=== PATIENT | female | born 1945 | race Caucasian/White ===

== ENCOUNTER → 2018-01-11 07:33 | Outpatient (CLI) | payer MEDICARE, MEDICAID, SELFPAY ==
[2018-01-11 09:11] LABS: Alanine Aminotransferase 47 U/L (12-78); Albumin Level 3.1 gm/dL (3.4-5.0); Alkaline Phosphatase 163 U/L (46-116); Aspartate Amino Transferase 22 U/L (15-37); Bilirubin,Direct 0.1 mg/dL (0.0-0.2); Bilirubin,Total 0.3 mg/dL (0.2-1.0); Chol/HDL Ratio 3.2 (1-3.5); Cholesterol 154 mg/dL (140-200); HDL Cholesterol 48 mg/dL (29-89); LDL Cholesterol 86 mg/dL (0-130); Total Protein,Serum 6.6 gm/dL (6.4-8.2); Triglycerides 101 mg/dL (30-200); VLDL Cholesterol 20 mg/dL (0-40)
== END ==
PROVIDERS: Visit Provider Internal Medicine
DX: E78.5 Hyperlipidemia, unspecified (principal); I10 Essential (primary) hypertension; I25.10 Atherosclerotic heart disease of native coronary artery without angina pectoris; Z72.0 Tobacco use
CPT/HCPCS: 36415; 80061; 80076

== ENCOUNTER → 2018-06-07 08:28 | Outpatient (CLI) | payer MEDICARE, MEDICAID, SELFPAY ==
--- NOTE | 2018-06-07 08:35 | XR_ITS ---
XR chest 2V HISTORY: ITS.REASON: COPD, UNSPECIFIED COPD TYPE ORDERING PHYSICIAN: Manuela Castillo PATIENT AGE: 73 years COMPARISON: PA and lateral chest 09/11/2016 FINDINGS: The cardiomediastinal silhouette and pulmonary vascularity are within normal limits. The lungs are clear without infiltrates, suspicious nodules, or pleural effusions. There is stable small calcified granuloma left posterior gutter No acute bony abnormalities. IMPRESSION: Negative chest, no acute finding
== END ==
PROVIDERS: PCP Nurse Practitioner Family; Visit Provider Nurse Practitioner Family
DX: J44.9 Chronic obstructive pulmonary disease, unspecified (principal)
CPT/HCPCS: 71046

== ENCOUNTER → 2018-06-14 11:18 | Outpatient (CLI) | payer MEDICARE, MEDICAID, SELFPAY | PROVIDERS: PCP Nurse Practitioner Family; Visit Provider Internal Medicine | DX: R00.0 Tachycardia, unspecified (principal) | CPT/HCPCS: 93225; 93226 ==

== ENCOUNTER → 2018-06-20 06:55 | Outpatient (CLI) | payer MEDICARE, MEDICAID, SELFPAY ==
--- NOTE | 2018-06-20 06:57 | CA_ITS ---
PROCEDURE: 2-D M-mode and color Doppler study INDICATIONS FOR THE TEST: Chest pain COPD+ Heart Murmur Tobacco Smoking+ Palpitations+ Fatigue+ Syncope+ Edema+ Hypertension+Diabetes Mellitus Rheumatic Fever SOB+GARLAND+Obesity+Hyperlipidemia Family History HD Additional History CAD, EMPHYSEMA,GERD PATIENT INFORMATION HEIGHT: 65 WEIGHT:190 GENDER: Female B/P:122/68 2-D/M-MODE INTERPRETATION: 2-D MEASUREMENTS OBSERVED VALUES IN CMS Right Ventricular Dimension (RVDd) 2.1 Interventricular Septum (Thickness)(IVsd) 1.9 Left Ventricular Internal Dimensions(LVIDd) 3.8 Left Ventricular Posterior Wall (Thickness)(LVPWd) 1.0 Aortic Root 2.9 Aortic Cusp Separation 1.3 Left Atrial Dimensions (LAD) 3.1 2D 1. Left atrium is qualitatively mildly enlarged, left ventricle is normal size, mild concentric left ventricular hypertrophy, visually estimated ejection fraction of 55-60% with no obvious regional wall motion abnormality. 2. The right atrium is mildly enlarged, right ventricle is normal size and contractility. 3. The aortic valve is minimally thickened and fibrosed 4. The mitral and tricuspid valvular grossly normal. 5. The pulmonic valve is poorly visualized. 6. No significant pericardial effusion noted. DOPPLER INTERROGATION: Doppler interrogation of the aortic, mitral and tricuspid valvular presence of mild mitral and tricuspid regurgitation, calculated right ventricular systolic pressure is 39 mmHg consistent with mild primary hypertension, grade 1 diastolic dysfunction seen with tissue Doppler evidence of raised left atrial pressure. CONCLUSION: 1. Qualitatively mildly enlarged left atrium, normal left ventricular size, mild concentric left ventricular hypertrophy, visually estimated ejection fraction of 55-60% with no obvious regional wall motion abnormality, grade 1 diastolic dysfunction seen with tissue Doppler evidence of raised left atrial pressure. 2. Mild mitral and tricuspid regurgitation, calculated right ventricular systolic pressure is 39 mmHg. 3. No significant pericardial effusion noted.
--- NOTE | 2018-06-20 06:57 | NM_ITS ---
History and Indications: Hypertension,, tobacco use, shortness of breath and palpitations Procedure: Patient received a 0.4 mg of Lexiscan, resting heart rate was 80 beats prominent, resting blood pressure 133/70, with Lexiscan maximum heart rate achieved was 98 bpm, which is less than 85% of the maximum predicted heart rate and a blood pressure 106/57. With Lexiscan patient complained of shortness of breath and chest tightness. Electrocardiogram: Resting electrocardiogram shows sinus rhythm, with Lexiscan there is less than 1.[address] segment depression noted from the baseline EKG. The EKG portion of the Lexiscan Myoview is nondiagnostic. Cardiac stress and resting SPECT images: Cardiac stress and rest SPECT images were obtained using technetium 99 Myoview 31.3 mCi at stress and 10.5 mCi at rest. Gated SPECT further analysis of segmental wall motion and calculation of the ejection fraction also done. Cardiac stress and the suspect images show uniform myocardial activity without any segmental perfusion abnormality, computer derived ejection fraction is over 65% with no obvious regional wall motion abnormality, right ventricle is normal size and contractility. Conclusion: 1. The EKG portion of the Lexiscan Myoview is nondiagnostic. 2. No obvious scintigraphic evidence of reversible ischemia seen, computer derived ejection fraction is over 65% with no obvious regional wall motion abnormality, right ventricle is normal size and contractility 3. Normal Lexiscan Myoview study.
--- NOTE | 2018-06-20 07:14 | HMH.ITSHM ---
RANITIDINE PANTOPRAZOLE NITRO LISINOPRIL HYDROCHLOROTHIAZIDE CARVEDILOL ATORVASTATIN ASA AMLODIPINE ALBUTEROL
== END ==
PROVIDERS: Family Provider Nurse Practitioner Family; PCP Nurse Practitioner Family; Visit Provider Internal Medicine
DX: R06.02 Shortness of breath (principal); R00.0 Tachycardia, unspecified; I25.10 Atherosclerotic heart disease of native coronary artery without angina pectoris; J44.9 Chronic obstructive pulmonary disease, unspecified; F17.200 Nicotine dependence, unspecified, uncomplicated
CPT/HCPCS: 78452; 93017; 93306; A9502; J2785

== ENCOUNTER → 2019-02-15 07:40 | Outpatient (CLI) | payer MEDICARE, MEDICAID, SELFPAY ==
--- NOTE | 2019-02-15 07:54 | US_ITS ---
US abdomen limited HISTORY:Upper Abdominal pain RUQ pain nausea 3 weeks ORDERING PHYSICIAN: Manuela Castillo PATIENT AGE: 73 years Comparison: HIDA scan from 2016 revealed 46% ejection fraction There is also CT abdomen and pelvis from July 2016 Sagittal, transverse and decubitus imaging of the gallbladder was performed. FINDINGS: GALLBLADDER - No stones are evident. There is no gallbladder wall thickening. Common duct is normal in diameter. Liver: Septated cyst area at the posterior right lobe the liver measures up to 3.2 cm maximally x 1.9 cm. This has a benign appearance on today's ultrasound and also note that it appears unchanged since coronal CT image of liver from December 2015. Otherwise. no significant findings at liver. No biliary ductal dilatation Common duct normal diameter measuring 2.5 mm at hilum of liver. Portal vein normal caliber. Pancreas: Unremarkable. No mass no pancreatic ductal dilatation Right kidney: Small cyst at right kidney anterior/ medial aspect measures up to 1.6 cm. Stable since prior 2016 CT. No hydronephrosis. Right kidney normal size 10 cm length.. IMPRESSION: Negative gallbladder ultrasound. No gallstones stones evident. Liver. 3.2 cm septated cyst right lobe liver. Benign cystic appearance with No significant change since July 2016 CT abdomen Pancreas, common duct, unremarkable Stable 1.6 cm cyst anterior aspect right kidney again noted.
== END ==
PROVIDERS: PCP Nurse Practitioner Family; Visit Provider Nurse Practitioner Family
DX: R10.11 Right upper quadrant pain (principal)
CPT/HCPCS: 76705

== ENCOUNTER → 2019-06-12 11:14 | Outpatient (CLI) | payer MEDICARE, MEDICAID, SELFPAY ==
--- NOTE | 2019-06-12 11:19 | XR_ITS ---
XR chest 2V HISTORY: Shortness of breath ITS.REASON: SOB ORDERING PHYSICIAN: Manuela Castillo APRN PATIENT AGE: 74 years COMPARISON: 06/07/2018 FINDINGS: The cardiomediastinal silhouette and pulmonary vascularity are within normal limits. The lungs are clear without infiltrates, suspicious nodules, or pleural effusions. There are minimal fibrotic changes in the right lung base No acute bony abnormalities. IMPRESSION: No change with no acute finding
--- NOTE | 2019-06-12 11:20 | XR_ITS ---
EXAM: XR lumbar spine min 4V HISTORY: ITS.REASON: LUMBAGO WITH BILAT SCIATICA ORDERING PHYSICIAN: Manuela Castillo APRN PATIENT AGE: 74 years COMPARISON: 10/05/2016 FINDINGS: There is normal alignment. Mild degenerative disc disease at L1-L2 L2-L3 and L3-L4. There is mild concavity in the superior endplate of L2 suggesting mild compressive changes. Is not readily. On previous exam of 10/05/2016. There is generalized vascular calcification. IMPRESSION: 1. Minimal concave deformity of the superior endplate of L2 suggesting mild compressive change age indeterminate but not present on 10/05/2016. No retropulsed fragments 2. Mild degenerative changes
== END ==
PROVIDERS: PCP Nurse Practitioner Family; Visit Provider Nurse Practitioner Family
DX: R06.02 Shortness of breath (principal)
CPT/HCPCS: 71046; 72110

== ENCOUNTER → 2019-06-15 14:09 | Outpatient (CLI) | payer MEDICARE, MEDICAID, SELFPAY ==
--- NOTE | 2019-06-15 14:12 | MR_ITS ---
MR lumbar spine wo con, MR 3-d myelogram/MRCP HISTORY: LBP XYRS. Bilateral leg pain. Bilateral feet numbness. ITS.REASON: NON-TRAUMATIC COMPRESSION FX ORDERING PHYSICIAN: Manuela Castillo APRN PATIENT AGE: 74 years Comparison: 06/14/2012 TECHNIQUE: Standard multiplanar multiecho sequences are performed without contrast. 3-D MIP and myelographic images are also rendered and reviewed FINDINGS: Spinal cord ends at the L2 level. There is normal alignment. There is mild lumbar scoliosis convex right. The disc spaces are well-preserved. No significant bulge, herniation, canal stenosis, or significant foraminal or lateral recess narrowing is evident. Spinal cord has an unremarkable appearance. Mild facet hypertrophic changes present at L5-S1. Incidental note made of small right renal cyst. Small lipoma is noted involving the L4 vertebral body IMPRESSION: Minimal lumbar scoliosis convex right otherwise essentially negative MRI of the lumbar spine. Overall no significant change
== END ==
PROVIDERS: PCP Nurse Practitioner Family; Visit Provider Nurse Practitioner Family
DX: M48.56XA Collapsed vertebra, not elsewhere classified, lumbar region, initial encounter for fracture (principal)
CPT/HCPCS: 72148; 76376

== ENCOUNTER → 2019-07-07 08:11 | Outpatient (CLI) | payer MEDICARE, MEDICAID, SELFPAY ==
--- NOTE | 2019-07-07 08:20 | XR_ITS ---
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 There is an approximate 1-2 mm anterior listhesis of C4 on C5 likely secondary to arthritic changes of the apophyseal joints. There is mild disc space narrowing at C5-6 and C6-7 levels. The left neural foramina appear normal. There is mild neural foraminal narrowing on the right side is C5-6 level secondary to spurring of the uncinate joints. There are mild multilevel arthritic changes of the apophyseal joints. The prevertebral soft tissues are normal. There are mild arthritic changes of the atlantoaxial joint but the odontoid is intact. IMPRESSION: Mild to moderate degenerate disc disease C5-6 and C6-7 Dictated by: Dr. Cal Mi MD 07/07/2019 08:47 Signed by: <Electronically signed by Dr. Cal Mi MD in [place]> 07/07/2019 08:47
== END ==
PROVIDERS: PCP Nurse Practitioner Family; Visit Provider Nurse Practitioner Family
DX: M54.2 Cervicalgia (principal)
CPT/HCPCS: 72050

== ENCOUNTER → 2019-07-21 09:58 | Outpatient (CLI) | payer MEDICARE, MEDICAID, SELFPAY ==
--- NOTE | 2019-07-21 10:01 | MR_ITS ---
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 3-D MIP and myelographic images are also rendered and reviewed FINDINGS: There is normal alignment. The cranial cervical junction has an unremarkable appearance. C2-C3: Unremarkable. C3-C4: Unremarkable. C4-C5: Minimal anterolisthesis of C4 of 3 mm. Unchanged. C5-C6: Degenerate disc disease with mild bulging disc with minimal contour deformity of the anterior aspect of the cord not significantly changed. C6-C7: Degenerate disc disease with mild bulging disc slightly more prominent compared to the previous study without impingement. C7-T1: Unremarkable. IMPRESSION: 1. No disc herniation or canal stenosis. 2. C4-C5: Minimal anterolisthesis of C4 of 3 mm. Unchanged. 3. C5-C6: Degenerate disc disease with mild bulging disc with minimal contour deformity of the anterior aspect of the cord not significantly changed. 4. C6-C7: Degenerate disc disease with mild bulging disc slightly more prominent compared to the previous study without impingement. Dictated by: Deniz Goodwin MD 07/23/2019 12:43 Electronically signed by Deniz Goodwin MD in [place] 07/27/2019 13:47
== END ==
PROVIDERS: PCP Nurse Practitioner Family; Visit Provider Nurse Practitioner Family
DX: M50.30 Other cervical disc degeneration, unspecified cervical region (principal)
CPT/HCPCS: 72141; 76376

== ENCOUNTER → 2019-11-06 08:49 | Outpatient (CLI) | payer MEDICARE, SELFPAY ==
[2019-11-06 10:45] LABS: Alanine Aminotransferase 22 U/L (12-78); Alkaline Phosphatase 101 U/L (46-116); Aspartate Amino Transferase 13 U/L (15-37); Bilirubin,Direct 0.1 mg/dL (0.0-0.2); Bilirubin,Indirect 0.2 mg/dL (0.0-0.9); Bilirubin,Total 0.3 mg/dL (0.2-1.0); Chol/HDL Ratio 5.4 (1-3.5); Cholesterol 252 mg/dL (140-200); HDL Cholesterol 47 mg/dL (29-89); LDL Cholesterol 190 mg/dL (0-130); Total Protein,Serum 6.9 gm/dL (6.4-8.2); Triglycerides 77 mg/dL (30-200); VLDL Cholesterol 15 mg/dL (0-40)
== END ==
PROVIDERS: Visit Provider Urology
DX: I11.9 Hypertensive heart disease without heart failure; I25.10 Atherosclerotic heart disease of native coronary artery without angina pectoris; R06.02 Shortness of breath; E78.49 Other hyperlipidemia
CPT/HCPCS: 36415; 80061; 80076

== ENCOUNTER → 2020-01-04 09:35 | Outpatient (CLI) | payer MEDICARE, MEDICAID, SELFPAY ==
--- NOTE | 2020-01-04 09:46 | XR_ITS ---
PROCEDURE: XR SHOULDER RT MIN 2V CLINICAL INDICATION: RT SHOULDER PAIN COMPARISON: No exams were available for comparison FINDINGS: There is no fracture dislocation or other focal bony lesion. Mild acromioclavicular joint arthropathy is noted. IMPRESSION: No acute findings. Dictated by: Fortunato Barragan 01/04/2020 12:05 Electronically signed by Fortunato Barragan in [place] 01/04/2020 12:05
== END ==
PROVIDERS: PCP Nurse Practitioner Family; Visit Provider Nurse Practitioner Family
DX: M25.511 Pain in right shoulder (principal)
CPT/HCPCS: 73030

== ENCOUNTER 2020-02-26 10:40 | Emergency (ER) | payer MEDICARE, MEDICAID, SELFPAY ==
[2020-02-26 10:41] VITALS: BP 133/72; PULSE 74; RESP 17; TEMP 36.9; O2SAT 94; BMI 34.1
--- NOTE | 2020-02-26 10:44 | XR_ITS ---
PROCEDURE: XR CHEST 2V CLINICAL HISTORY: chest pain Midline chest pain COMPARISON: CXR CHEST(2 VIEWS-NOT PORTABLE) from 09/11/[address] [facility] [address] CHEST W/ CONTRAST from 10/05/2016 CXR2V XR chest 2V from 06/07/2018 XR CHEST 2V from 09/12/2019 FINDINGS: The cardiomediastinal silhouette and pulmonary vascularity are within normal limits. There is patchy atelectasis or infiltrate overlying the left heart. The remaining lungs are clear. No acute bony abnormalities. IMPRESSION: Atelectasis infiltrate or fibrosis in the left lower lung zone Dictated by: Deniz Goodwin MD 02/26/2020 11:35 Electronically signed by Deniz Goodwin MD in [place] 02/26/2020 11:35
[2020-02-26 10:57] LABS: Microscopic, Urine URINE MICROSCOPIC (MICROSCOPIC)
[2020-02-26 10:58] LABS: Basophils % 0.4 % (0.1-2.0); Eosinophils # 0.1 K/mm3 (0.0-0.4); Eosinophils % 1.1 % (0.1-12.0); Hematocrit 45.7 % (37.0-47.0); Hemoglobin 15.1 g/dL (12.2-16.2); Lymphocytes # 2.8 K/mm3 (0.7-4.5); Lymphocytes % 32.3 % (10-50); Mean Corpuscular Hemoglobin 29.2 pg (27.0-31.2); Mean Corpuscular Volume 88.5 fl (81-99); Mean Platelet Volume 9.2 fl (7.4-10.4); Monocytes # 0.6 K/mm3 (0.1-1.0); Monocytes % 7.1 % (1.7-9.3); Neutrophils # 5.2 K/mm3 (1.8-7.8); Neutrophils % 59.2 % (37.0-80.0); Platelet Count 194 K/mm3 (142-424); Red Blood Count 5.17 M/mm3 (4.20-5.40); White Blood Count 8.7 K/mm3 (4.8-10.8)
[2020-02-26 11:01] LABS: Appearance,Urine SL CLOUDY (Clear); Bilirubin,Urine Negative (Negative); Blood, Urine Negative (Negative); Color,Urine YELLOW (Yellow); Glucose,Urine (UA) Negative (Negative); Ketones,Urine Negative (Negative); Leukocyte Esterase,Urine Negative (Negative); Nitrate,Urine Negative (Negative); PH,Urine 6.5 (5.0-8.5); Protein,Urine TRACE (Negative); Specific Gravity, Urine 1.025 (1.005-1.030); Urobilinogen,Urine 0.2 EU/dl (0.2)
[2020-02-26 11:03] LABS: Chloride 104 mmol/L (98-107); Potassium 4.4 mmoL/L (3.5-5.1); Sodium 138 mmol/L (136-145)
[2020-02-26 11:06] LABS: Alanine Aminotransferase 18 U/L (12-78); Alkaline Phosphatase 96 U/L (38-126); Anion Gap 9.4 mEq/L (5-15); Aspartate Amino Transferase 26 U/L (14-36); Bilirubin,Indirect 0.2 mg/dL (0.0-0.9); Bilirubin,Total 0.2 mg/dl (0.2-1.3); Bilirubin,Unconjugated 0.3 mg/dL (0.0-1.1); Blood Urea Nitrogen 22 mg/dl (7-17); Calcium 9.2 mg/dl (8.4-10.2); Carbon Dioxide 29 mmol/L (22.0-30.0); Creatinine Clearance Estimated 72 mL/min (50-200); Estimated Glomerular Filt Rate 82 ml/min (>60); GFR (African American) 99 ML/MIN (>60); Glucose 113 mg/dl (74-100); Total Protein,Serum 7.4 g/dl (6.3-8.2)
--- NOTE | 2020-02-26 11:08 | CT_ITS ---
PROCEDURE: CT ANGIO CHEST CLINCIAL INDICATION: chest pain, sharp, radiates to back COMPARISON: [facility] CT CHEST W/ CONTRAST from 10/05/2016 TECHNIQUE: IV Contrast: 70ML OPTIRAY 350 Axial images obtained with sagittal and coronal reformats. All CT scans at the facility use one or more dose reduction, viz: automated exposure control, ma/kV adjustment per patient size (including targeted exams where dose is matched to indication, i.e. head), or iterative reconstruction technique. FINDINGS: HEART AND MEDIASTINAL STRUCTURES: No acute finding. No evidence of aortic aneurysm dissection or pulmonary embolus. LUNGS AND PLEURAL SPACES: There is mild biapical fibrotic change atelectatic or fibrotic changes are present in the right lower lobe and lingula. There is evidence of old granulomatous disease. There are mild centrilobular emphysematous changes BONY STRUCTURES: No acute bony abnormalities apparent. UPPER ABDOMEN: There is a stable hypodensity in the right hepatic lobe at 3 cm consistent with a cyst. ADDITIONAL FINDINGS: No other significant abnormalities. IMPRESSION: No acute finding Centrilobular emphysema with scattered areas of scarring Dictated by: Deniz Goodwin MD 02/26/2020 12:24 Electronically signed by Deniz Goodwin MD in [place] 02/26/2020 12:24
--- NOTE | 2020-02-26 11:09 | HMH.EDGENADL ---
ED Disposition Clinical Impression: Atypical chest pain Chronic obstructive lung disease Qualifiers: COPD type: chronic bronchitis Chronic bronchitis type: unspecified Qualified Code(s): J42 - Unspecified chronic bronchitis Disposition: Home, Self-Care Condition on Discharge: Fair Instructions: DI for Chronic Obstructive Pulmonary Disease, DI for Atypical Chest Pain Additional Instructions: You have been evaluated for chest pain, atypical. Does not appear to be a heart attack or an abnormality of the aorta. It could be due to COPD. Please take medications as prescribed. Follow-up with your primary care doctor in 1 to 2 days. Return to the emergency department if you have new or worsening symptoms, chest pain, shortness of breath, syncope, other concerns Referrals: Provider,Referral, [Referring] - Time of Disposition: 13:56 - Critical Care Critical Care Time: No Attestation: On 02/26/20, the high probability of a clinically significant, sudden or life threatening deterioration of the following system(s) required my full and direct attention, intervention and personal management. The time I documented below is in addition to time spent performing reported procedures but includes the following listed in this critical care notation. Medical Decision Making - Kervin Inquiry Pt receiving controlled substance: No Vital Signs: 02/26/20 10:41 02/26/20 14:00 Temperature 98.5 F 98.5 F Temperature Source Oral Oral Pulse Rate 74 Pulse Rate [Right Radial] 74 Respiratory Rate 17 17 Blood Pressure 133/72 Blood Pressure [Right Arm] 133/72 Blood Pressure Mean [Right Arm] 92 Blood Pressure Source Automatic Cuff Blood Pressure Position Sitting 02 Sat by Pulse Oximetry 94 L Oxygen Delivery Method Room Air Room Air - Lab Data Lab Results 02/26/20 10:44: WBC 8.7, RBC 5.17, Hgb 15.1, Hct 45.7, MCV 88.5, MCH 29.2, MCHC 33.0, RDW 14.0, Plt Count 194, MPV 9.2, Neut % (Auto) 59.2, Lymph % (Auto) 32.3, [place] % (Auto) 7.1, Eos % (Auto) 1.1, Baso % (Auto) 0.4, Neut # (Auto) 5.2, Lymph # (Auto) 2.8, [place] # (Auto) 0.6, Eos # (Auto) 0.1, Baso # (Auto) 0.0 02/26/20 10:44: Sodium 138, Potassium 4.4, Chloride 104, Carbon Dioxide 29, Anion Gap 9.4, BUN 22 H, Creatinine 0.70, Estimated Creat Clear 72, Estimated GFR 82, Est GFR ( Amer) 99, Glucose 113 H, Calcium 9.2, Total Bilirubin 0.2, Direct Bilirubin 0.0, Conjugated Bilirubin 0.0, Indirect Bilirubin 0.2, Unconjugated Bilirubin 0.3, AST 26, ALT 18, Alkaline Phosphatase 96, Troponin I < 0.01, Total Protein 7.4, Albumin 4.0 02/26/20 10:50: Urine Color Yellow, Urine Appearance Sl cloudy, Urine pH 6.5, Ur Specific [place] 1.025, Urine Protein Trace, Urine Glucose (UA) Negative, Urine Ketones Negative, Urine Blood Negative, Urine Nitrate Negative, Urine Bilirubin Negative, Urine Urobilinogen 0.2, Ur Leukocyte Esterase Negative, Urine RBC Occasional, Urine WBC None, Ur Squamous Epith Cells 3-5, Urine Bacteria Trace 02/26/20 13:05: Troponin I < 0.01 Result diagrams: 02/26/20 10:44 02/26/20 10:44 Orders (Tests/Meds): ED MEDICATIONS Discontinued Medications Generic Name Dose Route Start Last Admin Trade Name Ljq PRN Reason Stop Dose Admin Aspirin 324 mg 02/26/20 10:44 02/26/20 10:50 Aspirin 81mg Chewable Tablet PO 02/26/20 10:45 324 mg ONCE ONE Administration Iohexol 70 ml 02/26/20 12:04 02/26/20 12:05 Rad-Omnipaque 350 100ml Bottle IV 02/26/20 12:05 70 ml ONCE ONE Administration Sodium Chloride 50 ml 02/26/20 12:04 02/26/20 12:05 Rad-Ns 50ml Vial IV 02/26/20 12:05 50 ml ONCE ONE Administration Sodium Chloride 10 ml 02/26/20 12:04 02/26/20 12:05 Rad-Saline Flush 10ml Syringe IV 02/26/20 12:05 10 ml ONCE ONE Administration - CT Data CT Scan: Chest Time Received: 12:[address] Reviewed: Yes: I have reviewed the patient's CT results, I have viewed the radiologist's interpretation Findings Narrative: CTA FINDINGS
[2020-02-26 11:23] LABS: Troponin I < 0.01 ng/ml (0.00-0.034)
[2020-02-26 11:52] LABS: Bacteria,Urine Trace /lpf; RBC,Urine Occasional #/hpf (0-3)
--- NOTE | 2020-02-26 13:04 | ECG_ITS ---
APPROVED REPORT Exam: Resting ECG HR:75 bpm ECG Measurements Heart Rate 75 AXES GA 166 P 59 QRSd 68 QRS -3 QT 372 T 18 QTc 415 <Conclusion> Normal sinus rhythm Motion artifact Otherwise a normal ECG Electronically signed by : Serjio Faith, 02/26/2020 16:11:06
--- NOTE | 2020-02-26 13:08 | PC.NURSE ---
second troponin drawn and to lab for resulting.
[2020-02-26 13:38] LABS: Troponin I < 0.01 ng/ml (0.00-0.034)
[2020-02-26 14:00] VITALS: BP 133/72; PULSE 74; RESP 17; TEMP 36.9; O2SAT 94
== END 2020-02-26 14:03 | disposition home or self-care (01) ==
LOC: ER 10:51
PROVIDERS: Emergency Provider Emergency Medicine; PCP Nurse Practitioner Family
DX: J42 Unspecified chronic bronchitis (principal); J44.9 Chronic obstructive pulmonary disease, unspecified; R07.89 Other chest pain; K21.9 Gastro-esophageal reflux disease without esophagitis; E78.5 Hyperlipidemia, unspecified; I10 Essential (primary) hypertension; F17.210 Nicotine dependence, cigarettes, uncomplicated; Z88.8 Allergy status to other drugs, medicaments and biological substances; Z79.899 Other long term (current) drug therapy
CPT/HCPCS: 71046; 71275; 80048; 80076; 81001; 84484; 85025; 93005; 99283; Q9967

== ENCOUNTER → 2020-03-27 06:51 | Outpatient (CLI) | payer MEDICARE, MEDICAID, SELFPAY ==
--- NOTE | 2020-03-27 06:52 | CA_ITS ---
APPROVED REPORT EXAM: Comprehensive 2D, Doppler, and color-flow Echocardiogram Procurement Manager: Tosin Rousseau RVT Ht: 5 ft 5 in Wt: 196lbs BSA: 1.96 BP: 134/80 mmHg Indications: SOA,CP,SMOKER,GARLAND,HLD,HTN,COPD,CAD 2D Dimensions LVOT 1.69 cm (M/F) 1.5-2.5 M-Mode Dimensions RVDd 3.42 cm (0.9-2.6) LVDd 3.89 cm (3.5-5.7) LVDs 2.18 cm (3.5-5.7) IVSd 0.68 cm (0.6-1.1) PWd 0.68 cm (0.6-1.1) EF (Teich) 75.90% FS 44.00% EDV (Teich) 65.50 mL ESV (Teich) 15.80 mL LV Diastology E/A Ratio 0.48 Mitral Valve MV A Velocity 100.00 (40-130 cm/s) Left Ventricle Left atrium is mildly enlarged, left ventricle is normal size, mild concentric left ventricular hypertrophy, visually estimated ejection fraction 50%, there is moderate hypokinesis involving the inferior basal and posterolateral wall. Endocardial surfaces are poorly visualized, Doppler evidence of impaired relaxation seen, there is no tissue Doppler performed. Right Ventricle Right atrium and right ventricle are mildly enlarged with normal contractility. Aortic Valve Aortic valve is thickened and calcified leaflet chordae display good mobility, there is no aortic stenosis or aortic insufficiency. Mitral Valve Mitral valve is leaflets are minimally thickened, there is no mitral stenosis, there is mild mitral regurgitation. Tricuspid Valve Tricuspid valve is grossly normal, there is mild tricuspid regurgitation. Calculated right ventricular systolic pressure is 38 mmHg. Pulmonic Valve Pulmonic valve is poorly visualized. Great Vessels Aortic root is normal size. Pericardium No significant pericardial effusion noted. Conclusion 1. Biatrial enlargement, normal left ventricular size, mild concentric left ventricular hypertrophy, visually estimated ejection fraction 50% with segmental wall motion abnormality described above, grade 1 diastolic dysfunction seen without tissue Doppler evidence of raise left atrial pressure. 2. Mildly enlarged right ventricle with normal contractility. 3. Mild mitral and tricuspid regurgitation, calculated right ventricular systolic pressure is 38 mmHg. 4. No significant pericardial effusion noted. Electronically signed by : Ahmet Leger, 03/28/2020 12:10:36
--- NOTE | 2020-03-27 06:52 | CA_ITS ---
APPROVED REPORT Exam: Pharmacologic Technologist: Susan Lyon Ht: 5 ft 5 in Wt: 196 lbs BSA: 1.96 m2 HR: 71 bpm BP: 145/66 mmHg Indications: Shortness of Air, chest pain 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 Medications: Amlodipine,,,,, Lisinopril,,,,, Levothyroxine,,,,, Pantoprazole,,,,, Carvedilol,,,,, Albuterol,,,,, RoSUVASTATIN,,,,, Budesomide,,,,, Asprin,,,,, Stress Test Details Test: LEXISCAN HR Resting HR: 75 bpm Max Heart Rate (APMHR): 146 bpm Max HR Achieved: 98 bpm Target HR (85% APMHR): 124 bpm % of APMHR: 67 Recovery HR: 83 bpm BP Resting BP: 145.0/66.0 mmHg Max BP: 145.0/66.0 mmHg Recovery BP: 132.0/60.0 mmHg ECG Clinical Exercise duration: 04:00 min Highest Stage Achieved: Stress ECG Conclusion Resting ECG: Sinus rhythm Lexiscan portion completed. Patient complained of shortness of breath during peak infusion. Symptoms: Shortness of breath during peak infusion. Resolved in recovery. No chest pain. Arrhythmias/Ectopy: No ectopy. ST-T Changes: Less than 1.[address] depression. Concluision: Images to follow. Test Summary . . Myoview Injected . . . Stop exercise at 04:00 . . . . . Electronically signed by : Ahmet Leger, 03/28/2020 10:06:56
--- NOTE | 2020-03-27 06:52 | NM_ITS ---
APPROVED REPORT Exam: Nuclear Stress Test Indication: Chest pain, SOB, Palpitations, HTN, High cholesterol, Tobacco use Patient Location: Outpatient Stress Tech: Susan Lyon NM Tech:Chaya Flores, ARRT, RT (R)(N) Ht: 5 ft 5 in Wt: 196 lbs Bra Size: 42C HR: 71 bpm BP: 145/66 mmHg BSA: 1.96 m2 BMI: 32.6 History: Chest pain, SOB, Palpitations, HTN, High cholesterol, Tobacco use Procedure: Patient received a 0.4 mg of intravenous Lexiscan, resting heart rate 1 bpm, resting blood pressure 145/66 mmHg, with Lexiscan maximum heart rate achived was 93 bpm which is Less than 85 % of the maximum predicted heart rate and blood pressure was 132/62 mmHg. With Lexiscan, patient denied any complaint of chest pain. Electrocardiogram Resting electrocardiogram showed sinus rhythm, with Lexiscan there is less than 1.[address] segment depression noted from the baseline EKG. The EKG portion of the Lexiscan is nondiagnostic. Cardiac Stress and Resting SPECT Images: Cardiac Stress and Resting SPECT images were obtained using technetium 99m Myoview 30.9 mCi stress and 10.60 mCi at rest. Gated SPECT with analysis of segmental wall motion and calculation of the ejection fraction also done. Cardiac stress and resting SPECT images show uniform myocardial activity without segmental perfusion abnormality, computer derived ejection fraction is over 65% with no regional wall motion abnormality, right ventricle is normal size and contractility. Conclusion: 1. The EKG portion of the Lexiscan Myoview is nondiagnostic. 2. No scintigraphic evidence of reversible ischemia seen, computer derived ejection fraction is over 65% with no regional wall motion abnormality, right ventricle is normal size and contractility. 3. Normal Lexiscan Myoview study. Electronically signed by : Ahmet Leger, 03/28/2020 10:09:12
--- NOTE | 2020-03-27 08:42 | HMH.ITSHM ---
Current Home Medications as stated by this patient Jessica Payton or underwriting service representative. []ROSUVASTATIN PANTOPRAZOLE NITRO LISINOPRIL LEVOTHYROXINE CARVEDILOL BUDESONIDE ASA AMLODIPINE ALBUTEROL
== END ==
PROVIDERS: PCP Nurse Practitioner Family; Visit Provider Nurse Practitioner Family
DX: F17.200 Nicotine dependence, unspecified, uncomplicated; I11.9 Hypertensive heart disease without heart failure; I20.9 Angina pectoris, unspecified; J42 Unspecified chronic bronchitis; R06.02 Shortness of breath; E78.49 Other hyperlipidemia
CPT/HCPCS: 78452; 93017; 93306; A9502; J2785

== ENCOUNTER → 2020-03-28 07:11 | Outpatient (CLI) | payer MEDICARE, MEDICAID, SELFPAY ==
[2020-03-28 08:04] LABS: Alanine Aminotransferase 18 U/L (12-78); Alkaline Phosphatase 98 U/L (38-126); Aspartate Amino Transferase 21 U/L (14-36); Bilirubin,Indirect 0.3 mg/dL (0.0-0.9); Bilirubin,Total 0.3 mg/dl (0.2-1.3); Bilirubin,Unconjugated 0.4 mg/dL (0.0-1.1); Cholesterol 188 mg/dl (140-200); Triglycerides 93 mg/dl (30-150); VLDL Cholesterol 19 mg/dL (0-40)
[2020-03-28 08:05] LABS: Albumin Level 3.5 g/dl (3.5-5.0); HDL Cholesterol 62 mg/dl (40-60); Total Protein,Serum 6.6 g/dl (6.3-8.2)
[2020-03-28 08:16] LABS: Direct LDL Cholesterol 137.35 mg/dL (100-129)
== END ==
PROVIDERS: Visit Provider Nurse Practitioner Family
DX: E78.49 Other hyperlipidemia; R06.02 Shortness of breath; I11.9 Hypertensive heart disease without heart failure; I20.9 Angina pectoris, unspecified; J42 Unspecified chronic bronchitis; F17.200 Nicotine dependence, unspecified, uncomplicated
CPT/HCPCS: 36415; 80061; 80076

== ENCOUNTER 2020-04-16 08:20 | Day surgery (SDC) | payer MEDICARE, MEDICAID, SELFPAY ==
[2020-04-16] VITALS (12 sets, daily range): BP systolic 91–152; BP diastolic 54–82; PULSE 63–78; RESP 16; TEMP 37.1; O2SAT 92–99; BMI 32.5
--- NOTE | 2020-04-16 09:00 | IR_ITS ---
APPROVED REPORT Patient Location: Outpatient [facility] Polisher: JEANNIE Soriano RT (R) PROCEDURES Left heart catheterization Left ventriculogram Selective coronary angiogram Drug-eluting stent deployment to the proximal and mid dominant right coronary artery INDICATION Abnormal echocardiogram with regional wall motion abnormality, Coronary artery disease, Angina pectoris Informed consent was obtained prior to the procedure. COMPLICATIONS None Estimated Blood Loss: less than 10ml TECHNIQUE One percent lidocaine used to anesthetize the right anterior aspect of the wrist. The right radial artery was accessed via the Seldinger technique. A 6 Zambian sheath was placed in the right radial artery. 2.5 mg of verapamil, 800 mcg of nitroglycerin, 1mg Lidocaine and 5000 U Heparin were given through the arterial sheath. The trap catheter was also used to perform left heart catheterization, left ventriculogram and selective coronary angiogram. At the end of the diagnostic angiogram therapeutic heparin was administered and and I Lou right guide catheter was used to intubate the right coronary artery followed by a BMW wire being used to traverse the stenosis. A 3.5 x 38 mm resolute abimael stent was deployed at 16 chaparro reducing the severe and mild stenosis to 0%. CHRISTI-3 flow was present before and after the procedure. At the end of the procedure the apparatus was removed the sheath was removed good hemostasis was achieved using TR banding patient was transferred to the postop holding in stable condition ANGIOGRAPHIC RESULTS The left main artery Normal The left anterior descending artery Is proximally normal with mid vessel 10 to 20% stenoses The circumflex artery Nondominant yet still large and normal The right coronary artery Is dominant and has a proximal hazy 70% stenosis preceded by concentric 30% stenosis and followed by a mid vessel 40% stenosis. Distally there are 20 and 30% stenoses The [place] ventriculogram reveals Preserved 60% The left ventricular end-diastolic pressure 15 mmHg IMPRESSION Severe single-vessel coronary artery disease Successful stenting of the proximal to mid right coronary severe disease reduced to 0% with one drug-eluting stent Preserved ejection fraction Mildly elevated LVEDP PLAN 1. Dual antiplatelet therapy 2. Cardiac rehabilitation 3. Avoidance of tobacco products 4. LDL less than 55 5. Risk factor modification Electronically signed by : Keith Guillory, 04/16/2020 12:43:38
[2020-04-16 09:11] LABS: Basophils # 0.1 K/mm3 (0-0.2); Basophils % 1.3 % (0.1-2.0); Eosinophils # 0.2 K/mm3 (0.0-0.4); Eosinophils % 2.3 % (0.1-12.0); Hematocrit 43.4 % (37.0-47.0); Hemoglobin 14.5 g/dL (12.2-16.2); Lymphocytes # 2.8 K/mm3 (0.7-4.5); Mean Corpuscular HGB Conc 33.5 g/dL (31.8-35.4); Mean Corpuscular Hemoglobin 30.1 pg (27.0-31.2); Mean Corpuscular Volume 89.9 fl (81-99); Mean Platelet Volume 9.3 fl (7.4-10.4); Monocytes # 0.5 K/mm3 (0.1-1.0); Monocytes % 5.5 % (1.7-9.3); Neutrophils # 5.8 K/mm3 (1.8-7.8); Neutrophils % 60.9 % (37.0-80.0); Platelet Count 193 K/mm3 (142-424); Red Blood Count 4.82 M/mm3 (4.20-5.40); Red Cell Distribution Width 14.6 % (11.5-17.5); White Blood Count 9.5 K/mm3 (4.8-10.8)
[2020-04-16 09:12] LABS: Chloride 105 mmol/L (98-107)
[2020-04-16 09:13] LABS: Sodium 136 mmol/L (136-145)
[2020-04-16 09:16] LABS: Blood Urea Nitrogen 16 mg/dl (7-17); Calcium 8.8 mg/dl (8.4-10.2); Carbon Dioxide 29 mmol/L (22.0-30.0); Creatinine Clearance Estimated 69 mL/min (50-200); Estimated Glomerular Filt Rate 82 ml/min (>60); GFR (African American) 99 ML/MIN (>60); Glucose 98 mg/dl (74-100)
[2020-04-16 13:25] LABS: CATHL Activated Clotting Time > 400 SEC (74-125)
--- NOTE | 2020-04-16 14:26 | HMH.PHACLD ---
Jessica Payton has received discharge medication counseling on the following medications: PATIENT STARTED ON BRILINTA 90 MG BID. PATIENT IS ALREADY TAKING CARVEDILOL 12.5 MG BID, ASPIRIN 81 MG DAILY, LISINOPRIL 20 MG BID, AND ROSUVASTATIN 20 MG DAILY.
== END 2020-04-16 14:58 | disposition home or self-care (01) ==
LOC: CATHLAB 08:21
PROVIDERS: PCP Nurse Practitioner Family; Visit Provider Internal Medicine
DX: E78.2 Mixed hyperlipidemia (principal); I11.9 Hypertensive heart disease without heart failure; R06.02 Shortness of breath; R93.1 Abnormal findings on diagnostic imaging of heart and coronary circulation; Z72.0 Tobacco use; I25.118 Atherosclerotic heart disease of native coronary artery with other forms of angina pectoris; E03.9 Hypothyroidism, unspecified; E78.5 Hyperlipidemia, unspecified; Z88.8 Allergy status to other drugs, medicaments and biological substances; Z79.82 Long term (current) use of aspirin; Z79.51 Long term (current) use of inhaled steroids; Z79.899 Other long term (current) drug therapy; J44.9 Chronic obstructive pulmonary disease, unspecified
CPT/HCPCS: 80048; 85025; 85347; 92928; 93458; 99152; C1725; C1769; C1876; C9600; J1644; Q9967

== ENCOUNTER 2020-05-02 08:55 | Outpatient (RCR) | payer MEDICARE, MEDICAID, SELFPAY | END 2020-06-17 11:08 | disposition home or self-care (01) | LOC: PT 08:55 | PROVIDERS: Visit Provider Internal Medicine | DX: I25.10 Atherosclerotic heart disease of native coronary artery without angina pectoris (principal) | CPT/HCPCS: 93798 ==

== ENCOUNTER → 2020-05-28 07:21 | Outpatient (CLI) | payer MEDICARE, MEDICAID, SELFPAY ==
[2020-05-28 09:03] LABS: Alanine Aminotransferase 16 U/L (12-78); Albumin Level 3.5 g/dl (3.5-5.0); Alkaline Phosphatase 97 U/L (38-126); Aspartate Amino Transferase 20 U/L (14-36); Bilirubin,Direct 0.1 mg/dl (0.0-0.4); Bilirubin,Indirect 0.3 mg/dL (0.0-0.9); Bilirubin,Total 0.4 mg/dl (0.2-1.3); Bilirubin,Unconjugated 0.4 mg/dL (0.0-1.1); Chol/HDL Ratio 2.3 (1-3.5); Cholesterol 129 mg/dl (140-200); HDL Cholesterol 57 mg/dl (40-60); Total Protein,Serum 6.7 g/dl (6.3-8.2); Triglycerides 86 mg/dl (30-150); VLDL Cholesterol 17 mg/dL (0-40)
[2020-05-28 09:15] LABS: Direct LDL Cholesterol 64.73 mg/dL (100-129)
== END ==
PROVIDERS: Visit Provider Nurse Practitioner Family
DX: E78.5 Hyperlipidemia, unspecified (principal)
CPT/HCPCS: 36415; 80061; 80076

== ENCOUNTER → 2020-06-14 14:58 | Outpatient (CLI) | payer MEDICARE, MEDICAID, SELFPAY ==
--- NOTE | 2020-06-14 15:02 | CT_ITS ---
PROCEDURE: CT HEAD/BRAIN WO CON CLINICAL INDICATION: DIZZINESS COMPARISON: No exams were available for comparison TECHNIQUE: Axial images obtained. All CT scans at the facility use one or more dose reduction, viz: automated exposure control, ma/kV adjustment per patient size (including targeted exams where dose is matched to indication, i.e. head), or iterative reconstruction technique. FINDINGS: No midline shift, mass effect, intracranial hemorrhage, hydrocephalus, or extra-axial fluid collection is evident. There are areas of decreased attenuation within the white matter tracts of the supratentorial brain, consistent with mild/moderate microvascular disease changes. Basal cisterns are preserved. The calvarium has an unremarkable appearance. No mastoid effusion. No sinus air-fluid level. IMPRESSION: No acute intracranial abnormality is demonstrated. Dictated by: Bertin Burnett 06/14/2020 15:26 Electronically signed by Bertin Burnett in [facility] 06/14/2020 15:26
== END ==
PROVIDERS: PCP Nurse Practitioner Family; Visit Provider Nurse Practitioner Family
DX: R42 Dizziness and giddiness (principal)
CPT/HCPCS: 70450

== ENCOUNTER → 2020-07-08 13:45 | Outpatient (CLI) | payer MEDICARE, MEDICAID, SELFPAY ==
[2020-07-08 15:27] VITALS: PULSE 71; PULSE 73
== END ==
PROVIDERS: PCP Nurse Practitioner Family; Visit Provider Nurse Practitioner Family
DX: R06.00 Dyspnea, unspecified (principal); I25.10 Atherosclerotic heart disease of native coronary artery without angina pectoris; I11.9 Hypertensive heart disease without heart failure; E78.2 Mixed hyperlipidemia
CPT/HCPCS: 94060; 94640; 94727; 94729

== ENCOUNTER → 2020-11-06 09:50 | Outpatient (CLI) | payer MEDICARE, MEDICAID, SELFPAY | PROVIDERS: PCP Nurse Practitioner Family; Visit Provider Urology | DX: R42 Dizziness and giddiness (principal) | CPT/HCPCS: 93270 ==

== ENCOUNTER → 2020-11-13 09:15 | Outpatient (CLI) | payer MEDICARE, MEDICAID, SELFPAY ==
--- NOTE | 2020-11-13 09:16 | CA_ITS ---
APPROVED REPORT Administrative Assistant Coordinator: ZENOBIA Laterality: Bilateral Indications: dizziness Risk Factors Hypertension: Hyperlipidemia Treated with medical therapy : Smoking Doppler Spectral Velocity Analysis ECA (R) 90.50/15.40 cm/s ECA (L) 113.20/18.90 cm/s dICA (R) 66.60/19.40 cm/s dICA (L) 90.00/27.30 cm/s Mindi (R) 67.30/16.30 cm/s Mindi (L) 85.40/19.10 cm/s pICA (R) 56.50/14.10 cm/s pICA (L) 64.50/16.40 cm/s dCCA (R) 64.90/18.00 cm/s dCCA (L) 66.60/13.90 cm/s pCCA (R) 152.90/18.20 cm/s pCCA (L) 97.50/18.80 cm/s Vert (R) 63.60/17.00 cm/s Vert (L) 36.80/11.10 cm/s ICA/CCA 1.04 ICA/CCA 1.35 Findings Duplex evaluation demonstrates stenosis of the left proximal internal carotid artery <20% with PSV <140 cm/sec, EDV <100 cm/sec, and IC/CC Ratio <4.0. Duplex evaluation demonstrates stenosis of the right proximal internal carotid artery in the range of 20-49%(lower end of scale) with PSV <140 cm/sec, EDV <100 cm/sec, and IC/CC Ratio <4.0. Conclusion Duplex evaluation demonstrates stenosis of the left proximal internal carotid artery <20% with PSV <140 cm/sec, EDV <100 cm/sec, and IC/CC Ratio <4.0. Duplex evaluation demonstrates stenosis of the right proximal internal carotid artery in the range of 20-49%(lower end of scale) with PSV <140 cm/sec, EDV <100 cm/sec, and IC/CC Ratio <4.0. Electronically signed by : Mele Rosenbaum MD 11/14/2020 08:59:53
== END ==
PROVIDERS: PCP Nurse Practitioner Family; Visit Provider Urology
DX: R42 Dizziness and giddiness (principal)
CPT/HCPCS: 93880

== ENCOUNTER → 2020-12-19 15:39 | Outpatient (CLI) | payer MEDICARE, MEDICAID, SELFPAY ==
[2020-12-19 16:12] LABS: Basophils # 0.1 K/mm3 (0-0.2); Basophils % 0.6 % (0.1-2.0); Eosinophils # 0.2 K/mm3 (0.0-0.4); Eosinophils % 2.7 % (0.1-12.0); Hematocrit 43.4 % (37.0-47.0); Hemoglobin 13.9 g/dL (12.2-16.2); Lymphocytes # 3.4 K/mm3 (0.7-4.5); Lymphocytes % 43.7 % (10-50); Mean Corpuscular Volume 90.6 fl (81-99); Mean Platelet Volume 9.2 fl (7.4-10.4); Monocytes # 0.7 K/mm3 (0.1-1.0); Monocytes % 8.8 % (1.7-9.3); Neutrophils # 3.4 K/mm3 (1.8-7.8); Neutrophils % 44.1 % (37.0-80.0); Platelet Count 191 K/mm3 (142-424); Red Blood Count 4.79 M/mm3 (4.20-5.40); White Blood Count 7.7 K/mm3 (4.8-10.8)
[2020-12-19 17:00] LABS: Blood Urea Nitrogen 29 mg/dl (7-17); Chloride 106 mmol/L (98-107); Estimated Glomerular Filt Rate 61 ml/min (>60); GFR (African American) 74 ML/MIN (>60); Glucose 120 mg/dl (74-100); Potassium 4.6 mmoL/L (3.5-5.1)
[2020-12-19 17:09] LABS: Anion Gap 12.6 mEq/L (5-15); Calcium 9.2 mg/dl (8.4-10.2); Carbon Dioxide 26 mmol/L (22.0-30.0); Sodium 140 mmol/L (136-145)
[2020-12-19 17:30] LABS: Coronavirus 19 IgG Antibody Negative (Negative); Coronavirus 19 IgM Antibody Negative (Negative)
== END ==
PROVIDERS: Visit Provider Urology
DX: E78.5 Hyperlipidemia, unspecified (principal); F17.200 Nicotine dependence, unspecified, uncomplicated; I11.9 Hypertensive heart disease without heart failure; I25.10 Atherosclerotic heart disease of native coronary artery without angina pectoris; J44.9 Chronic obstructive pulmonary disease, unspecified; R06.00 Dyspnea, unspecified; R07.89 Other chest pain; R42 Dizziness and giddiness; Z01.812 Encounter for preprocedural laboratory examination; Z20.822 Contact with and (suspected) exposure to COVID-19
CPT/HCPCS: 36415; 80048; 85025; 86328

== ENCOUNTER 2020-12-20 11:41 | Day surgery (SDC) | payer MEDICARE, MEDICAID, SELFPAY ==
[2020-12-20] VITALS (7 sets, daily range): BP systolic 132–147; BP diastolic 66–90; PULSE 75–92; RESP 16–20; TEMP 35.5; O2SAT 92–98; BMI 33.3
--- NOTE | 2020-12-20 | IR_ITS ---
APPROVED REPORT Patient Location: Outpatient Hospital Fellow: JEANNIE Holliday RT (R) PROCEDURES 1. Pocket formation for Permanent Pacemaker Placement. 2. Placement of an atrial sensing and pacing coil into the right atrial appendage. 3. Placement of a ventricular sensing and pacing coil in the right ventricular apex. 4. Permanent Pacemaker Placement. INDICATION Symptomatic Bradycardia Informed consent was obtained prior to the procedure. COMPLICATIONS None Estimated Blood Loss: Less than 10 ML TECHNIQUE 1% Lidocaine with epinephrine used to anesthetized the left anterior aspect of the chest. Scalpel was used to make the initial cutaneous incision while electrocautery was used to dissect down tinto the fascia. The fascia was lifted off the pectoralis muscle and digitally manipulated creating a pocket for the pacemaker. The patient was then placed in Trendelenburg position and the subclavian vein was accessed twice via the Selinger technique, there are two wires in the vein. A 6 Yemeni sheath was placed under fluoroscopic guidance into the subclavian vein over one of the wires while keeping the other wire in place within the subclavian vein. The dilator was removed from the sheath. Using fluoroscopic guidance, the ventricular lead was placed into the right ventricular apex, screwed and secured into place. Electronic interrogation proved acceptable thresholds and voltage within the lead. Using 3-0 silk, the ventricular lead was then secured into place. Lead was secured to the facia using the 3-0 silk. Following this, the sheath was pealed away. An additional 6 Yemeni fresh sheath and dilator was placed over the existing wire. Using fluoroscopic guidance, the atrial lead was the placed into the right atrial appendage and screwed and secured in place. Electrical interrogation demonstrated acceptable thresholds and voltage number. The atrial lead was then secured into place using 3-0 silk. 1 gram of Ancef was used to flush the pocket. Following the pacemaker generator being secured to the fascia and in place, Monocryl was used to close the subcutaneous layers while arnoldo were used to close the cutaneous layer. A pressure dressing was placed and the patient was transferred to the postop holding area in stable condition for postoperative care. INTERROGATION Generator Model number: 360SHOP MRI DR IS-1 L311 Generator Serial number: [id number] Atrial lead model number: Ingevity + IS-1 Bi Positive Fix RA/RV 45 cm 7840 Atrial lead serial number: [id number] P-wave: 4.0 mV Impedence: 616 Ohms Threshold: 0.5V@0.4ms Right Ventricular lead model number: Ingevity + IS-1 Bi Positive Fix RA/RV 52 cm 7841 Right Ventricular lead serial number: [id number] R-wave: 30.0 mV Impedence: 1.0@0.4ms Threshold: 1000 Ohms Pacing Parameters: Mode: DDDR Base/Max Track: 60ppm/130 ppm No diaphragmatic stimulation at 10 volts. IMPRESSION 1. Successful Pocket formation for Permanent Pacemaker Placement. 2. Successful Placement of an atrial sensing and pacing coil into the right atrial appendage. 3. Successful Placement of a ventricular sensing and pacing coil in the right ventricular apex. 4. Successful Permanent Pacemaker Placement. PLAN 1. Post Op Wound Care Electronically signed by : Keith Guillory, 12/20/2020 16:40:14
--- NOTE | 2020-12-20 14:26 | XR_ITS ---
PROCEDURE: XR CHEST PORTABLE CLINICAL HISTORY: Confirm pacemaker/AID placement COMPARISON: CR CXR2V XR chest 2V from 06/07/2018 CR XR CHEST 2V from 09/12/2019 CR XR CHEST 2V from 02/26/[address] ANGIO CHEST from 02/26/2020 FINDINGS: Bipolar pacemaker has been placed by the left subclavian approach. The leads are in good position. There is no evidence of pneumothorax. The lungs are clear without infiltrates, suspicious nodules, or pleural effusions. There old right-sided rib fractures. IMPRESSION: Interval pacemaker placement in good position without evidence of pneumothorax Dictated by: Deniz Goodwin MD 12/20/2020 14:50 Deniz Goodwin MD in [place] 12/20/2020 14:50
--- NOTE | 2020-12-20 15:09 | HMH.ANESCL ---
[facility] Anesthesia Checklist - Patient Identification Patient Identification: Arm Band - Structural Data Admitted From: Home Planned Operative Procedure/s: Dual Chamber Pacemaker Consent for Planned Operative Procedure(s) Verified: Yes Verified Documents: Surgical Consent, History and Physical - NPO Status Verified Time NPO: 00:00 - Additional verifications Anesthesia Reactions: No - Airway Assessment C-Spine Mobility Assessed: Yes (mp2) TMJ Mobility Assessed: Yes Dentition: Edentulous - Neurological Assessment Level of Consciousness: Awake, Alert - Anesthesia Plan Anesthesia Risk discussed: Yes Anesthesia Plan: Verified ASA Class: III Anesthesia Type: MAC [facility] History 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: Reports:: Chronic Obstructive Pulmonary Disease (COPD), Coronary Artery Disease, Gastroesophageal Reflux Disease(GERD), Hyperlipidemia, Hypertension Denies:: Cancer, Diabetes Mellitus Type 1, Diabetes Mellitus Type 2, Internal Pacemaker, MRSA, Seizures *Have you ever received a pneumonia vaccine?: No *Have you received a flu vaccine this season?: No Anesthesia experience/problems:: nac Other Surgeries: Yes: Cardiac Catheterization, Coronary Stent, Tubal Ligation, Other. No: Pacemaker Amputation: No Fractures: No - *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 Smoking Status: Current every day smoker Tobacco Type: cigarettes # Packs/Day (cigarettes): 1 #Yrs smoked (if former smoker): 60 Alcohol Intake: never Alcohol Intake Frequency:: other Substance Use Type: denies use *Occupational Status:: retired Housing: house Household Members: none *Travel in the last 8 weeks: None Family Hx:: Diabetes
== END 2020-12-20 16:46 | disposition home or self-care (01) ==
LOC: CATHLAB 11:43
PROVIDERS: PCP Nurse Practitioner Family; Visit Provider Internal Medicine
DX: I49.5 Sick sinus syndrome (principal); I11.9 Hypertensive heart disease without heart failure; J44.9 Chronic obstructive pulmonary disease, unspecified; I25.10 Atherosclerotic heart disease of native coronary artery without angina pectoris; Z72.0 Tobacco use; Z79.899 Other long term (current) drug therapy; Z79.51 Long term (current) use of inhaled steroids; Z79.82 Long term (current) use of aspirin; Z79.01 Long term (current) use of anticoagulants; Z88.8 Allergy status to other drugs, medicaments and biological substances
CPT/HCPCS: 33208; 71045; C1785; C1898

== ENCOUNTER → 2021-01-06 12:24 | Outpatient (CLI) | payer MEDICARE, MEDICAID, SELFPAY ==
[2021-01-06 13:50] LABS: Chloride 108 mmol/L (98-107); Potassium 4.3 mmoL/L (3.5-5.1); Sodium 142 mmol/L (136-145)
[2021-01-06 13:52] LABS: Amylase 98 U/L (30-110)
[2021-01-06 13:53] LABS: Alanine Aminotransferase 14 U/L (12-78); Albumin Level 4.2 g/dl (3.5-5.0); Albumin/Globulin Ratio 1.2 (1.1-1.8); Alkaline Phosphatase 122 U/L (38-126); Anion Gap 10.3 mEq/L (5-15); Aspartate Amino Transferase 22 U/L (14-36); Bilirubin,Total 0.5 mg/dl (0.2-1.3); Blood Urea Nitrogen 18 mg/dl (7-17); Calcium 9.9 mg/dl (8.4-10.2); Carbon Dioxide 28 mmol/L (22.0-30.0); Estimated Glomerular Filt Rate 82 ml/min (>60); GFR (African American) 99 ML/MIN (>60); Globulin 3.6 g/dL (1.3-3.2); Glucose 101 mg/dl (74-100); Lipase 169 U/L (23-300); Total Protein,Serum 7.8 g/dl (6.3-8.2)
== END ==
PROVIDERS: Visit Provider Nurse Practitioner Family
DX: R10.11 Right upper quadrant pain (principal)
CPT/HCPCS: 36415; 80053; 82150; 83690

== ENCOUNTER 2021-01-06 19:59 | Observation (INO) | payer MEDICARE, MEDICAID, SELFPAY ==
[2021-01-06 20:17] VITALS: BP 132/61; PULSE 89; RESP 20; TEMP 36.7; O2SAT 96; BMI 34.4
--- NOTE | 2021-01-06 20:34 | CT_ITS ---
PROCEDURE: CT ABDOMEN PELVIS W CON CLINICAL INDICATION: Right abd pain Right upper quadrant pain COMPARISON: CT ABDPELW CT ABD PELVIS W/ CONTRAST from 01/07/2016 TECHNIQUE: IV Contrast: 75ML Isovue 370 Oral Contrast None Axial images obtained with sagittal and coronal reformats. All CT scans at the facility use one or more dose reduction, viz: automated exposure control, ma/kV adjustment per patient size (including targeted exams where dose is matched to indication, i.e. head), or iterative reconstruction technique. FINDINGS: LOWER THORAX: There are mild atelectatic changes in the right lower lobe with trace right-sided effusion. Artifact present from pacemaker device. Minimal bronchial filling right lower lobe posterior basilar segment. 4 mm nodules present in the right middle lobe ABDOMEN & PELVIS: There is a 2.9 cm macrolobular cyst within the right hepatic lobe not significantly changed. Additional 4 mm hypodense focus right hepatic lobe posteriorly unchanged. Gallstones are present. The spleen and adrenal glands have an unremarkable appearance. There are small bilateral renal cortical cyst. A nonobstructing 2 mm stone is present in the upper pole of the right kidney. Unremarkable appearing pancreas. Small umbilical hernia containing fat. No evidence of appendicitis. Diverticulosis involves the descending and sigmoid colon. No evidence of diverticulitis. There is mild compression deformity involving the superior endplate of L4 which has developed since 01/07/2016 IMPRESSION: 1. Cholelithiasis. 2. Colonic diverticulosis without evidence of acute diverticulitis. 3. Right basilar atelectasis with trace effusion and minimal bronchial filling right lower lobe. 4. Nonspecific 4 mm nodule right middle lobe. Suggest six-month follow-up Dictated by: Deniz Goodwin MD 01/07/2021 08:44 Deniz Goodwin MD in [place] 01/07/2021 08:44
[2021-01-06 20:55] LABS: Microscopic, Urine URINE MICROSCOPIC (MICROSCOPIC)
[2021-01-06 20:57] LABS: Basophils % 0.4 % (0.1-2.0); Eosinophils # 0.2 K/mm3 (0.0-0.4); Eosinophils % 1.7 % (0.1-12.0); Hematocrit 43.1 % (37.0-47.0); Lymphocytes # 2.6 K/mm3 (0.7-4.5); Mean Corpuscular HGB Conc 32.5 g/dL (31.8-35.4); Mean Corpuscular Hemoglobin 29.1 pg (27.0-31.2); Mean Corpuscular Volume 89.5 fl (81-99); Mean Platelet Volume 8.5 fl (7.4-10.4); Monocytes # 0.6 K/mm3 (0.1-1.0); Monocytes % 6.5 % (1.7-9.3); Neutrophils # 5.6 K/mm3 (1.8-7.8); Neutrophils % 62.5 % (37.0-80.0); Platelet Count 208 K/mm3 (142-424); Red Blood Count 4.82 M/mm3 (4.20-5.40); Red Cell Distribution Width 14.1 % (11.5-17.5); White Blood Count 8.9 K/mm3 (4.8-10.8)
[2021-01-06 21:00] LABS: Chloride 107 mmol/L (98-107); Potassium 3.9 mmoL/L (3.5-5.1); Sodium 141 mmol/L (136-145)
[2021-01-06 21:01] LABS: Appearance,Urine CLEAR (Clear); Bilirubin,Urine Negative (Negative); Blood, Urine Negative (Negative); Color,Urine YELLOW (Yellow); Glucose,Urine (UA) Negative (Negative); Ketones,Urine Negative (Negative); Leukocyte Esterase,Urine Negative (Negative); Nitrate,Urine Negative (Negative); Protein,Urine Negative (Negative); Specific Gravity, Urine 1.015 (1.005-1.030); Urobilinogen,Urine 0.2 EU/dl (0.2)
[2021-01-06 21:02] LABS: Amylase 104 U/L (30-110)
[2021-01-06 21:03] LABS: Alanine Aminotransferase 16 U/L (12-78); Albumin Level 4.2 g/dl (3.5-5.0); Albumin/Globulin Ratio 1.1 (1.1-1.8); Alkaline Phosphatase 112 U/L (38-126); Anion Gap 11.9 mEq/L (5-15); Aspartate Amino Transferase 21 U/L (14-36); Bilirubin,Total 0.4 mg/dl (0.2-1.3); Blood Urea Nitrogen 19 mg/dl (7-17); Calcium 9.6 mg/dl (8.4-10.2); Carbon Dioxide 26 mmol/L (22.0-30.0); Creatinine Clearance Estimated 72 mL/min (50-200); Estimated Glomerular Filt Rate 61 ml/min (>60); GFR (African American) 74 ML/MIN (>60); Globulin 3.9 g/dL (1.3-3.2); Glucose 108 mg/dl (74-100); Lipase 155 U/L (23-300); Total Protein,Serum 8.1 g/dl (6.3-8.2)
[2021-01-06 21:13] LABS: C-Reactive Protein 6.6 mg/L (0-4)
--- NOTE | 2021-01-06 21:14 | HMH.EDNVD ---
ED Disposition Clinical Impression: Cardiac pacemaker in situ, Obesity (BMI 30-39.9) Cholelithiasis Qualifiers: Cholelithiasis location: gallbladder Cholecystitis presence: without cholecystitis Biliary obstruction: without biliary obstruction Qualified Code(s): K80.20 - Calculus of gallbladder without cholecystitis without obstruction Disposition: Admitted as Observation Condition on Discharge: Good Referrals: Manuela Castillo APRN [Primary Care Provider] - - Critical Care Critical Care Time: No Attestation: On 01/06/21, the high probability of a clinically significant, sudden or life threatening deterioration of the following system(s) required my full and direct attention, intervention and personal management. The time I documented below is in addition to time spent performing reported procedures but includes the following listed in this critical care notation. Medical Decision Making - Medical Records Medical records reviewed: Yes: I reviewed the patient's medical records. - Kervin Inquiry Pt receiving controlled substance: No Vital Signs: 01/06/21 20:17 Temperature 98.1 F Temperature Source Oral Pulse Rate [Right] 89 Respiratory Rate 20 Blood Pressure [Right Arm] 132/61 Blood Pressure Mean [Right Arm] 84 Blood Pressure Source [Right Arm] Automatic Cuff Blood Pressure Position [Right Arm] Sitting 02 Sat by Pulse Oximetry 96 Oxygen Delivery Method Room Air - Lab Data Lab results reviewed: Yes: I reviewed the patient's lab results. Lab Results 01/06/21 20:50: Urine Color Yellow, Urine Appearance Clear, Urine pH 6.0, Ur Specific [place] 1.015, Urine Protein Negative, Urine Glucose (UA) Negative, Urine Ketones Negative, Urine Blood Negative, Urine Nitrate Negative, Urine Bilirubin Negative, Urine Urobilinogen 0.2, Ur Leukocyte Esterase Negative, Urine WBC 3-5, Ur Squamous Epith Cells Tntc, Urine Bacteria 1+, Urine Mucus 1+ 01/06/21 20:50: WBC 8.9, RBC 4.82, Hgb 14.0, Hct 43.1, MCV 89.5, MCH 29.1, MCHC 32.5, RDW 14.1, Plt Count 208, MPV 8.5, Neut % (Auto) 62.5, Lymph % (Auto) 29.0, Posey % (Auto) 6.5, Eos % (Auto) 1.7, Baso % (Auto) 0.4, Neut # (Auto) 5.6, Lymph # (Auto) 2.6, Posey # (Auto) 0.6, Eos # (Auto) 0.2, Baso # (Auto) 0.0, ESR 77 H 01/06/21 20:50: Sodium 141, Potassium 3.9, Chloride 107, Carbon Dioxide 26, Anion Gap 11.9, BUN 19 H, Creatinine 0.90 D, Estimated Creat Clear 72, Estimated GFR 61, Est GFR ( Amer) 74 D, Glucose 108 H, Calcium 9.6, Total Bilirubin 0.4, AST 21, ALT 16, Alkaline Phosphatase 112, C-Reactive Protein 6.6 H, Total Protein 8.1, Albumin 4.2, Globulin 3.9 H, Albumin/Globulin Ratio 1.1, Amylase 104, Lipase 155, Procalcitonin 0.047 Result diagrams: 01/06/21 20:50 01/06/21 20:50 Orders (Tests/Meds): ED MEDICATIONS Generic Name Dose Route Start Last Admin Trade Name Freq PRN Reason Stop Dose Admin Sodium Chloride 1,000 mls @ 999 mls/hr 01/06/21 20:45 01/06/21 21:43 Sod Chlor 0.9% 1000ml Bag IV 01/06/21 21:45 999 mls/hr .Q1H1M ISH Administration Discontinued Medications Generic Name Dose Route Start Last Admin Trade Name Freq PRN Reason Stop Dose Admin Iopamidol 75 ml 01/06/21 21:37 01/06/21 21:38 Iopamidol-370 (76%);100ml Bottle IV 01/06/21 21:38 75 ml ONCE ONE Administration Ketorolac Tromethamine 30 mg 01/06/21 20:34 01/06/21 21:43 Ketorolac 30mg/Ml Vial IV 01/06/21 20:35 30 mg ONCE ONE Administration Ondansetron HCl 4 mg 01/06/21 20:34 01/06/21 21:43 Ondansetron 4mg/2ml Vial IV 01/06/21 20:35 4 mg ONCE ONE Administration Sodium Chloride 10 ml 01/06/21 21:37 01/06/21 21:37 Sodium Chloride 0.9% 10ml Syr (Rad Only) IV 01/06/21 21:38 10 ml ONCE ONE Administration ORDERS Category Date Time Status CT abdomen pelvis w con Stat Cat Scan 01/06/21 20:34 Taken Covid-19 Nasal PCR ([facility]) Routine Lab 01/06/21 21:20 Received - CT Data CT Scan: Abdomen, Pelvis Time Received: 22:[address] Reviewed: Yes
[2021-01-06 21:27] LABS: Procalcitonin 0.047 ng/mL (0.0-2.0)
[2021-01-06 21:32] LABS: Bacteria,Urine 1+ /lpf; Mucus,Urine 1+ /lpf; Squamous Epithelial Cell,Urine TNTC #/hpf (0-5)
[2021-01-06 21:37] LABS: Erythrocyte Sedimentation Rate 77 mm/hr (0-30)
--- NOTE | 2021-01-06 21:40 | PC.NURSE ---
Pt returned from CT
[2021-01-07 01:47] VITALS: BP 151/74; PULSE 82; RESP 18; TEMP 36.7; O2SAT 97
[2021-01-07 01:52] VITALS: BP 151/64; PULSE 81; RESP 18; TEMP 36.4; O2SAT 95; BMI 34.7
--- NOTE | 2021-01-07 01:52 | PC.NURSE ---
PT ARRIVED TO FLOOR VIA W/C FROM ED W/STAFF AT 0152
[2021-01-07 04:00] VITALS: BP 131/68; PULSE 77; RESP 16; TEMP 36.4; O2SAT 93
--- NOTE | 2021-01-07 06:52 | HMH.HP ---
*Admission Date: 01/07/21 *Chief complaint: Right upper quadrant abdominal pain *History of present illness: 75-year-old female presented to the ER with a 3-day history of right upper quadrant pain that radiated to the shoulder. Patient had been seen in the office yesterday and there was strong suspicion of gallbladder disease. Work-up was to be arranged as an outpatient. Patient's pain worsened and she presented to the ER. She denies nausea or vomiting. No diarrhea or fevers. Symptoms have been present for 3 days and had worsened on the morning of the after eating an egg for breakfast. Patient's past surgical history includes pacemaker and tubal ligation Past medical history is significant for coronary artery disease requiring stents in the summer 2020 Patient denies chest pain, dyspnea at rest or exertion. [facility] History I have reviewed the patient's past medical history: Yes 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: Reports:: Chronic Obstructive Pulmonary Disease (COPD), Coronary Artery Disease, Gastroesophageal Reflux Disease(GERD), Hyperlipidemia, Hypertension, Internal Pacemaker Denies:: Cancer, Diabetes Mellitus Type 1, Diabetes Mellitus Type 2, MRSA, Seizures *Have you ever received a pneumonia vaccine?: No *Have you received a flu vaccine this season?: No Other 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: Reports: Hypothyroidism Other Surgeries: Yes: Cardiac Catheterization, Coronary Stent, Pacemaker, Tubal Ligation, Other Amputation: No Fractures: No - *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 Smoking Status: Current every day smoker Tobacco Type: cigarettes # Packs/Day (cigarettes): 1 #Yrs smoked (if former smoker): 60 Alcohol Intake: never Alcohol Intake Frequency:: a few times a week Substance Use Type: denies use *Occupational Status:: retired Housing: house Household Members: none *Travel in the last 8 weeks: None Family Hx:: Cancer, Diabetes, Stroke Review of Systems - Constitutional Denies anorexia, Denies body ache(s), Denies chills, Denies lack of energy - ENT Denies abnormal hearing, Denies bleeding gums - *Cardiovascular Denies chest pain, Denies chest pain at rest, Denies chest pain with activity - *Respiratory Denies change in phlegm color, Denies chest congestion, Denies cough - *Gastrointestinal Reports abdominal pain - *Genitourinary Denies difficulty urinating, Denies painful urination - *Musculoskeletal Denies abnormal walking, Denies joint pain, Denies decreased muscle mass - *Neurologic Denies abnormal walking, Denies localized weakness, Denies seizure-like activity - Psychiatric Denies abnormal sleep pattern, Denies lack of enjoyment, Denies change in appetite Meds Home Medications Medication Instructions Recorded Confirmed Type aspirin 81 mg tablet,delayed 81 mg PO QDAY 12/13/17 01/07/21 History release levothyroxine 25 mcg tablet 25 mcg PO DAILY 07/19/19 01/07/21 History nitroglycerin 0.4 mg sublingual 0.4 mg SUBLINGUAL Q5M PRN #25 tab 02/26/20 01/07/21 Rx tablet meclizine 25 mg tablet 25 mg PO TID PRN tab 05/29/20 01/07/21 History albuterol sulfate 90 mcg/actuation 1 inh INHALATION Q4-6H PRN #1 each 12/24/20 01/07/21 Rx breath activated powder inhaler NS Amlodipine Besylate [Amlodipine 10 mg PO QDAY 01/07/21 01/07/21 History 10mg Tab] Clopidogrel Bisulfate [Plavix] 75 mg PO DAILY 01/07/21 01/07/21 History Fluticasone/Umeclidin/Vilanter 1 inh INHALATION DAILY 01/07/21 01/07/21 History [Trelegy Ellipta] Furosemide [Furosemide 40MG tAB*] 40 mg PO DAILY 01/07/21 01/07/21 History Pantoprazole Sodium 20 mg PO QDAY 01/07/21 01/07/21 History Rosuvastatin Calcium 20 mg PO DAILY 01/07/21 01/07/21 History carvediloL [Carvedilol 12.5mg Tab] 12.5 mg PO BID 01/07/21 01/07/21 History lisinopriL [Prinivil 20mg Tablet] 20 mg PO BID 01/07/21 01/07/21 History Allergies Allergy/AdvReac Type Severity Reaction Status Date / Time gabapentin Allergy Unknown WEAKNESS Verified 12/31/20 11:47 ibuprofen Allergy Unknown SHAKEY Verified 12/31/20
[2021-01-07 07:12] LABS: Basophils % 0.3 % (0.1-2.0); Eosinophils # 0.2 K/mm3 (0.0-0.4); Eosinophils % 2.7 % (0.1-12.0); Hemoglobin 12.6 g/dL (12.2-16.2); Lymphocytes # 2.6 K/mm3 (0.7-4.5); Lymphocytes % 37.2 % (10-50); Mean Corpuscular HGB Conc 31.4 g/dL (31.8-35.4); Mean Corpuscular Hemoglobin 28.8 pg (27.0-31.2); Mean Corpuscular Volume 91.5 fl (81-99); Mean Platelet Volume 8.7 fl (7.4-10.4); Monocytes # 0.5 K/mm3 (0.1-1.0); Monocytes % 7.1 % (1.7-9.3); Neutrophils # 3.6 K/mm3 (1.8-7.8); Neutrophils % 52.7 % (37.0-80.0); Platelet Count 193 K/mm3 (142-424); Red Blood Count 4.37 M/mm3 (4.20-5.40); Red Cell Distribution Width 14.2 % (11.5-17.5); White Blood Count 6.9 K/mm3 (4.8-10.8)
[2021-01-07 07:29] LABS: Chloride 110 mmol/L (98-107); Potassium 3.8 mmoL/L (3.5-5.1); Sodium 140 mmol/L (136-145)
[2021-01-07 07:31] LABS: Alanine Aminotransferase 12 U/L (12-78); Aspartate Amino Transferase 21 U/L (14-36); Blood Urea Nitrogen 21 mg/dl (7-17); Creatinine Clearance Estimated 73 mL/min (50-200); Estimated Glomerular Filt Rate 70 ml/min (>60); GFR (African American) 85 ML/MIN (>60)
[2021-01-07 07:32] LABS: Albumin Level 3.4 g/dl (3.5-5.0); Alkaline Phosphatase 95 U/L (38-126); Anion Gap 7.8 mEq/L (5-15); Bilirubin,Total 0.3 mg/dl (0.2-1.3); Calcium 8.9 mg/dl (8.4-10.2); Carbon Dioxide 26 mmol/L (22.0-30.0); Globulin 3.4 g/dL (1.3-3.2); Glucose 95 mg/dl (74-100); Total Protein,Serum 6.8 g/dl (6.3-8.2)
[2021-01-07 08:00] VITALS: BP 137/55; PULSE 85; RESP 18; TEMP 36.4; O2SAT 93; O2SAT 96
--- NOTE | 2021-01-07 08:00 | US_ITS ---
PROCEDURE: US GALLBLADDER CLINICAL INDICATION: abd pain/abn ct COMPARISON: CT CT ABDOMEN PELVIS W CON from 01/06/2021 FINDINGS: Pancreas: Unremarkable/Not well seen Liver: Septated cyst is present in the right hepatic lobe at [address] abnormality.. There is appropriate direction of blood flow within a non dilated portal vein. Right kidney: Right renal cysts are present. No hydronephrosis. Gallbladder: Scattered areas of echogenicity noted within the gallbladder suggesting sludge... No gallbladder wall thickening or pericholecystic fluid. The common bile duct is normal at 4 mm.. No shadowing stones are demonstrated. The most recent CT scan did demonstrate calcific density within the inferior aspect of the gallbladder suspicious for small stones. IMPRESSION: 1. Gallbladder sludge. No shadowing stones are demonstrated however, the CT scan did suggest cholelithiasis. Small nonshadowing stones could be obscured by the sludge. 2. Liver and renal cysts Dictated by: Deniz Goodwin MD 01/07/2021 12:45 Deniz Goodwin MD in [place] 01/07/2021 12:45
--- NOTE | 2021-01-07 09:16 | HMH.CNCARD ---
History of Present Illness Consult date: 01/07/21 Requesting physician: Joe Vyas Consult reason: known to you, pre-op evaluation Chief complaint: abdominal pain History of present illness: This is a 75-year-old white female who was presented to the emergency department with a 3-day history of right upper quadrant pain that radiated to her right shoulder. The patient states that she has been having pain after eating but it kind of persist all day but just gets worse after she eats. The patient was seen by her primary care provider for these complaints and was being worked up as an outpatient for gallbladder disease. Her pain worsened after seeing her primary care provider and she presented to the emergency department. She denies any associated nausea or vomiting. She denies any chest pain or pressure. She states she has some mild shortness of breath with exertion which is chronic for her. She denies any fever, chills, nausea, vomiting, diarrhea, PND or orthopnea. She does complain of some mild edema in her legs at times which is also chronic. She does have a history of coronary artery disease with stenting in April 2020 and she has remained on dual antiplatelet therapy since that time. She states that on the after eating breakfast her abdominal pain got much worse and that is what brought her to the emergency department. She is status post recent permanent pacemaker placement. Her site is healing well and Steri-Strips were removed today. No signs of infection. [facility] History I have reviewed the patient's past medical history: Yes 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: Reports:: Chronic Obstructive Pulmonary Disease (COPD), Coronary Artery Disease, Gastroesophageal Reflux Disease(GERD), Hyperlipidemia, Hypertension, Internal Pacemaker Denies:: Cancer, Diabetes Mellitus Type 1, Diabetes Mellitus Type 2, MRSA, Seizures *Have you ever received a pneumonia vaccine?: No *Have you received a flu vaccine this season?: No Other 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: Reports: Hypothyroidism Other Surgeries: Yes: Cardiac Catheterization, Coronary Stent, Pacemaker, Tubal Ligation, Other Amputation: No Fractures: No - *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 Smoking Status: Current every day smoker Tobacco Type: cigarettes # Packs/Day (cigarettes): 1 #Yrs smoked (if former smoker): 60 Alcohol Intake: never Alcohol Intake Frequency:: a few times a week Substance Use Type: denies use *Occupational Status:: retired Housing: house Household Members: none *Travel in the last 8 weeks: None Family Hx:: Cancer, Diabetes, Stroke Meds Home Medications Medication Instructions Recorded Confirmed Type aspirin 81 mg tablet,delayed 81 mg PO QDAY 12/13/17 01/07/21 History release levothyroxine 25 mcg tablet 25 mcg PO DAILY 07/19/19 01/07/21 History nitroglycerin 0.4 mg sublingual 0.4 mg SUBLINGUAL Q5M PRN #25 tab 02/26/20 01/07/21 Rx tablet meclizine 25 mg tablet 25 mg PO TID PRN tab 05/29/20 01/07/21 History albuterol sulfate 90 mcg/actuation 1 inh INHALATION Q4-6H PRN #1 each 12/24/20 01/07/21 Rx breath activated powder inhaler NS Amlodipine Besylate [Amlodipine 10 mg PO QDAY 01/07/21 01/07/21 History 10mg Tab] Clopidogrel Bisulfate [Plavix] 75 mg PO DAILY 01/07/21 01/07/21 History Fluticasone/Umeclidin/Vilanter 1 inh INHALATION DAILY 01/07/21 01/07/21 History [Trelegy Ellipta] Furosemide [Furosemide 40MG tAB*] 40 mg PO DAILY 01/07/21 01/07/21 History Pantoprazole Sodium 20 mg PO QDAY 01/07/21 01/07/21 History Rosuvastatin Calcium 20 mg PO DAILY 01/07/21 01/07/21 History carvediloL [Carvedilol 12.5mg Tab] 12.5 mg PO BID 01/07/21 01/07/21 History lisinopriL [Prinivil 20mg Tablet] 20 mg PO BID 01/07/21 01/07/21 History Allergies Allergy/AdvReac Type Severity Reaction Status Date / Time gabapentin Allergy Unknown WEAKNESS Verified 12/31/20 11:47 ibuprofen Allergy Unknown SHAKEY Verified 12/31/20 11:47 tiotropium Allergy Unknown WEAKNESS Verified 12/31/20 11:47 Exam Vital signs and Labs
--- NOTE | 2021-01-07 09:25 | HMH.GSCON ---
*Admission Date: 01/07/21 *Reason for consult:: Gallbladder *History of present illness: Patient is a 75-year-old female with history of coronary disease who has had coronary stenting in April 2020 on dual antiplatelet therapy. She is followed by cardiology at this institution. She recently had pacemaker placed. She had developed right-sided abdominal pain with radiation to the right shoulder 3 days ago on 01/04/2021. This seemed to be exacerbated postprandially. She was seen in a primary care provider's office and this was felt to likely be biliary etiology and outpatient work-up was initiated. However her symptoms persisted and progressed and she therefore presented to the emergency department overnight on the evening of 01/06/2021. CT scan revealed findings of gallstones. She is admitted for inpatient management. She has undergone cardiology and surgical consultations. She has an ultrasound ordered. Review of Systems - Review of Systems Review of systems:: pertinent systems reviewed and negative unless documented below - *Neurologic Denies abnormal walking, Denies abnormal hearing, Denies localized weakness, Denies seizure-like activity [facility] History 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: Reports:: Chronic Obstructive Pulmonary Disease (COPD), Coronary Artery Disease, Gastroesophageal Reflux Disease(GERD), Hyperlipidemia, Hypertension, Internal Pacemaker Denies:: Cancer, Diabetes Mellitus Type 1, Diabetes Mellitus Type 2, MRSA, Seizures *Have you ever received a pneumonia vaccine?: No *Have you received a flu vaccine this season?: No Other 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: Reports: Hypothyroidism Other Surgeries: Yes: Cardiac Catheterization, Coronary Stent, Pacemaker, Tubal Ligation, Other Amputation: No Fractures: No - *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 Smoking Status: Current every day smoker Tobacco Type: cigarettes # Packs/Day (cigarettes): 1 #Yrs smoked (if former smoker): 60 Alcohol Intake: never Alcohol Intake Frequency:: a few times a week Substance Use Type: denies use *Occupational Status:: retired Housing: house Household Members: none *Travel in the last 8 weeks: None Family Hx:: Cancer, Diabetes, Stroke Meds Home Medications Medication Instructions Recorded Confirmed Type aspirin 81 mg tablet,delayed 81 mg PO QDAY 12/13/17 01/07/21 History release levothyroxine 25 mcg tablet 25 mcg PO DAILY 07/19/19 01/07/21 History nitroglycerin 0.4 mg sublingual 0.4 mg SUBLINGUAL Q5M PRN #25 tab 02/26/20 01/07/21 Rx tablet meclizine 25 mg tablet 25 mg PO TID PRN tab 05/29/20 01/07/21 History albuterol sulfate 90 mcg/actuation 1 inh INHALATION Q4-6H PRN #1 each 12/24/20 01/07/21 Rx breath activated powder inhaler NS Amlodipine Besylate [Amlodipine 10 mg PO QDAY 01/07/21 01/07/21 History 10mg Tab] Clopidogrel Bisulfate [Plavix] 75 mg PO DAILY 01/07/21 01/07/21 History Fluticasone/Umeclidin/Vilanter 1 inh INHALATION DAILY 01/07/21 01/07/21 History [Trelegy Ellipta] Furosemide [Furosemide 40MG tAB*] 40 mg PO DAILY 01/07/21 01/07/21 History Pantoprazole Sodium 20 mg PO QDAY 01/07/21 01/07/21 History Rosuvastatin Calcium 20 mg PO DAILY 01/07/21 01/07/21 History carvediloL [Carvedilol 12.5mg Tab] 12.5 mg PO BID 01/07/21 01/07/21 History lisinopriL [Prinivil 20mg Tablet] 20 mg PO BID 01/07/21 01/07/21 History Allergies Allergy/AdvReac Type Severity Reaction Status Date / Time gabapentin Allergy Unknown WEAKNESS Verified 12/31/20 11:47 ibuprofen Allergy Unknown SHAKEY Verified 12/31/20 11:47 tiotropium Allergy Unknown WEAKNESS Verified 12/31/20 11:47 Exam Vital signs and Labs for Last 24 Hours: Temp Pulse Resp BP Pulse Ox 97.6 F 85 18 137/55 L 96 01/07/21 08:00 01/07/21 08:00 01/07/21 08:00 01/07/21 08:00 01/07/21 08:00 Laboratory Results - last 24 hr 01/06/21 20:50: Urine Color Yellow, Urine Appearance Clear, Urine pH 6.0, Ur Specific [place] 1.015, Urine Protein Negative, Urine Glucose (UA) Negative, Urine Ketones Negative, Urine Blo
--- NOTE | 2021-01-07 10:14 | P.CONPHA_ITS ---
[facility] Pharm[facility] VTE Monitoring - Patient Demographics Admission date: 01/07/21 Report Date: 01/07/21 Time: 10:14 Allergies/Adverse Reactions: Patient Allergies gabapentin Allergy (Unknown, Verified 12/31/20 11:47) WEAKNESS ibuprofen Allergy (Unknown, Verified 12/31/20 11:47) SHAKEY tiotropium Allergy (Unknown, Verified 12/31/20 11:47) WEAKNESS Height: 1.65 m Weight: 94.517 kg Patient Problems: Current Active Problems Cholelithiasis (Acute) Obesity (BMI 30-39.9) (Acute) Coronary artery disease (Acute) Preop cardiovascular exam (Acute) Cardiac pacemaker in situ (Acute) Tobacco dependence syndrome (Chronic) Hyperlipidemia (Chronic) Hypertensive heart disease (Chronic) Coronary arteriosclerosis (Chronic) - VTE Risk Labs: VTE Related Lab Results Hgb 12.6 g/dL (12.2-16.2) 01/07/21 06:34 Hct 40.0 % (37.0-47.0) 01/07/21 06:34 Plt Count 193 K/mm3 (142-424) 01/07/21 06:34 BUN 21 mg/dl (7-17) H 01/07/21 06:34 Creatinine 0.80 mg/dl (0.52-1.04) 01/07/21 06:34 Estimated Creat Clear 73 mL/min (50-200) 01/07/21 06:34 Was VTE Risk Assessment Performed: Yes VTE Score: 2 VTE Risk Level: Very Low Risk Clinical Trial Participant: No - Prophylaxis VTE Prophylaxis Ordered?: Yes Types of VTE Prophylaxis: TEDS Knee High
--- NOTE | 2021-01-07 10:34 | HMH.PHAINT ---
HOME MEDICATION LIST COMPLETED USING LIST FROM HOME PHARMACY
[2021-01-07 16:00] VITALS: BP 139/77; PULSE 84; RESP 18; TEMP 36.8; O2SAT 99
--- NOTE | 2021-01-07 16:58 | HMH.DCSUM ---
General - General Admission date:: 01/07/21 Discharge date: 01/07/21 HPI HPI: 75-year-old female presented to the ER with a 3-day history of right upper quadrant pain that radiated to the shoulder. Patient had been seen in the office yesterday and there was strong suspicion of gallbladder disease. Work-up was to be arranged as an outpatient. Patient's pain worsened and she presented to the ER. She denies nausea or vomiting. No diarrhea or fevers. Symptoms have been present for 3 days and had worsened on the morning of the after eating an egg for breakfast. Patient's past surgical history includes pacemaker and tubal ligation Past medical history is significant for coronary artery disease requiring stents in the summer 2019 Patient denies chest pain, dyspnea at rest or exertion. Hospital Course Hospital Course: Patient was admitted with right upper quadrant pain due to presumed gallstone seen on CT scan of the abdomen and pelvis. Surgical consult was obtained. Patient underwent gallbladder ultrasound which showed sludge in the gallbladder and perhaps very small gallstones. There was no evidence of cholecystitis. Cardiology was consulted and patient was deemed an appropriate risk to proceed with cholecystectomy. Due to the nature of the patient's right upper quadrant pain (no cholecystitis present) it was believed patient could have procedure performed more safely while off Plavix. This will be arranged as an outpatient. Patient tolerated a diet when this was advanced to low-fat. Patient was discharged home on the evening of the . She will follow-up with Dr. Pelaez on January 10. Patient is been taken off Plavix until after surgery. Objective Vital signs: Temp Pulse Resp BP Pulse Ox 97.6 F 85 18 137/55 L 96 01/07/21 08:00 01/07/21 08:00 01/07/21 08:00 01/07/21 08:00 01/07/21 08:00 Results Labs on day of discharge: Labs from last 24 hours 01/07/21 01/07/21 01/06/21 06:34 06:34 20:50 WBC 6.9 RBC 4.37 Hgb 12.6 Hct 40.0 MCV 91.5 MCH 28.8 MCHC 31.4 L RDW 14.2 Plt Count 193 MPV 8.7 Neut % (Auto) 52.7 Lymph % (Auto) 37.2 [place] % (Auto) 7.1 Eos % (Auto) 2.7 Baso % (Auto) 0.3 Neut # (Auto) 3.6 Lymph # (Auto) 2.6 Kern # (Auto) 0.5 Eos # (Auto) 0.2 Baso # (Auto) 0.0 ESR Sodium 140 141 Potassium 3.8 3.9 Chloride 110 H 107 Carbon Dioxide 26 26 Anion Gap 7.8 11.9 BUN 21 H 19 H Creatinine 0.80 0.90 D Estimated Creat Clear 73 72 Estimated GFR 70 61 Est GFR ( Amer) 85 74 D Glucose 95 108 H Calcium 8.9 9.6 Total Bilirubin 0.3 0.4 AST 21 21 ALT 12 16 Alkaline Phosphatase 95 112 C-Reactive Protein 6.6 H Total Protein 6.8 8.1 Albumin 3.4 L D 4.2 Globulin 3.4 H 3.9 H Albumin/Globulin Ratio 1.0 L 1.1 Amylase 104 Lipase 155 Procalcitonin 0.047 Urine Color Urine Appearance Urine pH Ur Specific [place] Urine Protein Urine Glucose (UA) Urine Ketones Urine Blood Urine Nitrate Urine Bilirubin Urine Urobilinogen Ur Leukocyte Esterase Urine WBC Ur Squamous Epith Cells Urine Bacteria Urine Mucus 01/06/21 01/06/21 20:50 20:50 WBC 8.9 RBC 4.82 Hgb 14.0 Hct 43.1 MCV 89.5 MCH 29.1 MCHC 32.5 RDW 14.1 Plt Count 208 MPV 8.5 Neut % (Auto) 62.5 Lymph % (Auto) 29.0 Kern % (Auto) 6.5 Eos % (Auto) 1.7 Baso % (Auto) 0.4 Neut # (Auto) 5.6 Lymph # (Auto) 2.6 Kern # (Auto) 0.6 Eos # (Auto) 0.2 Baso # (Auto) 0.0 ESR 77 H Sodium Potassium Chloride Carbon Dioxide Anion Gap BUN Creatinine Estimated Creat Clear Estimated GFR Est GFR ( Amer) Glucose Calcium Total Bilirubin AST ALT Alkaline Phosphatase C-Reactive Protein Total Protein Albumin Globulin Albumin/Globulin Rati
== END 2021-01-07 17:51 | disposition home or self-care (01) ==
LOC: ER 22:29 → 2ND 01-07 02:04
PROVIDERS: Admitting Provider Internal Medicine Adolescent Medicine; Emergency Provider Emergency Medicine; PCP Nurse Practitioner Family; Visit Provider Family Medicine
DX: K80.20 Calculus of gallbladder without cholecystitis without obstruction (principal); I25.10 Atherosclerotic heart disease of native coronary artery without angina pectoris; E78.5 Hyperlipidemia, unspecified; J44.9 Chronic obstructive pulmonary disease, unspecified; E03.9 Hypothyroidism, unspecified; Z95.0 Presence of cardiac pacemaker; Z95.5 Presence of coronary angioplasty implant and graft; Z72.0 Tobacco use; Z88.8 Allergy status to other drugs, medicaments and biological substances; Z79.02 Long term (current) use of antithrombotics/antiplatelets; Z79.51 Long term (current) use of inhaled steroids; Z79.899 Other long term (current) drug therapy
CPT/HCPCS: 74177; 76705; 80053; 81001; 82150; 83690; 84145; 85025; 85651; 86140; 96365; 96375; 99284; G0378; J2405; Q9967; U0003

== ENCOUNTER → 2021-01-13 07:10 | Outpatient (CLI) | payer MEDICARE, MEDICAID, SELFPAY ==
[2021-01-13 07:39] LABS: Basophils # 0.1 K/mm3 (0-0.2); Basophils % 0.6 % (0.1-2.0); Eosinophils # 0.2 K/mm3 (0.0-0.4); Eosinophils % 2.6 % (0.1-12.0); Hemoglobin 13.3 g/dL (12.2-16.2); Lymphocytes % 36.9 % (10-50); Mean Corpuscular HGB Conc 31.8 g/dL (31.8-35.4); Mean Corpuscular Hemoglobin 28.7 pg (27.0-31.2); Mean Corpuscular Volume 90.1 fl (81-99); Mean Platelet Volume 9.2 fl (7.4-10.4); Monocytes # 0.6 K/mm3 (0.1-1.0); Monocytes % 7.1 % (1.7-9.3); Neutrophils # 4.2 K/mm3 (1.8-7.8); Neutrophils % 52.7 % (37.0-80.0); Platelet Count 180 K/mm3 (142-424); Red Blood Count 4.66 M/mm3 (4.20-5.40); Red Cell Distribution Width 14.1 % (11.5-17.5)
[2021-01-13 08:23] LABS: Chloride 108 mmol/L (98-107); Potassium 4.4 mmoL/L (3.5-5.1); Sodium 140 mmol/L (136-145)
[2021-01-13 08:26] LABS: Alanine Aminotransferase 15 U/L (12-78); Albumin Level 3.8 g/dl (3.5-5.0); Albumin/Globulin Ratio 1.2 (1.1-1.8); Alkaline Phosphatase 99 U/L (38-126); Anion Gap 9.4 mEq/L (5-15); Aspartate Amino Transferase 24 U/L (14-36); Bilirubin,Total 0.4 mg/dl (0.2-1.3); Blood Urea Nitrogen 15 mg/dl (7-17); Calcium 9.3 mg/dl (8.4-10.2); Carbon Dioxide 27 mmol/L (22.0-30.0); Estimated Glomerular Filt Rate 97 ml/min (>60); GFR (African American) 118 ML/MIN (>60); Globulin 3.2 g/dL (1.3-3.2); Glucose 109 mg/dl (74-100)
[2021-01-13 08:43] LABS: Coronavirus 19 IgG Antibody Negative (Negative); Coronavirus 19 IgM Antibody Negative (Negative)
== END ==
PROVIDERS: Visit Provider Surgery
DX: K80.20 Calculus of gallbladder without cholecystitis without obstruction (principal); Z01.818 Encounter for other preprocedural examination; Z20.822 Contact with and (suspected) exposure to COVID-19
CPT/HCPCS: 36415; 80053; 85025; 86328

== ENCOUNTER 2021-01-14 09:22 | Day surgery (SDC) | payer MEDICARE, MEDICAID, SELFPAY ==
[2021-01-08 13:19] VITALS: BMI 40.4
[2021-01-14] VITALS (16 sets, daily range): BP systolic 101–147; BP diastolic 41–76; PULSE 60–73; RESP 16–18; TEMP 36.3–43; O2SAT 91–97
--- NOTE | 2021-01-14 10:02 | HMH.ANESCL ---
[facility] Anesthesia Checklist - Patient Identification Patient Identification: Arm Band - Structural Data Admitted From: Home Planned Operative Procedure/s: lap major Consent for Planned Operative Procedure(s) Verified: Yes Verified Documents: Surgical Consent, History and Physical - NPO Status Verified Time NPO: 00:00 - Additional verifications Anesthesia Reactions: No Hx Blood Transfusions: No Blood Transfusion Reaction: No - Airway Assessment C-Spine Mobility Assessed: Yes (mp2) TMJ Mobility Assessed: Yes Dentition: Edentulous - Neurological Assessment Level of Consciousness: Awake, Alert - Anesthesia Plan Anesthesia Risk discussed: Yes Anesthesia Plan: Verified ASA Class: III Anesthesia Type: General [facility] History I have reviewed the patient's past medical history: Yes 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: Reports:: Chronic Obstructive Pulmonary Disease (COPD), Coronary Artery Disease, Gastroesophageal Reflux Disease(GERD), Hyperlipidemia, Hypertension, Internal Pacemaker Denies:: Cancer, Diabetes Mellitus Type 1, Diabetes Mellitus Type 2, MRSA, Seizures *Have you ever received a pneumonia vaccine?: No *Have you received a flu vaccine this season?: Yes Other 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: Reports: Hypothyroidism. Denies: Blood Transfusion Reaction Anesthesia experience/problems:: nac Other Surgeries: Yes: Cardiac Catheterization, Colonoscopy, Coronary Stent, Pacemaker, Tubal Ligation, Other Amputation: No Fractures: No - *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 Last grade of school completed: 5th or 6th Smoking Status: Current every day smoker Tobacco Type: cigarettes # Packs/Day (cigarettes): 1 #Yrs smoked (if former smoker): 60 Alcohol Intake: never Alcohol Intake Frequency:: a few times a week Substance Use Type: denies use *Occupational Status:: retired Housing: house Household Members: none *Travel in the last 8 weeks: None Family Hx:: Cancer, Diabetes, Stroke
--- NOTE | 2021-01-14 12:04 | HMH.OPNOTE ---
Date of procedure: 01/14/21 Pre-op Diagnosis:: Symptomatic cholelithiasis Post-op Diagnosis:: Same Procedure performed:: Laparoscopic cholecystectomy Surgeon:: Yann Pelaez MD POWER HOUSE CONTROL ROOM OPERATOR:: Marty Siegel Anesthesia: CONTRERAS Estimated blood loss (mL): 15 Clinical Note:: 75-year-old female presented to the ER on 01/07/21 with a 3-day history of right upper quadrant pain that radiated to the shoulder. Patient had been seen in primary care provider's office and there was strong suspicion of gallbladder disease. Work-up was to be arranged as an outpatient. Symptoms have been present for 3 days and had worsened on the morning of the after eating an egg for breakfast. Patient underwent gallbladder ultrasound which showed sludge in the gallbladder and perhaps very small gallstones. There was no evidence of cholecystitis. Cardiology was consulted and patient was deemed an appropriate risk to proceed with cholecystectomy. Due to the nature of the patient's right upper quadrant pain (no acute cholecystitis present) it was believed patient could have procedure performed more safely while off Plavix to be arranged as an outpatient. Patient tolerated a diet when this was advanced to low-fat. Patient was discharged home on the evening of the . she states that she has continued to have some pain requiring pain medications. Operative findings:: Somewhat thickened gallbladder. Gallbladder sludge with multiple small sand-like stones. Tapering neck of the gallbladder to the cystic duct. Omental adhesions to the gallbladder. Operative note:: Consent was obtained and patient was taken to the operating room. She was given preoperative intravenous antibiotics. In the operating room she was placed in a supine position. General anesthesia was induced via endotracheal tube. Abdomen was prepped and draped in the standard surgical fashion. Due to the fact that she had a large wide midline scar from previous tubal ligation Veress needle was inserted in the left upper quadrant through 1 mm incision. CO2 pneumoperitoneum was achieved to 15 mmHg. 11 mm trocar was inserted inferior to the umbilicus. Intraperitoneal contents were visualized. She was positioned in reverse Trendelenburg left side down. A couple 5 mm trochars were inserted in the right upper abdomen. 10 mm trocar was inserted in the epigastrium. Gallbladder was identified, grasped, retracted anteriorly and superiorly over the dome of the liver. There were omental adhesions to the gallbladder which were taken down using blunt dissection. Visceral peritoneum at the neck of the gallbladder was bluntly incised. Prolonged careful dissection was carried out. She had somewhat of a tapering neck of the gallbladder to a cystic duct. Once the cystic duct was ultimately isolated it was multiply clipped and sharply divided. Please note that there was some unavoidable spillage of bile from a small rent near the neck of the gallbladder which was immediately suctioned free. This was consistent with thick sludge with debris and small sand-like stones. Cystic artery was carefully coagulated with JULIA ultrasonic robotic fernie and divided. Gallbladder was dissected free from the liver in a retrograde fashion using JULIA ultrasonic robotic fernie. Gallbladder was placed within an Endo Catch retrieval device and removed from the peritoneal cavity via the umbilical trocar site. Gallbladder fossa and perihepatic space was then thoroughly irrigated and aspirated until clear. There appeared to be good hemostasis. Trochars were then removed as CO2 pneumoperitoneum was evacuated. Fascia at the umbilicus was closed with a couple of 0 Vicryl sutures. Local anesthetic was infiltrated. Skin incisions were closed with 4-0 Monocryl in a subcuticular fashion. Steri-Strips and dressings were applied. Condition: stable Disposition: PACU Specimens:: Gallbladder Complications:: None immediately apparent
--- NOTE | 2021-01-14 12:11 | P.PN_ITS ---
[facility] Anesthesia Record Part I Intake, IV Amount: 1,000 Estimated blood loss (mL): 10 Urine output (mL): 0 Blood Pressure: 109/53 SaO2: 91 Pulse Rate: 60 Respiratory Rate: 16 Temperature: 98.5 F Patient is:: Drowsy, Stable Stable to PACU at:: 12:05
--- NOTE | 2021-01-14 14:12 | PC.NURSE ---
1215- encouraged cough and deep breathing
--- NOTE | 2021-01-15 07:28 | HMH.ANESII ---
[facility] Anesthesia Record Part II Discharge Time: 13:15 Destination: Surgical Day Care (OP Surgery) PACU nurse assessment reviewed?: Yes Patient Condition:: Good Anesthesia Complications:: None Swallowing reflex intact?: Yes Cyanosis?: No Blood Pressure: 107/52 Pulse Rate: 60 Temperature: 97.8 F Mental Status: Alert & Oriented Pain level:: 5 Nausea and/or vomitting:: None Intake, IV Amount: 0
[2021-01-15 07:29] VITALS: BP 107/52; PULSE 60; TEMP 36.6
== END 2021-01-14 14:17 | disposition home or self-care (01) ==
LOC: OR 09:25
PROVIDERS: PCP Nurse Practitioner Family; Visit Provider Surgery
PROC: 0FT44ZZ Resection of Gallbladder, Percutaneous Endoscopic Approach (ICD-10-PCS; CPT 47562; principal; 2021-01-14 11:00)
DX: J44.9 Chronic obstructive pulmonary disease, unspecified (principal); I25.10 Atherosclerotic heart disease of native coronary artery without angina pectoris; K21.9 Gastro-esophageal reflux disease without esophagitis; E78.5 Hyperlipidemia, unspecified; I10 Essential (primary) hypertension; Z95.0 Presence of cardiac pacemaker; E03.9 Hypothyroidism, unspecified; Z72.0 Tobacco use; Z80.9 Family history of malignant neoplasm, unspecified; Z83.3 Family history of diabetes mellitus; Z82.3 Family history of stroke; Z79.899 Other long term (current) drug therapy
CPT/HCPCS: 47562; 88304; 96374; J0131; J2405; J2710

== ENCOUNTER 2021-01-19 09:55 | Emergency (ER) | payer MEDICARE, MEDICAID, SELFPAY ==
[2021-01-19] VITALS (9 sets, daily range): BP systolic 105–151; BP diastolic 56–88; PULSE 68–88; RESP 17–19; TEMP 36.6–36.7; O2SAT 96–100; BMI 34.4
--- NOTE | 2021-01-19 09:58 | HMH.EDGENADL ---
ED Disposition Clinical Impression: Epigastric pain Disposition: Home, Self-Care Condition on Discharge: Good Additional Instructions: Please call your general surgeon's office tomorrow morning to make an appointment for either tomorrow or Wednesday. Please follow a bland diet until that time. If any recurrent symptoms, please try prescribed pain medicine. Do not operate heavy machinery or drink alcohol while taking prescribed narcotics. If any worsening pain, intractable nausea/vomiting, change in bowel habits, abdominal distention, change in quality/character pain, or other new concerning symptoms prior to following up with general surgery please report back to our emergency department immediately. Referrals: Manuela Castillo APRN [Primary Care Provider] - - Critical Care Critical Care Time: No Attestation: On , the high probability of a clinically significant, sudden or life threatening deterioration of the following system(s) required my full and direct attention, intervention and personal management. The time I documented below is in addition to time spent performing reported procedures but includes the following listed in this critical care notation. Medical Decision Making - Medical Records Medical records reviewed: Yes: I reviewed the patient's medical records. - Kervin Inquiry Pt receiving controlled substance: Yes Kervin was queried for this patient: No Risks and benefits of using a controlled substance: were discussed with pt by me Vital Signs: 01/19/21 09:56 01/19/21 10:26 01/19/21 10:30 Temperature 97.8 F Temperature Source Oral Pulse Rate [Right] 81 71 81 Respiratory Rate 18 18 18 Blood Pressure [Right Arm] 133/71 105/57 L 143/88 H Blood Pressure Mean [Right Arm] 91 73 106 Blood Pressure Source [Right Arm] Blood Pressure Position [Right Arm] 02 Sat by Pulse Oximetry 98 97 99 Oxygen Delivery Method 01/19/21 11:00 01/19/21 11:30 01/19/21 12:00 Temperature Temperature Source Pulse Rate [Right] 83 84 68 Respiratory Rate 18 18 19 Blood Pressure [Right Arm] 142/67 H 130/56 L 147/75 H Blood Pressure Mean [Right Arm] 92 80 99 Blood Pressure Source [Right Arm] Automatic Cuff Blood Pressure Position [Right Arm] Sitting 02 Sat by Pulse Oximetry 97 98 97 Oxygen Delivery Method Room Air Room Air 01/19/21 12:30 Temperature Temperature Source Pulse Rate [Right] 70 Respiratory Rate Blood Pressure [Right Arm] 151/72 H Blood Pressure Mean [Right Arm] 98 Blood Pressure Source [Right Arm] Automatic Cuff Blood Pressure Position [Right Arm] Sitting 02 Sat by Pulse Oximetry 96 Oxygen Delivery Method Room Air - Lab Data Lab Results 01/19/21 10:00: WBC 10.1, RBC 5.04, Hgb 14.4, Hct 45.0, MCV 89.4, MCH 28.6, MCHC 32.0, RDW 14.2, Plt Count 192, MPV 8.9, Neut % (Auto) 67.1, Lymph % (Auto) 23.1, [place] % (Auto) 8.0, Eos % (Auto) 1.3, Baso % (Auto) 0.5, Neut # (Auto) 6.8, Lymph # (Auto) 2.3, [place] # (Auto) 0.8, Eos # (Auto) 0.1, Baso # (Auto) 0.1 01/19/21 10:00: Sodium 140, Potassium 4.3, Chloride 106, Carbon Dioxide 27, Anion Gap 11.3, BUN 14, Creatinine 0.80, Estimated Creat Clear 72, Estimated GFR 70, Est GFR ( Amer) 85, Glucose 125 H, Calcium 9.6, Total Bilirubin 0.5, AST 67 H, ALT 46, Alkaline Phosphatase 139 H, Total Protein 7.8, Albumin 4.2, Globulin 3.6 H, Albumin/Globulin Ratio 1.2, Lipase 166 01/19/21 10:00: Troponin I < 0.01 01/19/21 12:15: Troponin I < 0.01 Result diagrams: 01/19/21 10:00 01/19/21 10:00 Orders (Tests/Meds): ED MEDICATIONS Discontinued Medications Generic Name Dose Route Start Last Admin Trade Name Ljq PRN Reason Stop Dose Admin Lactated Ringer's 500 mls @ 999 mls/hr 01/19/21 10:15 01/19/21 10:15 Lactated Ringer's 1000 Ml Bag IV 01/19/21 10:45 999 mls/hr .Q31M ISH Administration Iopamidol 75 ml 01/19/21 11:21 01/19/21 11:21 Iopamidol-370 (76%);100ml Bottle IV 01/19/21 11:22 75 ml ONCE ONE Administration Morp
--- NOTE | 2021-01-19 10:09 | CT_ITS ---
PROCEDURE: CT ABDOMEN PELVIS W CON CLINICAL INDICATION: epigastric pain s/p lap cholecystectomy 01/14 COMPARISON: CT CT ABDOMEN PELVIS W CON from 01/06/2021 TECHNIQUE: IV Contrast: 75ML Isovue 370 Oral Contrast None Axial images obtained with sagittal and coronal reformats. All CT scans at the facility use one or more dose reduction, viz: automated exposure control, ma/kV adjustment per patient size (including targeted exams where dose is matched to indication, i.e. head), or iterative reconstruction technique. FINDINGS: LOWER THORAX: Minimal atelectatic changes are present in the lung bases. ABDOMEN & PELVIS: 3 cm lobulated lesion of the liver once again noted not significantly changed. Status post cholecystectomy. No evidence abscess or biloma. Minimal prominence of the biliary tree which may be reservoir response to the cholecystectomy. The spleen, adrenal glands, and pancreas have an unremarkable appearance. No renal or ureteral calculi. No hydronephrosis. Small cortical right renal cysts are present. The bowel gas pattern is nonspecific with a few fluid-filled nondistended loops of small bowel in the pelvic region with some scattered air-fluid levels. Postsurgical changes at the umbilical region with stranding of the fat and a small amount of gas in the soft tissues. Unremarkable appendix. There is colonic diverticulosis. No evidence of diverticulitis. No pelvic mass or abnormal fluid collection. Pelvic phleboliths are present No acute bony anomaly. IMPRESSION: Status post cholecystectomy. Postsurgical changes with no abscess or biloma. Nonspecific small bowel gas pattern with fluid-filled nondistended loops in the pelvis with a few air-fluid levels nonspecific but could be seen with enteritis. Colonic diverticulosis. No evidence of diverticulitis Dictated by: Deniz Goodwin MD 01/19/2021 11:40 Deniz Goodwin MD in [place] 01/19/2021 11:40
[2021-01-19 10:16] LABS: Basophils # 0.1 K/mm3 (0-0.2); Basophils % 0.5 % (0.1-2.0); Chloride 106 mmol/L (98-107); Eosinophils # 0.1 K/mm3 (0.0-0.4); Eosinophils % 1.3 % (0.1-12.0); Hemoglobin 14.4 g/dL (12.2-16.2); Lymphocytes # 2.3 K/mm3 (0.7-4.5); Lymphocytes % 23.1 % (10-50); Mean Corpuscular Hemoglobin 28.6 pg (27.0-31.2); Mean Corpuscular Volume 89.4 fl (81-99); Mean Platelet Volume 8.9 fl (7.4-10.4); Monocytes # 0.8 K/mm3 (0.1-1.0); Neutrophils # 6.8 K/mm3 (1.8-7.8); Neutrophils % 67.1 % (37.0-80.0); Platelet Count 192 K/mm3 (142-424); Red Blood Count 5.04 M/mm3 (4.20-5.40); Red Cell Distribution Width 14.2 % (11.5-17.5); Sodium 140 mmol/L (136-145); White Blood Count 10.1 K/mm3 (4.8-10.8)
[2021-01-19 10:17] LABS: Potassium 4.3 mmoL/L (3.5-5.1)
--- NOTE | 2021-01-19 10:17 | ECG_ITS ---
APPROVED REPORT Exam: Resting ECG HR:69 bpm ECG Measurements Heart Rate 69 AXES MI 162 P 52 QRSd 90 QRS -17 QT 412 T 20 QTc 441 Conclusion Normal sinus rhythm Normal ECG Electronically signed by : Joe Fisher, 01/19/2021 17:14:05
[2021-01-19 10:19] LABS: Alanine Aminotransferase 46 U/L (12-78); Albumin Level 4.2 g/dl (3.5-5.0); Albumin/Globulin Ratio 1.2 (1.1-1.8); Alkaline Phosphatase 139 U/L (38-126); Anion Gap 11.3 mEq/L (5-15); Aspartate Amino Transferase 67 U/L (14-36); Bilirubin,Total 0.5 mg/dl (0.2-1.3); Blood Urea Nitrogen 14 mg/dl (7-17); Carbon Dioxide 27 mmol/L (22.0-30.0); Creatinine Clearance Estimated 72 mL/min (50-200); Estimated Glomerular Filt Rate 70 ml/min (>60); GFR (African American) 85 ML/MIN (>60); Globulin 3.6 g/dL (1.3-3.2); Lipase 166 U/L (23-300); Total Protein,Serum 7.8 g/dl (6.3-8.2)
[2021-01-19 10:20] LABS: Calcium 9.6 mg/dl (8.4-10.2); Glucose 125 mg/dl (74-100)
[2021-01-19 10:35] LABS: Troponin I < 0.01 ng/ml (0.00-0.034)
--- NOTE | 2021-01-19 11:10 | PC.NURSE ---
Patient to ct at this time.
--- NOTE | 2021-01-19 11:30 | PC.NURSE ---
Patient back from ct.
--- NOTE | 2021-01-19 11:41 | PC.NURSE ---
Provider at bedside discussing care.
[2021-01-19 12:54] LABS: Troponin I < 0.01 ng/ml (0.00-0.034)
--- NOTE | 2021-01-19 13:19 | PC.NURSE ---
paging dr arce.
== END 2021-01-19 13:30 | disposition home or self-care (01) ==
PROVIDERS: Emergency Provider Emergency Medicine; PCP Nurse Practitioner Family
DX: R10.13 Epigastric pain (principal); I10 Essential (primary) hypertension; I25.10 Atherosclerotic heart disease of native coronary artery without angina pectoris; J44.9 Chronic obstructive pulmonary disease, unspecified; K21.9 Gastro-esophageal reflux disease without esophagitis; Z95.0 Presence of cardiac pacemaker; F17.210 Nicotine dependence, cigarettes, uncomplicated; Z79.899 Other long term (current) drug therapy
CPT/HCPCS: 74177; 80053; 83690; 84484; 85025; 93005; 96365; 96375; 99283; J2405; Q9967

== ENCOUNTER → 2021-03-11 13:17 | Outpatient (CLI) | payer MEDICARE, MEDICAID, SELFPAY ==
--- NOTE | 2021-03-11 13:17 | CT_ITS ---
PROCEDURE: CT LUNG SCREENING CLINICAL INDICATION: LDCT Current smoker 30 pack year smoking history COMPARISON: CT CT ANGIO CHEST from 02/26/2020 TECHNIQUE: The exam was performed on a GE Light Speed [address] scanner using 2.90 mGy CTDI. A low dose helical CT CHEST was performed on a multi-detector scanner. All CT scans at the facility use one or more dose reduction, viz: automated exposure control, ma/kV adjustment per patient size (including targeted exams where dose is matched to indication, i.e. head), or iterative reconstruction technique. The LDCT was performed in a facility that meets the criteria for the screening program. Data regarding this exam was submitted to ACR which is an approved registry. The order for this exam indicates that it came as a result of a lung cancer screening counseling shard decision-making visit that included all the elements required of such a visit including smoking cessation. The radiologist interpreting this exam meets the [facility] criteria for the LDCT lung cancer screening program. The exam is reported using the Lung-RADS classification scale and reported to the ACR registry. NOTE: This study was performed for the specific purposes of lung cancer screening and is not an alternative to diagnostic chest CT. RADIATION DOSE: CTDI vol(CT dose Index-volume) = 2.90mG DLP (Dose Length Product) = 96.38 mGcm FINDINGS: COPD with scattered areas of scarring with evidence of old granulomatous disease. 3 mm fissural nodule in the right minor fissure unchanged. Minimal nodularity in the left upper lobe inferiorly somewhat less apparent. Mild diffuse bronchial thickening. 5 mm noncalcified nodule within the right middle lobe not significantly changed. No suspicious nodules apparent. OTHER FINDINGS: Cardiac pacemaker device present from left subclavian approach. Coronary artery calcifications and/or stents noted. No change in the 2.6 x 2.2 cm hypodense lesion of the right hepatic lobe IMPRESSION: Lung-RADS Category 2 Benign Appearance or Behavior Follow-up: Continue annual screening with LDCT in 12 months Dictated by: Deniz Goodwin MD 03/14/2021 13:01 Deniz Goodwin MD in [place] 03/14/2021 13:01
== END ==
PROVIDERS: PCP Nurse Practitioner Family; Visit Provider Internal Medicine Pulmonary Disease
DX: Z87.891 Personal history of nicotine dependence (principal); Z12.2 Encounter for screening for malignant neoplasm of respiratory organs
CPT/HCPCS: 71271

== ENCOUNTER 2021-03-27 09:50 | Outpatient (RCR) | payer MEDICARE, MEDICAID, SELFPAY | END 2021-05-23 13:08 | disposition home or self-care (01) | LOC: PT 09:50 | PROVIDERS: Visit Provider Internal Medicine Pulmonary Disease | DX: J44.9 Chronic obstructive pulmonary disease, unspecified (principal) | CPT/HCPCS: G0424 ==

== ENCOUNTER → 2021-04-04 13:08 | Outpatient (CLI) | payer MEDICARE, MEDICAID, SELFPAY ==
--- NOTE | 2021-04-04 13:09 | CA_ITS ---
APPROVED REPORT Respite Coordinator: EDMOND Laterality: Bilateral Study Quality: Good Indications: carotid artery stenosis Risk Factors Hypertension: Hyperlipidemia CAD, Smoking Doppler Spectral Velocity Analysis ECA (R) 99.40/10.30 cm/s ECA (L) 89.90/8.30 cm/s dICA (R) 112.20/33.70 cm/s dICA (L) 87.30/24.40 cm/s Mindi (R) 102.50/31.40 cm/s Mindi (L) 93.70/28.90 cm/s pICA (R) 42.20/12.80 cm/s pICA (L) 70.60/20.50 cm/s dCCA (R) 71.60/17.10 cm/s dCCA (L) 55.40/15.00 cm/s pCCA (L) 78.60/15.70 cm/s Vert (R) 62.90/17.20 cm/s ICA/CCA 1.57 Vert (L) 25.70/9.60 cm/s ICA/CCA 1.69 Findings Duplex evaluation demonstrates antegrade flow of the bilateral Vertebral Arteries. Duplex evaluation demonstrates stenosis of the right proximal internal carotid artery <20%. Duplex evaluation demonstrates stenosis of the left proximal internal carotid artery in the range of 20-49%. Conclusion Duplex evaluation demonstrates antegrade flow of the bilateral Vertebral Arteries. Duplex evaluation demonstrates stenosis of the right proximal internal carotid artery <20%. Duplex evaluation demonstrates stenosis of the left proximal internal carotid artery in the range of 20-49%. Electronically signed by : Deniz Goodwin MD 04/04/2021 16:13:07
== END ==
PROVIDERS: PCP Nurse Practitioner Family; Visit Provider Urology
DX: E78.2 Mixed hyperlipidemia (principal); F17.200 Nicotine dependence, unspecified, uncomplicated; I11.9 Hypertensive heart disease without heart failure; I20.8 Other forms of angina pectoris; I65.23 Occlusion and stenosis of bilateral carotid arteries; J42 Unspecified chronic bronchitis; R06.02 Shortness of breath
CPT/HCPCS: 93880

== ENCOUNTER 2021-04-07 17:25 | Emergency (ER) | payer MEDICARE, MEDICAID, SELFPAY ==
[2021-04-07 17:30] VITALS: BP 140/64; PULSE 77; RESP 20; TEMP 36.5; O2SAT 94; BMI 34.7
--- NOTE | 2021-04-07 18:00 | HMH.EDUTC ---
[facility] [place] Disposition Clinical Impression: Urticaria Disposition: Home, Self-Care Condition on Discharge: Good Instructions: Hives, DI for Hives Additional Instructions: Go home change clothes and make sure to look around to see what you maybe having a reaction too Over the counter Benadryl may help with itching Over the counter Claritian may help with reaction Be careful to not re-expose yourself to what ever it is you may be reacting too Follow up with your family Doctor for further evaluation and examination Straight to ER if any life threatening symptoms Over the counter hydrocortisone cream may help with itching and rash Referrals: Manuela Castillo APRN [Primary Care Provider] - As needed Time of Disposition: 18:56 Medical Decision Making - Kervin Inquiry Pt receiving controlled substance: No Kervin was queried for this patient: No Vital Signs: 04/07/21 17:30 04/07/21 18:49 Temperature 97.7 F 97.7 F Temperature Source Oral Pulse Rate 77 Pulse Rate [Left Brachial] 77 Respiratory Rate 20 20 Blood Pressure 140/64 Blood Pressure [Left Arm] 140/64 Blood Pressure Mean [Left Arm] 89 Blood Pressure Source [Left Arm] Automatic Cuff Blood Pressure Position [Left Arm] Sitting 02 Sat by Pulse Oximetry 94 L Oxygen Delivery Method Room Air Orders (Tests/Meds): ED MEDICATIONS Discontinued Medications Generic Name Dose Route Start Last Admin Trade Name Radha PRN Reason Stop Dose Admin Diphenhydramine HCl 25 mg 04/07/21 18:06 04/07/21 18:15 Diphenhydramine 25mg Capsule PO 04/07/21 18:07 25 mg ONCE ONE Administration Famotidine 20 mg 04/07/21 18:06 04/07/21 18:15 Famotidine 20mg Tablet PO 04/07/21 18:07 20 mg ONCE ONE Administration Methylprednisolone Sodium Succinate 125 mg 04/07/21 18:06 04/07/21 18:15 Methylprednisolone Sod Succ 125mg Vial IM 04/07/21 18:07 125 mg ONCE ONE Administration Medical Decision Narrative: Rash much improved after medication Patient educated to go home and continue to take Benadryl over the counter and may use topical hydrocortisone and follow up with PCP tomorrow morning if rash returns or worsens [facility] HPI - General Stated complaint: rash Time Seen by Provider: 04/07/21 18:00 Mode of Arrival: Ambulatory Source of Information: Patient Limitations: No Limitations Description of Symptoms (Recalled from Triage Doc. by RN): PATIENT C/O ITCHY, RAISED, RED RASH TO BILATERAL ARMS AND ABDOMEN SINCE THIS MORNING HEENT Symptoms (Recalled from RN notes): No Resp Symptoms (Recalled from RN notes): No Skin Symptoms (Recalled from RN notes): Yes MS Symptoms (Recalled from RN notes): No Functional Status (Recalled from RN notes): WNL - History of Present Illness Provider Complaint: Patient states that she went out to the garden earlier and when she got back she noticed she was having hives all over her arms, abdomen and buttock area State that she is unsure what she may have got into that she was having a reaction too and after they continued to spread she came in to see if she could get something to help - Related Data Home Medications Medication Instructions Recorded Confirmed aspirin 81 mg tablet,delayed 81 mg PO DAILY 12/13/17 04/07/21 release esomeprazole magnesium 20 mg 20 mg PO DAILY 03/31/21 04/07/21 capsule,delayed release Amlodipine Besylate [Amlodipine 10 mg PO DAILY 04/07/21 04/07/21 10mg Tab] Ciprofloxacin HCl [Cipro 500mg 500 mg PO BID 04/07/21 04/07/21 Tab] Clopidogrel Bisulfate [Plavix] 75 mg PO DAILY 04/07/21 04/07/21 Pantoprazole Sodium 20 mg PO DAILY 04/07/21 04/07/21 lisinopriL [Lisinopril] 20 mg PO BID 04/07/21 04/07/21 Previous Rx's Medication Instructions Recorded carvedilol 12.5 mg tablet 12.5 mg PO BID #180 tab 03/31/21 furosemide 40 mg tablet 40 mg PO DAILY #90 tab 03/31/21 rosuvastatin 20 mg tablet 20 mg PO DAILY #90 tab 03/31/21 Allergies Allergy/AdvReac Type Severity Reactio
[2021-04-07 18:49] VITALS: BP 140/64; PULSE 77; RESP 20; TEMP 36.5; O2SAT 94
== END 2021-04-07 19:02 | disposition home or self-care (01) ==
PROVIDERS: Emergency Provider Nurse Practitioner; PCP Nurse Practitioner Family
DX: L50.9 Urticaria, unspecified (principal); I10 Essential (primary) hypertension; J44.9 Chronic obstructive pulmonary disease, unspecified; K21.9 Gastro-esophageal reflux disease without esophagitis; E78.5 Hyperlipidemia, unspecified; F17.210 Nicotine dependence, cigarettes, uncomplicated; Z79.899 Other long term (current) drug therapy
CPT/HCPCS: 96372; 99202; G0463

== ENCOUNTER → 2021-10-27 09:06 | Outpatient (CLI) | payer MEDICARE, MEDICAID, SELFPAY | PROVIDERS: Visit Provider Surgery | DX: Z01.812 Encounter for preprocedural laboratory examination (principal); Z11.52 Encounter for screening for COVID-19; Z13.810 Encounter for screening for upper gastrointestinal disorder; R10.11 Right upper quadrant pain | CPT/HCPCS: C9803; U0003; U0005 ==

== ENCOUNTER 2021-10-29 10:24 | Day surgery (SDC) | payer MEDICARE, MEDICAID, SELFPAY ==
[2021-10-21 10:17] VITALS: BMI 34.9
--- NOTE | 2021-10-29 10:13 | HMH.ANESCL ---
[facility] Anesthesia Checklist - Patient Identification Patient Identification: Arm Band - Structural Data Admitted From: Home Planned Operative Procedure/s: EGD Consent for Planned Operative Procedure(s) Verified: Yes - NPO Status Verified Time NPO: 00:00 - Additional verifications Anesthesia Reactions: No Hx Blood Transfusions: No Blood Transfusion Reaction: No - Airway Assessment C-Spine Mobility Assessed: Yes TMJ Mobility Assessed: Yes Dentition: Edentulous - Neurological Assessment Level of Consciousness: Awake Hx Seizures: No Numbness or tingling in extremities: No - Anesthesia Plan Anesthesia Risk discussed: Yes Anesthesia Plan: Verified ASA Class: III Anesthesia Type: MAC [facility] History I have reviewed the patient's past medical history: Yes 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: Reports:: Chronic Obstructive Pulmonary Disease (COPD), Coronary Artery Disease, Gastroesophageal Reflux Disease(GERD), Hyperlipidemia, Hypertension, Internal Pacemaker Denies:: Cancer, Diabetes Mellitus Type 1, Diabetes Mellitus Type 2, MRSA, Seizures *Have you ever received a pneumonia vaccine?: No *Have you received a flu vaccine this season?: No Other 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: Reports: Hypothyroidism. Denies: Blood Transfusion Reaction Anesthesia experience/problems:: None Other Surgeries: Yes: Cardiac Catheterization, Cholecystectomy, Colonoscopy, Coronary Stent, Pacemaker, Tubal Ligation, Other Amputation: No Fractures: No - *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 Last grade of school completed: High school graduate Smoking Status: Current every day smoker Tobacco Type: cigarettes # Packs/Day (cigarettes): 1 #Yrs smoked (if former smoker): 60 Alcohol Intake: never Alcohol Intake Frequency:: a few times a week Substance Use Type: denies use *Occupational Status:: retired Housing: house Household Members: none *Travel in the last 8 weeks: None Family Hx:: Cancer, Diabetes, Stroke
[2021-10-29 10:41] VITALS: BP 150/71; PULSE 86; RESP 18; TEMP 36.9; O2SAT 96
[2021-10-29 10:55] VITALS: O2SAT 97
--- NOTE | 2021-10-29 11:03 | P.PCN_ITS ---
- Procedure: Date: 10/29/21 Patient Date of :: 1945 Procedure Performed:: Esophago-gastroduodenoscopy with biopsies Indications:: Patient is a 76-year-old female with history of tobacco dependence, cardiac pacemaker, COPD, coronary artery disease, hyperlipidemia, hypertension referred by Cony Castillo for upper endoscopy. I had performed laparoscopic cholecystectomy on the patient on 01/14/2021 for acute on chronic cholecystitis with cholelithiasis. She describes some epigastric pain. She states that this is intermittent. She states that it alternates between a dull ache and sharp- like pain. She also describes it as similar to a rock in her upper abdomen. She states that she takes [id number] Nexium. Performing Provider:: Yann Pelaez MD Referring Provider:: Cony Castillo Sedation:: MAC sedation Procedure:: Patient was taken to endoscopy procedure room. She was positioned in lateral decubitus position. Adequate intravenous sedation was achieved with anesthesia titration of propofol. Olympus endoscope was inserted via the oropharynx. Esophagus was cannulated. Overall esophagus appeared unremarkable. Gastroeso phageal junction was encountered at approximately 35 cm from the incisors. Stomach was cannulated and insufflated. There was evidence of some bile reflux. Retroflexion revealed a moderate sliding hiatal hernia. There was some diffuse nonerosive gastritis. Gastric antral mucosal biopsy was obtained for CLOtest for H. pylori. Pylorus was traversed. Duodenal bulb and duodenal sweep appeared unremarkable. Endoscope was withdrawn into the stomach. Gastric mucosal biopsy was obtained for histopathologic analysis. Endoscope was withdrawn into the distal esophagus and biopsy was obtained at the gastroesophageal junction. Stomach was desufflated and the endoscope was withdrawn. Findings:: Gastroesophageal junction at 35 cm from the incisors Moderate sliding hiatal hernia Diffuse nonerosive gastritis with some bile reflux Recommendations:: Plan to follow-up on histopathology Complications:: None immediately apparent Estimated blood obtained (mL): 1
[2021-10-29 11:05] VITALS: BP 103/45; PULSE 75; RESP 18; TEMP 36.3; O2SAT 92
[2021-10-29 11:15] VITALS: BP 121/78; PULSE 76; RESP 18; O2SAT 95
[2021-10-29 11:25] VITALS: BP 121/68; PULSE 72; RESP 18; O2SAT 98
[2021-10-29 11:35] VITALS: BP 118/77; PULSE 81; RESP 20; O2SAT 98
== END 2021-10-29 11:40 | disposition home or self-care (01) ==
LOC: OUTP 10:25
PROVIDERS: PCP Nurse Practitioner Family; Visit Provider Surgery
PROC: 0DJ08ZZ Inspection of Upper Intestinal Tract, Via Natural or Artificial Opening Endoscopic (ICD-10-PCS; CPT 43235; principal; 2021-10-29 11:30)
DX: K29.60 Other gastritis without bleeding (principal); K44.9 Diaphragmatic hernia without obstruction or gangrene; K21.9 Gastro-esophageal reflux disease without esophagitis; J44.9 Chronic obstructive pulmonary disease, unspecified; I25.10 Atherosclerotic heart disease of native coronary artery without angina pectoris; I10 Essential (primary) hypertension; E78.5 Hyperlipidemia, unspecified; Z95.0 Presence of cardiac pacemaker; E03.9 Hypothyroidism, unspecified; Z72.0 Tobacco use; Z80.9 Family history of malignant neoplasm, unspecified; Z82.3 Family history of stroke; Z83.3 Family history of diabetes mellitus
CPT/HCPCS: 43239; 87339; 88305

== ENCOUNTER → 2022-03-13 15:08 | Outpatient (CLI) | payer MEDICARE, MEDICAID, SELFPAY ==
--- NOTE | 2022-03-13 15:09 | CT_ITS ---
FINAL REPORT CLINICAL HISTORY: smoker COMPARISON: March 11, 2021 FINDINGS: Low-Dose Chest CT CTDI vol (mGy): 2.90 DLP (mGy-cm): 96.90 Axial images were obtained from the lung apex to the mid abdomen by computed tomography. Low-dose protocol was utilized. FINDINGS: CHEST: There is streak artifact arising from a left anterior chest wall pacemaker. There is no axillary adenopathy. There is no hilar or mediastinal adenopathy. The heart is proper size. There is no pericardial or pleural effusion. Limited images of the upper abdomen are unremarkable. Lung window images demonstrate a stable 5 mm nodule in the right middle lobe which is well seen on image 55 of series 3. There is a tiny nodule along the minor fissure well seen on image 40 series 3. There is a tiny nodule in the right lower lobe also seen on image 40 of series 3. These nodules are also stable from the previous. IMPRESSION: Lung RADS category 2. Recommend 12 month follow-up low-dose chest CT. Reviewed, Interpreted and Dictated by Pancho Braun MD Transcribed by Vivi Morrow Authenticated by Pancho Braun MD on 03/13/2022 03:58:48 PM [facility]
== END ==
PROVIDERS: PCP Internal Medicine; Visit Provider Internal Medicine Pulmonary Disease
DX: F17.210 Nicotine dependence, cigarettes, uncomplicated (principal)
CPT/HCPCS: 71271

== ENCOUNTER → 2022-03-24 09:10 | Outpatient (CLI) | payer MEDICARE, MEDICAID, SELFPAY ==
--- NOTE | 2022-03-24 09:18 | XR_ITS ---
FINAL REPORT CLINICAL HISTORY: SOB COMPARISON: December 20, 2020 FINDINGS: Two views of the chest were obtained. A left subclavian pacemaker is noted. The heart size is normal. The mediastinum is normal. No acute pulmonary abnormality is identified. There is no pneumothorax. The bony thorax is intact. IMPRESSION: No acute cardiopulmonary process. Reviewed, Interpreted and Dictated by Yann Robertson III, MD Transcribed by Pedro Duff Authenticated by Yann Robertson III, MD on 03/24/2022 11:03:25 AM [facility]
[2022-03-24 10:45] LABS: Basophils # 0.1 K/mm3 (0-0.2); Basophils % 1.7 % (0.1-2.0); Eosinophils # 0.1 K/mm3 (0.0-0.4); Hematocrit 44.3 % (37.0-47.0); Hemoglobin 14.6 g/dL (12.2-16.2); Lymphocytes % 42.2 % (10-50); Mean Corpuscular Hemoglobin 29.5 pg (27.0-31.2); Mean Corpuscular Volume 89.7 fl (81-99); Mean Platelet Volume 9.3 fl (7.4-10.4); Monocytes # 0.5 K/mm3 (0.1-1.0); Monocytes % 7.4 % (1.7-9.3); Neutrophils # 3.3 K/mm3 (1.8-7.8); Neutrophils % 46.8 % (37.0-80.0); Platelet Count 203 K/mm3 (142-424); Red Blood Count 4.94 M/mm3 (4.20-5.40); Red Cell Distribution Width 13.9 % (11.5-17.5); White Blood Count 7.1 K/mm3 (4.8-10.8)
[2022-03-24 11:17] LABS: Alanine Aminotransferase 20 U/L (12-78); Albumin Level 3.7 g/dl (3.5-5.0); Albumin/Globulin Ratio 1.3 (1.1-1.8); Alkaline Phosphatase 137 U/L (38-126); Anion Gap 10.8 mEq/L (5-15); Aspartate Amino Transferase 25 U/L (14-36); Bilirubin,Total 0.3 mg/dl (0.2-1.3); Blood Urea Nitrogen 17 mg/dl (7-17); Carbon Dioxide 28 mmol/L (22.0-30.0); Chloride 105 mmol/L (98-107); Estimated Glomerular Filt Rate 97 ml/min (>60); GFR (African American) 118 ML/MIN (>60); Globulin 2.9 g/dL (1.3-3.2); Glucose 110 mg/dl (74-100); Potassium 4.8 mmoL/L (3.5-5.1); Sodium 139 mmol/L (136-145); Total Protein,Serum 6.6 g/dl (6.3-8.2)
[2022-03-24 11:28] LABS: NT Pro Brain Natriuretic Pep. 57.5 pg/mL (0-450)
[2022-03-24 11:50] LABS: Thyroid Stimulating Hormone 1.82 uIU/mL (0.465-4.68)
== END ==
PROVIDERS: PCP Nurse Practitioner Family; Visit Provider Nurse Practitioner Family
DX: R06.02 Shortness of breath (principal); R60.9 Edema, unspecified
CPT/HCPCS: 36415; 71046; 80053; 83880; 84443; 85025

== ENCOUNTER 2022-03-25 08:56 | Emergency (ER) | payer MEDICARE, MEDICAID, SELFPAY ==
--- NOTE | 2022-03-25 08:56 | ECG_ITS ---
APPROVED REPORT Exam: Resting ECG HR:88 bpm ECG Measurements Heart Rate 88 AXES OR 169 P 59 QRSd 90 QRS 19 QT 341 T 49 QTc 387 Conclusion SINUS RHYTHM POSSIBLE RIGHT VENTRICULAR CONDUCTION DELAY [RSR (QR) IN V1/V2] BORDERLINE ECG UNCONFIRMED REPORT Electronically signed by : Joe Fisher MD 03/26/2022 21:11:39
[2022-03-25 08:59] VITALS: BP 172/79; PULSE 91; RESP 20; TEMP 36.8; O2SAT 96; BMI 35.6
[2022-03-25 09:06] VITALS: BMI 35.6
--- NOTE | 2022-03-25 09:07 | XR_ITS ---
FINAL REPORT CLINICAL HISTORY: chest pain, sob COMPARISON: March 24, 2022 FINDINGS: Two views of the chest were obtained. A left subclavian pacemaker is noted. The heart size is within normal limits. There is mild pulmonary vascular congestion. The mediastinum is normal. No acute pulmonary abnormality is identified. There is no pneumothorax. The bony thorax is intact. IMPRESSION: Mild pulmonary vascular congestion. Reviewed, Interpreted and Dictated by Yann Robertson III, MD Transcribed by Cyndi Pham Authenticated by Yann Robertson III, MD on 03/25/2022 11:10:46 AM [facility]
--- NOTE | 2022-03-25 09:14 | HMH.EDCP ---
ED Disposition Clinical Impression: Angina pectoris, Acute on chronic diastolic congestive heart failure, NYHA class 3 Disposition: Home, Self-Care Condition on Discharge: Good Instructions: Heart Failure - Critical Care Critical Care Time: No Attestation: On , the high probability of a clinically significant, sudden or life threatening deterioration of the following system(s) required my full and direct attention, intervention and personal management. The time I documented below is in addition to time spent performing reported procedures but includes the following listed in this critical care notation. Medical Decision Making - Medical Records Medical records reviewed: Yes: I reviewed the patient's medical records. - Kervin Inquiry Pt receiving controlled substance: No Vital Signs: 03/25/22 08:59 03/25/22 10:00 03/25/22 10:31 Temperature 98.3 F Temperature Source Oral Pulse Rate 67 67 Pulse Rate [Left Radial] 91 H Respiratory Rate 20 16 18 Blood Pressure 140/62 131/63 Blood Pressure [Right Arm] 172/79 H Blood Pressure Mean 70 85 Blood Pressure Mean [Right Arm] 110 Blood Pressure Source [Right Arm] Automatic Cuff Blood Pressure Position [Right Arm] Sitting 02 Sat by Pulse Oximetry 96 99 97 Oxygen Delivery Method Room Air 03/25/22 11:00 Temperature Temperature Source Pulse Rate 66 Pulse Rate [Left Radial] Respiratory Rate 18 Blood Pressure 139/65 Blood Pressure [Right Arm] Blood Pressure Mean 75 Blood Pressure Mean [Right Arm] Blood Pressure Source [Right Arm] Blood Pressure Position [Right Arm] 02 Sat by Pulse Oximetry 98 Oxygen Delivery Method - Lab Data Lab Results 03/25/22 09:04: WBC 8.1, RBC 4.69, Hgb 14.0, Hct 42.2, MCV 90.1, MCH 30.0, MCHC 33.3, RDW 14.1, Plt Count 199, MPV 9.3, Neut % (Auto) 59.5, Lymph % (Auto) 31.6, [place] % (Auto) 5.9, Eos % (Auto) 1.6, Baso % (Auto) 1.4, Neut # (Auto) 4.8, Lymph # (Auto) 2.6, [place] # (Auto) 0.5, Eos # (Auto) 0.1, Baso # (Auto) 0.1 03/25/22 09:04: Sodium 138, Potassium 4.1, Chloride 107, Carbon Dioxide 26, Anion Gap 9.1, BUN 17, Creatinine 0.70, Estimated Creat Clear 73, Estimated GFR 81, Est GFR ( Amer) 98, Glucose 141 H D, Calcium 8.6, Troponin I < 0.01, NT-Pro-B Natriuret Pep 65.3 03/25/22 12:23: Troponin I < 0.01 Result diagrams: 03/25/22 09:04 03/25/22 09:04 Orders (Tests/Meds): ED MEDICATIONS Generic Name Dose Route Start Last Admin Trade Name Freq PRN Reason Stop Dose Admin Sodium Chloride 10 ml 03/25/22 09:07 Sodium Chloride 0.9% 10ml Flush Syringe IV 04/24/22 09:06 NEEDED PRN Maintain IV Site Discontinued Medications Generic Name Dose Route Start Last Admin Trade Name Freq PRN Reason Stop Dose Admin Aspirin 243 mg 03/25/22 09:09 03/25/22 09:23 Aspirin 81mg Chewable Tablet PO 03/25/22 09:10 243 mg ONCE ONE Administration Furosemide 40 mg 03/25/22 11:15 03/25/22 11:24 Furosemide 40mg/4ml Vial IV 03/25/22 11:16 40 mg ONCE ONE Administration Nitroglycerin 0.4 mg 03/25/22 09:13 03/25/22 09:23 Nitroglycerin 0.4mg Sl Tablet SL 03/25/22 09:14 0.4 mg ONCE ONE Administration ORDERS Category Date Time Status Troponin I Q3H Lab 03/25/22 15:15 Ordered - Radiology Data #1 Image(s): Chest Image Reviewed: Yes I reviewed the patient's radiology results, Yes I reviewed the patient's radiology image, Yes I have reviewed radiologist's interpretation IMPRESSION: Mild pulmonary vascular congestion. - US Data US Images: Other (echo) ED US Reviewed: Yes: I have reviewed the patient's US results, I have viewed radiologist's interpretation Findings Narrative: Conclusion 1. Mild biatrial enlargement, normal left ventricular size, mild concentric left ventricular hypertrophy, estimated ejection fraction 55% with no regional wall motion abnormality, grade 1 diastolic dysfunction seen without tissue Doppler evidence of raise left atr
[2022-03-25 09:21] LABS: Basophils # 0.1 K/mm3 (0-0.2); Basophils % 1.4 % (0.1-2.0); Eosinophils # 0.1 K/mm3 (0.0-0.4); Eosinophils % 1.6 % (0.1-12.0); Hematocrit 42.2 % (37.0-47.0); Lymphocytes # 2.6 K/mm3 (0.7-4.5); Lymphocytes % 31.6 % (10-50); Mean Corpuscular HGB Conc 33.3 g/dL (31.8-35.4); Mean Corpuscular Volume 90.1 fl (81-99); Mean Platelet Volume 9.3 fl (7.4-10.4); Monocytes # 0.5 K/mm3 (0.1-1.0); Monocytes % 5.9 % (1.7-9.3); Neutrophils # 4.8 K/mm3 (1.8-7.8); Neutrophils % 59.5 % (37.0-80.0); Platelet Count 199 K/mm3 (142-424); Red Blood Count 4.69 M/mm3 (4.20-5.40); Red Cell Distribution Width 14.1 % (11.5-17.5); White Blood Count 8.1 K/mm3 (4.8-10.8)
[2022-03-25 09:22] LABS: Anion Gap 9.1 mEq/L (5-15); Blood Urea Nitrogen 17 mg/dl (7-17); Calcium 8.6 mg/dl (8.4-10.2); Carbon Dioxide 26 mmol/L (22.0-30.0); Chloride 107 mmol/L (98-107); Creatinine Clearance Estimated 73 mL/min (50-200); Estimated Glomerular Filt Rate 81 ml/min (>60); GFR (African American) 98 ML/MIN (>60); Glucose 141 mg/dl (74-100); Potassium 4.1 mmoL/L (3.5-5.1); Sodium 138 mmol/L (136-145)
[2022-03-25 09:35] LABS: NT Pro Brain Natriuretic Pep. 65.3 pg/mL (0-450); Troponin I < 0.01 ng/ml (0.00-0.034)
[2022-03-25 10:00] VITALS: BP 140/62; PULSE 67; RESP 16; O2SAT 99
--- NOTE | 2022-03-25 10:21 | PC.NURSE ---
Dr Odom consulting with [facility]
[2022-03-25 10:31] VITALS: BP 131/63; PULSE 67; RESP 18; O2SAT 97
[2022-03-25 11:00] VITALS: BP 139/65; PULSE 66; RESP 18; O2SAT 98
--- NOTE | 2022-03-25 11:11 | PC.NURSE ---
thierry golden at [facility]
--- NOTE | 2022-03-25 11:15 | CA_ITS ---
APPROVED REPORT EXAM: Comprehensive 2D, Doppler, and color-flow Echocardiogram Sous Chef Kitchen Manager: Lucero Fraser, RCS, RVS Ht: 5 ft 5 in Wt: 214lbs BSA: 2.04 BP: 000/00 mmHg Indications: COPD, CAD, PACER, Smoker 2D Dimensions IVSd 1.02 cm LVEF (Visual) 83.40 % PWd 0.82 cm LA Volume 53.80 mL LVDd 4.94 cm LA Volume Index 26.40 mL/m2 (M/F) 16-34 LVDs 2.35 cm LVOT 1.92 cm (M/F) 1.5-2.5 M-Mode Dimensions RVDd 2.17 cm (0.9-2.6) LA Diam 4.30 cm (1.9-4.0) LVDd 5.18 cm (3.5-5.7) Ao Diam 3.11 cm (2.0-3.7) LVDs 3.53 cm (3.5-5.7) IVSd 0.93 cm (0.6-1.1) PWd 0.89 cm (0.6-1.1) EF (Teich) 59.60% EPSs 0.34 cm FS 31.90% EDV (Teich) 128.40 mL TAPSE 1.41 (<1.7) ESV (Teich) 51.90 mL LV Diastology E Decel Time 237.00 (160-240 msec) E/A Ratio 0.78 MED E' 5.80 (< 7 cm/sec) MED A' 8.70 cm/s E'/MED E' Ratio 13.53 (>14) LAT E' 8.60 (<10 cm/sec) LAT A' 11.00 cm/s E/LAT E' Ratio 9.13 (>14) Aortic Valve LVOT Max 99.00 (70-110 cm/s) LVOT VTI 27.97 cm AoV Peak Chandra. 172.00 (50-130 cm/s) AO Peak GR. 11.90 mmHg AO Mean GR. 5.90 (<5 mmHg) AO VTI 44.74 (18-25 cm) FREDA (VTI) 1.81 (2.5-4.5 cm2) Mitral Valve MV A Velocity 101.00 (40-130 cm/s) E/A Ratio 0.78 MV Decel. Time 237.00 (160-240 ms) MV Mean Gr. 2.50 (<2mmHg) MV PHT 70.00 ms Pulmonary Valve PV Peak Velocity 79.00 (50-150 cm/s) Tricuspid Valve TR P. Velocity 285.00 cm/s RAP Estimate 10.00 mmHg RVSP 42.40 mmHg Left Ventricle Left atrium is mildly enlarged, left leg normal size, mild concentric left ventricular hypertrophy, estimated ejection fraction 55% with no regional wall motion abnormality, grade 1 diastolic dysfunction seen without tissue Doppler evidence of raise left atrial pressure. Right Ventricle Right atrium and right ventricle are mildly enlarged with normal contractility. Aortic Valve Aortic valve is thickened and calcified without aortic stenosis or aortic insufficiency. Mitral Valve Mitral valve leaflets are minimally thickened, there is no mitral stenosis, there is mild mitral regurgitation. Tricuspid Valve Tricuspid grossly normal, there is mild tricuspid regurgitation, calculated right ventricular systolic pressure is 42 mmHg. Pulmonic Valve Pulmonic valve is poorly visualized. Great Vessels Aortic root is normal size. Inferior vena cava normal size with normal inspiratory collapse. Pericardium No significant pericardial effusion noted. Conclusion 1. Mild biatrial enlargement, normal left ventricular size, mild concentric left ventricular hypertrophy, estimated ejection fraction 55% with no regional wall motion abnormality, grade 1 diastolic dysfunction seen without tissue Doppler evidence of raise left atrial pressure. 2. Mild mitral and tricuspid regurgitation, calculated right ventricular systolic pressure is 42 mmHg. 3. No significant pericardial effusion. 4. Inferior vena cava is normal size with normal spectral collapse. Electronically signed by : Ahmet Leger MD 03/25/2022 12:48:40
--- NOTE | 2022-03-25 11:24 | HMH.CNCARD ---
History of Present Illness Consult date: 03/25/22 Consult reason: chest pain Chief complaint: Chest pain Additional 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:: 1. Coronary artery disease A. Cardiac catheterization, ANGIOGRAPHIC RESULTS The left main artery Normal The left anterior descending artery Is proximally normal with mid vessel 10 to 20% stenoses The circumflex artery Nondominant yet still large and normal The right coronary artery Is dominant and has a proximal hazy 70% stenosis preceded by concentric 30% stenosis and followed by a mid vessel 40% stenosis. Distally there are 20 and 30% stenoses The [place] ventriculogram reveals Preserved 60% The left ventricular end-diastolic pressure 15 mmHg IMPRESSION Severe single-vessel coronary artery disease Successful stenting of the proximal to mid right coronary severe disease reduced to 0% with one drug-eluting stent Preserved ejection fraction Mildly elevated LVEDP PLAN 1. Dual antiplatelet therapy 2. Cardiac rehabilitation 3. Avoidance of tobacco products 4. LDL less than 55 5. Risk factor modification Electronically signed by : Keith Guillory, 04/16/2020 12:43:38 2. Continued tobacco use A. COPD with PFTs, 06/2020 showing moderate to severe emphysema 3. Hypertension with hypertensive heart disease/diastolic dysfunction 4. Hyperlipidemia 5. Pacemaker in situ placed 01/04/2021 for sick sinus syndrome with pauses greater than 4 seconds 6. EGD, 10/2021, moderate sliding hiatal hernia noted with diffuse gastritis. 7. Laparoscopic cholecystectomy, 01/2021 8. VINCENT, mild to moderate, 03/2021 History of present illness: 76-year-old white female with known history of coronary artery disease presented to the emergency department due to anterior chest pain that woke her from sleep about 3 AM this morning. Patient did take an aspirin and some old nitroglycerin with no significant relief. Symptoms were similar to her discomfort from 2019 at which time she received a coronary stent to the right coronary artery. Symptoms persisted through the morning and she eventually came to the ER around 9:00 and was given additional aspirin along with sublingual nitroglycerin with resolution of symptoms shortly thereafter. EKG is sinus rhythm with no acute ST segment changes and initial troponin is normal. Patient is currently pain-free. She does continue to smoke. Work-up in the ER includes chest x-ray which shows some mild pulmonary congestion. Patient recently was seen in her family doctor's office and told to increase her Lasix to twice a day which usually takes care of her lower extremity edema. She denies any recent nausea, vomiting, diaphoresis, exertional symptoms, fever or chills. Cardiology consulted for evaluation recommendations. [facility] History 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: Reports:: Chronic Obstructive Pulmonary Disease (COPD), Coronary Artery Disease, Gastroesophageal Reflux Disease(GERD), Hyperlipidemia, Hypertension, Internal Pacemaker Denies:: Cancer, Diabetes Mellitus Type 1, Diabetes Mellitus Type 2, MRSA, Seizures *Have you ever received a pneumonia vaccine?: No *Have you received a flu vaccine this season?: No Other 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: Reports: Hypothyroidism. Denies: Blood Transfusion Reaction Other Surgeries: Yes: Cardiac Catheterization, Cholecystectomy, Colonoscopy, Coronary Stent, EGD, Pacemaker, Tubal Ligation, Other Amputation: No Fractures: No - *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 Smoking Status: Current every day smoker Tobacco Type: cigarettes # Packs/Day (cigarettes): 1 #Yrs smoked (if former smoker): 60 Alcohol Intake: never Alcohol Intake Frequency:: a few times a week Substance Use Type: denies use *Occupational Status:: retired Housing: house Household Members: none *Travel in the last 8 weeks: Inside the [place] Family Hx:: Cancer, Diabetes, Stroke Meds Home Medications Medication Instructions Recorded Confirmed Type aspirin 81 mg tablet,delayed 81 mg PO DAILY 12/13/17 03/17/22
--- NOTE | 2022-03-25 11:45 | PC.NURSE ---
echo at the bedside.
--- NOTE | 2022-03-25 12:00 | PC.NURSE ---
350ml urine output
[2022-03-25 13:18] LABS: Troponin I < 0.01 ng/ml (0.00-0.034)
[2022-03-25 13:39] VITALS: BP 139/65; PULSE 66; RESP 18; TEMP 36.8; O2SAT 98
== END 2022-03-25 13:40 | disposition home or self-care (01) ==
PROVIDERS: Emergency Provider Emergency Medicine; PCP Nurse Practitioner Family
DX: I20.8 Other forms of angina pectoris (principal); I50.23 Acute on chronic systolic (congestive) heart failure; E03.9 Hypothyroidism, unspecified; I10 Essential (primary) hypertension; J44.9 Chronic obstructive pulmonary disease, unspecified; E78.5 Hyperlipidemia, unspecified; K21.9 Gastro-esophageal reflux disease without esophagitis; Z95.0 Presence of cardiac pacemaker; Z79.899 Other long term (current) drug therapy
CPT/HCPCS: 71046; 80048; 83880; 84484; 85025; 93005; 93306; 96374; 99284

== ENCOUNTER → 2022-03-31 06:56 | Outpatient (CLI) | payer MEDICARE, MEDICAID, SELFPAY ==
--- NOTE | 2022-03-31 09:06 | HMH.ITSHM ---
Current Home Medications as stated by this patient Jessica Payton or representative government relations. []SUCRALFATE SPIRONOLACTONE ROSUVASTATIN LISINOPRIL FUROSEMIDE FLUTICASONE ESOMEPRAZOLE DICLOFENAC CLOPIDOGREL CARVEDILOL ASA AMLODIPINE
== END ==
PROVIDERS: PCP Nurse Practitioner Family; Visit Provider Physician Assistant
DX: R06.02 Shortness of breath; R06.00 Dyspnea, unspecified; I25.10 Atherosclerotic heart disease of native coronary artery without angina pectoris; J44.9 Chronic obstructive pulmonary disease, unspecified; Z71.6 Tobacco abuse counseling; Z72.0 Tobacco use
CPT/HCPCS: 78452; 93017; A9502; J0280; J2785

== ENCOUNTER → 2022-04-09 13:24 | Outpatient (CLI) | payer MEDICARE, MEDICAID, SELFPAY ==
--- NOTE | 2022-04-09 13:27 | CA_ITS ---
FINAL REPORT CLINICAL HISTORY: LT LEG PAIN,NKI, PT ON ASA FINDINGS: DUPLEX VENOUS SONOGRAPHY OF THE LEFT LOWER EXTREMITY Multiple transverse and longitudinal scans were performed of the femoropopliteal deep venous system, with augmentation and compression maneuvers. Normal phasic flow was noted in the visualized deep venous system. No intraluminal increased echogenicity is noted to suggest thrombus. There is normal compression and augmentation of the venous structures. No abnormal venous collaterals are seen. IMPRESSION: No evidence of deep venous thrombosis of the left lower extremity. Reviewed, Interpreted and Dictated by Danya Montejo MD Transcribed by Vivi Morrow Authenticated by Danya Montejo MD on 04/09/2022 02:55:00 PM [facility]
== END ==
PROVIDERS: PCP Nurse Practitioner Family; Visit Provider Nurse Practitioner Family
DX: M79.662 Pain in left lower leg (principal); M79.89 Other specified soft tissue disorders
CPT/HCPCS: 93971

== ENCOUNTER 2022-06-02 02:47 | Emergency (ER) | payer MEDICARE, MEDICAID, SELFPAY ==
[2022-06-02 02:46] VITALS: BP 148/66; PULSE 87; RESP 18; TEMP 36.8; O2SAT 96; BMI 34.9
--- NOTE | 2022-06-02 02:59 | XR_ITS ---
PROCEDURE INFORMATION: Exam: XR Left Hip Exam date and time: 06/02/2022 3:03 AM Age: 77 years old Clinical indication: Hip pain; Left hip TECHNIQUE: Imaging protocol: Radiologic exam of the Left hip. Views: 2 or 3 views hip with pelvis when performed. COMPARISON: CT ABDOMEN PELVIS W CON 01/19/2021 11:13 AM FINDINGS: Bones/joints: Unremarkable. No acute fracture. Soft tissues: Unremarkable. IMPRESSION: No acute findings.
--- NOTE | 2022-06-02 03:00 | XR_ITS ---
PROCEDURE INFORMATION: Exam: XR Lumbosacral Spine Exam date and time: 06/02/2022 3:03 AM Age: 77 years old Clinical indication: Low back pain; Additional info: Pain, radiates down left hip TECHNIQUE: Imaging protocol: Radiologic exam of the lumbosacral spine. Views: 2 or 3 views. COMPARISON: FINDINGS: Bones/joints: Hypertrophic changes of the posterior facets are present especially from L4 through S1. The patient is mildly osteopenic. Soft tissues: Unremarkable. IMPRESSION: Mild degenerative changes.
--- NOTE | 2022-06-02 03:07 | XR_ITS ---
PROCEDURE INFORMATION: Exam: XR Chest Exam date and time: 06/02/2022 3:09 AM Age: 77 years old Clinical indication: Sternal or substernal pain; Prior surgery; Surgery date: 6+ months; Surgery type: Pacemaker; Additional info: Chest pain TECHNIQUE: Imaging protocol: Radiologic exam of the chest. Views: 2 views. COMPARISON: CR XR CHEST 2V 03/25/2022 9:07 AM FINDINGS: Lungs: Unremarkable. No consolidation. Pleural spaces: Unremarkable. No pleural effusion. No pneumothorax. Heart/Mediastinum: Unremarkable. No cardiomegaly. Bones/joints: Unremarkable. IMPRESSION: No acute findings.
[2022-06-02 03:16] LABS: Microscopic, Urine URINE MICROSCOPIC (MICROSCOPIC)
[2022-06-02 03:19] LABS: Appearance,Urine CLEAR (Clear); Bilirubin,Urine Negative (Negative); Blood, Urine TRACE-L (Negative); Color,Urine YELLOW (Yellow); Glucose,Urine (UA) Negative (Negative); Ketones,Urine Negative (Negative); Leukocyte Esterase,Urine Negative (Negative); Nitrate,Urine Negative (Negative); Protein,Urine Negative (Negative); Urobilinogen,Urine 0.2 EU/dl (0.2)
[2022-06-02 03:36] VITALS: BP 124/71; PULSE 79; RESP 16; TEMP 36.7; O2SAT 96
[2022-06-02 03:40] LABS: Bacteria,Urine Trace /lpf
--- NOTE | 2022-06-02 03:45 | PC.NURSE ---
MEDICATIONS GIVEN TO PATIENT ORDERED. EXPECTED WAIT TIMES GIVEN TO FAMILY AND PATIENT. NO ACUTE DISTRESS NOTED. WCM.
[2022-06-02 03:46] LABS: Coronavirus 19, PCR Not Detected (NotDetected); Influenza A, PCR Not Detected (NotDetected); Influenza B, PCR Not Detected (NotDetected)
[2022-06-02 03:48] LABS: Basophils # 0.1 K/mm3 (0-0.2); Basophils % 0.6 % (0.1-2.0); Eosinophils # 0.2 K/mm3 (0.0-0.4); Eosinophils % 2.5 % (0.1-12.0); Hemoglobin 14.3 g/dL (12.2-16.2); Lymphocytes # 2.6 K/mm3 (0.7-4.5); Lymphocytes % 33.5 % (10-50); Mean Corpuscular HGB Conc 34.8 g/dL (31.8-35.4); Mean Corpuscular Hemoglobin 29.6 pg (27.0-31.2); Mean Corpuscular Volume 85.1 fl (81-99); Mean Platelet Volume 8.7 fl (7.4-10.4); Monocytes # 0.6 K/mm3 (0.1-1.0); Monocytes % 7.3 % (1.7-9.3); Neutrophils # 4.4 K/mm3 (1.8-7.8); Platelet Count 202 K/mm3 (142-424); Red Blood Count 4.81 M/mm3 (4.20-5.40); Red Cell Distribution Width 13.9 % (11.5-17.5); White Blood Count 7.8 K/mm3 (4.8-10.8)
[2022-06-02 03:57] LABS: Alanine Aminotransferase 18 U/L (12-78); Albumin Level 3.7 g/dl (3.5-5.0); Albumin/Globulin Ratio 1.1 (1.1-1.8); Alkaline Phosphatase 116 U/L (38-126); Anion Gap 9.4 mEq/L (5-15); Aspartate Amino Transferase 24 U/L (14-36); Blood Urea Nitrogen 19 mg/dl (7-17); Carbon Dioxide 24 mmol/L (22.0-30.0); Chloride 108 mmol/L (98-107); Creatinine Clearance Estimated 71 mL/min (50-200); Estimated Glomerular Filt Rate 81 ml/min (>60); GFR (African American) 98 ML/MIN (>60); Globulin 3.3 g/dL (1.3-3.2); Glucose 118 mg/dl (74-100); Potassium 4.4 mmoL/L (3.5-5.1); Sodium 137 mmol/L (136-145)
[2022-06-02 04:02] VITALS: BP 121/63; PULSE 81; O2SAT 97
[2022-06-02 04:02] LABS: C-Reactive Protein 2.7 mg/L (0-4)
[2022-06-02 04:03] LABS: Bilirubin,Total < 0.1 mg/dl (0.2-1.3)
[2022-06-02 04:16] LABS: Procalcitonin 0.057 ng/mL (0.0-2.0)
[2022-06-02 04:30] VITALS: BP 116/63; PULSE 74; O2SAT 96
[2022-06-02 04:43] LABS: Erythrocyte Sedimentation Rate 44 mm/hr (0-30)
[2022-06-02 05:00] VITALS: BP 137/69; PULSE 74; O2SAT 97
--- NOTE | 2022-06-02 05:10 | HMH.EDGENADL ---
ED Disposition Clinical Impression: Lumbar radicular syndrome Disposition: Home, Self-Care Condition on Discharge: Fair Instructions: DI for Lumbar Radiculopathy Additional Instructions: call pcp this am for follow up Prescriptions: predniSONE [Prednisone 20mg Tab] 20 mg PO BID #10 tab Transmission Status: Pending to [id number] Referrals: Provider,Referral, [Primary Care Provider] - - Critical Care Critical Care Time: No Attestation: On 06/02/22, the high probability of a clinically significant, sudden or life threatening deterioration of the following system(s) required my full and direct attention, intervention and personal management. The time I documented below is in addition to time spent performing reported procedures but includes the following listed in this critical care notation. Medical Decision Making - Medical Records Medical records reviewed: Yes: I reviewed the patient's medical records. - Kervin Inquiry Pt receiving controlled substance: No Vital Signs: 06/02/22 02:46 06/02/22 03:36 06/02/22 04:02 Temperature 98.3 F 98.1 F Temperature Source Oral Pulse Rate 79 81 Pulse Rate [Left Radial] 87 Respiratory Rate 18 16 Blood Pressure 124/71 121/63 Blood Pressure [Right Arm] 148/66 H Blood Pressure Mean 88 88 Blood Pressure Mean [Right Arm] 93 Blood Pressure Source [Right Arm] Automatic Cuff Blood Pressure Position [Right Arm] Sitting 02 Sat by Pulse Oximetry 96 96 97 Oxygen Delivery Method Room Air 06/02/22 04:30 06/02/22 05:00 Temperature Temperature Source Pulse Rate 74 74 Pulse Rate [Left Radial] Respiratory Rate Blood Pressure 116/63 137/69 Blood Pressure [Right Arm] Blood Pressure Mean 94 98 Blood Pressure Mean [Right Arm] Blood Pressure Source [Right Arm] Blood Pressure Position [Right Arm] 02 Sat by Pulse Oximetry 96 97 Oxygen Delivery Method - Lab Data Lab results reviewed: Yes: I reviewed the patient's lab results. Lab Results 06/02/22 03:08: Urine Color Yellow, Urine Appearance Clear, Urine pH 6.0, Ur Specific Alliance 1.010, Urine Protein Negative, Urine Glucose (UA) Negative, Urine Ketones Negative, Urine Blood Trace-l, Urine Nitrate Negative, Urine Bilirubin Negative, Urine Urobilinogen 0.2, Ur Leukocyte Esterase Negative, Urine RBC 3-5, Urine Bacteria Trace 06/02/22 03:36: SARS-CoV-2 (PCR) Not detected, Influenza A Untype (PCR) Not detected, Influenza Type B (PCR) Not detected 06/02/22 03:36: WBC 7.8, RBC 4.81, Hgb 14.3, Hct 41.0, MCV 85.1, MCH 29.6, MCHC 34.8, RDW 13.9, Plt Count 202, MPV 8.7, Neut % (Auto) 56.0, Lymph % (Auto) 33.5, Coke % (Auto) 7.3, Eos % (Auto) 2.5, Baso % (Auto) 0.6, Neut # (Auto) 4.4, Lymph # (Auto) 2.6, Coke # (Auto) 0.6, Eos # (Auto) 0.2, Baso # (Auto) 0.1 06/02/22 03:36: Sodium 137, Potassium 4.4, Chloride 108 H, Carbon Dioxide 24, Anion Gap 9.4, BUN 19 H, Creatinine 0.70, Estimated Creat Clear 71, Estimated GFR 81, Est GFR ( Amer) 98, Glucose 118 H, Calcium 9.0, Total Bilirubin < 0.1 L, AST 24, ALT 18, Alkaline Phosphatase 116, C-Reactive Protein 2.7, Total Protein 7.0, Albumin 3.7, Globulin 3.3 H, Albumin/Globulin Ratio 1.1 06/02/22 03:36: ESR 44 H 06/02/22 03:36: Procalcitonin 0.057 Result diagrams: 06/02/22 03:36 06/02/22 03:36 Orders (Tests/Meds): ED MEDICATIONS Discontinued Medications Generic Name Dose Route Start Last Admin Trade Name Ljq PRN Reason Stop Dose Admin Hydrocodone Bitart/Acetaminophen 1 tab 06/02/22 03:21 06/02/22 03:44 Hydrocodone/Apap 5/325 Mg Tablet PO 06/02/22 03:22 1 tab ONCE ONE Administration Cyclobenzaprine HCl 10 mg 06/02/22 03:21 06/02/22 03:43 Cyclobenzaprine 10mg Tablet PO 06/02/22 03:22 10 mg ONCE ONE Administration Methylprednisolone Sodium Succinate 125 mg 06/02/22 03:20 06/02/22 03:43 Methylprednisolone Sod Succ 125mg Vial IM 06/02/22 03:21 125 mg ONCE ONE Administration Medical Decision
--- NOTE | 2022-06-02 05:16 | PC.NURSE ---
PT AND FAMILY UPDATED. PT ASSISTED WITH REPOSITIONING FOR COMFORT. WCM.
--- NOTE | 2022-06-02 05:19 | PC.NURSE ---
PT MADE AWARE OF CONTINUED DISCOMFORT.
[2022-06-02 06:00] VITALS: BP 133/80; PULSE 81; RESP 16; TEMP 36.7; O2SAT 97
== END 2022-06-02 06:11 | disposition home or self-care (01) ==
PROVIDERS: Emergency Provider Emergency Medicine
DX: M54.16 Radiculopathy, lumbar region (principal); Z79.82 Long term (current) use of aspirin; Z79.899 Other long term (current) drug therapy; Z88.6 Allergy status to analgesic agent; J44.9 Chronic obstructive pulmonary disease, unspecified; I25.10 Atherosclerotic heart disease of native coronary artery without angina pectoris; K21.9 Gastro-esophageal reflux disease without esophagitis; E78.5 Hyperlipidemia, unspecified; I10 Essential (primary) hypertension; Z95.0 Presence of cardiac pacemaker; Z72.0 Tobacco use
CPT/HCPCS: 71046; 72100; 73502; 80053; 81001; 84145; 85025; 85651; 86140; 96372; 99284; C9803; U0003; U0005

== ENCOUNTER → 2022-06-23 14:15 | Outpatient (CLI) | payer MEDICARE, MEDICAID, SELFPAY ==
--- NOTE | 2022-06-23 14:19 | CT_ITS ---
FINAL REPORT CLINICAL HISTORY: LUMBAR BACK PAIN,DDD, numbness/tingling down both legs FINDINGS: Axial imaging of the lumbar spine was obtained without contrast. Sagittal and coronal reformatted images were also obtained and reviewed.This study was performed with techniques to keep radiation doses as low as reasonably achievable (ALARA). Individualized dose reduction techniques using automated exposure control or adjustment of mA and/or kV according to the patient's size were employed. There is no fracture. The vertebral alignment is normal. There is mild degenerative change. There is no evidence of significant central canal stenosis. T12-L1: No evidence of significant central canal stenosis or neural foraminal narrowing. L1-2: An annular disc bulge is present. No evidence of significant central canal stenosis or neuroforaminal narrowing. L2-3: An annular disc bulge is present. No evidence of significant central canal stenosis or neuroforaminal narrowing. L3-4: An annular disc bulge is present. There is mild bilateral neural foraminal narrowing. L4-5: An annular disc bulge is present. There is mild bilateral neural foraminal narrowing. L5-S1: There is an annular disc bulge with facet arthropathy. There is mild right neural foraminal narrowing. There is mild degenerative change of the SI joints. IMPRESSION: Multilevel degenerative change without acute bony abnormality. Reviewed, Interpreted and Dictated by Yann Robertson III, MD Transcribed by Vivi Morrow Authenticated and [facility]
== END ==
PROVIDERS: PCP Nurse Practitioner Family; Visit Provider Nurse Practitioner Family
DX: M51.36 Other intervertebral disc degeneration, lumbar region (principal); M54.16 Radiculopathy, lumbar region; M41.26 Other idiopathic scoliosis, lumbar region; Z95.0 Presence of cardiac pacemaker
CPT/HCPCS: 72131

== ENCOUNTER → 2022-06-29 12:48 | Outpatient (POV) | payer MEDICARE, MEDICAID, SELFPAY ==
[2022-06-29 13:25] VITALS: BP 121/63; PULSE 86; RESP 17; TEMP 36.6; O2SAT 95; BMI 34.9
--- NOTE | 2022-06-29 16:09 | HMH.PMCON ---
Assessment and Plan (1) Degenerative disc disease, lumbar Status: Acute Category: Medical Code(s): M51.36 - Other intervertebral disc degeneration, lumbar region (2) Lumbar radiculopathy Status: Acute Category: Medical Code(s): M54.16 - Radiculopathy, lumbar region (3) Restless leg syndrome Status: Acute Category: Medical Code(s): G25.81 - Restless legs syndrome (4) Left leg pain Status: Acute Category: Medical Code(s): M79.605 - Pain in left leg (5) Left hip pain Status: Acute Category: Medical Code(s): M25.552 - Pain in left hip (6) Pain of left calf Status: Acute Category: Medical Code(s): M79.662 - Pain in left lower leg - Assessment and plan all Dx Assessment and Plan for all problems:: Patient has chronic low back pain that radiates down her left lower extremity. Patient states she is having worsening pain in her left calf that keeps her up at night. Patient stated that this is bothering her more than her low back pain at this time. I have discussed with her that her symptoms are consistent with restless leg syndrome. I have counseled her about starting ropinirole 0.25 mg daily. I will give a 2-week prescription on this medication. Patient will follow-up back in office in 2 weeks. Patient will return to clinic in 2 weeks for follow-up and reevaluation of symptoms. Patient has been instructed to contact the clinic with any concerns before the next appointment. Dr. Julio has reviewed this note and agrees with this plan of care. This note was dictated using voice recognition software and make contain errors or omissions. HPI - Data of Consult Patient: new to practice Consult date: 06/29/22 Requesting Physician: Rimma De Leon APRN Primary Care Provider: Manuela Castillo APRN Family Provider: Pallavi [place] - Consult Narrative Reason for consult: Left leg pain, left hip pain, left knee pain, left calf pain, low back pain History of present illness: Ms. Payton is a 77 year old female presents today as a new patient. She is a girl from [place]. Patient rates her pain today a 10 out of 10. She states she has pain on her left low back that radiates down her leg into her left hip and goes to her left ankle. She describes this as a ache, throbbing sensation. She states that she cannot sleep at night due to the pain in her calf. She constantly has to move around and try and get situated. She denies any trauma or injury to the site. Patient states that she has seen a pain doctor in [place] previously. She did do injective therapy and had significant relief and had not needed to go any longer. She has tried [id number] Tylenol with minimal improvement. She states she has also tried Flexeril that does not seem to help. Patient states she does get some relief with ice and seeing a chiropractor. Patient states that she has tried tramadol 50 mg 3 times a day but noticed minimal improvement. She states she was also given [place] [address] Harden and this did seem to help improve her symptoms. Patient states that she has also tried prescription strength topicals with no change in her symptoms. Patient has had an x-ray and CT of her lumbar spine. Patient states she is willing to try anything to get relief from this pain. CC: Rimma De Leon APRN [facility] History I have reviewed the patient's past medical history: Yes 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: Reports:: Atherosclerotic Heart Disease, Chronic Obstructive Pulmonary Disease (COPD), Coronary Artery Disease, Gastroesophageal Reflux Disease(GERD), Hyperlipidemia, Hypertension, Internal Pacemaker, Palpitations Denies:: Cancer, Diabetes Mellitus Type 1, Diabetes Mellitus Type 2, MRSA, Seizures *Have you ever received a pneumonia vaccine?: No *Have you received a flu vaccine this season?: No Other 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: Reports: Arthritis, Hypothyroidism. Denies: Blood Transfusion Reaction Other Surgeries: Yes: Cardiac Catheterization, Cholecystec
== END ==
PROVIDERS: PCP Nurse Practitioner Family; Visit Provider Nurse Practitioner Family
DX: M51.16 Intervertebral disc disorders with radiculopathy, lumbar region (principal); G25.81 Restless legs syndrome; M79.662 Pain in left lower leg; M25.552 Pain in left hip
CPT/HCPCS: 99202; G0463

== ENCOUNTER → 2022-07-01 08:27 | Outpatient (CLI) | payer MEDICARE, MEDICAID, SELFPAY ==
--- NOTE | 2022-07-01 08:36 | ECG_ITS ---
APPROVED REPORT Exam: Resting ECG HR:76 bpm ECG Measurements Heart Rate 76 AXES AR 161 P 49 QRSd 89 QRS 13 QT 365 T 39 QTc 395 Conclusion SINUS RHYTHM POSSIBLE RIGHT VENTRICULAR CONDUCTION DELAY [RSR (QR) IN V1/V2] BORDERLINE ECG UNCONFIRMED REPORT Electronically signed by : Joe Fisher MD 07/14/2022 16:51:14
[2022-07-01 09:43] LABS: Chloride 107 mmol/L (98-107)
[2022-07-01 09:46] LABS: Sodium 139 mmol/L (136-145)
[2022-07-01 09:49] LABS: Blood Urea Nitrogen 13 mg/dl (7-17); Calcium 9.1 mg/dl (8.4-10.2); Carbon Dioxide 28 mmol/L (22.0-30.0); Estimated Glomerular Filt Rate 81 ml/min (>60); GFR (African American) 98 ML/MIN (>60); Glucose 121 mg/dl (74-100)
== END ==
PROVIDERS: PCP Nurse Practitioner Family; Visit Provider Ophthalmology
DX: H02.423 Myogenic ptosis of bilateral eyelids (principal)
CPT/HCPCS: 36415; 80048; 93005

== ENCOUNTER → 2022-07-13 12:46 | Outpatient (POV) | payer MEDICARE, MEDICAID, SELFPAY ==
[2022-07-13 12:57] VITALS: BP 125/63; PULSE 89; RESP 18; TEMP 37.1; O2SAT 94; BMI 18.3
--- NOTE | 2022-07-13 13:09 | EXP.PAIN.SOA ---
[facility] Pain Management SOAP Note Subjective:: Patient is a pleasant 77-year-old female who presents today for follow-up. We are currently treating the patient for degenerative disc disease of lumbar spine with lumbar radiculopathy symptoms, restless leg syndrome, left hip pain. Today the patient rates her pain a 9 out of 10 and states the pain is primarily in her bilateral lower extremities more prominent on the left side. Patient denies any new trauma or injury. She denies any change to the location or type of pain she experiences. Patient states this pain keeps her awake at night and describes it as a aching throbbing sensation. She continues to have to get up and move around in order to get situated and decrease her pain. She had previously seen a pain physician in [place] where she had injective therapy and received significant improvement of her symptoms. Patient has tried [id number] medications, ice and topicals with no to minimal relief of her symptoms. She has been given tramadol in the past by her primary care provider however stated there was no difference noted. She is also had [place] [address] Harden that she states did provide improvement of her symptoms. At our last visit she was prescribed ropinirole 0.25 mg daily however she stated she did not notice any improvement of her symptoms. Patient denied any side effects from this medication her Kervin is [phone]. Its been reviewed and appropriate. Review of Systems: General: No recent weight changes, no fever, no sleep disturbances Respiratory: No cough, no shortness of air, no recurring pulmonary infections Cardiovascular/peripheral vascular: No chest pain, no palpitations, no edema, no shortness of breath Gastrointestinal: No new onset incontinence, normal bowel movements reported Genitourinary: No new onset incontinence Musculoskeletal: Bilateral lower extremity pain, low back pain Psychiatric: [Normal mood/affect] Neurological: [Denies weakness in extremities], [denies balance issues] Objective:: Physical Exam: General: Alert and oriented x3, no acute distress, pleasant and cooperative Lungs: Respirations even and unlabored, symmetrical chest expansion Eyes: PERRL Musculoskeletal: Flexion and extension of lumbar [spine] somewhat guarded secondary to pain, [antalgic gait noted] Neurological: Speech clear, no gross sensory deficit Assessment:: Degenerative disc disease of lumbar spine with lumbar radiculopathy symptoms, restless leg syndrome, left hip pain Plan:: Patient continues to have significant pain along her low back that radiates into her bilateral lower extremities. I have discussed with the patient regarding a lumbar epidural. Risk and benefits were discussed with the patient. She would like to proceed forward with this injection. She is currently on Plavix [address] Guillory. We will contact his office to see if she can stop her medication for 3 days prior to injection. I will also increase her ropinirole dosage to 0.5 mg daily. We will schedule the patient for a lumbar epidural steroid injection at L4-L5 at today's visit. Patient will follow-up following this injection for reevaluation of symptoms. Patient has been instructed to contact the clinic with any concerns before the next appointment. Dr. Julio has reviewed this note and agrees with this plan of care. This note was dictated using voice recognition software and make contain errors or omissions. [facility] 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 (Updated 06/29/22 @ 16:20 by Rimma De Leon APRN) Abnormal echocardiogram Angina pectoris Cardiac pacemaker in situ Chronic obstructive lung disease Dizziness Palpitations SOB (shortness of breath) 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 Smoking Status: Current every day smoker tobacco type: cigarettes packs per day: 1 second hand exposure: Yes alcohol intake: never substance use type: denies use current occupational status: other Travel in the last 8 weeks: None [employer]
== END | disposition home or self-care (01) ==
PROVIDERS: PCP Nurse Practitioner Family; Visit Provider Nurse Practitioner Family
DX: M51.16 Intervertebral disc disorders with radiculopathy, lumbar region (principal); M25.552 Pain in left hip; G25.81 Restless legs syndrome
CPT/HCPCS: 99212; G0463

== ENCOUNTER 2022-08-04 09:54 | Day surgery (SDC) | payer MEDICARE, MEDICAID, SELFPAY ==
[2022-08-04 10:02] VITALS: BP 125/59; PULSE 76; RESP 18; TEMP 36.2; O2SAT 95; BMI 34.9
[2022-08-04 10:16] VITALS: BP 124/63; PULSE 77; RESP 18; O2SAT 97
[2022-08-04 10:17] VITALS: BP 124/63; PULSE 76; RESP 18; O2SAT 96
[2022-08-04 10:30] VITALS: BP 102/57; PULSE 75; RESP 18; O2SAT 96
--- NOTE | 2022-08-04 10:39 | EXP.PAIN.PRO ---
Procedure Date: 08/04/22 Time: 10:40 Anesthesiologist:: Neel Nickerson CRNA Complications:: None Pre-procedure Diagnosis:: Degenerative disc disease lumbar spine multilevels. Lumbar radiculopathy symptoms. Post-procedure Diagnosis:: Same Indications for Procedure:: Patient is a pleasant 77-year-old female that comes our clinic today for lumbar epidural steroid injection. Patient has had this injection in the past with moderate relief. Patient was involved with a pain clinic for 3 years in [place]. Had multiple lumbar injections. Patient reports each injection did help however temporary. Patient describes low back pain as constant, dull, aching. Patient has minimal midline lumbar pain. The majority of her pain is off midline left greater than right. Patient has extreme point tenderness over the bilateral SI joints. Left greater than right. I informed the patient today she will return for follow-up visit within 2 weeks after today's injection. If in fact she has not had significant improvement in her low back as well as bilateral hip and leg radicular symptoms we will consider bilateral SI joint injections. Patient states she is never had SI joint injections Procedure Details:: Procedure: Lumbar epidural steroid injection under fluoroscopy Informed consent was obtained and the risks and benefits of the procedure were explained to the patient. The patient was taken to the procedure room and noninvasive monitors placed, including noninvasive blood pressure cuff and pulse oximeter. The back was viewed using C-arm Fluoroscopy and prepped using Betadine as a cleansing solution and the L4-L5 interspace was palpated. Skin and subcutaneous tissues were anesthetized using lidocaine 1.5% and a 25-gauge needle. After this, an 18-gauge Touhy epidural needle was placed into the L4-L5 interspace and advanced using fluoroscopic guidance and loss of resistance to air until the epidural space was encountered. After confirmation of needle placement in the epidural space, with dye, a solution containing lidocaine 1.5%, 4 mL and Depo-Medrol 80 mg were incrementally injected into the lumbar epidural space. The patient tolerated the procedure well with no complications. The patient was observed in the Pain Clinic and then discharged home neurologically intact. Plan and Disposition:: Patient was discharged from the clinic without incident
== END 2022-08-04 10:30 | disposition home or self-care (01) ==
LOC: SC.PAINP 09:54
PROVIDERS: PCP Nurse Practitioner Family; Visit Provider Nurse Anesthetist, Certified Registered
DX: M51.16 Intervertebral disc disorders with radiculopathy, lumbar region (principal); F17.210 Nicotine dependence, cigarettes, uncomplicated
CPT/HCPCS: 62323; J1040

== ENCOUNTER → 2022-08-27 14:01 | Outpatient (POV) | payer MEDICARE, MEDICAID, SELFPAY ==
[2022-08-27 14:20] VITALS: BP 109/60; PULSE 84; RESP 18; TEMP 36.6; O2SAT 99; BMI 33.6
--- NOTE | 2022-08-27 15:27 | EXP.PAIN.SOA ---
[facility] Pain Management SOAP Note Subjective:: Patient is a pleasant 77-year-old female who presents today for follow-up after a lumbar epidural steroid injection at L4-L5 on 08/04/2022. Patient is currently being treated for degenerative disc disease of lumbar spine with lumbar radiculopathy symptoms. After her lumbar procedure injection, patient had minimal relief of less than 50%. She continues to have low back pain. She is also having significant pain on bilateral lower extremities below her knees. She had a Doppler study done in March that were fairly negative. She is currently being followed by cardiology. She cannot tolerate any prolonged standing and walking. She takes OTC medications for pain. Rates her pain today as 8 out of 10. Review of Systems: General: No recent weight changes, no fever, no sleep disturbances Respiratory: No cough, no shortness of air, no recurring pulmonary infections Cardiovascular/peripheral vascular: No chest pain, no palpitations, no edema, no shortness of breath Gastrointestinal: No new onset incontinence, normal bowel movements reported Genitourinary: No new onset incontinence Musculoskeletal: Low back pain, bilateral leg pain Psychiatric: [Normal mood/affect] Neurological: [Denies weakness in extremities], [denies balance issues] Objective:: Physical Exam: General: Alert and oriented x3, no acute distress, pleasant and cooperative Lungs: Respirations even and unlabored, symmetrical chest expansion Eyes: PERRL Musculoskeletal: Flexion and extension of lumbar [spine] somewhat guarded secondary to pain, [antalgic gait noted]; tender to palpation to bilateral lumbar paraspinous muscles. Patient is also very tender to touch around her anterior bilateral lower extremities just below the knees to the superior aspect of the ankle. Neurological: Speech clear, no gross sensory deficit Assessment:: Myofascial pain, degenerative disc disease of lumbar spine with lumbar radiculopathy symptoms, bilateral lower extremity pain Plan:: Patient had minimal relief after her lumbar epidural steroid injection. CT lumbar did show degenerative disc changes to her lumbar spine but minimal spinal stenosis. Patient is very tender to palpation to bilateral lumbar paraspinous muscles. We will schedule the patient for trigger point injections to the bilateral lumbar paraspinous muscles. Patient is very tender to touch around her anterior bilateral lower extremities just below bilateral knees to the superior aspect of her ankles. She did have a Doppler study done in March 2022 that were fairly negative. I did discuss with the patient that she may need to see her PCP soon for further evaluation. I will start the patient on gabapentin 300 mg 3 times a day to see if this would help with some of peripheral neuropathy. If she does not get any relief from the gabapentin, I do not think her bilateral lower extremity pain is from her back. This might be more vascular in nature. There is also some discoloration on her bilateral lower extremity that is consistent with venous stasis. I initially thought this was cellulitis but this has been going on for two months. She denies any fever. Patient has been instructed to contact the clinic with any concerns before the next appointment. Dr. Julio has reviewed this note and agrees with this plan of care. This note was dictated using voice recognition software and make contain errors or omissions. PFSH PFS 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 Abnormal echocardiogram Angina pectoris Cardiac pacemaker in situ Chronic obstructive lung disease Dizziness Palpitations SOB (shortness of breath) 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 Smoking Status: Current every day smoker tobacco type: cigarettes packs per day: 1 second hand exposure: Yes alcohol intake: never substance use type: denies use current occupational status: re
== END | disposition home or self-care (01) ==
PROVIDERS: Visit Provider Nurse Practitioner Family
DX: M51.16 Intervertebral disc disorders with radiculopathy, lumbar region (principal); M79.18 Myalgia, other site; M79.605 Pain in left leg; M79.604 Pain in right leg; Z72.0 Tobacco use; Z79.899 Other long term (current) drug therapy
CPT/HCPCS: 99212; G0463

== ENCOUNTER → 2022-09-18 09:51 | Outpatient (CLI) | payer MEDICARE, MEDICAID, SELFPAY ==
--- NOTE | 2022-09-18 10:12 | PC.NURSE ---
PRE and POST PFT completed without incident. Albuterol 0.083% given via HHN, per protocol, Pt tolerated tx well.
== END ==
PROVIDERS: PCP Nurse Practitioner Family; Visit Provider Internal Medicine Pulmonary Disease
DX: J44.9 Chronic obstructive pulmonary disease, unspecified (principal)
CPT/HCPCS: 94060

== ENCOUNTER → 2022-12-03 08:43 | Outpatient (CLI) | payer MEDICARE, MEDICAID, SELFPAY ==
--- NOTE | 2022-12-03 08:48 | CA_ITS ---
FINAL REPORT TECHNIQUE: Real-time imaging was performed of the extracranial carotid arteries in transverse and longitudinal planes, with color duplex evaluation of blood flow velocity. Spectral analysis was performed. The cervical vertebral arteries were also examined. CLINICAL HISTORY: VINCENT,SMOKER,CAD,HTN,HLD COMPARISON: none FINDINGS: NASCET technique is utilized for stenosis evaluation. Right carotid system (centimeters/second): CCA: 88 ICA: 90 Vertebral artery: Antegrade ICA/CCA ratio: 1.47 Very mild plaque is identified at the bifurcation. Left carotid system (centimeters/second): CCA: 87 ICA: 75 Vertebral artery: Antegrade ICA/CCA ratio: 1.06 Very mild plaque is identified at the bifurcation. IMPRESSION: <50% right ICA stenosis. <50% left ICA stenosis. Reviewed, Interpreted and Dictated by Danya Montejo MD Transcribed by Verónica Kamara Authenticated and [facility]
== END ==
PROVIDERS: PCP Nurse Practitioner Family; Visit Provider Nurse Practitioner Family
DX: R42 Dizziness and giddiness; I65.23 Occlusion and stenosis of bilateral carotid arteries
CPT/HCPCS: 93880

== ENCOUNTER 2022-12-09 00:04 | Emergency (ER) | payer MEDICARE, MEDICAID, SELFPAY ==
[2022-12-09 00:07] VITALS: BP 140/90; PULSE 88; RESP 20; TEMP 36.6; O2SAT 97; BMI 33.6
[2022-12-09 00:35] VITALS: BP 133/110; PULSE 80; O2SAT 94
[2022-12-09 00:37] VITALS: BMI 33.6
--- NOTE | 2022-12-09 00:44 | CT_ITS ---
PROCEDURE INFORMATION: Exam: CT Abdomen And Pelvis Without Contrast Exam date and time: 12/09/2022 1:03 AM Age: 77 years old Clinical indication: Pain; Other: Low back; Additional info: Low back pain radiating down lle TECHNIQUE: Imaging protocol: Computed tomography of the abdomen and pelvis without contrast. Radiation optimization: All CT scans at this facility use at least one of these dose optimization techniques: automated exposure control; mA and/or kV adjustment per patient size (includes targeted exams where dose is matched to clinical indication); or iterative reconstruction. Other protocol: This patient has received 4 known CTs and 0 known cardiac nuclear medicine studies in the 12 months prior to the current study. COMPARISON: 1. CT ABDOMEN PELVIS W CON 01/19/2021 11:[address] lumbar spine without contrast 12/09/2022 1:05 a.m. FINDINGS: Tubes, catheters and devices: Pacemaker leads incompletely imaged. Lungs: Stable 6 mm calcified granuloma at the left lung base. Coronary arteries: Severe coronary artery calcifications, incompletely imaged. Liver: Stable 2.7 cm right hepatic cyst; no routine follow-up needed. Liver is otherwise unremarkable. Gallbladder and bile ducts: Status post cholecystectomy. No biliary dilatation. Pancreas: Normal. No ductal dilation. Spleen: Normal. No splenomegaly. Adrenal glands: Normal. No mass. Kidneys and ureters: No hydronephrosis or obstructive calculus. A punctate 1 mm nonobstructive right renal calculus. A few subcentimeter renal cysts; no routine follow-up needed. Stomach and bowel: Extensive sigmoid diverticulosis without evidence of diverticulitis. Bowel loops are otherwise unremarkable. Appendix: Normal appendix. Intraperitoneal space: Unremarkable. No free air. No significant fluid collection. Vasculature: Severe atherosclerotic calcifications. No abdominal aortic aneurysm. Lymph nodes: Unremarkable. No enlarged lymph nodes. Urinary bladder: Unremarkable as visualized. Reproductive: Unremarkable as visualized. Bones/joints: No acute osseous abnormality. No large disc herniation or severe spinal stenosis. Soft tissues: Tiny fat containing umbilical hernia. IMPRESSION: 1. No acute abnormality identified. 2. Status post cholecystectomy. No biliary dilatation. 3. A punctate 1 mm nonobstructive right renal calculus. 4. Extensive sigmoid diverticulosis without evidence of diverticulitis. 5. Normal appendix.
--- NOTE | 2022-12-09 00:44 | CT_ITS ---
PROCEDURE INFORMATION: Exam: CT Lumbar Spine Without Contrast Exam date and time: 12/09/2022 1:05 AM Age: 77 years old Clinical indication: Low back pain; Additional info: Low back pain radiating down lle, known arthritis TECHNIQUE: Imaging protocol: Computed tomography of the lumbar spine without contrast. Radiation optimization: All CT scans at this facility use at least one of these dose optimization techniques: automated exposure control; mA and/or kV adjustment per patient size (includes targeted exams where dose is matched to clinical indication); or iterative reconstruction. Other protocol: This patient has received 4 known CTs and 0 known cardiac nuclear medicine studies in the 12 months prior to the current study. COMPARISON: CT LUMBAR SPINE WO CON 06/23/2022 2:19 PM FINDINGS: Bones/joints: No large disc herniation or significant central canal stenosis. Unchanged mild bilateral foraminal stenosis at L3-L4, L4-L5, and L5-S1. Normal alignment. No acute fracture or subluxation. No lytic lesion. Vasculature: Prominent atherosclerotic calcifications in the abdominal aorta. No aneurysm. Soft tissues: Unremarkable. IMPRESSION: 1. No acute abnormality. 2. No large disc herniation or significant central canal stenosis. 3. Unchanged mild bilateral foraminal stenosis at L3-L4, L4-L5, and L5-S1. 4. Consider nonemergent follow-up with MRI to better assess for disc herniations and potential nerve root impingement.
[2022-12-09 00:45] LABS: Microscopic, Urine URINE MICROSCOPIC (MICROSCOPIC)
[2022-12-09 00:47] LABS: Appearance,Urine CLEAR (Clear); Bilirubin,Urine Negative (Negative); Blood, Urine 1+ (Negative); Color,Urine YELLOW (Yellow); Glucose,Urine (UA) Negative (Negative); Ketones,Urine Negative (Negative); Leukocyte Esterase,Urine Negative (Negative); Nitrate,Urine Negative (Negative); Protein,Urine TRACE (Negative); Specific Gravity, Urine 1.025 (1.005-1.030); Urobilinogen,Urine 0.2 EU/dl (0.2)
--- NOTE | 2022-12-09 00:53 | HMH.EDBACK ---
Discharge Plan Disposition Patient Disposition: Home, Self-Care Prescriptions Prescriptions: New prednisone [prednisone] 20 mg tablet 20 mg PO BID Qty: 10 0RF No Action aspirin [Adult Low Dose Aspirin] 81 mg tablet,delayed release (DR/EC) 81 mg PO DAILY furosemide 20 mg tablet 20 mg PO DAILY isosorbide mononitrate 30 mg tablet extended release 24 hr 30 mg PO DAILY Qty: 30 2RF nitrofurantoin monohyd/m-cryst 100 mg capsule 100 mg PO Q12H Label Comments: TAKE 1 CAPSULE BY MOUTH EVERY 12 HOURS FOR 10 DAYS, TAKE WITH FOOD esomeprazole magnesium [Nexium] 20 mg capsule,delayed release(DR/EC) 20 mg PO DAILY Trelegy Ellipta 200-62.5-25 mcg blister with device 1 inh INHALATION DAILY 90 Days Qty: 90 3RF albuterol sulfate 90 mcg/actuation HFA aerosol inhaler 2 inh inhalation QID PRN (Reason: shortness of breath or wheezing) 90 Days Qty: 8.5 2RF carvedilol 12.5 mg tablet 12.5 mg PO BID Qty: 180 3RF Rx Instructions: must administer with a meal/food spironolactone 50 mg tablet 50 mg PO DAILY Qty: 90 3RF clopidogrel 75 mg tablet 75 mg PO DAILY Qty: 90 3RF lisinopril 20 mg tablet 20 mg PO BID Qty: 60 5RF amlodipine 10 mg tablet 10 mg PO DAILY Qty: 30 4RF ropinirole 0.25 MG tablet 0.25 mg PO DAILY Referrals Follow up/Referrals: Manuela Castillo APRN [Primary Care Provider] - See instructions Clinical Impressions Clinical Impression: Lumbar radiculopathy Instructions Patient Instructions: DI for Back Pain With Sciatica Discharge ED Provider: Lester Means Back Pain HPI General Chief Complaint: Back Pain/Injury Stated Complaint: lower back pain radiating down left legl Time Seen by Provider: 12/09/22 00:53 Mode of Arrival: Family Vehicle Source of Information: Patient, Relative and Medical Record Limitations: No Limitations Description of Symptoms (Recalled from ER Triage Doc. by RN): Pt c/o bilat low back pain that radiates down LLE. Denies any parathesia or loss of bladder of bowels. States she has a known back pain issue and follows PCP & Pain Managment for injections. Pt states I was sitting in the hard chair for a while and since then my back has really hurt . Denies any urinary issues. Denies any saddle area numbness. Pt reports the pain increases with movement and laying on back. Denies any recent fall or trauma. History of Present Illness HPI Narrative: hx of l/s pain with rad to lt lower leg - no fever/rash or trauma - has hx of same - no cauda equina sx Complaint: back pain Onset (ago): hour(s) Duration: intermittent Similar Symptoms Previously: Yes Location: lumbar spine Severity: moderate Quality: burning Radiation: left leg Related Data Home Medications Medication Instructions Recorded Confirmed aspirin 81 mg tablet,delayed 81 mg PO DAILY Blood thinner 12/13/17 11/26/22 release (Adult Low Dose Aspirin) esomeprazole magnesium 20 mg 20 mg PO DAILY GERD 03/31/21 11/26/22 capsule,delayed release (Nexium) ropinirole 0.25 mg tablet 0.25 mg PO DAILY . 07/13/22 11/26/22 furosemide 20 mg tablet 20 mg PO DAILY 10/29/22 11/26/22 nitrofurantoin 100 mg PO Q12H 11/26/22 11/26/22 monohydrate/macrocrystals 100 mg capsule Previous Rx's Medication Instructions Recorded carvedilol 12.5 mg tablet 12.5 mg PO BID Heart disease #180 01/27/22 tabs spironolactone 50 mg tablet 50 mg PO DAILY Fluid #90 tabs 06/22/22 clopidogrel 75 mg tablet 75 mg PO DAILY Blood thinner #90 07/07/22 tabs albuterol sulfate 90 mcg/actuation 2 inh inhalation QID PRN shortness 09/29/22 aerosol inhaler of breath or wheezing 90 days #8.5 grams fluticasone fur. 200 mcg-umeclid 1 inh inhalation DAILY 90 days #90 09/29/22 62.5 mcg-vilant 25 mcg ea inhalat.powder (Trelegy Ellipta) lisinopril 20 mg tablet 20 mg PO BID Hypertension #60 tabs 10/06/22 isosorbide mononitrate 30 mg 30 mg PO DAILY #30 tabs 10/29/22 tablet,extended rel
[2022-12-09 00:57] LABS: Basophils # 0.1 K/mm3 (0-0.2); Basophils % 1.1 % (0.1-2.0); Eosinophils # 0.2 K/mm3 (0.0-0.4); Hemoglobin 13.4 g/dL (12.2-16.2); Lymphocytes # 3.4 K/mm3 (0.7-4.5); Lymphocytes % 36.5 % (10-50); Mean Corpuscular HGB Conc 32.7 g/dL (31.8-35.4); Mean Corpuscular Hemoglobin 29.1 pg (27.0-31.2); Mean Corpuscular Volume 89.1 fl (81-99); Mean Platelet Volume 9.6 fl (7.4-10.4); Monocytes # 0.6 K/mm3 (0.1-1.0); Monocytes % 6.9 % (1.7-9.3); Neutrophils % 53.5 % (37.0-80.0); Platelet Count 203 K/mm3 (142-424); Red Blood Count 4.61 M/mm3 (4.20-5.40); Red Cell Distribution Width 13.8 % (11.5-17.5); White Blood Count 9.4 K/mm3 (4.8-10.8)
--- NOTE | 2022-12-09 00:58 | PC.NURSE ---
pt standing up in room, beside bed trying to relieve the pain
--- NOTE | 2022-12-09 01:00 | PC.NURSE ---
pt gone to rad
[2022-12-09 01:12] LABS: Chloride 112 mmol/L (98-107); Potassium 4.4 mmoL/L (3.5-5.1); Sodium 140 mmol/L (136-145)
[2022-12-09 01:14] LABS: Alanine Aminotransferase 19 U/L (12-78); Alkaline Phosphatase 121 U/L (38-126); Aspartate Amino Transferase 23 U/L (14-36); Bilirubin,Total 0.3 mg/dl (0.2-1.3); Blood Urea Nitrogen 25 mg/dl (7-17); Creatinine Clearance Estimated 68 mL/min (50-200); Estimated Glomerular Filt Rate 70 ml/min (>60); GFR (African American) 84 ML/MIN (>60)
[2022-12-09 01:15] LABS: Albumin Level 3.8 g/dl (3.5-5.0); Albumin/Globulin Ratio 1.1 (1.1-1.8); Anion Gap 9.4 mEq/L (5-15); Calcium 8.6 mg/dl (8.4-10.2); Carbon Dioxide 23 mmol/L (22.0-30.0); Globulin 3.5 g/dL (1.3-3.2); Glucose 94 mg/dl (74-100); Total Protein,Serum 7.3 g/dl (6.3-8.2)
[2022-12-09 01:17] LABS: Bacteria,Urine 1+ /lpf; WBC,Urine Occasional #/hpf (0-3)
[2022-12-09 01:22] LABS: Erythrocyte Sedimentation Rate 53 mm/hr (0-30)
[2022-12-09 01:51] VITALS: BP 130/98; PULSE 82; RESP 18; TEMP 36.6; O2SAT 99
[2022-12-09 01:52] LABS: Procalcitonin 0.057 ng/mL (0.0-2.0)
== END 2022-12-09 01:56 | disposition home or self-care (01) ==
PROVIDERS: Emergency Provider Emergency Medicine; PCP Nurse Practitioner Family
DX: M54.16 Radiculopathy, lumbar region (principal); J44.9 Chronic obstructive pulmonary disease, unspecified; Z95.0 Presence of cardiac pacemaker; Z86.79 Personal history of other diseases of the circulatory system; R91.8 Other nonspecific abnormal finding of lung field; F17.210 Nicotine dependence, cigarettes, uncomplicated; Z80.9 Family history of malignant neoplasm, unspecified; Z83.3 Family history of diabetes mellitus; Z82.3 Family history of stroke
CPT/HCPCS: 72131; 74176; 80053; 81001; 84145; 85025; 85651; 86140; 96374; 96375; 99285; J0131

== ENCOUNTER → 2023-01-11 11:07 | Outpatient (POV) | payer MEDICARE, MEDICAID, SELFPAY ==
--- NOTE | 2023-01-11 11:20 | EXP.PAIN.SOA ---
[facility] Pain Management SOAP Note Subjective:: Patient is a pleasant 77-year-old female who presents today for follow-up. We are currently treating the patient for degenerative disc disease of lumbar spine with lumbar radiculopathy symptoms. Today she rates her pain a 6 out of 10. Patient denies any new trauma or injury. Patient denies any change to location or type of pain that she experiences. Patient has had injections in the past however the last couple of injection she did not notice significant relief. Patient does describe her back pain as a throbbing, tooth ache like sensation that is worse with increased activity. Patient states she notices it more predominantly when she is doing activities such as laundry or mopping. Patient states that she was prescribed by her primary care doctor some pain medication that did provide additional relief. At our last visit the patient was experiencing significant numbness and tingling in her lower legs and was prescribed pregabalin. Patient states this has provided significant improvement of her symptoms. Patient was prescribed pregabalin 75 mg twice a day. Patient denies any side effects from this medication. She is requesting a refill at today's visit. Her Kervin is [phone]. Its been reviewed and appropriate. Review of Systems: General: No recent weight changes, no fever, no sleep disturbances Respiratory: No cough, no shortness of air, no recurring pulmonary infections Cardiovascular/peripheral vascular: No chest pain, no palpitations, no edema, no shortness of breath Gastrointestinal: No new onset incontinence, normal bowel movements reported Genitourinary: No new onset incontinence Musculoskeletal: Low back pain Psychiatric: [Normal mood/affect] Neurological: [Denies weakness in extremities], [denies balance issues] Objective:: Physical Exam: General: Alert and oriented x3, no acute distress, pleasant and cooperative Lungs: Respirations even and unlabored, symmetrical chest expansion Eyes: PERRL Musculoskeletal: Flexion and extension of lumbar [spine] somewhat guarded secondary to pain, [antalgic gait noted] Neurological: Speech clear, no gross sensory deficit ORT score updated with low risk Assessment:: Degenerative disc disease of lumbar spine with lumbar radiculopathy symptoms Plan:: Patient is experiencing significant pain in her low back with limited range of motion. I will refill her pregabalin 75 mg twice a day and provide a 1 month supply of this medication. I will also order her methocarbamol 500 mg at bedtime and provide a 1 month supply of this medication. Patient will return to clinic in 1 month for reevaluation of symptoms, medication refill and plan of care. Patient has been instructed to contact the clinic with any concerns before the next appointment. Dr. Julio has reviewed this note and agrees with this plan of care. This note was dictated using voice recognition software and make contain errors or omissions. [facility] Disclaimer: The information contained in this section may have been updated after the patient was seen, as this information can be updated by other users. 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 Abnormal echocardiogram Angina pectoris Cardiac pacemaker in situ Chronic obstructive lung disease COPD (chronic obstructive pulmonary disease) Dizziness Dyspnea on exertion Multiple lung nodules on CT Palpitations Pulmonary emphysema Screening for lung cancer Smoking greater than 30 pack years SOB (shortness of breath) Tobacco abuse counseling Tobacco abuse disorder Surgical History History of permanent cardiac pacemaker placement Family History Other Cancer Diabetes Stroke 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 Smoking Status: Current every day smoker tobacco type: cigarettes packs per day: 1
[2023-01-11 11:22] VITALS: BP 126/63; PULSE 79; RESP 18; O2SAT 98; BMI 34.9
== END | disposition home or self-care (01) ==
PROVIDERS: PCP Nurse Practitioner Family; Visit Provider Nurse Practitioner Family
DX: M51.16 Intervertebral disc disorders with radiculopathy, lumbar region (principal)
CPT/HCPCS: 99212; G0463

== ENCOUNTER 2023-02-16 09:40 | Emergency (ER) | payer MEDICARE, MEDICAID, SELFPAY ==
--- NOTE | 2023-02-16 | ECG_ITS ---
APPROVED REPORT Exam: Resting ECG HR:78 bpm ECG Measurements Heart Rate 78 AXES MO 152 P 50 QRSd 84 QRS -7 QT 368 T 20 QTc 401 Conclusion SINUS RHYTHM NORMAL ECG UNCONFIRMED REPORT Electronically signed by : Joe Fisher MD 02/16/2023 21:16:44
[2023-02-16 09:42] VITALS: BP 120/74; PULSE 74; RESP 21; TEMP 36.6; O2SAT 95; BMI 34.9
[2023-02-16 09:45] VITALS: BMI 34.9
--- NOTE | 2023-02-16 09:46 | XR_ITS ---
FINAL REPORT CLINICAL HISTORY: chest discomfort COMPARISON: 06/02/2022 FINDINGS: TWO-VIEW CHEST The heart size is normal. The mediastinum is normal. The lungs are underinflated. There is scarring at the left base. Left-sided pacer is identified. There is no pneumothorax. IMPRESSION: No acute cardiopulmonary process. Reviewed, Interpreted and Dictated by Pancho Braun MD Transcribed by Cyndi Pham Authenticated and [facility]
--- NOTE | 2023-02-16 10:00 | CT_ITS ---
FINAL REPORT TECHNIQUE: Axial imaging of the head was obtained without contrast. This study was performed with techniques to keep radiation doses as low as reasonably achievable, (ALARA). Individualized dose reduction techniques using automated exposure control or adjustment of mA and/or kV according to the patient''s size were employed. CLINICAL HISTORY: dizziness COMPARISON: May 2020 FINDINGS: There is mild atrophy. The ventricles are normal in size. There is no evidence of hemorrhage. No masses are identified. No extra-axial fluid is seen. The sinuses are normal. There is no acute osseous abnormality. IMPRESSION: No acute intracranial abnormality. Reviewed, Interpreted and Dictated by Pancho Braun MD Transcribed by Pedro Duff Authenticated and [facility]
--- NOTE | 2023-02-16 10:01 | PC.NURSE ---
pt to xray via wheelchair
--- NOTE | 2023-02-16 10:05 | HMH.EDGENADL ---
Discharge Plan Disposition Patient Disposition: Home, Self-Care Condition: Fair Prescriptions Prescriptions: New prednisone 20 mg tablet 60 mg PO DAILY 4 Days Qty: 12 0RF azithromycin 250 mg tablet 250 mg PO DAILY 4 Days Qty: 4 0RF Rx Instructions: start on day 2 of therapy No Action aspirin [Adult Low Dose Aspirin] 81 mg tablet,delayed release (DR/EC) 81 mg PO DAILY furosemide 20 mg tablet 20 mg PO DAILY esomeprazole magnesium [Nexium] 20 mg capsule,delayed release(DR/EC) 20 mg PO DAILY albuterol sulfate 90 mcg/actuation HFA aerosol inhaler 2 inh inhalation QID PRN (Reason: shortness of breath or wheezing) 90 Days Qty: 8.5 2RF clopidogrel 75 mg tablet 75 mg PO DAILY Qty: 90 3RF lisinopril 20 mg tablet 20 mg PO BID Qty: 180 3RF spironolactone 50 mg tablet 50 mg PO DAILY Qty: 90 3RF carvedilol 25 mg tablet 25 mg PO BID Qty: 60 5RF Rx Instructions: must administer with a meal/food ropinirole 0.25 MG tablet 0.25 mg PO DAILY isosorbide mononitrate 30 mg tablet extended release 24 hr 30 mg PO DAILY Trelegy Ellipta 200-62.5-25 mcg blister with device 1 inh INHALATION DAILY methocarbamol 500 mg tablet 500 mg PO HS Qty: 30 0RF pregabalin [Lyrica] 75 mg capsule 75 mg PO BID Qty: 60 0RF Referrals Follow up/Referrals: Provider,Referral, MD [Referring] - See instructions Clinical Impressions Clinical Impression: COPD (chronic obstructive pulmonary disease) with acute bronchitis Instructions Patient Instructions: Chronic Obstructive Pulmonary Disease, DI for Atypical Chest Pain Print Language Print Language: Greenlandic Discharge ED Provider: Tulio Fritz General Adult HPI General Chief complaint: Chest Pain Stated complaint: CP Time Seen by Provider: 02/16/23 12:28 Mode of Arrival: Wheelchair Source of Information: Patient and Relative Limitations: No Limitations Description of Symptoms (Recalled from ER Triage Doc. by RN): Patient arrived to ED by wheelchair. Patient states she started having chest pain that began last night. Patient also states she is SOA. Patient denies radiation of chest pain. Patient appears short of air. Patient states she has a hx of stent placement as well as a pacemaker. History of Present Illness HPI narrative: Patient presents to the emergency department with chest pain, shortness of breath, dizziness. The patient states that she has been sick for the last week. She describes dizziness which started around 2 AM. She does describe chills but denies any fever. She states that she was started on unknown antibiotic by her primary care physician last week which was a 10-day course. She does not believe she was on any steroids. Has a history of COPD. Denies any abdominal pain, nausea or vomiting. Related Data Home Medications Medication Instructions Recorded Confirmed aspirin 81 mg tablet,delayed 81 mg PO DAILY Blood thinner 12/13/17 01/11/23 release (Adult Low Dose Aspirin) esomeprazole magnesium 20 mg 20 mg PO DAILY GERD 03/31/21 01/11/23 capsule,delayed release (Nexium) ropinirole 0.25 mg tablet 0.25 mg PO DAILY . 07/13/22 01/11/23 furosemide 20 mg tablet 20 mg PO DAILY Fluid 10/29/22 01/11/23 fluticasone fur. 200 mcg-umeclid 1 inh inhalation DAILY Breathing 01/11/23 01/11/23 62.5 mcg-vilant 25 mcg problems inhalat.powder (Trelegy Ellipta) isosorbide mononitrate 30 mg 30 mg PO DAILY BLOOD PRESSURE 01/11/23 01/11/23 tablet,extended release 24 hr Previous Rx's Medication Instructions Recorded clopidogrel 75 mg tablet 75 mg PO DAILY Blood thinner #90 07/07/22 tabs albuterol sulfate 90 mcg/actuation 2 inh inhalation QID PRN shortness 09/29/22 aerosol inhaler of breath or wheezing 90 days #8.5 grams methocarbamol 500 mg tablet 500 mg PO HS #30 tabs 01/11/23 pregabalin 75 mg capsule (Lyrica) 75 mg PO BID #60 caps 01/11/23 lisinopril 20 mg tablet 20 mg PO BID H
[2023-02-16 10:06] LABS: Chloride 102 mmol/L (98-107); Sodium 134 mmol/L (136-145)
[2023-02-16 10:07] LABS: Potassium 4.5 mmoL/L (3.5-5.1)
[2023-02-16 10:09] LABS: Blood Urea Nitrogen 15 mg/dl (7-17); Creatinine Clearance Estimated 71 mL/min (50-200); Estimated Glomerular Filt Rate 97 ml/min (>60); GFR (African American) 117 ML/MIN (>60)
[2023-02-16 10:10] LABS: Anion Gap 10.5 mEq/L (5-15); Calcium 8.6 mg/dl (8.4-10.2); Carbon Dioxide 26 mmol/L (22.0-30.0); Glucose 156 mg/dl (74-100)
[2023-02-16 10:14] LABS: Basophils % 0.4 % (0.1-2.0); Eosinophils # 0.1 K/mm3 (0.0-0.4); Hematocrit 40.9 % (37.0-47.0); Hemoglobin 12.7 g/dL (12.2-16.2); Lymphocytes # 2.2 K/mm3 (0.7-4.5); Mean Corpuscular HGB Conc 31.1 g/dL (31.8-35.4); Mean Corpuscular Hemoglobin 27.8 pg (27.0-31.2); Mean Corpuscular Volume 89.4 fl (81-99); Mean Platelet Volume 8.3 fl (7.4-10.4); Monocytes # 0.7 K/mm3 (0.1-1.0); Monocytes % 8.2 % (1.7-9.3); Neutrophils # 5.4 K/mm3 (1.8-7.8); Neutrophils % 64.4 % (37.0-80.0); Platelet Count 288 K/mm3 (142-424); Red Blood Count 4.57 M/mm3 (4.20-5.40); Red Cell Distribution Width 13.7 % (11.5-17.5); White Blood Count 8.3 K/mm3 (4.8-10.8)
--- NOTE | 2023-02-16 10:31 | PC.NURSE ---
Rounded on patient. Informed her that we are currently waiting or her reports from her scans as well as her troponin to come back. Patient does not need anything at this time call light within reach
[2023-02-16 10:49] LABS: Troponin I < 0.01 ng/ml (0.00-0.034)
--- NOTE | 2023-02-16 10:51 | PC.NURSE ---
rounded on pt at this time, visitor at BS. Pt states no needs at this time.
--- NOTE | 2023-02-16 11:07 | PC.NURSE ---
Rounded on patient to re-evaluate patient's pain. Patient stated her chest pain is better after medication. Call light within reach
[2023-02-16 11:28] VITALS: BP 116/63; PULSE 69; RESP 20; O2SAT 94
[2023-02-16 11:48] VITALS: BP 113/60; PULSE 69; RESP 14; O2SAT 93
[2023-02-16 12:13] VITALS: BP 112/62; PULSE 70; RESP 19; O2SAT 94
[2023-02-16 12:46] VITALS: BP 127/83; PULSE 73; RESP 18; TEMP 36.8; O2SAT 94
== END 2023-02-16 12:56 | disposition home or self-care (01) ==
PROVIDERS: Emergency Provider Emergency Medicine; PCP Nurse Practitioner Family
DX: J44.0 Chronic obstructive pulmonary disease with (acute) lower respiratory infection (principal); R07.9 Chest pain, unspecified
CPT/HCPCS: 70450; 71046; 80048; 84484; 85025; 93005; 96374; 99285

== ENCOUNTER → 2023-02-22 09:04 | Outpatient (CLI) | payer MEDICARE, MEDICAID, SELFPAY ==
--- NOTE | 2023-02-22 09:08 | XR_ITS ---
FINAL REPORT TECHNIQUE: Bone densitometry calculations of the lumbar spine and left hip were obtained. CLINICAL HISTORY: post menopausal FINDINGS: Using L1-4, the bone mineral density of the spine is 0.86 g/cm2, corresponding to T-score of -1.7. Using the left hip, the bone mineral density of the femoral neck is 0.69 g/cm2, corresponding to a T-score of -2.0. NOTE: T-score: Standard deviation compared with peak bone mass of young adult mean. *Following the recommendations of the International Society of Bone Densitometry, classification of hip BMD is based on the lower of two T-scores; total hip or femoral neck. IMPRESSION: Osteoporosis: Lowest T-score is at or below -2.5. This patient''s T-score meets the World Health Organization criteria for osteoporosis. Reviewed, Interpreted and Dictated by Yann Robertson III, MD Transcribed by Rena Gómez Authenticated and [facility]
== END ==
PROVIDERS: PCP Nurse Practitioner Family; Visit Provider Nurse Practitioner Family
DX: Z78.0 Asymptomatic menopausal state (principal); Z13.820 Encounter for screening for osteoporosis
CPT/HCPCS: 77080

== ENCOUNTER 2023-02-24 09:56 | Observation (INO) | payer MEDICARE, MEDICAID, SELFPAY ==
[2023-02-24] VITALS (11 sets, daily range): BP systolic 93–149; BP diastolic 55–73; PULSE 60–90; RESP 14–20; TEMP 36.5–36.7; O2SAT 93–97; BMI 34.9; BMI 33.0
--- NOTE | 2023-02-24 10:12 | ECG_ITS ---
APPROVED REPORT Exam: Resting ECG HR:63 bpm ECG Measurements Heart Rate 63 AXES [place] 163 P 53 QRSd 104 QRS -5 QT 390 T 15 QTc 398 Conclusion SINUS RHYTHM POSSIBLE RIGHT VENTRICULAR CONDUCTION DELAY [RSR (QR) IN V1/V2] BORDERLINE ECG UNCONFIRMED REPORT Electronically signed by : Joe Fisher MD 02/26/2023 09:36:02
--- NOTE | 2023-02-24 10:21 | CT_ITS ---
FINAL REPORT CLINICAL HISTORY: left lower abdominal pain COMPARISON: 12/09/2022 FINDINGS: CT OF THE ABDOMEN AND PELVIS WITH CONTRAST Axial CT images of the abdomen and pelvis were obtained after the administration of IV contrast. Coronal reformatted images were also obtained and reviewed.This study was performed with techniques to keep radiation doses as low as reasonably achievable (ALARA). Individualized dose reduction techniques using automated exposure control or adjustment of mA and/or kV according to the patient's size were employed. Abdomen: There is mild emphysema. There is scarring in the lung bases. There is mild bilateral pleural thickening. The heart is normal in size. There is a cyst in the posterior right hepatic lobe. There are postoperative changes from cholecystectomy. The spleen is unremarkable. No adrenal mass is present. The pancreas has an unremarkable appearance. There are several small bilateral renal cysts. There is an 8 mm mass in the lower pole of the left kidney which does not appear to be a simple cyst. This may represent a complex cyst or renal neoplasm. The aorta is normal in caliber. There is no free fluid or adenopathy. There is a small umbilical hernia containing fat. Pelvis: The appendix is normal. There is descending and sigmoid diverticulosis. There are inflammatory changes adjacent to the distal sigmoid colon consistent with acute diverticulitis. There is no evidence of abscess or bowel obstruction. The urinary bladder is unremarkable. There is no evidence of mass or adenopathy. IMPRESSION: Distal descending acute diverticulitis. 8 mm mass in the lower pole of the left kidney does not appear to be a simple cyst and may represent a complex cyst or renal neoplasm. Recommend follow-up CT in 6 months. Reviewed, Interpreted and Dictated by Yann Robertson III, MD Transcribed by Vivi Morrow Authenticated and . [facility]
[2023-02-24 10:32] LABS: Appearance,Urine CLEAR (Clear); Basophils # 0.1 K/mm3 (0-0.2); Basophils % 0.4 % (0.1-2.0); Bilirubin,Urine Negative (Negative); Blood, Urine Negative (Negative); Chloride 101 mmol/L (98-107); Color,Urine YELLOW (Yellow); Eosinophils # 0.2 K/mm3 (0.0-0.4); Eosinophils % 1.2 % (0.1-12.0); Glucose,Urine (UA) Negative (Negative); Hematocrit 39.6 % (37.0-47.0); Hemoglobin 12.5 g/dL (12.2-16.2); Ketones,Urine Negative (Negative); Leukocyte Esterase,Urine TRACE (Negative); Lymphocytes # 2.9 K/mm3 (0.7-4.5); Lymphocytes % 22.1 % (10-50); Mean Corpuscular HGB Conc 31.6 g/dL (31.8-35.4); Mean Corpuscular Volume 88.4 fl (81-99); Mean Platelet Volume 8.9 fl (7.4-10.4); Microscopic, Urine URINE MICROSCOPIC (MICROSCOPIC); Monocytes # 0.9 K/mm3 (0.1-1.0); Neutrophils % 69.4 % (37.0-80.0); Nitrate,Urine Negative (Negative); Platelet Count 268 K/mm3 (142-424); Potassium 4.2 mmoL/L (3.5-5.1); Protein,Urine TRACE (Negative); Red Blood Count 4.47 M/mm3 (4.20-5.40); Red Cell Distribution Width 14.1 % (11.5-17.5); Sodium 138 mmol/L (136-145); Specific Gravity, Urine 1.025 (1.005-1.030)
[2023-02-24 10:35] LABS: Alanine Aminotransferase 26 U/L (12-78); Albumin Level 3.3 g/dl (3.5-5.0); Albumin/Globulin Ratio 0.9 (1.1-1.8); Alkaline Phosphatase 102 U/L (38-126); Anion Gap 9.2 mEq/L (5-15); Aspartate Amino Transferase 27 U/L (14-36); Bilirubin,Total 0.5 mg/dl (0.2-1.3); Blood Urea Nitrogen 19 mg/dl (7-17); Carbon Dioxide 32 mmol/L (22.0-30.0); Creatinine Clearance Estimated 71 mL/min (50-200); Estimated Glomerular Filt Rate 81 ml/min (>60); GFR (African American) 98 ML/MIN (>60); Globulin 3.5 g/dL (1.3-3.2); Total Protein,Serum 6.8 g/dl (6.3-8.2)
[2023-02-24 10:36] LABS: Calcium 8.4 mg/dl (8.4-10.2); Glucose 132 mg/dl (74-100)
--- NOTE | 2023-02-24 10:42 | HMH.EDGENADL ---
Discharge Plan Disposition Patient Disposition: Admitted As Inpatient Condition: Fair Clinical Impressions Clinical Impression: Diverticulitis, Kidney lesion, la posta, left Discharge ED Provider: Khoi Lee General Adult HPI General Chief complaint: Dizziness Stated complaint: Lightheaded, LT abd pain Time Seen by Provider: 02/24/23 10:35 Mode of Arrival: Wheelchair Source of Information: Patient Limitations: No Limitations Description of Symptoms (Recalled from ER Triage Doc. by RN): pt comes to ed for left lower abdominal pain and dizziness that started last night. pt states that she feels dizzy when she is sitting down and walking. no n/v/d assocaited with abdominal pain. History of Present Illness HPI narrative: Patient is a 77-year-old female with past medical history of hypertension, coronary artery disease who presents emergency department for evaluation of left lower quadrant abdominal pain. Onset was acute, yesterday evening occurring at approximately 8 PM. Symptoms are moderate to severe in intensity, localized to the left lower quadrant, no vomiting. No other acute complaints at this time. Patient denies chest pain, shortness of breath, cough, acute rashes or arthralgias, dysuria. Related Data Home Medications Medication Instructions Recorded Confirmed aspirin 81 mg tablet,delayed 81 mg PO DAILY Blood thinner 12/13/17 02/24/23 release (Adult Low Dose Aspirin) esomeprazole magnesium 20 mg 20 mg PO DAILY GERD 03/31/21 02/24/23 capsule,delayed release (Nexium) ropinirole 0.25 mg tablet 0.25 mg PO DAILY . 07/13/22 02/24/23 furosemide 20 mg tablet 20 mg PO DAILY Fluid 10/29/22 02/24/23 fluticasone fur. 200 mcg-umeclid 1 inh inhalation DAILY Breathing 01/11/23 02/24/23 62.5 mcg-vilant 25 mcg problems inhalat.powder (Trelegy Ellipta) isosorbide mononitrate 30 mg 30 mg PO DAILY BLOOD PRESSURE 01/11/23 02/24/23 tablet,extended release 24 hr Previous Rx's Medication Instructions Recorded clopidogrel 75 mg tablet 75 mg PO DAILY Blood thinner #90 07/07/22 tabs albuterol sulfate 90 mcg/actuation 2 inh inhalation QID PRN shortness 09/29/22 aerosol inhaler of breath or wheezing 90 days #8.5 grams lisinopril 20 mg tablet 20 mg PO BID Hypertension #180 tabs 01/15/23 spironolactone 50 mg tablet 50 mg PO DAILY Fluid #90 tabs 01/15/23 carvedilol 25 mg tablet 25 mg PO BID Heart disease #60 tabs 02/15/23 Allergies Allergy/AdvReac Type Severity Reaction Status Date / Time bupropion [From Wellbutrin] Allergy Intermediate Other Verified 11/26/22 13:05 gabapentin Allergy Unknown WEAKNESS Verified 11/26/22 13:05 ibuprofen Allergy Unknown SHAKEY Verified 11/26/22 13:05 tiotropium Allergy Unknown WEAKNESS Verified 11/26/22 13:05 [facility] Disclaimer: The information contained in this section may have been updated after the patient was seen, as this information can be updated by other users. 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 Abnormal echocardiogram Angina pectoris Cardiac pacemaker in situ Chronic obstructive lung disease COPD (chronic obstructive pulmonary disease) Dizziness Dyspnea on exertion Multiple lung nodules on CT Palpitations Pulmonary emphysema Screening for lung cancer Smoking greater than 30 pack years SOB (shortness of breath) Tobacco abuse counseling Tobacco abuse disorder Surgical History History of permanent cardiac pacemaker placement Family History Other Cancer Diabetes Stroke 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 (Updated 02/24/23 @ 16:21 by Nicole Bojorquez RN) Smoking Status: Former smoker pack-years: 60 second hand exposure: Yes alcohol intake: never substance use type: denies use current occupational status: retired Travel in the last 8 weeks: None household members: none housing: house 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
[2023-02-24 10:43] LABS: Bacteria,Urine Trace /lpf; RBC,Urine Occasional #/hpf (0-3); Transitional Epi Cells,Urine OCC #/lpf (0-3)
[2023-02-24 10:56] LABS: Troponin I < 0.01 ng/ml (0.00-0.034)
[2023-02-24 12:42] LABS: Coronavirus 19, PCR Not Detected (NotDetected); Influenza A, PCR Not Detected (NotDetected); Influenza B, PCR Not Detected (NotDetected)
[2023-02-24 13:17] LABS: Lactic Acid 0.8 mmol/L (0.7-2.1)
--- NOTE | 2023-02-24 14:04 | PC.NURSE ---
spoke to care management about bed
--- NOTE | 2023-02-24 14:38 | PC.NURSE ---
called report to izzy on second floor. was told room was finished being mopped and they would come to get the pt.
--- NOTE | 2023-02-24 14:53 | PC.NURSE ---
come to floor by w/c from ED
--- NOTE | 2023-02-24 15:03 | EXP.HP ---
History of Present Illness *Admission Date: 02/24/23 *Reason for visit:: diverticulitis *History of present illness: Patient is a 77-year-old female with past medical history of hypertension, coronary artery disease who presents emergency department for evaluation of left lower quadrant abdominal pain.? Onset was acute, yesterday evening occurring at approximately 8 PM.? Symptoms are moderate to severe in intensity, localized to the left lower quadrant, no vomiting.? No other acute complaints at this time.? Patient denies chest pain, shortness of breath, cough, acute rashes or arthralgias, dysuria. In ED patient was found to have diverticulitis. She was started on Zosyn. Will admit to medicine for further management. [facility] Disclaimer: The information contained in this section may have been updated after the patient was seen, as this information can be updated by other users. 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 Abnormal echocardiogram Angina pectoris Cardiac pacemaker in situ Chronic obstructive lung disease COPD (chronic obstructive pulmonary disease) Dizziness Dyspnea on exertion Multiple lung nodules on CT Palpitations Pulmonary emphysema Screening for lung cancer Smoking greater than 30 pack years SOB (shortness of breath) Tobacco abuse counseling Tobacco abuse disorder Surgical History History of permanent cardiac pacemaker placement Family History Other Cancer Diabetes Stroke 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 Smoking Status: Current every day smoker tobacco type: cigarettes packs per day: 1 second hand exposure: Yes alcohol intake: never substance use type: denies use current occupational status: retired Travel in the last 8 weeks: None household members: none housing: house 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es/hazards: No caffeine: Yes Review of Systems Review of Systems Review of systems:: pertinent systems reviewed and negative unless documented below Meds Home Medications and Allergies Home Medications Medication Instructions Recorded Confirmed Type aspirin 81 mg tablet,delayed 81 mg PO DAILY Blood thinner 12/13/17 01/11/23 History release (Adult Low Dose Aspirin) esomeprazole magnesium 20 mg 20 mg PO DAILY GERD 03/31/21 01/11/23 History capsule,delayed release (Nexium) clopidogrel 75 mg tablet 75 mg PO DAILY Blood thinner #90 07/07/22 01/11/23 Rx tabs ropinirole 0.25 mg tablet 0.25 mg PO DAILY . 07/13/22 01/11/23 History albuterol sulfate 90 mcg/actuation 2 inh inhalation QID PRN shortness 09/29/22 01/11/23 Rx aerosol inhaler of breath or wheezing 90 days #8.5 grams furosemide 20 mg tablet 20 mg PO DAILY Fluid 10/29/22 01/11/23 History fluticasone fur. 200 mcg-umeclid 1 inh inhalation DAILY Breathing 01/11/23 01/11/23 History 62.5 mcg-vilant 25 mcg problems inhalat.powder (Trelegy Ellipta) isosorbide mononitrate 30 mg 30 mg PO DAILY BLOOD PRESSURE 01/11/23 01/11/23 History tablet,extended release 24 hr methocarbamol 500 mg tablet 500 mg PO HS #30 tabs 01/11/23 Rx pregabalin 75 mg capsule (Lyrica) 75 mg PO BID #60 caps 01/11/23 Rx lisinopril 20 mg tablet 20 mg PO BID Hypertension #180 tabs 01/15/23 Rx spironolactone 50 mg tablet 50 mg PO DAILY Fluid #90 tabs 01/15/23 Rx carvedilol 25 mg tablet 25 mg PO BID Heart disease #60 tabs 02/15/23 Rx azithromycin 250 mg tablet 250 mg PO DAILY 4 days #4 tabs 02/16/23 Rx prednisone 20 mg tablet 60 mg PO DAILY 4 days #12 tabs 02/16/23 Rx New Prescriptions to Start Prescriptions: Allergies Allergy/AdvReac Type Severity Reaction Status Date / Time bupropion [From Wellbutrin] Allergy Intermediate Other Verified 11/26/22 13:05 gabapentin Allergy Unknown WEAKNESS Verified 11/26/22 13:05 ibuprofen Allergy Unknown SHAKEY Verified
--- NOTE | 2023-02-24 18:54 | PC.NURSE ---
Faxed order for LR to pharmacy. Removed and began at 100ml/hr. Not yet showing on patient MAR.
[2023-02-25 04:00] VITALS: BP 129/50; PULSE 76; RESP 18; TEMP 37.6; O2SAT 91; BMI 33.8
--- NOTE | 2023-02-25 05:59 | PC.NURSE ---
pt medicated x1 for pain through the nite rated 7/10, iv fluids were discontinued after current bag was infused of LR per telephone order from betty morgan aprn repeated and verified, no new orders received, no other issues or concerns at this time. no changes from previous assessment.
[2023-02-25 06:21] LABS: Basophils % 0.4 % (0.1-2.0); Eosinophils # 0.2 K/mm3 (0.0-0.4); Eosinophils % 1.7 % (0.1-12.0); Hematocrit 37.5 % (37.0-47.0); Hemoglobin 11.8 g/dL (12.2-16.2); Lymphocytes # 2.7 K/mm3 (0.7-4.5); Lymphocytes % 24.1 % (10-50); Mean Corpuscular HGB Conc 31.6 g/dL (31.8-35.4); Mean Corpuscular Hemoglobin 28.3 pg (27.0-31.2); Mean Corpuscular Volume 89.7 fl (81-99); Mean Platelet Volume 8.8 fl (7.4-10.4); Monocytes # 0.8 K/mm3 (0.1-1.0); Neutrophils # 7.6 K/mm3 (1.8-7.8); Neutrophils % 66.9 % (37.0-80.0); Platelet Count 231 K/mm3 (142-424); Red Blood Count 4.18 M/mm3 (4.20-5.40); Red Cell Distribution Width 14.1 % (11.5-17.5); White Blood Count 11.4 K/mm3 (4.8-10.8)
[2023-02-25 06:29] LABS: Chloride 101 mmol/L (98-107); Potassium 4.4 mmoL/L (3.5-5.1); Sodium 136 mmol/L (136-145)
[2023-02-25 06:32] LABS: Alanine Aminotransferase 23 U/L (12-78); Albumin Level 3.1 g/dl (3.5-5.0); Alkaline Phosphatase 89 U/L (38-126); Anion Gap 7.4 mEq/L (5-15); Aspartate Amino Transferase 24 U/L (14-36); Bilirubin,Total 0.5 mg/dl (0.2-1.3); Blood Urea Nitrogen 15 mg/dl (7-17); Carbon Dioxide 32 mmol/L (22.0-30.0); Cholesterol 224 mg/dl (140-200); Creatinine Clearance Estimated 69 mL/min (50-200); Estimated Glomerular Filt Rate 70 ml/min (>60); GFR (African American) 84 ML/MIN (>60); Globulin 3.2 g/dL (1.3-3.2); Total Protein,Serum 6.3 g/dl (6.3-8.2); Triglycerides 102 mg/dl (30-150); VLDL Cholesterol 20 mg/dL (0-40)
[2023-02-25 06:33] LABS: Calcium 8.3 mg/dl (8.4-10.2); Chol/HDL Ratio 6.6 (1-3.5); Glucose 110 mg/dl (74-100); HDL Cholesterol 34 mg/dl (40-60); Magnesium 2.1 mg/dl (1.6-2.3); Phosphorous 3.7 mg/dl (2.5-4.5)
[2023-02-25 06:43] LABS: Direct LDL Cholesterol 154.24 mg/dL (100-129)
[2023-02-25 07:48] VITALS: BP 126/58; PULSE 77; RESP 16; TEMP 37.3; O2SAT 93
--- NOTE | 2023-02-25 08:17 | HMH.PHAINT1 ---
Pharmacy Intervention Comments: Reconciled patient's home medications using pharmacy fill history, provider notes, and patient interview.
--- NOTE | 2023-02-25 12:11 | DIET.NUTRFU ---
possible discharge today, diet was advanced to low fiber, she tolerated clear liquids for breakfast. She reports previous diverticulitis flareups in the past. She is familiar with diet recommendations. Reviewed and provided handout to refresh memory.She denied any wt loss in past and no GI distress
--- NOTE | 2023-02-25 13:08 | PC.NURSE ---
patient is doing well at this time. did eat part of her pork chop on plate, and most of her mashed potatoes. also ate her jello. no complaints at this time.
--- NOTE | 2023-02-25 14:40 | EXP.DC.SUM ---
General Admission date:: 02/24/23 Discharge date: 02/25/23 HPI HPI HPI: Patient is a 77-year-old female with past medical history of hypertension, coronary artery disease who presents emergency department for evaluation of left lower quadrant abdominal pain.? Onset was acute, yesterday evening occurring at approximately 8 PM.? Symptoms are moderate to severe in intensity, localized to the left lower quadrant, no vomiting.? No other acute complaints at this time.? Patient denies chest pain, shortness of breath, cough, acute rashes or arthralgias, dysuria. In ED patient was found to have diverticulitis. She was started on Zosyn. Will admit to medicine for further management. Hospital Course Hospital Course Hospital Course: Patient was admitted for distal descending acute diverticulitis, severe abdominal pain, inability to tolerate p.o. Patient was started on Zosyn in the emergency department. This morning she had significant improvement and was started on a diet as well. Diet was advanced, symptomatic improvement, ambulating and having normal bowel movements. Patient was started on p.o. antibiotics (Augmentin) and discharged from the hospital follow-up with primary care physician. Of note patient was found to have ?8 mm mass in the lower pole of the left kidney does not appear to be a simple cyst and may represent a complex cyst or renal neoplasm. Recommend follow-up CT in 6 months. Follow-up primary care physician Exam Data for Last 24 hours Vital signs and Labs for Last 24 Hours: Temp Pulse Resp BP Pulse Ox 99.2 F 77 16 126/58 L 93 L 02/25/23 07:48 02/25/23 07:48 02/25/23 07:48 02/25/23 07:48 02/25/23 07:48 Laboratory Results - last 24 hr 02/25/23 06:09: WBC 11.4 H, RBC 4.18 L, Hgb 11.8 L, Hct 37.5, MCV 89.7, MCH 28.3, MCHC 31.6 L, RDW 14.1, Plt Count 231, MPV 8.8, Neut % (Auto) 66.9, Lymph % (Auto) 24.1, [place] % (Auto) 7.0, Eos % (Auto) 1.7, Baso % (Auto) 0.4, Neut # (Auto) 7.6, Lymph # (Auto) 2.7, [place] # (Auto) 0.8, Eos # (Auto) 0.2, Baso # (Auto) 0.0 02/25/23 06:09: Sodium 136, Potassium 4.4, Chloride 101, Carbon Dioxide 32 H, Anion Gap 7.4, BUN 15, Creatinine 0.80, Estimated Creat Clear 69, Estimated GFR 70, Est GFR ( Amer) 84, Glucose 110 H, Calcium 8.3 L, Phosphorus 3.7, Magnesium 2.1, Total Bilirubin 0.5, AST 24, ALT 23, Alkaline Phosphatase 89, Total Protein 6.3, Albumin 3.1 L, Globulin 3.2, Albumin/Globulin Ratio 1.0 L, Triglycerides 102, Cholesterol 224 H, LDL Cholesterol Direct 154.24 H, VLDL Cholesterol 20, HDL Cholesterol 34 L, Cholesterol/HDL Ratio 6.6 H I & O for Last 24 hours: Intake & Output 02/22/23 02/23/23 02/24/23 02/25/23 23:59 23:59 23:59 23:59 Intake Total 480 / 1311 1671 / 1671 Output Total 150 / 150 150 / 150 Balance 330 / 1161 1521 / 1521 Weight 89.981 kg 92.164 kg Constitutional Constitutional: no acute distress *Routine HEENT Exam Head: Present normocephalic Eye: Present EOMI and PERRL ENT: Present mucous membranes moist *Routine Neck Exam Neck: Present supple; Absent lymphadenopathy *Routine Respiratory Exam Respiratory: Present CTA bilaterally *Routine Cardiovascular Exam Cardiovascular: Present RRR *Routine Abdominal Exam Abdominal: Present soft and normoactive bowel sounds; Absent tenderness *Routine Extremities Exam Extremities: Absent cyanosis, clubbing or edema *Routine Skin Exam Skin: Present warm; Absent rash *Routine Neurological Exam Neurological: Present alert and oriented X3 Results Data Completed and Pending Labs on day of discharge: Labs from last 24 hours 02/25/23 02/25/23 06:09 06:09 WBC 11.4 H RBC 4.18 L Hgb 11.8 L Hct 37.5 MCV 89.7 MCH 28.3 MCHC 31.6 L RDW 14.1 Plt Count 231 MPV 8.8 Neut % (Auto) 66.9 Lymph % (Auto) 24.1 [place] % (Auto) 7.0 Eos % (Auto) 1.7 Baso % (Auto) 0.4 Neut # (Auto) 7.6 Lymph # (Auto) 2.7 [place] # (Auto) 0.8 Eos # (Auto) 0.2 Baso # (Auto) 0.0 Sodium 1
--- NOTE | 2023-02-26 15:20 | CARE MANAGER ---
Spoke with patient related to hospital discharge. States that she is still having some pain but no vomiting. She picked up antibiotics and denies any questions or concerns. SANJUANA Belcher
== END 2023-02-25 15:24 | disposition home or self-care (01) ==
LOC: ER 12:35 → 2ND 14:19
PROVIDERS: Admitting Provider Student in an Organized Health Care Education/Training Program; Emergency Provider Emergency Medicine; PCP Nurse Practitioner Family; Visit Provider Student in an Organized Health Care Education/Training Program
DX: E78.5 Hyperlipidemia, unspecified (principal); Z79.899 Other long term (current) drug therapy; Z79.01 Long term (current) use of anticoagulants; Z95.0 Presence of cardiac pacemaker; F17.210 Nicotine dependence, cigarettes, uncomplicated; J44.9 Chronic obstructive pulmonary disease, unspecified; K57.30 Diverticulosis of large intestine without perforation or abscess without bleeding; N28.1 Cyst of kidney, acquired; Z20.822 Contact with and (suspected) exposure to COVID-19
CPT/HCPCS: G0378; 36415; 74177; 80053; 80061; 81001; 83605; 83735; 84100; 84484; 85025; 93005; 99285; C9803; J2405; J2543; Q9967; U0003; U0005

== ENCOUNTER → 2023-03-15 11:00 | Outpatient (POV) | payer MEDICARE, MEDICAID, SELFPAY ==
--- NOTE | 2023-03-15 11:46 | EXP.PAIN.SOA ---
[facility] Pain Management SOAP Note Subjective:: Patient is a pleasant 77-year-old female who presents today for medication refill and follow-up. We are currently treating the patient for degenerative disc disease of lumbar spine with lumbar radiculopathy symptoms. Today she rates her pain a 6 out of 10. Patient denies any new trauma or injury. Patient denies any change to the location or type of pain she experiences. Patient does state her pain is still all in her low back and describes it as a throbbing, toothache like sensation. Patient is currently managed with pregabalin 75 mg twice a day. Patient denies any side effects from this medication. Her Kervin is [phone]. Its been reviewed and appropriate. Review of Systems: General: No recent weight changes, no fever, no sleep disturbances Respiratory: No cough, no shortness of air, no recurring pulmonary infections Cardiovascular/peripheral vascular: No chest pain, no palpitations, no edema, no shortness of breath Gastrointestinal: No new onset incontinence, normal bowel movements reported Genitourinary: No new onset incontinence Musculoskeletal: Low back pain Psychiatric: [Normal mood/affect] Neurological: [Denies weakness in extremities], [denies balance issues] Objective:: Physical Exam: General: Alert and oriented x3, no acute distress, pleasant and cooperative Lungs: Respirations even and unlabored, symmetrical chest expansion Eyes: PERRL Musculoskeletal: Flexion and extension of lumbar [spine] somewhat guarded secondary to pain, [antalgic gait noted] Neurological: Speech clear, no gross sensory deficit Assessment:: Degenerative disc disease of lumbar spine with lumbar radiculopathy symptoms Plan:: Patient is doing well with her current medication regimen. I will refill her pregabalin 75 mg twice a day and provide a 3-month supply of this medication. Patient will return to clinic in 3 months for reevaluation of symptoms and plan of care. Patient has been instructed to contact the clinic with any concerns before the next appointment. Dr. Julio has reviewed this note and agrees with this plan of care. This note was dictated using voice recognition software and make contain errors or omissions. [facility] Disclaimer: The information contained in this section may have been updated after the patient was seen, as this information can be updated by other users. 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 Abnormal echocardiogram Angina pectoris Cardiac pacemaker in situ Chronic obstructive lung disease COPD (chronic obstructive pulmonary disease) Dizziness Dyspnea on exertion Multiple lung nodules on CT Palpitations Pulmonary emphysema Screening for lung cancer Smoking greater than 30 pack years SOB (shortness of breath) Tobacco abuse counseling Tobacco abuse disorder Surgical History History of permanent cardiac pacemaker placement Family History Other Cancer Diabetes Stroke 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 Smoking Status: Former smoker pack-years: 60 second hand exposure: Yes alcohol intake: never substance use type: denies use current occupational status: retired Travel in the last 8 weeks: None household members: none housing: house 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es/hazards: No caffeine: Yes
[2023-03-15 12:37] VITALS: BP 119/58; PULSE 71; RESP 18; O2SAT 97; BMI 34.6
== END | disposition home or self-care (01) ==
PROVIDERS: PCP Nurse Practitioner Family; Visit Provider Nurse Practitioner Family
DX: M51.16 Intervertebral disc disorders with radiculopathy, lumbar region (principal)
CPT/HCPCS: 99212; G0463

== ENCOUNTER → 2023-04-13 14:32 | Outpatient (CLI) | payer MEDICARE, MEDICAID, SELFPAY ==
--- NOTE | 2023-04-13 14:32 | CT_ITS ---
FINAL REPORT TECHNIQUE: Axial images were obtained from the lung apex to the mid abdomen by computed tomography. This study was performed with techniques to keep radiation doses as low as reasonably achievable (ALARA). Individualized dose reduction techniques using automated exposure control or adjustment of mA and/or kV according to the patient's size were employed. CLINICAL HISTORY: lung cancer screening FINDINGS: CHEST CT LOW DOSE CTDI vol (mGy): 2.90 DLP (mGy-cm): 100.29 There is no axillary adenopathy. There is no hilar or mediastinal adenopathy. The heart is normal in size. There is no pericardial or pleural effusion. Left upper anterior chest wall pacemaker is identified. There is scarring at the right base. There is a calcified granuloma at the left base. There is a nodule at the left base measuring 7 mm well seen on image 72 of series 4. Limited images of the upper abdomen are unremarkable. IMPRESSION: Left base nodule measures 7 mm. Lung RADS category 3. Recommend 6 month follow-up low-dose chest CT. Reviewed, Interpreted and Dictated by Pancho Braun MD Transcribed by Cyndi Pham Authenticated and [facility]
== END ==
PROVIDERS: PCP Nurse Practitioner Family; Visit Provider Internal Medicine Pulmonary Disease
DX: Z87.891 Personal history of nicotine dependence (principal); Z12.2 Encounter for screening for malignant neoplasm of respiratory organs
CPT/HCPCS: 71271

== ENCOUNTER → 2023-06-15 10:44 | Outpatient (CLI) | payer MEDICARE, MEDICAID, SELFPAY ==
[2023-06-15 11:36] LABS: Basophils # 0.1 K/mm3 (0-0.2); Basophils % 0.6 % (0.1-2.0); Eosinophils # 0.3 K/mm3 (0.0-0.4); Eosinophils % 3.5 % (0.1-12.0); Hematocrit 43.5 % (37.0-47.0); Hemoglobin 13.7 g/dL (12.2-16.2); Lymphocytes # 2.8 K/mm3 (0.7-4.5); Lymphocytes % 32.6 % (10-50); Mean Corpuscular HGB Conc 31.5 g/dL (31.8-35.4); Mean Corpuscular Hemoglobin 27.4 pg (27.0-31.2); Mean Corpuscular Volume 86.9 fl (81-99); Mean Platelet Volume 9.7 fl (7.4-10.4); Monocytes # 0.7 K/mm3 (0.1-1.0); Monocytes % 7.8 % (1.7-9.3); Neutrophils # 4.7 K/mm3 (1.8-7.8); Neutrophils % 55.5 % (37.0-80.0); Platelet Count 165 K/mm3 (142-424); Red Blood Count 5.01 M/mm3 (4.20-5.40); White Blood Count 8.5 K/mm3 (4.8-10.8)
[2023-06-15 11:48] LABS: Alanine Aminotransferase 20 U/L (12-78); Albumin Level 3.8 g/dl (3.5-5.0); Alkaline Phosphatase 136 U/L (38-126); Anion Gap 8.4 mEq/L (5-15); Aspartate Amino Transferase 25 U/L (14-36); Bilirubin,Indirect 0.2 mg/dL (0.0-0.9); Bilirubin,Total 0.2 mg/dl (0.2-1.3); Bilirubin,Unconjugated 0.4 mg/dL (0.0-1.1); Blood Urea Nitrogen 18 mg/dl (7-17); Calcium 8.7 mg/dl (8.4-10.2); Carbon Dioxide 28 mmol/L (22.0-30.0); Chloride 108 mmol/L (98-107); Chol/HDL Ratio 3.5 (1-3.5); Cholesterol 130 mg/dl (140-200); Estimated Glomerular Filt Rate 81 ml/min (>60); GFR (African American) 98 ML/MIN (>60); Glucose 99 mg/dl (74-100); HDL Cholesterol 37 mg/dl (40-60); Potassium 4.4 mmoL/L (3.5-5.1); Sodium 140 mmol/L (136-145); Total Protein,Serum 7.2 g/dl (6.3-8.2); Triglycerides 148 mg/dl (30-150); VLDL Cholesterol 30 mg/dL (0-40)
[2023-06-15 11:59] LABS: Direct LDL Cholesterol 64.25 mg/dL (100-129)
[2023-06-15 12:18] LABS: Thyroid Stimulating Hormone 1.93 uIU/mL (0.465-4.68)
[2023-06-15 12:33] LABS: Free T4 (Free Thyroxine) 1.28 ng/dl (0.78-2.19)
== END ==
PROVIDERS: PCP Nurse Practitioner Family; Visit Provider Nurse Practitioner Family
DX: E78.5 Hyperlipidemia, unspecified (principal); F17.200 Nicotine dependence, unspecified, uncomplicated; I11.9 Hypertensive heart disease without heart failure; I25.10 Atherosclerotic heart disease of native coronary artery without angina pectoris; J44.9 Chronic obstructive pulmonary disease, unspecified; R06.02 Shortness of breath; R60.9 Edema, unspecified; Z95.0 Presence of cardiac pacemaker; E78.2 Mixed hyperlipidemia; E11.9 Type 2 diabetes mellitus without complications; I63.9 Cerebral infarction, unspecified
CPT/HCPCS: 36415; 80048; 80061; 80076; 84439; 84443; 85025

== ENCOUNTER → 2023-06-17 10:37 | Outpatient (POV) | payer MEDICARE, MEDICAID, SELFPAY ==
--- NOTE | 2023-06-17 11:23 | EXP.PAIN.SOA ---
[facility] Pain Management SOAP Note Subjective:: Patient is a pleasant 78-year-old female who presents today for medication refill and follow-up. We are currently treating the patient for degenerative disc disease of the lumbar spine with lumbar radiculopathy symptoms. Today she rates her pain a 6 out of 10. Patient states she has been experiencing more back pain unrelated to any new trauma or injury. She does describes it as an aching sensation that is worse with increased activity. Patient has had injective therapy in the past however it did not provide additional relief. Patient is currently managed with pregabalin 75 mg twice a day. Patient denies any side effects from this medication. Her Kervin is [phone]. Its been reviewed and appropriate. Review of Systems: General: No recent weight changes, no fever, no sleep disturbances Respiratory: No cough, no shortness of air, no recurring pulmonary infections Cardiovascular/peripheral vascular: No chest pain, no palpitations, no edema, no shortness of breath Gastrointestinal: No new onset incontinence, normal bowel movements reported Genitourinary: No new onset incontinence Musculoskeletal: Low back pain Psychiatric: [Normal mood/affect] Neurological: [Denies weakness in extremities], [denies balance issues] Objective:: Physical Exam: General: Alert and oriented x3, no acute distress, pleasant and cooperative Lungs: Respirations even and unlabored, symmetrical chest expansion Eyes: PERRL Musculoskeletal: Flexion and extension of lumbar [spine] somewhat guarded secondary to pain, [antalgic gait noted] Neurological: Speech clear, no gross sensory deficit Assessment:: Degenerative disc disease of lumbar spine with lumbar radiculopathy symptoms Plan:: I will refill the patient's pregabalin 75 mg twice a day and send in a prescription of methocarbamol 500 mg twice daily with a 14-day supply. Patient will return to clinic in 1 month for reevaluation of symptoms, medication refill and follow-up. Patient has been instructed to contact the clinic with any concerns before the next appointment. Dr. Julio has reviewed this note and agrees with this plan of care. This note was dictated using voice recognition software and make contain errors or omissions. [facility] Disclaimer: The information contained in this section may have been updated after the patient was seen, as this information can be updated by other users. 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 Abnormal echocardiogram Angina pectoris Cardiac pacemaker in situ Chronic obstructive lung disease COPD (chronic obstructive pulmonary disease) Dizziness Dyspnea on exertion Multiple lung nodules on CT Palpitations Pulmonary emphysema Screening for lung cancer Smoking greater than 30 pack years SOB (shortness of breath) Tobacco abuse counseling Tobacco abuse disorder Surgical History History of permanent cardiac pacemaker placement Family History Other Cancer Diabetes Stroke 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 Smoking Status: Former smoker pack-years: 60 second hand exposure: Yes alcohol intake: never substance use type: denies use current occupational status: retired Travel in the last 8 weeks: None household members: none housing: house 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es/hazards: No caffeine: Yes
[2023-06-17 13:26] VITALS: BP 126/67; PULSE 75; RESP 20; O2SAT 96; BMI 34.7
== END | disposition home or self-care (01) ==
PROVIDERS: Visit Provider Nurse Practitioner Family
DX: M51.16 Intervertebral disc disorders with radiculopathy, lumbar region (principal)
CPT/HCPCS: 99212; G0463

== ENCOUNTER 2023-08-05 12:44 | Day surgery (SDC) | payer MEDICARE, MEDICAID, SELFPAY ==
[2023-07-08 11:22] VITALS: BMI 34.7
[2023-08-05 13:03] VITALS: BP 133/61; PULSE 85; RESP 18; TEMP 36.3; O2SAT 93
--- NOTE | 2023-08-05 13:55 | EXP.ANES.CKL ---
[facility] Disclaimer: The information contained in this section may have been updated after the patient was seen, as this information can be updated by other users. 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 Abnormal echocardiogram Angina pectoris Cardiac pacemaker in situ Chronic obstructive lung disease COPD (chronic obstructive pulmonary disease) Dizziness Dyspnea on exertion Multiple lung nodules on CT Palpitations Pulmonary emphysema Screening for lung cancer Smoking greater than 30 pack years SOB (shortness of breath) Tobacco abuse counseling Tobacco abuse disorder Surgical History History of bilateral tubal ligation History of cholecystectomy History of permanent cardiac pacemaker placement Family History Mother Colon cancer Brother Lung cancer Other Cancer Diabetes Family history of myocardial infarction Stroke 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 Smoking Status: Former smoker pack-years: 60 second hand exposure: Yes alcohol intake: never substance use type: denies use current occupational status: other Travel in the last 8 weeks: None household members: family housing: house lives independently: No education level: elementary school service: No longterm: No 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es/hazards: No caffeine: Yes [facility] Anesthesia Checklist Patient Identification Patient Identification: Arm Band and Family Structural Data Admitted From: Home Planned Operative Procedure/s: Colonoscopy Consent for Planned Operative Procedure(s) Verified: Yes Verified Documents: Surgical Consent NPO Status Verified Time NPO: 00:00 Additional verifications Patient : No Anesthesia Reactions: No Hx Blood Transfusions: No Blood Transfusion Reaction: No Cephalosporin Allergy: No Previous Colonoscopy: Yes Airway Assessment Mallampati Score:: Class II C-Spine Mobility Assessed: Yes TMJ Mobility Assessed: Yes Dentition: Edentulous Neurological Assessment Level of Consciousness: Awake, Alert, Appropriate and Follows Commands Hx Seizures: No Numbness or tingling in extremities: No Anesthesia Plan Anesthesia Risk discussed: Yes ASA Class: III Anesthesia Type: MAC Preoperative Comments Pre-Operative Comments: edentulous, pacemaker, COPD
[2023-08-05 14:20] VITALS: O2SAT 93
--- NOTE | 2023-08-05 14:35 | HMH.SCOPE ---
Procedure: Date: 08/05/23 Patient Date of :: 1945 Procedure Performed:: Screening colonoscopy Indications:: +Cologuard, history of polyps Performing Provider:: Ortiz Navarro MD Referring Provider:: Manuela Castillo APRN Sedation:: Propofol Procedure:: After placing the patient in the left lateral decubitus position, the colonoscopy was gently inserted into the rectum and under direct visualization advanced to the cecum which was identified by transillumination in the right lower quadrant, identification of the ileocecal valve, appendiceal orifice, and cecal strap. Color, texture, mucosa, and anatomy of the colon were carefully examined with the scope. Findings:: Anal canal: normal Rectum: normal Sigmoid colon: normal without polyps or inflammatory changes, moderate diverticulosis Descending colon: normal without polyps or inflammatory changes Splenic flexure: normal Transverse colon: normal without polyps or inflammatory changes Hepatic flexure: normal Ascending colon: normal without polyps or inflammatory changes Cecum: normal Terminal ileum: not visualized Impression: Sigmoid diverticulosis otherwise normal colonoscopy Recommendations:: Follow up examination in about FIVE years or so, sooner if clinically indicated due to persona history of polyps Complications:: None Estimated blood obtained (mL): 0 Colonoscopy Component Colonoscopy Component Was a colonoscopy performed during today's procedure?: Yes Recommended follow up colonoscopy of at least 10 years?: No If no, follow up colonoscopy recommended in ___ years?: FIVE Reason for not recommending >/= 10 yr follow-up interval?: As noted above
[2023-08-05 14:41] VITALS: BP 101/49; PULSE 77; RESP 18; TEMP 36.1; O2SAT 92
[2023-08-05 14:51] VITALS: BP 115/50; PULSE 67; RESP 18; O2SAT 96
[2023-08-05 15:01] VITALS: BP 139/67; PULSE 75; RESP 18; O2SAT 97
== END 2023-08-05 15:20 | disposition home or self-care (01) ==
PROVIDERS: PCP Nurse Practitioner Family; Visit Provider Internal Medicine Gastroenterology
PROC: 0DJD8ZZ Inspection of Lower Intestinal Tract, Via Natural or Artificial Opening Endoscopic (ICD-10-PCS; CPT 45378; principal; 2023-08-05 14:00)
DX: R19.5 Other fecal abnormalities (principal); Z86.010 Personal history of colon polyps; K57.30 Diverticulosis of large intestine without perforation or abscess without bleeding
CPT/HCPCS: 45378

== ENCOUNTER 2023-09-02 07:38 | Observation (INO) | payer MEDICARE, MEDICAID, SELFPAY ==
[2023-09-02] VITALS (13 sets, daily range): BP systolic 112–167; BP diastolic 53–95; PULSE 84–101; RESP 17–30; TEMP 36.7–36.9; O2SAT 91–97; BMI 35.2; BMI 34.0
--- NOTE | 2023-09-02 07:48 | ECG_ITS ---
APPROVED REPORT Exam: Resting ECG HR:90 bpm ECG Measurements Heart Rate 90 AXES GA 162 P 65 QRSd 101 QRS 49 QT 348 T 54 QTc 396 Conclusion SINUS RHYTHM NORMAL ECG UNCONFIRMED REPORT Electronically signed by : Joe Fisher MD 09/02/2023 10:08:23
--- NOTE | 2023-09-02 07:50 | XR_ITS ---
FINAL REPORT CLINICAL HISTORY: dyspnea COMPARISON: 02/16/2023 FINDINGS: SINGLE-VIEW CHEST The heart size is normal. The mediastinum is normal. Left subclavian pacer is identified. There is improved aeration in the lung bases. There is no pneumothorax. IMPRESSION: Improved aeration in the lung bases. Reviewed, Interpreted and Dictated by Yann Robertson III, MD Transcribed by Cyndi Pham Authenticated and [facility]
--- NOTE | 2023-09-02 07:52 | HMH.EDGENADL ---
Discharge Plan Disposition Patient Disposition: Admitted Clinical Impressions Clinical Impression: COPD exacerbation Discharge ED Provider: Viviane Rosales General Adult HPI General Chief complaint: Shortness of Breath/Dyspnea Stated complaint: soa, no appetite Time Seen by Provider: 09/02/23 07:50 History of Present Illness HPI narrative: Patient is a 78-year-old female with a history of COPD presenting with respiratory distress history is severely limited secondary to patient's difficulty with speaking in full sentences. However family member accompanies her and is able to give some history as well. They state that over the last 48 hours she has had a cough some wheezing and increasing shortness of breath. She is not on any home oxygen and this morning she states her shortness of breath got to the point where with any type of exertional movement she was severely short of breath. She does have a nebulizer machine at home and has been using her breathing treatments and states she has some relief with this. Denies any fevers or chills. Denies any lower extremity swelling which is new denies any history of heart failure denies any chest pain. Related Data Home Medications Medication Instructions Recorded Confirmed aspirin 81 mg tablet,delayed 81 mg PO DAILY Heart Health 12/13/17 09/02/23 release (Adult Low Dose Aspirin) esomeprazole magnesium 20 mg 20 mg PO DAILY Acid reflux 03/31/21 09/02/23 capsule,delayed release (Nexium) isosorbide mononitrate 30 mg 30 mg PO DAILY High Blood Pressure 01/11/23 09/02/23 tablet,extended release 24 hr rosuvastatin 40 mg tablet 40 mg PO DAILY Cholesterol 06/15/23 09/02/23 fluticasone fur. 200 mcg-umeclid 1 inh inhalation DAILY Copd 08/05/23 09/02/23 62.5 mcg-vilant 25 mcg inhalat.powder (Trelegy Ellipta) pregabalin 75 mg capsule (Lyrica) 75 mg PO BID NEUROPATHY 08/05/23 09/02/23 albuterol sulfate 90 mcg/actuation 2 inh inhalation QIDP PRN 09/02/23 09/02/23 aerosol inhaler SHORTNESS OF AIR carvedilol 25 mg tablet 25 mg PO BIDWMEAL Blood 09/02/23 09/02/23 pressure/heart rate Previous Rx's Medication Instructions Recorded furosemide 40 mg tablet (Lasix) 40 mg PO DAILY Fluid #90 tabs 05/01/23 lisinopril 20 mg tablet 20 mg PO DAILY High blood pressure 07/16/23 90 days #90 tabs clopidogrel 75 mg tablet 75 mg PO DAILY Blood thinner #90 07/30/23 tabs Allergies Allergy/AdvReac Type Severity Reaction Status Date / Time bupropion [From Wellbutrin] Allergy Intermediate Other Verified 09/02/23 10:37 gabapentin Allergy Unknown WEAKNESS Verified 09/02/23 10:37 ibuprofen Allergy Unknown SHAKEY Verified 09/02/23 10:37 tiotropium Allergy Unknown WEAKNESS Verified 09/02/23 10:37 [facility] Disclaimer: The information contained in this section may have been updated after the patient was seen, as this information can be updated by other users. 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 Abnormal echocardiogram Angina pectoris Cardiac pacemaker in situ Chronic obstructive lung disease COPD (chronic obstructive pulmonary disease) Dizziness Dyspnea on exertion Multiple lung nodules on CT Palpitations Pulmonary emphysema Screening for lung cancer Smoking greater than 30 pack years SOB (shortness of breath) Tobacco abuse counseling Tobacco abuse disorder Surgical History History of bilateral tubal ligation History of cholecystectomy History of permanent cardiac pacemaker placement Family History Mother Colon cancer Brother Lung cancer Other Cancer Diabetes Family history of myocardial infarction Stroke 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 (Updated 09/02/23 @ 11:07 by Tereza Oro RN) Smoking Status: Current every day smoker tobacco type: cigarettes packs per day: 1 second hand exposure: Yes alcohol intake: never substance use type:
[2023-09-02 07:59] LABS: VBG Base Excess -3.1 mmol/L (-2.4-2.3); VBG HCO3 22.3 mmol/L (23-30); VBG Oxygen Saturation 88.7 % (50-70); VBG PH 7.36 mmol/L (7.31-7.41); VBG PO2 54.6 mmol/L (28-40); VBG Total CO2 23.5 mmol/L (23-27)
[2023-09-02 07:59] LABS: Basophils % 0.2 % (0.1-2.0); Eosinophils # 0.1 K/mm3 (0.0-0.4); Eosinophils % 0.5 % (0.1-12.0); Hematocrit 42.5 % (37.0-47.0); Hemoglobin 14.1 g/dL (12.2-16.2); Lymphocytes # 2.1 K/mm3 (0.7-4.5); Lymphocytes % 13.1 % (10-50); Mean Corpuscular HGB Conc 33.1 g/dL (31.8-35.4); Mean Corpuscular Hemoglobin 28.9 pg (27.0-31.2); Mean Corpuscular Volume 87.3 fl (81-99); Mean Platelet Volume 10.1 fl (7.4-10.4); Neutrophils # 13.1 K/mm3 (1.8-7.8); Neutrophils % 80.2 % (37.0-80.0); Platelet Count 126 K/mm3 (142-424); Red Blood Count 4.87 M/mm3 (4.20-5.40); Red Cell Distribution Width 14.7 % (11.5-17.5); White Blood Count 16.3 K/mm3 (4.8-10.8)
--- NOTE | 2023-09-02 08:00 | PC.NURSE ---
notified RT of vbg order
[2023-09-02 08:01] LABS: MANUAL DIFFERENTIAL MANUAL DIFFERENTIAL (MANUAL DIFF)
[2023-09-02 08:02] LABS: Chloride 106 mmol/L (98-107)
[2023-09-02 08:03] LABS: Potassium 4.1 mmoL/L (3.5-5.1); Sodium 136 mmol/L (136-145)
[2023-09-02 08:05] LABS: Blood Urea Nitrogen 17 mg/dl (7-17); Creatinine Clearance Estimated 70 mL/min (50-200); Estimated Glomerular Filt Rate 81 ml/min (>60); GFR (African American) 98 ML/MIN (>60)
[2023-09-02 08:06] LABS: Alanine Aminotransferase 25 U/L (12-78); Albumin Level 3.9 g/dl (3.5-5.0); Albumin/Globulin Ratio 1.1 (1.1-1.8); Alkaline Phosphatase 123 U/L (38-126); Anion Gap 9.1 mEq/L (5-15); Aspartate Amino Transferase 33 U/L (14-36); Bilirubin,Total 0.7 mg/dl (0.2-1.3); Calcium 8.3 mg/dl (8.4-10.2); Carbon Dioxide 25 mmol/L (22.0-30.0); Globulin 3.7 g/dL (1.3-3.2); Glucose 133 mg/dl (74-100); Total Protein,Serum 7.6 g/dl (6.3-8.2)
[2023-09-02 08:07] LABS: Lactic Acid 1.1 mmol/L (0.7-2.1)
[2023-09-02 08:13] LABS: Coronavirus 19, PCR Not Detected (NotDetected); Influenza A, PCR Not Detected (NotDetected); Influenza B, PCR Not Detected (NotDetected)
[2023-09-02 08:16] LABS: NT Pro Brain Natriuretic Pep. 481 pg/mL (0-450)
[2023-09-02 08:20] LABS: Troponin I < 0.01 ng/ml (0.00-0.034)
[2023-09-02 08:33] LABS: Lymphocytes % 10 % (10-50); Monocytes % 5 % (2-9); Neutrophils % 82 % (42-76); Total Cells Counted 100
[2023-09-02 08:35] LABS: Platelet Estimate Slight Decrease; RBC Morphology Normal
--- NOTE | 2023-09-02 08:50 | CT_ITS ---
FINAL REPORT TECHNIQUE: Postcontrast axial images of the chest were performed in a CTA protocol. This study was performed with techniques to keep radiation doses as low as reasonably achievable, (ALARA). Individualized dose reduction technique using automated exposure control or adjustment of mA and/or kV according to the patient's size were employed. CLINICAL HISTORY: dyspnea, elevated dimer COMPARISON: 04/13/2023, 02/26/2020 FINDINGS: There is a heterogeneous nodule in the posterior right thyroid lobe measuring 9 mm, unchanged from prior exam. Recommend follow-up ultrasound in 6 months. A left subclavian pacemaker is in place. The heart is normal in size. No adenopathy is identified. No pleural or pericardial effusion is identified. The thoracic aorta is normal in caliber with no focal aneurysm or dissection identified. Motion artifact obscures the lower lobe branches. There is no filling defect to suggest pulmonary embolism. There is mild emphysema. Diffuse bronchial wall thickening is seen consistent with bronchitis. A calcified granuloma is noted in the left lower lobe. The images of the upper abdomen demonstrate a stable mass in the posterior right hepatic lobe measuring 30 mm which is nonspecific. There are bilateral renal cysts. IMPRESSION: Limited exam with motion artifact obscuring the lower lobe branches. However, no PE seen. Diffuse bronchial wall thickening consistent with bronchitis. Stable right hepatic lobe mass. 9 mm right thyroid lobe nodule. Recommend 6-month follow-up ultrasound. Reviewed, Interpreted and Dictated by Yann Robertson III, MD Transcribed by Rena Gómez Authenticated and [facility]
--- NOTE | 2023-09-02 09:27 | PC.NURSE ---
pt return from CT
--- NOTE | 2023-09-02 10:22 | PC.NURSE ---
CARE MANAGEMENT NOTIFIED OF ADMISSION
--- NOTE | 2023-09-02 10:22 | PC.NURSE ---
pt given ice chips
--- NOTE | 2023-09-02 10:50 | PC.NURSE ---
report called to dillon on second floor
[2023-09-02 11:18] LABS: Troponin I < 0.01 ng/ml (0.00-0.034)
--- NOTE | 2023-09-02 11:18 | EXP.PULM.CON ---
History of Present Illness History of present illness: Ms. Payton is a 78-year-old female history of COPD CAD status post stenting, following in pulmonary clinic for exertional dyspnea COPD pulmonary nodules presented complaining worsening respiratory's for the last 2 weeks progressively getting worse associated worsening cough and productive phlegm. Denies any known sick contacts [facility] Disclaimer: The information contained in this section may have been updated after the patient was seen, as this information can be updated by other users. 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 Abnormal echocardiogram Angina pectoris Cardiac pacemaker in situ Chronic obstructive lung disease COPD (chronic obstructive pulmonary disease) Dizziness Dyspnea on exertion Multiple lung nodules on CT Palpitations Pulmonary emphysema Screening for lung cancer Smoking greater than 30 pack years SOB (shortness of breath) Tobacco abuse counseling Tobacco abuse disorder Surgical History History of bilateral tubal ligation History of cholecystectomy History of permanent cardiac pacemaker placement Family History Mother Colon cancer Brother Lung cancer Other Cancer Diabetes Family history of myocardial infarction Stroke 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 (Updated 09/02/23 @ 11:07 by Tereza Oro RN) Smoking Status: Current every day smoker tobacco type: cigarettes packs per day: 1 second hand exposure: Yes alcohol intake: never substance use type: denies use current occupational status: other Travel in the last 8 weeks: None household members: family housing: house lives independently: No education level: elementary school service: No jail: No 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es/hazards: No caffeine: Yes Review of Systems Constitutional Constitutional: Reports anorexia, Reports body ache(s) and Reports fatigue Eyes Eyes: Denies eye discharge, Denies dry eyes, Denies irritation and Denies itchy eyes ENT Ears, Nose, Mouth, and Throat: Denies epistaxis, Denies facial pain, Denies lip swelling and Denies throat swelling *Cardiovascular Cardiovascular: Reports dyspnea and Reports dyspnea on exertion *Respiratory Respiratory: Reports chest congestion, Reports cough, Reports dyspnea, Reports dyspnea on exertion, Reports excessive phlegm production, Denies hemoptysis, Denies pain on inspiration, Denies pain with cough and Reports wheezing *Gastrointestinal Gastrointestinal: Denies abdominal pain, Denies belching and Denies cramping *Musculoskeletal Musculoskeletal: Reports back pain, Reports myalgias and Reports other (No small joint swelling or Pain) Psychiatric Psychiatric: Denies homicidal ideation and Denies suicidal ideation Endocrine Endocrine: Reports fatigue and Denies heat intolerance Hematologic/Lymphatic Hematologic/Lymphatic: Denies easy bleeding and Denies lymphadenopathy Allergic/Immunologic Allergic/Immunologic: Denies itchy eyes, Denies lip swelling, Denies throat swelling and Reports wheezing Pulmonology Exam Inpatient Vital signs and Labs for Last 24 Hours: Temp Pulse Resp BP Pulse Ox O2 Del Method 98.0 F 92 H 17 167/95 H 95 Room Air 09/02/23 10:48 09/02/23 10:48 09/02/23 10:48 09/02/23 10:48 09/02/23 10:31 09/02/23 10:31 Laboratory Results - last 24 hr 09/02/23 07:46: WBC 16.3 H, RBC 4.87, Hgb 14.1, Hct 42.5, MCV 87.3, MCH 28.9, MCHC 33.1, RDW 14.7, Plt Count 126 L, MPV 10.1, Neut % (Auto) 80.2 H, Lymph % (Auto) 13.1, [place] % (Auto) 6.0, Eos % (Auto) 0.5, Baso % (Auto) 0.2, Neut # (Auto) 13.1 H, Lymph # (Auto) 2.1, [place] # (Auto) 1.0, Eos # (Auto) 0.1, Baso # (Auto) 0.0, Total Counted 100, Neutrophils % (Manual) 82 H, Band Neutrophils % 3.0, Lymphocytes % (Manual) 10, Monocytes % (Manual) 5, Platelet Estimate Slight decrease, RBC Morphology Normal,
--- NOTE | 2023-09-02 14:54 | HMH.PHAINT1 ---
Pharmacy Intervention Comments: MEDICATION RECONCILIATION COMPLETED ON PATIENT USING EXTERNAL FILL HISTORY FROM PHARMACY AND LIST FROM CARDIOLOGY OFFICE. -SHALONDA MOLINA, SHEKHARD
[2023-09-02 15:45] LABS: Troponin I < 0.01 ng/ml (0.00-0.034)
--- NOTE | 2023-09-02 15:48 | CA_ITS ---
FINAL REPORT CLINICAL HISTORY: SWELLING BLE'S,HYPOXIA,LEG PAIN COMPARISON: None FINDINGS: Color Doppler, duplex Doppler and compression sonography of the bilateral lower extremities was performed. The exam is slightly limited secondary to patient extreme tenderness and swelling in the legs. There is no evidence of deep venous thrombosis from the level of the groin to the calf. The deep veins are patent and compressible. IMPRESSION: No evidence of deep venous thrombosis bilateral lower extremities. Reviewed, Interpreted and Dictated by Yann Robertson III, MD Transcribed by Rosanna Douglas Authenticated and [facility]
[2023-09-02 16:22] LABS: Procalcitonin 0.077 ng/mL (0.0-2.0)
--- NOTE | 2023-09-02 17:12 | EXP.HP ---
History of Present Illness *Admission Date: 09/02/23 *Reason for visit:: SOB [facility] Disclaimer: The information contained in this section may have been updated after the patient was seen, as this information can be updated by other users. 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 Abnormal echocardiogram Angina pectoris Cardiac pacemaker in situ Chronic obstructive lung disease COPD (chronic obstructive pulmonary disease) Dizziness Dyspnea on exertion Multiple lung nodules on CT Palpitations Pulmonary emphysema Screening for lung cancer Smoking greater than 30 pack years SOB (shortness of breath) Tobacco abuse counseling Tobacco abuse disorder Surgical History History of bilateral tubal ligation History of cholecystectomy History of permanent cardiac pacemaker placement Family History Mother Colon cancer Brother Lung cancer Other Cancer Diabetes Family history of myocardial infarction Stroke 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 (Updated 09/02/23 @ 11:07 by Tereza Oro RN) Smoking Status: Current every day smoker tobacco type: cigarettes packs per day: 1 second hand exposure: Yes alcohol intake: never substance use type: denies use current occupational status: other Travel in the last 8 weeks: None household members: family housing: house lives independently: No education level: elementary school service: No residential: No 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es/hazards: No caffeine: Yes Review of Systems Review of Systems Review of systems (narrative): as per [facility] Meds Home Medications and Allergies Home Medications Medication Instructions Recorded Confirmed Type aspirin 81 mg tablet,delayed 81 mg PO DAILY Heart Health 12/13/17 09/02/23 History release (Adult Low Dose Aspirin) esomeprazole magnesium 20 mg 20 mg PO DAILY Acid reflux 03/31/21 09/02/23 History capsule,delayed release (Nexium) isosorbide mononitrate 30 mg 30 mg PO DAILY High Blood Pressure 01/11/23 09/02/23 History tablet,extended release 24 hr furosemide 40 mg tablet (Lasix) 40 mg PO DAILY Fluid #90 tabs 03/15/23 09/02/23 Rx rosuvastatin 40 mg tablet 40 mg PO DAILY Cholesterol 06/15/23 09/02/23 History lisinopril 20 mg tablet 20 mg PO DAILY High blood pressure 09/01/23 10/19/23 Rx 90 days #90 tabs clopidogrel 75 mg tablet 75 mg PO DAILY Blood thinner #90 07/30/23 09/02/23 Rx tabs fluticasone fur. 200 mcg-umeclid 1 inh inhalation DAILY Copd 08/05/23 09/02/23 History 62.5 mcg-vilant 25 mcg inhalat.powder (Trelegy Ellipta) pregabalin 75 mg capsule (Lyrica) 75 mg PO BID NEUROPATHY 08/05/23 09/02/23 History albuterol sulfate 90 mcg/actuation 2 inh inhalation QIDP PRN 09/02/23 09/02/23 History aerosol inhaler SHORTNESS OF AIR carvedilol 25 mg tablet 25 mg PO BIDWMEAL Blood 09/02/23 09/02/23 History pressure/heart rate New Prescriptions to Start Prescriptions: Allergies Allergy/AdvReac Type Severity Reaction Status Date / Time bupropion [From Wellbutrin] Allergy Intermediate Other Verified 09/02/23 10:37 gabapentin Allergy Unknown WEAKNESS Verified 09/02/23 10:37 ibuprofen Allergy Unknown SHAKEY Verified 09/02/23 10:37 tiotropium Allergy Unknown WEAKNESS Verified 09/02/23 10:37 Exam Data for Last 24 hours Vital signs and Labs for Last 24 Hours: Temp Pulse Resp BP Pulse Ox O2 Del Method 98.0 F 91 H 18 151/65 H 91 L Room Air 09/02/23 15:28 09/02/23 15:28 09/02/23 15:28 09/02/23 15:28 09/02/23 15:28 09/02/23 15:28 Laboratory Results - last 24 hr 09/02/23 07:46: WBC 16.3 H, RBC 4.87, Hgb 14.1, Hct 42.5, MCV 87.3, MCH 28.9, MCHC 33.1, RDW 14.7, Plt Count 126 L, MPV 10.1, Neut % (Auto) 80.2 H, Lymph % (Auto) 13.1, [place] % (Auto) 6.0, Eos % (Auto) 0.5, Baso % (Auto) 0.2, Neut # (Auto) 13.1 H, Lymph # (Auto) 2.1, [place] # (Auto) 1
[2023-09-02 18:40] LABS: Adenovirus,PCR Not Detected (NotDetected); Coronavirus 19, PCR Not Detected (NotDetected); Coronavirus 229E Not Detected (NotDetected); Coronavirus NL63 Not Detected (NotDetected); Coronavirus OC43 Not Detected (NotDetected); Coronovirus HKU1,PCR Not Detected (NotDetected); Human Metapneumovirus Not Detected (NotDetected); Influenza A, PCR Not Detected (NotDetected); Influenza AH1, 2009 Not Detected (NotDetected); Influenza AH1, PCR Not Detected (NotDetected); Influenza AH3,PCR Not Detected (NotDetected); Influenza B, PCR Not Detected (NotDetected); Parainfluenza 1, PCR Not Detected (NotDetected); Parainfluenza 2, PCR Not Detected (NotDetected); Parainfluenza 3, PCR Not Detected (NotDetected); Parainfluenza 4, PCR Not Detected (NotDetected); Respiratory Syncytial Virus Not Detected (NotDetected); Rhinovirus/Enterovirus Not Detected (NotDetected)
[2023-09-03] VITALS: BP 112/50; PULSE 86; RESP 17; TEMP 36.9; O2SAT 94
[2023-09-03 00:22] VITALS: PULSE 89
--- NOTE | 2023-09-03 03:46 | PC.NURSE ---
PATIENT RESTING IN BED. WHEEZES COARSE BILAT. SPUTUM SPECIMEN COLLECTED AND SENT TO LAB EARLIER IN THE SHIFT. RECEIVES SCHEDULED NEBS. NO C/O SOA, PAIN OR DISCOMFORT.
[2023-09-03 04:00] VITALS: BP 120/52; PULSE 78; RESP 17; TEMP 36.8; O2SAT 92; BMI 34.7
[2023-09-03 05:20] VITALS: PULSE 72; PULSE 75
[2023-09-03 06:28] LABS: Basophils % 0.1 % (0.1-2.0); Hematocrit 38.2 % (37.0-47.0); Hemoglobin 12.8 g/dL (12.2-16.2); Lymphocytes # 1.3 K/mm3 (0.7-4.5); Lymphocytes % 10.8 % (10-50); Mean Corpuscular HGB Conc 33.6 g/dL (31.8-35.4); Mean Corpuscular Hemoglobin 29.1 pg (27.0-31.2); Mean Corpuscular Volume 86.7 fl (81-99); Mean Platelet Volume 10.1 fl (7.4-10.4); Monocytes # 0.6 K/mm3 (0.1-1.0); Monocytes % 4.6 % (1.7-9.3); Neutrophils # 10.3 K/mm3 (1.8-7.8); Neutrophils % 84.5 % (37.0-80.0); Platelet Count 133 K/mm3 (142-424); Red Blood Count 4.41 M/mm3 (4.20-5.40); Red Cell Distribution Width 14.9 % (11.5-17.5); White Blood Count 12.2 K/mm3 (4.8-10.8)
[2023-09-03 06:34] LABS: Chloride 107 mmol/L (98-107); Potassium 3.8 mmoL/L (3.5-5.1); Sodium 137 mmol/L (136-145)
[2023-09-03 06:37] LABS: Anion Gap 10.8 mEq/L (5-15); Blood Urea Nitrogen 28 mg/dl (7-17); Calcium 8.3 mg/dl (8.4-10.2); Carbon Dioxide 23 mmol/L (22.0-30.0); Creatinine Clearance Estimated 69 mL/min (50-200); Estimated Glomerular Filt Rate 61 ml/min (>60); GFR (African American) 73 ML/MIN (>60); Glucose 157 mg/dl (74-100)
[2023-09-03 08:00] VITALS: BP 109/63; PULSE 84; RESP 20; TEMP 36.6; O2SAT 93
--- NOTE | 2023-09-03 09:36 | EXP.PULM.PN ---
Subjective *Date: 09/03/23 *Time: 10:32 Interval history: No acute respiratory vents overnight. Patient admits continued improvement in her respiratory symptoms. Pulmonology Exam Inpatient Vital signs and Labs for Last 24 Hours: Temp Pulse Resp BP Pulse Ox O2 Del Method 97.8 F 84 20 109/63 L 93 L Room Air 09/03/23 08:00 09/03/23 08:00 09/03/23 08:00 09/03/23 08:00 09/03/23 08:00 09/03/23 08:00 Laboratory Results - last 24 hr 09/02/23 08:00: Chlamy pneumoniae PCR TNP, Adenovirus (PCR) Not detected, B. pertussis DNA (PCR) TNP, Coronavirus OC43 (PCR) Not detected, Coronavirus HKU1 (PCR) Not detected, Coronavirus 229E (PCR) Not detected, SARS-CoV-2 (PCR) Not detected, Coronavirus NL63 (PCR) Not detected, Human Metapneumovir PCR Not detected, Influenza A (H1) PCR Not detected, Influ A (H1N1/09) PCR Not detected, Influenza A (H3) PCR Not detected, Influenza Type A (PCR) Not detected, Influenza Type B (PCR) Not detected, M. pneumoniae (PCR) TNP, Parainfluenza 1 (PCR) Not detected, Parainfluenza 2 (PCR) Not detected, Parainfluenza 3 (PCR) Not detected, Parainfluenza 4 (PCR) Not detected, RSV (PCR) Not detected, Entero/Rhino (PCR) Not detected 09/02/23 10:42: Troponin I < 0.01 09/02/23 14:45: Troponin I < 0.01 09/02/23 15:45: Procalcitonin 0.077 09/03/23 05:48: WBC 12.2 H D, RBC 4.41, Hgb 12.8, Hct 38.2, MCV 86.7, MCH 29.1, MCHC 33.6, RDW 14.9, Plt Count 133 L, MPV 10.1, Neut % (Auto) 84.5 H, Lymph % (Auto) 10.8, [place] % (Auto) 4.6, Eos % (Auto) 0.0 L, Baso % (Auto) 0.1, Neut # (Auto) 10.3 H, Lymph # (Auto) 1.3, [place] # (Auto) 0.6, Eos # (Auto) 0.0, Baso # (Auto) 0.0, Sodium 137, Potassium 3.8, Chloride 107, Carbon Dioxide 23, Anion Gap 10.8, BUN 28 H D, Creatinine 0.90 D, Estimated Creat Clear 69, Estimated GFR 61, Est GFR ( Amer) 73 D, Glucose 157 H, Calcium 8.3 L I & O for Labs for Last 24 Hours: Intake & Output 08/31/23 09/01/23 09/02/23 09/03/23 23:59 23:59 23:59 23:59 Intake Total 270 / 510 570 / 570 Output Total 200 / 200 0 / 0 Balance 70 / 310 570 / 570 Weight 204 lb 3 oz 208 lb 6.4 oz Constitutional: Present moderate distress Head: Present normocephalic and atraumatic ENT: Present normal exam, normal oropharynx and mucous membranes moist Neck: Present normal inspection and full ROM Respiratory: Present able to speak in complete sentences; Absent respiratory distress, wheezes, crackles or diminished air movement Cardiac: Present S1/S2, Tachycardia and radial pulses present GI: Present soft and distention; Absent tenderness or guarding Rectal (female): Present deferred (female): Present deferred Skin: Present intact; Absent cyanosis or jaundice Neuro: Present alert, awake and oriented x 3 Extremities: Present normal inspection; Absent clubbing or cyanosis Psychiatric: Present normal affect and cooperative Assessment and Plan *Assessment and plan (1) COPD exacerbation: Status: Acute Category: Medical Code(s): J44.1 - Chronic obstructive pulmonary disease with (acute) exacerbation (2) Dyspnea on exertion: Status: Chronic Category: Medical Code(s): R06.09 - Other forms of dyspnea Plan Ms. Payton is a 78-year-old female history of COPD CAD status post stenting, following in pulmonary clinic for exertional dyspnea COPD pulmonary nodules presented complaining worsening respiratory's for the last 2 weeks progressively getting worse associated worsening cough and productive phlegm. Denies any known sick contacts CTA upon admission no evidence of pulmonary embolism. No dense consolidation with respiratory symptoms with predominant lower lobe bronchial thickening noted. Neutrophilic leukocytosis upon admission. COVID-19 and flu PCR negative. On examination patient appeared to be in severe respiratory distress. Auscultation bilateral clear breath sounds with no significant wheezing. Bilateral 2+ lower extremity swelling noted. Interval update: Bilateral lower extremity
[2023-09-03 09:41] VITALS: BMI 34.7
--- NOTE | 2023-09-06 11:39 | CARE MANAGER ---
Contacted patient related to hospital discharge. Patient states she did not have a good night due to coughing. Other than that she is fine and is aware of follow up appointment. I contacted Manuela Castillo APRN to see if patient could have some cough medication. She states she will call it into [facility] pharmacy. SANJUANA Belcher
--- NOTE | 2023-09-06 15:42 | EXP.DC.SUM ---
General Admission date:: 09/02/23 Hospital Course Hospital Course Hospital Course: Patient was seen and evaluated at the bedside on the day of discharge. Patient is stable for discharge. Patient wishes to be discharged. All patient questions were answered and patient was given time to ask questions. Patient was discharged in stable condition. Patient is a 78-year-old female with past medical history of COPD, tobacco use who presented for shortness of breath. According to the patient's family at the bedside patient has been feeling sick for past 4 to 5 days, patient also has very low appetite. Patient denied chest pain nausea vomiting diarrhea constipation dysuria. According to the family they felt patient warm but denies any fever, patient reports chills denies sick contacts around her. Shortness of breath due to COPD exacerbation - improved acute bronchitis Active tobacco use CAD History of hypertension GERD Hyperlipidemia patient was seen and evaluated by treasury assistant, patient is stable for discharge, patient sent with new scripts and follow up appointment information, patient agrees with DC plan, patient discharged in stable condition Exam Data for Last 24 hours Vital signs and Labs for Last 24 Hours: Temp Pulse Resp BP Pulse Ox O2 Del Method 97.8 F 84 20 109/63 L 93 L Room Air 09/03/23 08:00 09/03/23 08:00 09/03/23 08:00 09/03/23 08:00 09/03/23 08:00 09/03/23 11:00 I & O for Last 24 hours: Intake & Output 09/03/23 09/04/23 09/05/23 09/06/23 23:59 23:59 23:59 23:59 Intake Total 570 / 570 Output Total 0 / 0 Balance 570 / 570 Weight 94.56 kg Microbiology Reports for the Last 24 Hours: Microbiology 09/02/23 20:29 Sputum - Expectorated Sputum Gram Stain - Final 09/02/23 20:29 Sputum - Expectorated Sputum Sputum Culture - Final Constitutional Constitutional: no acute distress *Routine HEENT Exam Head: Present normocephalic Eye: Present EOMI and PERRL ENT: Present mucous membranes moist *Routine Neck Exam Neck: Present supple; Absent lymphadenopathy *Routine Respiratory Exam Respiratory: Present CTA bilaterally *Routine Cardiovascular Exam Cardiovascular: Present RRR *Routine Abdominal Exam Abdominal: Present soft and normoactive bowel sounds; Absent tenderness *Routine Extremities Exam Extremities: Absent cyanosis, clubbing or edema *Routine Skin Exam Skin: Present warm; Absent rash *Routine Neurological Exam Neurological: Present alert and oriented X3 DS: Diagnosis Discharge Diagnosis (1) COPD exacerbation: Status: Acute Code(s): J44.1 - Chronic obstructive pulmonary disease with (acute) exacerbation (2) Dyspnea on exertion: Status: Chronic Code(s): R06.09 - Other forms of dyspnea Meds Home Medications and Allergies Home Medications Medication Instructions Recorded Confirmed Type aspirin 81 mg tablet,delayed 81 mg PO DAILY Heart Health 12/13/17 09/02/23 History release (Adult Low Dose Aspirin) esomeprazole magnesium 20 mg 20 mg PO DAILY Acid reflux 03/31/21 09/02/23 History capsule,delayed release (Nexium) isosorbide mononitrate 30 mg 30 mg PO DAILY High Blood Pressure 01/11/23 09/02/23 History tablet,extended release 24 hr furosemide 40 mg tablet (Lasix) 40 mg PO DAILY Fluid #90 tabs 03/15/23 09/02/23 Rx rosuvastatin 40 mg tablet 40 mg PO DAILY Cholesterol 06/15/23 09/02/23 History lisinopril 20 mg tablet 20 mg PO DAILY High blood pressure 07/16/23 09/02/23 Rx 90 days #90 tabs clopidogrel 75 mg tablet 75 mg PO DAILY Blood thinner #90 07/30/23 09/02/23 Rx tabs fluticasone fur. 200 mcg-umeclid 1 inh inhalation DAILY Copd 08/05/23 09/02/23 History 62.5 mcg-vilant 25 mcg inhalat.powder (Trelegy Ellipta) pregabalin 75 mg capsule (Lyrica) 75 mg PO BID NEUROPATHY 08/05/23 09/02/23 History albuterol sulfate 90 mcg/actuation 2 inh inhalation QIDP PRN 09/02/23 09/02/23 History aerosol inhaler SHOR
== END 2023-09-03 11:33 | disposition home or self-care (01) ==
LOC: ER 07:45 → 2ND 10:41
PROVIDERS: Internal Medicine Pulmonary Disease; Admitting Provider Internal Medicine; Emergency Provider Student in an Organized Health Care Education/Training Program; PCP Nurse Practitioner Family; Visit Provider Internal Medicine
DX: J44.1 Chronic obstructive pulmonary disease with (acute) exacerbation (principal); R06.09 Other forms of dyspnea; J20.9 Acute bronchitis, unspecified; I11.9 Hypertensive heart disease without heart failure; I25.10 Atherosclerotic heart disease of native coronary artery without angina pectoris; F17.210 Nicotine dependence, cigarettes, uncomplicated; E78.2 Mixed hyperlipidemia; Z79.899 Other long term (current) drug therapy; Z79.01 Long term (current) use of anticoagulants; R06.02 Shortness of breath; R05.9 Cough, unspecified; R06.2 Wheezing; Z95.0 Presence of cardiac pacemaker
CPT/HCPCS: 36415; 71045; 71275; 80048; 80053; 82803; 83605; 83880; 84145; 84484; 85007; 85025; 85378; 87040; 87070; 87205; 87632; 87635; 87636; 93005; 93970; 94640; 99291; G0378; J3475; Q9967

== ENCOUNTER 2023-09-14 17:12 | Emergency (ER) | payer MEDICARE, MEDICAID, SELFPAY ==
[2023-09-14 17:13] VITALS: BP 121/56; PULSE 76; RESP 18; TEMP 36.7; O2SAT 93; BMI 35.2
[2023-09-14 17:30] VITALS: BP 108/76; PULSE 72; O2SAT 94
[2023-09-14 17:45] VITALS: BP 100/52; PULSE 70; O2SAT 94
--- NOTE | 2023-09-14 17:51 | PC.NURSE ---
DR HOLLY AT BEDSIDE
--- NOTE | 2023-09-14 17:56 | XR_ITS ---
PROCEDURE INFORMATION: Exam: XR Chest Exam date and time: 09/14/2023 6:45 PM Age: 78 years old Clinical indication: Dyspnea TECHNIQUE: Imaging protocol: Radiologic exam of the chest. Views: 1 view. COMPARISON: CR XR CHEST PORTABLE 09/02/2023 8:13 AM FINDINGS: Tubes, catheters and devices: Pacemaker device Lungs: Unremarkable. No consolidation. Pleural spaces: Unremarkable. No pleural effusion. No pneumothorax. Heart/Mediastinum: Unremarkable. No cardiomegaly. Bones/joints: Unremarkable. IMPRESSION: No evidence of acute cardiopulmonary disease.
--- NOTE | 2023-09-14 17:58 | HMH.EDGENADL ---
Discharge Plan Disposition Patient Disposition: Home, Self-Care Prescriptions Prescriptions: New benzonatate 100 mg capsule 100 mg PO TID PRN (Reason: cough) 5 Days Qty: 20 0RF albuterol sulfate 90 mcg/actuation HFA aerosol inhaler 4 inh inhalation Q4H PRN (Reason: shortness of breath or wheezing) Qty: 8.5 0RF Rx Instructions: 4 puffs every 4 hours for 48 hours then as needed for shortness of breath or wheezing following amoxicillin-pot clavulanate 875-125 mg tablet 1 tab PO BID 10 Days Qty: 20 0RF No Action aspirin [Adult Low Dose Aspirin] 81 mg tablet,delayed release (DR/EC) 81 mg PO DAILY rosuvastatin 40 mg tablet 40 mg PO DAILY Patient Comments: TAKE 1 TABLET BY MOUTH ONCE DAILY FOR CHOLESTEROL permethrin 5 % cream topical amlodipine 5 mg tablet 5 mg PO DAILY Patient Comments: TAKE 1 TABLET BY MOUTH ONCE DAILY FOR BLOOD PRESSURE Lice Killing 0.33-4 % shampoo topical Patient Comments: USE 60ML TOPICALLY ONCE FOR 1 DAY, MAY REPEAT IN 7 DAYS esomeprazole magnesium [Nexium] 20 mg capsule,delayed release(DR/EC) 20 mg PO DAILY lisinopril 20 mg tablet 20 mg PO DAILY 90 Days Qty: 90 3RF furosemide [Lasix] 40 mg tablet 40 mg PO DAILY Qty: 90 3RF clopidogrel 75 mg tablet 75 mg PO DAILY Qty: 90 3RF promethazine-DM 6.25-15 mg/5 mL syrup 5 ml PO Q4-6H PRN (Reason: cough) Qty: 118 0RF isosorbide mononitrate 30 mg tablet extended release 24 hr 30 mg PO DAILY pregabalin [Lyrica] 75 mg capsule 75 mg PO BID Trelegy Ellipta 200-62.5-25 mcg blister with device 1 inh inhalation DAILY carvedilol 25 mg tablet 25 mg PO BIDWMEAL Patient Comments: TAKE 1 TABLET BY MOUTH TWICE DAILY WITH MEAL/FOOD FOR HEART DISEASE albuterol sulfate 90 mcg/actuation HFA aerosol inhaler 2 inh INHALATION QIDP PRN (Reason: SHORTNESS OF AIR) Patient Comments: INHALE 2 PUFFS BY MOUTH 4 TIMES DAILY NEEDED FOR SHORTNESS OF BREATH OR WHEEZING doxycycline hyclate 100 mg Tablet 100 mg PO BID Qty: 10 0RF ipratropium-albuterol 0.5 mg-3 mg(2.5 mg base)/3 mL Solution For Nebulization 3 ml INHALATION Q6H PRN (Reason: Shortness Of Breath Or Wheezing) Qty: 120 2RF Referrals Follow up/Referrals: Manuela Castillo APRN [Primary Care Provider] - See instructions Clinical Impressions Clinical Impression: Acute exacerbation of chronic obstructive pulmonary disease Discharge ED Provider: Viviane Rosales General Adult HPI General Chief complaint: Shortness of Breath/Dyspnea Stated complaint: SOA, weak Time Seen by Provider: 09/14/23 17:50 Mode of Arrival: Wheelchair Source of Information: Patient Limitations: No Limitations Description of Symptoms (Recalled from ER Triage Doc. by RN): PT C/O ONGOING COUGH, SHORTNESS OF BREATH AND WEAKNESS. PT WITH RECENT ADMISSION FOR SIMILAR SYMPTOMS. STATES I FEEL A LITTLE BETTER, THEN I GET WORSE History of Present Illness HPI narrative: Patient is a 78-year-old female with a history of COPD admitted 2 weeks ago where she presented with severe respiratory distress for similar symptoms. She was in the hospital for 3 days and states she had significant improvement in her symptoms but they are recurring. The symptoms that she describes as getting worse are a cough and wheezing and weakness. She states he has had some coughing episodes where she is got lightheaded and felt like she was in a pass out. She currently does not feel that way. At the moment at rest she actually states she feels pretty good. Symptoms are worse with exertion. Denies any fevers or chills. Related Data Home Medications Medication Instructions Recorded Confirmed aspirin 81 mg tablet,delayed 81 mg PO DAILY Heart Health 12/13/17 09/10/23 release (Adult Low Dose Aspirin) esomeprazole magnesium 20 mg 20 mg PO DAILY Acid reflux 03/31/21 09/10/23 capsule,delayed release (Nexium) isosorbide mon
[2023-09-14 18:00] VITALS: BP 101/59; PULSE 76; O2SAT 94
[2023-09-14 18:14] LABS: Chloride 101 mmol/L (98-107); Potassium 4.9 mmoL/L (3.5-5.1); Sodium 136 mmol/L (136-145)
[2023-09-14 18:15] VITALS: BP 105/59; PULSE 78; O2SAT 94
[2023-09-14 18:15] LABS: Basophils % 0.3 % (0.1-2.0); Eosinophils # 0.5 K/mm3 (0.0-0.4); Eosinophils % 3.1 % (0.1-12.0); Hematocrit 41.2 % (37.0-47.0); Hemoglobin 13.8 g/dL (12.2-16.2); Lymphocytes # 3.4 K/mm3 (0.7-4.5); Lymphocytes % 22.3 % (10-50); Mean Corpuscular HGB Conc 33.6 g/dL (31.8-35.4); Mean Corpuscular Hemoglobin 29.4 pg (27.0-31.2); Mean Corpuscular Volume 87.5 fl (81-99); Mean Platelet Volume 10.1 fl (7.4-10.4); Monocytes # 0.9 K/mm3 (0.1-1.0); Neutrophils # 10.5 K/mm3 (1.8-7.8); Neutrophils % 68.3 % (37.0-80.0); Platelet Count 158 K/mm3 (142-424); Red Blood Count 4.71 M/mm3 (4.20-5.40); White Blood Count 15.4 K/mm3 (4.8-10.8)
[2023-09-14 18:17] LABS: Alanine Aminotransferase 33 U/L (12-78); Albumin Level 3.6 g/dl (3.5-5.0); Albumin/Globulin Ratio 1.1 (1.1-1.8); Alkaline Phosphatase 122 U/L (38-126); Anion Gap 8.9 mEq/L (5-15); Aspartate Amino Transferase 28 U/L (14-36); Bilirubin,Total 0.2 mg/dl (0.2-1.3); Blood Urea Nitrogen 32 mg/dl (7-17); Calcium 8.2 mg/dl (8.4-10.2); Carbon Dioxide 31 mmol/L (22.0-30.0); Creatinine Clearance Estimated 54 mL/min (50-200); Estimated Glomerular Filt Rate 40 ml/min (>60); GFR (African American) 48 ML/MIN (>60); Globulin 3.3 g/dL (1.3-3.2); Glucose 132 mg/dl (74-100); MANUAL DIFFERENTIAL MANUAL DIFFERENTIAL (MANUAL DIFF); Total Protein,Serum 6.9 g/dl (6.3-8.2)
[2023-09-14 18:18] LABS: Lactic Acid 0.9 mmol/L (0.7-2.1)
[2023-09-14 18:19] LABS: Coronavirus 19, PCR Not Detected (NotDetected); Influenza A, PCR Not Detected (NotDetected); Influenza B, PCR Not Detected (NotDetected)
--- NOTE | 2023-09-14 18:20 | ECG_ITS ---
APPROVED REPORT Exam: Resting ECG HR:71 bpm ECG Measurements Heart Rate 71 AXES MO 164 P 119 QRSd 94 QRS 23 QT 375 T 45 QTc 398 Conclusion SINUS RHYTHM RIGHT ATRIAL ENLARGEMENT [0.3mV P-WAVE] ABNORMAL ECG UNCONFIRMED REPORT Electronically signed by : Joe Fisher MD 09/16/2023 21:41:31
[2023-09-14 18:21] LABS: VBG Base Excess 2.3 mmol/L (-2.4-2.3); VBG HCO3 28.1 mmol/L (23-30); VBG PH 7.34 mmol/L (7.31-7.41); VBG PO2 44.8 mmol/L (28-40); VBG Total CO2 29.7 mmol/L (23-27)
--- NOTE | 2023-09-14 18:29 | PC.NURSE ---
XR AT BEDSIDE
[2023-09-14 18:30] LABS: Eosinophils % 1 % (0-3); Lymphocytes % 26 % (10-50); Monocytes % 4 % (2-9); Neutrophils % 69 % (42-76); Total Cells Counted 100
[2023-09-14 18:31] LABS: Platelet Estimate Normal; RBC Morphology Normal
[2023-09-14 18:32] LABS: Troponin I < 0.01 ng/ml (0.00-0.034)
--- NOTE | 2023-09-14 19:26 | PC.NURSE ---
patient given warm blanket
[2023-09-14 19:50] VITALS: BP 128/90; PULSE 78; RESP 16; TEMP 36.7; O2SAT 99
== END 2023-09-14 20:17 | disposition home or self-care (01) ==
PROVIDERS: Emergency Provider Student in an Organized Health Care Education/Training Program; PCP Nurse Practitioner Family
DX: J44.1 Chronic obstructive pulmonary disease with (acute) exacerbation (principal); F17.210 Nicotine dependence, cigarettes, uncomplicated; I11.0 Hypertensive heart disease with heart failure; I50.33 Acute on chronic diastolic (congestive) heart failure; I25.10 Atherosclerotic heart disease of native coronary artery without angina pectoris; Z95.0 Presence of cardiac pacemaker
CPT/HCPCS: 71045; 80053; 82803; 83605; 84484; 85007; 85025; 87040; 87636; 93005; 96365; 96375; 99284; J3475

== ENCOUNTER → 2023-10-01 13:17 | Outpatient (CLI) | payer MEDICARE, MEDICAID, SELFPAY ==
[2023-10-01 13:56] LABS: Basophils % 0.4 % (0.1-2.0); Eosinophils # 0.2 K/mm3 (0.0-0.4); Eosinophils % 3.1 % (0.1-12.0); Hematocrit 42.1 % (37.0-47.0); Hemoglobin 14.1 g/dL (12.2-16.2); Lymphocytes # 2.5 K/mm3 (0.7-4.5); Lymphocytes % 34.1 % (10-50); Mean Corpuscular HGB Conc 33.5 g/dL (31.8-35.4); Mean Corpuscular Volume 86.8 fl (81-99); Mean Platelet Volume 9.8 fl (7.4-10.4); Monocytes # 0.5 K/mm3 (0.1-1.0); Monocytes % 6.8 % (1.7-9.3); Neutrophils % 55.7 % (37.0-80.0); Platelet Count 180 K/mm3 (142-424); Red Blood Count 4.85 M/mm3 (4.20-5.40); Red Cell Distribution Width 15.9 % (11.5-17.5); White Blood Count 7.2 K/mm3 (4.8-10.8)
[2023-10-01 16:08] LABS: Alanine Aminotransferase 23 U/L (12-78); Albumin Level 3.7 g/dl (3.5-5.0); Albumin/Globulin Ratio 1.3 (1.1-1.8); Alkaline Phosphatase 122 U/L (38-126); Aspartate Amino Transferase 26 U/L (14-36); Bilirubin,Total 0.2 mg/dl (0.2-1.3); Blood Urea Nitrogen 23 mg/dl (7-17); Carbon Dioxide 26 mmol/L (22.0-30.0); Chloride 102 mmol/L (98-107); Estimated Glomerular Filt Rate 54 ml/min (>60); GFR (African American) 65 ML/MIN (>60); Globulin 2.9 g/dL (1.3-3.2); Glucose 128 mg/dl (74-100); Magnesium 1.8 mg/dl (1.6-2.3); Sodium 140 mmol/L (136-145); Total Protein,Serum 6.6 g/dl (6.3-8.2)
== END ==
PROVIDERS: PCP Nurse Practitioner Family; Visit Provider Nurse Practitioner Family
DX: R42 Dizziness and giddiness (principal)
CPT/HCPCS: 80053; 83735; 85025

== ENCOUNTER → 2023-10-19 07:41 | Outpatient (CLI) | payer MEDICARE, MEDICAID, SELFPAY ==
--- NOTE | 2023-10-19 07:45 | CT_ITS ---
FINAL REPORT TECHNIQUE: Axial CT images of the abdomen and pelvis were obtained before and after the administration of IV contrast. Oral contrast was administered.This study was performed with techniques to keep radiation doses as low as reasonably achievable (ALARA). Individualized dose reduction techniques using automated exposure control or adjustment of mA and/or kV according to the patient''s size were employed. CLINICAL HISTORY: left kidney 8 mm mass COMPARISON: 02/24/2023 FINDINGS: Abdomen: There is a 10 mm nodule in the left lung base which is either new or was obscured by atelectasis previously. There is emphysema in the lung bases. There is a 29 mm mass in the posterior right hepatic lobe which is stable consistent with a cyst. Patient is status post cholecystectomy. The spleen is unremarkable. No adrenal masses present. The pancreas has an unremarkable appearance. There are small bilateral renal cysts. There is an 8 mm mass in the lower pole of the left kidney which is stable in size and appearance. This is difficult to accurately characterize secondary to small size but favor a mildly complicated cyst. Moderate vascular calcification is identified. The aorta is normal in caliber. There is no free fluid or adenopathy. Precontrast images demonstrate no evidence of nephrolithiasis. Pelvis: The appendix is normal. There is descending and sigmoid diverticulosis. The urinary bladder is unremarkable. No inflammatory process is seen. There is no evidence of mass or adenopathy. There is no evidence of bowel obstruction. IMPRESSION: Left lung base nodule as above. Recommend PET-CT follow-up. Mass in the lower pole of the left kidney, favor mildly complicated cyst. Reviewed, Interpreted and Dictated by Yann Robertson III, MD Transcribed by Cyndi Pham Authenticated and [facility]
== END ==
PROVIDERS: PCP Nurse Practitioner Family; Visit Provider Nurse Practitioner Family
DX: N28.89 Other specified disorders of kidney and ureter (principal)
CPT/HCPCS: 74178; Q9967

== ENCOUNTER → 2023-10-20 10:30 | Outpatient (CLI) | payer MEDICARE, MEDICAID, SELFPAY ==
--- NOTE | 2023-10-20 10:34 | XR_ITS ---
FINAL REPORT CLINICAL HISTORY: dyspnea COMPARISON: 09/14/2023 FINDINGS: TWO-VIEW CHEST The heart size is normal. The mediastinum is normal. Left subclavian pacer is identified. The lungs are clear. There is no pneumothorax. IMPRESSION: No acute cardiopulmonary process. Reviewed, Interpreted and Dictated by Yann Robertson III, MD Transcribed by Cyndi Pham Authenticated and [facility]
== END ==
LOC: RAD 10:31
PROVIDERS: PCP Nurse Practitioner Family; Visit Provider Physician Assistant
DX: E78.5 Hyperlipidemia, unspecified (principal); F17.200 Nicotine dependence, unspecified, uncomplicated; I11.9 Hypertensive heart disease without heart failure; I25.10 Atherosclerotic heart disease of native coronary artery without angina pectoris; R06.09 Other forms of dyspnea
CPT/HCPCS: 71046

== ENCOUNTER 2023-11-12 08:15 | Day surgery (SDC) | payer MEDICARE, MEDICAID, SELFPAY ==
[2023-11-12] VITALS (11 sets, daily range): BP systolic 114–160; BP diastolic 49–81; PULSE 64–85; RESP 16–20; TEMP 36.1–37; O2SAT 91–98; BMI 31.9
--- NOTE | 2023-11-12 07:14 | IR_ITS ---
APPROVED REPORT Patient Location: Outpatient [facility] Operator: JEANNIE Lombardi RT (R) PROCEDURES Left heart catheterization Left ventriculogram Selective coronary angiogram INDICATION Abnormal Myoview, Preoperative evaluation, Angina pectoris Informed consent was obtained prior to the procedure. COMPLICATIONS NONE Estimated Blood Loss: LESS THAN 10 ML TECHNIQUE One percent lidocaine used to anesthetize the right anterior aspect of the wrist. The right radial artery was accessed via the Seldinger technique. A 6 Lao sheath was placed in the right radial artery. 2.5 mg of Verapamil, 800 mcg of nitroglycerin, 1mg Lidocaine and 5000 U Heparin were given through the arterial sheath. The papa catheter was also used to perform left heart catheterization, left ventriculogram and selective coronary angiogram. At the end of the procedure the sheath was removed good hemostasis was achieved using Traclet band, patient was transferred to the postop holding area in stable condition. ANGIOGRAPHIC RESULTS The left main artery Normal The left anterior descending artery Is proximally normal and has mid vessel 10 to 20% stenoses. A large first diagonal artery has an ostial 70 to 80% stenosis accompanied by CHRISTI-3 flow. The circumflex artery Is nondominant and normal The right coronary artery Is dominant and has a stent in the proximal segment which is widely patent. Distal to the stent is a 20% transitional stenosis. There is an additional 20% stenosis distally The [place] ventriculogram reveals Normal 65% The left ventricular end-diastolic pressure 10 to 15 mmHg IMPRESSION Coronary disease as described above most notably with the severe stenosis in the ostial segment of a first diagonal artery Normal ejection fraction Normal left ventricular end-diastolic pressure PLAN 1. Patient is alone acceptable risk to proceed with elective surgery 2. The first diagonal artery stenosis is unlikely to be producing symptoms. I would not recommend revascularizing this vessel unless recalcitrant angina pectoris is present. Stenting the first diagonal artery with require a bifurcating stent in an otherwise done diseased proximal LAD. This is not advised unless symptoms are recalcitrant 3. Aggressive risk factor modification with maximization of antianginal medications Electronically signed by : Keith Guillory MD 11/12/2023 09:57:39
[2023-11-12 08:42] LABS: Basophils # 0.1 K/mm3 (0-0.2); Basophils % 0.8 % (0.1-2.0); Eosinophils # 0.3 K/mm3 (0.0-0.4); Hematocrit 44.3 % (37.0-47.0); Hemoglobin 14.9 g/dL (12.2-16.2); Lymphocytes # 3.4 K/mm3 (0.7-4.5); Lymphocytes % 34.1 % (10-50); Mean Corpuscular HGB Conc 33.5 g/dL (31.8-35.4); Mean Corpuscular Volume 86.5 fl (81-99); Monocytes # 0.7 K/mm3 (0.1-1.0); Monocytes % 7.4 % (1.7-9.3); Neutrophils # 5.5 K/mm3 (1.8-7.8); Neutrophils % 54.7 % (37.0-80.0); Platelet Count 166 K/mm3 (142-424); Red Blood Count 5.13 M/mm3 (4.20-5.40); Red Cell Distribution Width 15.9 % (11.5-17.5); White Blood Count 10.1 K/mm3 (4.8-10.8)
[2023-11-12 08:50] LABS: Chloride 109 mmol/L (98-107); Potassium 4.6 mmoL/L (3.5-5.1); Sodium 140 mmol/L (136-145)
[2023-11-12 08:53] LABS: Anion Gap 12.6 mEq/L (5-15); Blood Urea Nitrogen 15 mg/dl (7-17); Calcium 8.7 mg/dl (8.4-10.2); Carbon Dioxide 23 mmol/L (22.0-30.0); Creatinine Clearance Estimated 70 mL/min (50-200); Estimated Glomerular Filt Rate 81 ml/min (>60); GFR (African American) 98 ML/MIN (>60); Glucose 113 mg/dl (74-100)
[2023-11-12] MEDS: LIDOCAINE 1% 10ML MDV 20 ML IJ (09:20)
[2023-11-12] MEDS: HEPARIN 1,000 UNITS/500ML NS (CATH LAB) 3000 UNIT IV (09:20)
[2023-11-12] MEDS: NITROGLYCERIN 800MCG/8ML SYR (CATH LAB) 800 MCG IA (09:20)
[2023-11-12] MEDS: 0.9 % SODIUM CHLORIDE 500 ML 25 ML IV (09:20)
[2023-11-12] MEDS: HEPARIN 1,000 UNITS/ML 10ML VIAL (CATH LAB) 10000 UNIT IV (09:20)
[2023-11-12] MEDS: diphenhydrAMINE 50MG/ML VIAL 50 MG IV (09:20)
[2023-11-12] MEDS: VERAPAMIL 2.5MG/ML 2ML VIAL 2.5 MG IV (09:21)
[2023-11-12] MEDS: MIDAZOLAM HCL 1MG/1ML 5ML VIAL 1 MG IV (09:51)
[2023-11-12] MEDS: FENTANYL 100MCG/2ML VIAL 50 MCG IV (09:52)
[2023-11-12] MEDS: IOPAMIDOL-370 (76%);100ML BOTTLE 90 ML IV (10:04)
--- NOTE | 2023-11-12 10:55 | SUR.PHASEII ---
PATIENT TAKEN TO POST OP FOR RECOVERY, BEDSIDE REPORT TO ROMELIA WEI
--- NOTE | 2023-11-12 12:42 | SUR.PHASEII ---
2ml of air taken out of radial band starting at 1045 every 15 minutes without issue. radial band removed at 1220 and bandage applied.
== END 2023-11-12 12:55 | disposition home or self-care (01) ==
PROVIDERS: PCP Nurse Practitioner Family; Visit Provider Internal Medicine
DX: E78.5 Hyperlipidemia, unspecified (principal); I11.0 Hypertensive heart disease with heart failure; I25.118 Atherosclerotic heart disease of native coronary artery with other forms of angina pectoris; R06.09 Other forms of dyspnea; F17.210 Nicotine dependence, cigarettes, uncomplicated; Z79.899 Other long term (current) drug therapy; Z95.0 Presence of cardiac pacemaker; I50.33 Acute on chronic diastolic (congestive) heart failure; J44.9 Chronic obstructive pulmonary disease, unspecified
CPT/HCPCS: 80048; 85025; 93458; 99152; C1725; C1769; J1644; Q9967

== ENCOUNTER 2023-11-30 08:37 | Emergency (ER) | payer MEDICARE, MEDICAID, SELFPAY ==
[2023-11-30 08:39] VITALS: BP 140/74; PULSE 90; RESP 19; TEMP 36.8; O2SAT 96; BMI 25.0
[2023-11-30 08:44] VITALS: BP 140/74; PULSE 60; O2SAT 99
--- NOTE | 2023-11-30 08:49 | XR_ITS ---
FINAL REPORT CLINICAL HISTORY: dyspnea cough x 3 days smoker x 60 yrs copd COMPARISON: 10/20/2023 FINDINGS: A single portable view of the chest was obtained. A left subclavian pacemaker is present. The heart size and pulmonary vascularity are within normal limits. The mediastinum is within normal limits. There is bronchial wall thickening consistent with bronchitis. The bony thorax is intact. IMPRESSION: Bronchial wall thickening consistent with bronchitis. Reviewed, Interpreted and Dictated by Yann Robertson III, MD Transcribed by Rosanna Douglas Authenticated and [facility]
--- NOTE | 2023-11-30 08:51 | ED_ITS ---
Discharge Plan Disposition Patient Disposition: Home, Self-Care Prescriptions Prescriptions: New benzonatate 100 mg capsule 100 mg PO TID PRN (Reason: cough) 5 Days Qty: 20 0RF albuterol sulfate 90 mcg/actuation HFA aerosol inhaler 4 inh inhalation Q4H PRN (Reason: shortness of breath or wheezing) Qty: 8.5 0RF Rx Instructions: 4 puffs every 4 hours for 48 hours then as needed for shortness of breath or wheezing following amoxicillin-pot clavulanate 875-125 mg tablet 1 tab PO BID 5 Days Qty: 10 0RF Xofluza 40 mg tablet 40 mg PO ONCE Qty: 1 0RF No Action aspirin [Adult Low Dose Aspirin] 81 mg tablet,delayed release (DR/EC) 81 mg PO DAILY rosuvastatin 40 mg tablet 40 mg PO DAILY Patient Comments: TAKE 1 TABLET BY MOUTH ONCE DAILY FOR CHOLESTEROL amlodipine 5 mg tablet 5 mg PO DAILY Patient Comments: TAKE 1 TABLET BY MOUTH ONCE DAILY FOR BLOOD PRESSURE malathion [Ovide] 0.5 % lotion 1 applic topical WEEKLY Qty: 59 1RF esomeprazole magnesium [Nexium] 20 mg capsule,delayed release(DR/EC) 20 mg PO DAILY furosemide [Lasix] 40 mg tablet 40 mg PO DAILY Qty: 90 3RF clopidogrel 75 mg tablet 75 mg PO DAILY Qty: 90 3RF pregabalin [Lyrica] 75 mg capsule 75 mg PO BID 30 Days Qty: 60 2RF isosorbide mononitrate 30 mg tablet extended release 24 hr 30 mg PO DAILY Qty: 90 3RF carvedilol 12.5 mg tablet 12.5 mg PO BIDWMEAL 90 Days Qty: 180 1RF Trelegy Ellipta 200-62.5-25 mcg blister with device 1 inh inhalation DAILY albuterol sulfate 90 mcg/actuation HFA aerosol inhaler 2 inh INHALATION QIDP PRN (Reason: SHORTNESS OF AIR) Patient Comments: INHALE 2 PUFFS BY MOUTH 4 TIMES DAILY NEEDED FOR SHORTNESS OF BREATH OR WHEEZING ipratropium-albuterol 0.5 mg-3 mg(2.5 mg base)/3 mL Solution For Nebulization 3 ml INHALATION Q6H PRN (Reason: Shortness Of Breath Or Wheezing) Qty: 120 2RF Referrals Follow up/Referrals: Manuela Castillo APRN [Primary Care Provider] - See instructions Activity Restrictions/Add. Instructions Additional Instructions/Restrictions: Your symptoms today are consistent with some mild dehydration and COPD exacerbation as well as influenza A. The medication Xofluza has been prescribed for the treatment of influenza which I feel is superior to Tamiflu. If you are unable to get this filled in the setting of pharmacy not having this or your insurance not covering this please call back and I will call in Tamiflu. Please return with any worsening symptoms and otherwise keep yourself hydrated and follow-up with your primary care doctor as needed. Clinical Impressions Clinical Impression: Acute exacerbation of chronic obstructive pulmonary disease, Diarrhea, Generalized weakness, Influenza A Discharge ED Provider: Viviane Rosales General Adult HPI General Chief complaint: Weakness Stated complaint: dizzy, chills, fever Time Seen by Provider: 11/30/23 08:42 History of Present Illness HPI narrative: Is a 78-year-old female with a history of COPD presenting today with multiple complaints. First complaint is that she has had 2 days of cough increased wheezing and sputum production and shortness of breath and some chills. Denies any objective fevers. Also complains of 1 day of diarrhea and generalized weakness. No focal weakness. No significant chest pain associated with this. She has a history of severe COPD exacerbations requiring admission and the gentleman who is with her decided to bring her early in the course of her illness out of abundance of caution. Denies any pain anywhere else or any other symptoms. Related Data Home Medications Medication Instructions Recorded Confirmed aspirin 81 mg tablet,delayed 81 mg PO DAILY Heart Health 12/13/17 11/22/23 release (Adult Low Dose Aspirin) esomeprazole magnesium 20 mg 20 mg PO DAILY Acid reflux 03/31/21 11/22/23 capsule,delayed release (Nexium) rosuvastatin 40 mg tablet 40 mg PO DAILY Cholesterol 06/15/23 11/22/23 fluticasone fur. 200 mcg-umeclid 1 inh inhalation DAILY Copd 08/05/23 11/22/23 62.5 mcg-vilant 25 mcg inhalat.powder (Trelegy Ellipta) albuterol sulfate 90 mcg/actuation 2 inh inhalation QIDP PRN 09/02/23 11/22/23 aerosol inhaler SHORTNESS OF AIR amlodipine 5 mg tablet 5 mg PO DAILY 09/10/23 11/22/23 Previous Rx's Medication Instructions Recorded furosemide 40 mg tablet (Lasix) 40 mg PO DAILY Fluid #90 tabs 03/15/23 clopidogrel 75 mg tablet 75 mg PO DAILY Blood thinner #90 07/30/23 tabs ipratropium 0.5 mg-albuterol 3 mg 3 ml inhalation Q6H PRN Shortness 09/03/23 (2.5 mg base)/3 mL nebulization Of Breath Or Wheezing #120 ea soln pregabalin 75 mg capsule (Lyrica) 75 mg PO BID NEUROPATHY 30 days 10/20/23 #60 caps isosorbide mononitrate 30 mg 30 mg PO DAILY High Blood Pressure 10/26/23 tablet,extended release 24 hr #90 tabs malathion 0.5 % lotion (Ovide) 1 applic topical WEEKLY 2 doses 10/26/23 #59 mL carvedilol 12.5 mg tablet 12.5 mg PO BIDWMEAL Blood 11/01/23 pressure/heart rate 90 days #180 tabs albuterol sulfate 90 mcg/actuation 4 inh inhalation Q4H PRN shortness 11/30/23 aerosol inhaler of breath or wheezing #8.5 grams amoxicillin 875 mg-potassium 1 tab PO BID 5 days #10 tabs 11/30/23 clavulanate 125 mg tablet baloxavir marboxil 40 mg tablet 40 mg PO ONCE #1 tab 11/30/23 (Xofluza) benzonatate 100 mg capsule 100 mg PO TID PRN cough 5 days #20 11/30/23 caps Allergies Allergy/AdvReac Type Severity Reaction Status Date / Time bupropion [From Wellbutrin] Allergy Intermediate Other Verified 11/22/23 10:03 gabapentin Allergy Unknown WEAKNESS Verified 11/22/23 10:03 ibuprofen Allergy Unknown SHAKEY Verified 11/22/23 10:03 tiotropium Allergy Unknown WEAKNESS Verified 11/22/23 10:03 [facility] Disclaimer: The information contained in this section may have been updated after the patient was seen, as this information can be updated by other users. 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 (Updated 11/30/23 @ 09:59 by Aurelio Sousa RN) Abnormal echocardiogram Acute on chronic diastolic congestive heart failure, NYHA class 3 Angina pectoris Cardiac pacemaker in situ Chronic obstructive lung disease COPD (chronic obstructive pulmonary disease) COPD (chronic obstructive pulmonary disease) with acute bronchitis Coronary artery disease Cough Degenerative disc disease, lumbar Diverticulitis Dizziness Dyspnea Dyspnea on exertion Edema Epigastric pain Kidney lesion, [place], left Left hip pain Left leg pain Lumbar radicular syndrome Lumbar radiculopathy Multiple lung nodules on CT Pain of left calf Palpitations Preop cardiovascular exam Pulmonary emphysema Restless leg syndrome Screening for lung cancer Smoking greater than 30 pack years SOB (shortness of breath) Stenosis of carotid artery Tobacco abuse counseling Tobacco abuse disorder Urticaria Surgical History History of bilateral tubal ligation History of cholecystectomy History of permanent cardiac pacemaker placement Family History Mother Colon cancer Brother Lung cancer Other Cancer Diabetes Family history of myocardial infarction Stroke 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 Smoking Status: Current every day smoker tobacco type: cigarettes packs per day: 1 second hand exposure: Yes alcohol intake: never substance use type: denies use current occupational status: other Travel in the last 8 weeks: None household members: family housing: house lives independently: No education level: elementary school service: No longterm: No 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es/hazards: No caffeine: Yes ROS Obtained: Yes All systems reviewed & no additional complaints except as documented Physical Exam General General appearance: alert and in no apparent distress Respiratory Respiratory exam: Present other (Oxygen saturations normal on room air there is diffuse expiratory wheezing and prolonged expiratory phase no focal lung sounds) Cardiovascular Cardiovascular exam: Present regular rate and normal rhythm Neurological Exam Neurological exam: Present alert and oriented X3 (Nonfocal) Medical Decision Making Kervin Inquiry Pt receiving controlled substance: No Vital Signs: 11/30/23 08:39 11/30/23 08:44 11/30/23 09:00 Temperature 98.3 F Temperature Source Oral Pulse Rate 60 60 Pulse Rate [Left Radial] 90 Respiratory Rate 19 Blood Pressure 140/74 127/73 Blood Pressure [Right Arm] 140/74 Blood Pressure Mean Blood Pressure Mean [Right Arm] 96 02 Sat by Pulse Oximetry 96 99 98 Oxygen Delivery Method Room Air Room Air Room Air 11/30/23 09:30 Temperature Temperature Source Pulse Rate 86 Pulse Rate [Left Radial] Respiratory Rate Blood Pressure 144/72 H Blood Pressure [Right Arm] Blood Pressure Mean 95 Blood Pressure Mean [Right Arm] 02 Sat by Pulse Oximetry 93 L Oxygen Delivery Method Room Air Lab Data Lab results reviewed: Yes I reviewed the patient's lab results. Lab Results 11/30/23 08:53: SARS-CoV-2 (PCR) Not detected, Influenza A Untype (PCR) Detected A, Influenza Type B (PCR) Not detected 11/30/23 08:58: WBC 6.3, RBC 5.37, Hgb 14.4, Hct 46.1, MCV 85.9, MCH 26.7 L, MCHC 31.1 L, RDW 15.1, Plt Count 141 L, MPV 8.7, Neut % (Auto) 55.7, Lymph % (Auto) 30.4, [place] % (Auto) 13.0 H, Eos % (Auto) 0.2, Baso % (Auto) 0.6, Neut # (Auto) 3.5, Lymph # (Auto) 1.9, [place] # (Auto) 0.8, Eos # (Auto) 0.0, Baso # (Auto) 0.0, Sodium 133 L, Potassium 4.0, Chloride 100, Carbon Dioxide 24, Anion Gap 13.0, BUN 21 H, Creatinine 1.00, Estimated Creat Clear 50, Estimated GFR 54 L, Est GFR ( Amer) 65, Glucose 117 H, Calcium 8.2 L, Phosphorus 5.1 H, Magnesium 2.0, Total Bilirubin 0.4, AST 34, ALT 23, Alkaline Phosphatase 102, Total Protein 7.3, Albumin 3.9, Globulin 3.4 H, Albumin/Globulin Ratio 1.1 11/30/23 08:58 11/30/23 08:58 Orders (Tests/Meds): ED MEDICATIONS Generic Name Dose Route Start Last Admin Trade Name Freq PRN Reason Stop Dose Admin Sodium Chloride 10 ml 11/30/23 08:59 Sodium Chloride 0.9% 10ml Flush Syringe IV 12/30/23 08:58 NEEDED PRN Maintain IV Site Discontinued Medications Generic Name Dose Route Start Last Admin Trade Name Freq PRN Reason Stop Dose Admin Albuterol/Ipratropium 3 ml 11/30/23 08:49 11/30/23 09:04 Ipratropium/Albuterol 3 Ml Neb IH 11/30/23 08:50 3 ml ONCE ONE Administration Amoxicillin/Clavulanate Potassium 1 each 11/30/23 08:49 11/30/23 09:38 Amoxicillin/Clavulanate Potassium 875/125mg Tablet PO 11/30/23 08:50 1 each ONCE ONE Administration Dexamethasone Sodium Phosphate 10 mg 11/30/23 08:49 11/30/23 09:04 Dexamethasone 4mg/Ml 1ml Vial IV 11/30/23 08:50 10 mg ONCE ONE Administration Magnesium Sulfate 2 gm in 50 mls @ 50 mls/hr 11/30/23 08:49 11/30/23 09:04 Magnesium Sulfate 2gm/50ml Premix IV 11/30/23 09:48 50 mls/hr ONCE ONE Administration Lactated Ringer's 500 mls @ 999 mls/hr 11/30/23 09:00 11/30/23 09:12 Lactated Ringer's 1000 Ml Bag IV 11/30/23 09:30 Not Given .Q31M ISH Lactated Ringer's 500 mls @ 999 mls/hr 11/30/23 09:12 11/30/23 09:37 Lactated Ringer's 500ml IV 11/30/23 09:42 999 mls/hr .Q31M ONE Administration ORDERS Category Date Time Status CXR --portable [XR chest portable] Stat Exams 11/30/23 08:49 Taken BNP [Brain Natriuretic Peptide] Stat Lab 11/30/23 08:58 Results CBC w/Auto Diff [Complete Blood Count Auto Diff] Stat Lab 11/30/23 08:58 Completed CMP [Comprehensive Metabolic Panel] Stat Lab 11/30/23 08:58 Results Magnesium Stat Lab 11/30/23 08:58 Results Phosphorous Stat Lab 11/30/23 08:58 Results Rapid PCR Covid and Flu A/B Stat Lab 11/30/23 08:53 Completed Trop I [Troponin I] Stat Lab 11/30/23 08:58 Results Troponin I Q3H Lab 11/30/23 12:00 Ordered Troponin I Q3H Lab 11/30/23 15:00 Ordered Medical Decision Narrative: Patient is a 78-year-old female with a history of COPD presenting today with 2 days of symptoms consistent with a COPD exacerbation including increased shortness of breath wheezing and sputum production. She has prolonged expiratory phase and diffuse expiratory wheezing will initiate nebs steroids antibiotics magnesium and also with her generalized weakness most likely secondary to diarrhea and dehydration will give 500 cc of normal saline will reassess. Chest x-ray performed which I personally interpreted which shows no acute cardiopulmonary emergency. Influenza A is positive. Given patient's underlying comorbidities I do believe that she needs to have antiviral treatment in my opinion Xofluza as a superior medication to Tamiflu in this particular setting and has been prescribed. Will continue to treat with Augmentin for a COPD exacerbation. Serial respiratory evaluations are improved she stable for discharge. She has been advised to maintain hydration return with any worsening symptoms. Critical Care Critical Care Time Critical Care Time: No
[2023-11-30 09:00] VITALS: BP 127/73; PULSE 60; O2SAT 98
[2023-11-30 09:01] LABS: Coronavirus 19, PCR Not Detected (NotDetected); Influenza B, PCR Not Detected (NotDetected)
[2023-11-30] MEDS: DEXAMETHASONE 4MG/ML 1ML VIAL 10 MG IV (09:04)
[2023-11-30] MEDS: MAGNESIUM SULFATE IN WATER 2 GM/50 ML PIGGYBACK IV (09:04)
[2023-11-30] MEDS: IPRATROPIUM/ALBUTEROL 3 ML NEB IH (09:04)
[2023-11-30 09:11] LABS: Basophils % 0.6 % (0.1-2.0); Eosinophils % 0.2 % (0.1-12.0); Hematocrit 46.1 % (37.0-47.0); Hemoglobin 14.4 g/dL (12.2-16.2); Lymphocytes # 1.9 K/mm3 (0.7-4.5); Lymphocytes % 30.4 % (10-50); Mean Corpuscular HGB Conc 31.1 g/dL (31.8-35.4); Mean Corpuscular Hemoglobin 26.7 pg (27.0-31.2); Mean Corpuscular Volume 85.9 fl (81-99); Mean Platelet Volume 8.7 fl (7.4-10.4); Monocytes # 0.8 K/mm3 (0.1-1.0); Neutrophils # 3.5 K/mm3 (1.8-7.8); Neutrophils % 55.7 % (37.0-80.0); Platelet Count 141 K/mm3 (142-424); Red Blood Count 5.37 M/mm3 (4.20-5.40); Red Cell Distribution Width 15.1 % (11.5-17.5); White Blood Count 6.3 K/mm3 (4.8-10.8)
[2023-11-30 09:26] LABS: Alanine Aminotransferase 23 U/L (12-78); Albumin Level 3.9 g/dl (3.5-5.0); Albumin/Globulin Ratio 1.1 (1.1-1.8); Alkaline Phosphatase 102 U/L (38-126); Aspartate Amino Transferase 34 U/L (14-36); Bilirubin,Total 0.4 mg/dl (0.2-1.3); Blood Urea Nitrogen 21 mg/dl (7-17); Calcium 8.2 mg/dl (8.4-10.2); Carbon Dioxide 24 mmol/L (22.0-30.0); Chloride 100 mmol/L (98-107); Creatinine Clearance Estimated 50 mL/min (50-200); Estimated Glomerular Filt Rate 54 ml/min (>60); GFR (African American) 65 ML/MIN (>60); Globulin 3.4 g/dL (1.3-3.2); Glucose 117 mg/dl (74-100); Phosphorous 5.1 mg/dl (2.5-4.5); Sodium 133 mmol/L (136-145); Total Protein,Serum 7.3 g/dl (6.3-8.2)
[2023-11-30 09:30] VITALS: BP 144/72; PULSE 86; O2SAT 93
[2023-11-30 09:31] LABS: Influenza A, PCR Detected (NotDetected)
[2023-11-30] MEDS: RINGERS SOLUTION,LACTATED 500 ML 999 ML IV (09:37)
[2023-11-30] MEDS: AMOXICILLIN/CLAVULANATE POTASSIUM 875/125MG TABLET 1 EACH PO (09:38)
[2023-11-30 10:03] VITALS: BP 150/66; PULSE 84; RESP 19; TEMP 36.7; O2SAT 94
[2023-11-30 10:18] LABS: Troponin I < 0.01 ng/ml (0.00-0.034)
[2023-11-30 10:38] LABS: NT Pro Brain Natriuretic Pep. 281 pg/mL (0-450)
== END 2023-11-30 10:07 | disposition home or self-care (01) ==
PROVIDERS: Emergency Provider Student in an Organized Health Care Education/Training Program; PCP Nurse Practitioner Family
DX: J44.1 Chronic obstructive pulmonary disease with (acute) exacerbation (principal); J10.1 Influenza due to other identified influenza virus with other respiratory manifestations; F17.210 Nicotine dependence, cigarettes, uncomplicated; E87.1 Hypo-osmolality and hyponatremia; R19.7 Diarrhea, unspecified; R05.9 Cough, unspecified; R06.02 Shortness of breath; R53.1 Weakness; I65.29 Occlusion and stenosis of unspecified carotid artery; I25.119 Atherosclerotic heart disease of native coronary artery with unspecified angina pectoris; I11.9 Hypertensive heart disease without heart failure; Z95.0 Presence of cardiac pacemaker
CPT/HCPCS: 71045; 80053; 83735; 83880; 84100; 84484; 85025; 87636; 96365; 96375; 99284; J3475

== ENCOUNTER 2023-12-06 14:42 | Outpatient (CLI) | payer MEDICARE, MEDICAID, SELFPAY ==
--- NOTE | 2023-12-06 14:43 | CA_ITS ---
APPROVED REPORT EXAM: Comprehensive 2D, Doppler, and color-flow Echocardiogram Tile Grader: Anahi Linn RT(R) Ht: 5 ft 5 in Wt: 215lbs BSA: 2.04 BP: 130/70 mmHg Indications: SOB, COPD, smoker, edema, CAD, pacemaker 2D Dimensions LVEF (Stinson's) 60.00 % F: 54 - 74 LV Volume 69.20 mL F: 46 - 106 LV Volume Index 33.9 mL/m2 F: 29 - 61 LA Volume 37.70 mL LA Volume Index 18.48 mL/m2 (M/F) 16-34 EF AP4 55.30 % EF AP2 65.5 % EF BP 60.0 % GL Strain -18.1 % M-Mode Dimensions RVDd 2.88 cm (0.9-2.6) LA Diam 4.26 cm (1.9-4.0) LVDd 4.24 cm (3.5-5.7) LVDs 3.26 cm (3.5-5.7) IVSd 0.93 cm (0.6-1.1) PWd 0.80 cm (0.6-1.1) EF (Teich) 46.80% FS 23.10% EDV (Teich) 80.40 mL ESV (Teich) 42.80 mL LV Diastology E Decel Time 240 (160-240 msec) E/A Ratio 0.6 Mitral Valve MV E Max Chandra. 60.0 (40-130 cm/s) MV A Velocity 95.0 (40-130 cm/s) E/A Ratio 0.63 MV PHT 70.0 ms Left Ventricle The left ventricle is normal size. The left ventricular systolic function is normal. The left ventricular ejection fraction is within the normal range. There is increased LV wall thickness. There is normal LV segmental wall motion. Transmitral Doppler flow pattern suggests impaired LV relaxation. LVEF is 60%. Right Ventricle The right ventricle is normal size. The right ventricular systolic function is normal. Atria The left atrium size is normal. The right atrium size is normal. There is no Doppler evidence of interatrial shunt. Aortic Valve The aortic valve is mildly thickened. There is no aortic valvular stenosis. No aortic regurgitation is present. Mitral Valve Mild mitral annular calcification. The mitral valve leaflets are mildly thickened. No evidence of mitral valve stenosis. Trace mitral regurgitation. Tricuspid Valve The tricuspid valve leaflets are thin and pliable. Trace tricuspid regurgitation. There is insufficient TR jet to estimate RVSP. Pulmonic Valve Pulmonic valve is not well-visualized. Great Vessels The ascending aorta is not well-visualized. The IVC is not well-visualized. Pericardium There is no pericardial effusion. Other Information Study Quality: Technically Difficult Conclusion Technically difficult study due to poor acoustic windows. Normal biventricular systolic function. No significant valvular stenosis or regurgitation in the visualized valves. Electronically signed by : Kusum Collins MD 12/08/2023 11:23:12
== END 2023-12-06 23:59 ==
PROVIDERS: PCP Nurse Practitioner Family; Visit Provider Internal Medicine
DX: R06.00 Dyspnea, unspecified (principal)
CPT/HCPCS: 93306

== ENCOUNTER 2023-12-14 14:45 | Outpatient (CLI) | payer MEDICARE, SELFPAY ==
[2023-12-14 14:57] LABS: ABG Base Excess -2.5 mmol/L (-2.4-2.3); ABG HCO3 22.2 mmhg (22.0-26.0); ABG Oxygen Saturation 95 % (90-100); ABG PCO2 35.8 mmhg (35.0-45.0); ABG PH 7.41 mmol/L (7.35-7.45); ABG PO2 71.2 mmhg (80-100); ABG TCO2 23.3 mmhg (23-27); Allen's Test ACCEPTABLE; Oxygen ROOM AIR %; Source R RADIAL
== END 2023-12-14 23:59 ==
LOC: LAB 14:46 → RT 14:48
PROVIDERS: PCP Nurse Practitioner Family; Visit Provider Internal Medicine Pulmonary Disease
DX: J44.9 Chronic obstructive pulmonary disease, unspecified (principal)
CPT/HCPCS: 82803

== ENCOUNTER → 2023-12-23 09:35 | Outpatient (CLI) | payer MEDICARE, MEDICAID, SELFPAY | PROVIDERS: PCP Nurse Practitioner Family; Visit Provider Internal Medicine Pulmonary Disease | DX: J44.9 Chronic obstructive pulmonary disease, unspecified (principal); F17.210 Nicotine dependence, cigarettes, uncomplicated | CPT/HCPCS: 94762 ==

== ENCOUNTER 2024-01-24 09:30 | Outpatient (CLI) | payer MEDICARE, MEDICAID, SELFPAY ==
[2024-01-24 10:10] LABS: Basophils # 0.1 K/mm3 (0-0.2); Basophils % 0.6 % (0.1-2.0); Eosinophils # 0.2 K/mm3 (0.0-0.4); Eosinophils % 1.9 % (0.1-12.0); Hematocrit 42.1 % (37.0-47.0); Hemoglobin 13.8 g/dL (12.2-16.2); Lymphocytes # 3.3 K/mm3 (0.7-4.5); Lymphocytes % 28.6 % (10-50); Mean Corpuscular HGB Conc 32.8 g/dL (31.8-35.4); Mean Corpuscular Hemoglobin 29.2 pg (27.0-31.2); Mean Corpuscular Volume 89.1 fl (81-99); Mean Platelet Volume 9.4 fl (7.4-10.4); Monocytes # 0.7 K/mm3 (0.1-1.0); Monocytes % 6.1 % (1.7-9.3); Neutrophils # 7.1 K/mm3 (1.8-7.8); Neutrophils % 62.7 % (37.0-80.0); Platelet Count 146 K/mm3 (142-424); Red Blood Count 4.72 M/mm3 (4.20-5.40); Red Cell Distribution Width 15.2 % (11.5-17.5); White Blood Count 11.4 K/mm3 (4.8-10.8)
[2024-01-24 10:44] LABS: Alanine Aminotransferase 17 U/L (12-78); Albumin Level 3.8 g/dl (3.5-5.0); Alkaline Phosphatase 121 U/L (38-126); Anion Gap 7.5 mEq/L (5-15); Aspartate Amino Transferase 25 U/L (14-36); Bilirubin,Direct 0.3 mg/dl (0.0-0.4); Bilirubin,Total 0.3 mg/dl (0.2-1.3); Bilirubin,Unconjugated 0.1 mg/dL (0.0-1.1); Blood Urea Nitrogen 22 mg/dl (7-17); Calcium 8.9 mg/dl (8.4-10.2); Carbon Dioxide 27 mmol/L (22.0-30.0); Chloride 108 mmol/L (98-107); Chol/HDL Ratio 3.7 (1-3.5); Cholesterol 138 mg/dl (140-200); Estimated Glomerular Filt Rate 69 ml/min (>60); GFR (African American) 84 ML/MIN (>60); Glucose 105 mg/dl (74-100); HDL Cholesterol 37 mg/dl (40-60); Potassium 4.5 mmoL/L (3.5-5.1); Sodium 138 mmol/L (136-145); Total Protein,Serum 6.8 g/dl (6.3-8.2); Triglycerides 142 mg/dl (30-150); VLDL Cholesterol 28 mg/dL (0-40)
[2024-01-24 10:55] LABS: Direct LDL Cholesterol 70.61 mg/dL (100-129)
[2024-01-24 11:00] LABS: Free T4 (Free Thyroxine) 1.18 ng/dl (0.78-2.19)
[2024-01-24 11:14] LABS: Thyroid Stimulating Hormone 2.99 uIU/mL (0.465-4.68)
== END 2024-01-24 23:59 ==
PROVIDERS: PCP Nurse Practitioner Family; Visit Provider Physician Assistant
DX: R06.09 Other forms of dyspnea (principal); E78.2 Mixed hyperlipidemia; I11.9 Hypertensive heart disease without heart failure; I25.10 Atherosclerotic heart disease of native coronary artery without angina pectoris; K21.9 Gastro-esophageal reflux disease without esophagitis; F17.210 Nicotine dependence, cigarettes, uncomplicated
CPT/HCPCS: 36415; 80048; 80061; 80076; 84439; 84443; 85025

== ENCOUNTER 2024-04-11 14:38 | Outpatient (CLI) | payer MEDICARE, MEDICAID, SELFPAY | END 2024-04-11 23:59 | disposition home or self-care (01) | LOC: LAB.DROPOF 14:38 | PROVIDERS: PCP Nurse Practitioner Family; Visit Provider Nurse Practitioner Family | DX: N39.0 Urinary tract infection, site not specified (principal); B96.29 Other Escherichia coli [E. coli] as the cause of diseases classified elsewhere | CPT/HCPCS: 87086; 87088; 87186 ==

== ENCOUNTER 2024-04-12 10:00 | Outpatient (RCR) | payer MEDICARE, MEDICAID, SELFPAY ==
--- NOTE | 2024-02-04 14:24 | HMH.PTOPWND ---
Rehab Outpt Wound Evaluation Rehab OP Wound Evaluation Start: 02/04/24 13:54 Freq: Status: Active Protocol: Document 02/04/24 14:13 SJ (Rec: 02/04/24 14:24 PHORALECIA [id number]) E-signed By Sergio Mills, PT Subjective/History History History This is the initial PT eval for Jessica Payton, 78 yowf who presents with c/o B LE edema for ~ 1 yr. She reports, My legs aren't that swollen today, but soemtimes they stay swollen for 2 or 3 days at a time. She reports increased pain with increased edema. She also has intermittent numbnes sin B feet. She has PMH of CCY, CHF, CAD, Pacemaker, DDD, and COPD. Subjective Subjective Currently 0/10 pain, at worst 7/10 pain. 2+ pitting edema to B lower legs from mid-calf distally. 2/4 TTP to B LE in the gaiter area. Mild blanchable erythema to B lower legs also. New diagnosis of cancer in past 12 No months? Lymphedema Eval Classification of Lymphedema Secondary Lymphedema Yes Stemmer's sign Stemmer's Sign no Stage of Lymphedema Lymphedema stages Stage I (Pitting edema, reduces w/ elevation, no fibrosis) Skin Changes Dry Skin Yes Redness Yes Discoloration of Skin Yes Other Changes Yes Pain Scale Pain Scale (0-10) 7 Affected Extremities Areas Affected by Lymphedema/Edema Right Lower Extremity,Left Lower Extremity Lower Extremity Measurements Right MTP Measurement (cm) 21.4 Heel Measurement (cm) 30.7 10 cm Proximal to Lateral Malleoli 29.5 Measurement (cm) 20 cm Proximal to Lateral Malleoli 37.1 Measurement (cm) 30 cm Proximal to Lateral Malleoli 41.6 Measurement (cm) 40 cm Proximal to Lateral Malleoli 0 Measurement (cm) 50 cm Proximal to Lateral [place]alleoli 0 Measurement (cm) 60 cm Proximal to Lateral [place]alleoli 0 Measurement (cm) Lower Extremity Measurement Total (cm) 160.3 Left MTP Measurement (cm) 21.3 Heel Measurement (cm) 31.0 10 cm Proximal to Lateral [place]alleoli 30.8 Measurement (cm) 20 cm Proximal to Lateral [place]alle[place] 38.1 Measurement (cm) 30 cm Proximal to Lateral [place]alleoli 42.7 Measurement (cm) 40 cm Proximal to Lateral [place]alle[place] 0 Measurement (cm) 50 cm Proximal to Lateral [place] 0 Measurement (cm) 60 cm Proximal to Lateral [place] 0 Measurement (cm) Lower Extremity Measurement Total (cm) 163.9 Manual Lymphatic Drainage Treatment Area MLD Treatment Area Right Lower Extremity,Left Lower Extremity Wound Problems/Impairments Impairments Problems/Impairmments Palpation Tenderness,Impaired Endurance,Impaired Walking, Impaired Standing,Impaired Household Care,Increased Edema ,Lymphedema Present,Subjective C/O Pain,Impaired Self Care/ Self Management Prognosis Rehab Potential Good Clinical Impression Consistent with Diagnosis Yes Short Term Goals Number of Weeks 2 Decreased Palpation Tenderness Yes: 1/4 B lower leg Decrease Edema Yes: 1+ pitting edema B LE Decrease Subjective C/O Pain Yes: 03/24 B LE Patient to Understand Lymphedema Yes Treatment and Exercises Decrease Girth Measurments by (cm) Yes: B LE total by 5 cm ea [employer] Mdm Developer Goals Number of Weeks 4 Decreased Palpation Tenderness Yes: 0/4 B lower legs Decrease Edema Yes: no pitting edema B LE Decrease Subjective C/O Pain Yes: 01/22 B LE Patient to be Ind w/ HEP Yes Patient to be Ind w/ [place] Yes Compression Garments Patient to Adhere Lymphedema Precautions Yes Decrease Girth Measurments by (cm) Yes: B LE total by 15 cm ea Outpatient Therapy Plan of Care Treatment Plan May Include Therapeutic Exercise Including Home Yes Exercise Program Manual Therapy Techniques Yes Neuromuscular Re-education Yes Therapeutic Activities to Return to Yes Previous Functional/Work Level ADL/Self Care Education Yes Orthotics/Bracing/Splinting Yes Vasopneumatic Compression Pump Yes Manual Lymphatic Drainage Yes Eval/Re-Eval Yes Frequency Times per week 2 Duration Number of Weeks 4 Addendums This patient is a candidate for social No or vocational rehab? Patient/Guardian verbally acknowledges Yes understanding of treatment program and consents to further treatment? Patient/Guardian verbally acknowledges Yes understanding of diagnosis, prognosis and goals for treatment? Eval Complexity PT Charges 02546 - High Complexity PHYSICIAN CERTIFICATION: I certify the specified therapy services for Jessica Payton are required, authorized, and reviewed every 30 days.
--- NOTE | 2024-03-07 15:01 | HMH.RHREAS ---
Rehab Reassessment Rehab OP Re-assessment Start: 02/04/24 13:54 Freq: Status: Active Protocol: Document 03/07/24 14:56 SJ (Rec: 03/07/24 15:00 PHORITA [id number]) E-signed By Sergio Mills, PT Rehab Re-assessment Subjective Subjective Pt reports her legs don't feel as heavy overall now. She has less tenderness and feels the treatment is helping. Objective Objective Notes Circumferential Measurements: R LE total is 152.1 cm which is -8.2 cm since IE. L LE total is 157.2 cm which is -6.7 cm since IE. Pain: 5/10 at worst in B LE this date. Edema: 1+ pitting edema noted to B lower legs. Mild blanchable erythema remains in B lower legs. Assessment Progress Assessment Progressing as Expected Assessment Notes Pt has shown decreased overall edea and improved functional mobility as a result. She continues to have mild pitting edema and continued need for skilled intervention to return to prior level of function. Patient goals met ST,2,3,4,5,6 Goals Not Met LT,2,3,4,5,6,7 Plan Plan Continue per initial POC. Pt need further reduction in B LE edema and pain to return to PLOF. Frequency of Therapy 2 x/wk Duration of therapy 4 wks Time and Billing Re-Eval Time 10 Re-Eval Billing Units 0 PHYSICIAN CERTIFICATION: I certify the specified therapy services for Jessica Paytno are required, authorized, and reviewed every 30 days.
--- NOTE | 2024-04-04 10:27 | HMH.RHREAS ---
Rehab Reassessment Rehab OP Re-assessment Start: 02/04/24 13:54 Freq: Status: Active Protocol: Document 04/04/24 10:24 PHORITA (Rec: 04/04/24 10:27 PHORALECIA Laptop) E-signed By Sergio Mills, PT Rehab Re-assessment Subjective Subjective Pt reports, Any time I have to sit with my legs down for a long time, they swell up still. They don't hurt as bad right now, though. She reports tolerating a once per week schedule without problems . Objective Objective Notes B lower legs present with 1+ pitting edema this date. TTP: 1/ B lower legs. Erythema: Mild/Moderate erythema to B lower legs in the gaiter area. Assessment Progress Assessment Progressing as Expected Assessment Notes Pt has shown continued steady reduction in B LE edema. She continues to need skilled intervention to return to prior level of function. Patient goals met ST,2,3,4,5,6 Goals Not Met LT,2,3,4,5,6,7 Plan Plan Continue per initial POC. Pt need further reduction in B LE edema and pain to return to PLOF. Frequency of Therapy 1 x/wk Duration of therapy 4 wks Time and Billing Re-Eval Time 11 Re-Eval Billing Units 0 PHYSICIAN CERTIFICATION: I certify the specified therapy services for Jessica Payton are required, authorized, and reviewed every 30 days.
== END 2024-04-12 10:05 | disposition home or self-care (01) ==
LOC: PT 10:00
PROVIDERS: Visit Provider Nurse Practitioner
DX: I89.0 Lymphedema, not elsewhere classified (principal); M79.89 Other specified soft tissue disorders
CPT/HCPCS: 97140; 97163; 97164

== ENCOUNTER 2024-04-13 09:39 | Outpatient (CLI) | payer MEDICARE, MEDICAID, SELFPAY ==
[2024-04-13 10:25] VITALS: PULSE 78; PULSE 81
[2024-04-13] MEDS: ALBUTEROL 0.083% 2.5 MG/3 ML NEB IH (10:25)
== END 2024-04-13 23:59 | disposition home or self-care (01) ==
LOC: RT 09:40
PROVIDERS: PCP Nurse Practitioner Family; Visit Provider Internal Medicine Pulmonary Disease
DX: R06.09 Other forms of dyspnea (principal)
CPT/HCPCS: 94060; 94618; 94640

== ENCOUNTER 2024-04-25 17:04 | Outpatient (CLI) | payer MEDICARE, MEDICAID, SELFPAY ==
[2024-04-25 17:30] LABS: Basophils # 0.1 K/mm3 (0-0.2); Basophils % 0.8 % (0.1-2.0); Eosinophils # 0.3 K/mm3 (0.0-0.4); Eosinophils % 3.3 % (0.1-12.0); Hematocrit 41.1 % (37.0-47.0); Hemoglobin 13.2 g/dL (12.2-16.2); Lymphocytes # 3.3 K/mm3 (0.7-4.5); Lymphocytes % 41.4 % (10-50); Mean Corpuscular HGB Conc 32.2 g/dL (31.8-35.4); Mean Corpuscular Hemoglobin 28.6 pg (27.0-31.2); Mean Corpuscular Volume 88.8 fl (81-99); Mean Platelet Volume 10.6 fl (7.4-10.4); Monocytes # 0.5 K/mm3 (0.1-1.0); Monocytes % 6.2 % (1.7-9.3); Neutrophils # 3.8 K/mm3 (1.8-7.8); Neutrophils % 48.3 % (37.0-80.0); Platelet Count 148 K/mm3 (142-424); Red Blood Count 4.63 M/mm3 (4.20-5.40); Red Cell Distribution Width 15.6 % (11.5-17.5); White Blood Count 7.9 K/mm3 (4.8-10.8)
[2024-04-25 17:54] LABS: Alanine Aminotransferase 19 U/L (12-78); Albumin Level 3.6 g/dl (3.5-5.0); Albumin/Globulin Ratio 1.3 (1.1-1.8); Alkaline Phosphatase 122 U/L (38-126); Anion Gap 11.4 mEq/L (5-15); Aspartate Amino Transferase 23 U/L (14-36); Bilirubin,Total 0.3 mg/dl (0.2-1.3); Blood Urea Nitrogen 20 mg/dl (7-17); Calcium 8.8 mg/dl (8.4-10.2); Carbon Dioxide 28 mmol/L (22.0-30.0); Chloride 102 mmol/L (98-107); Chol/HDL Ratio 3.3 (1-3.5); Cholesterol 139 mg/dl (140-200); Estimated Glomerular Filt Rate 69 ml/min (>60); GFR (African American) 84 ML/MIN (>60); Globulin 2.8 g/dL (1.3-3.2); Glucose 118 mg/dl (74-100); HDL Cholesterol 42 mg/dl (40-60); Potassium 4.4 mmoL/L (3.5-5.1); Sodium 137 mmol/L (136-145); Total Protein,Serum 6.4 g/dl (6.3-8.2); Triglycerides 200 mg/dl (30-150); VLDL Cholesterol 40 mg/dL (0-40)
[2024-04-25 18:25] LABS: Thyroid Stimulating Hormone 3.23 uIU/mL (0.465-4.68)
== END 2024-04-25 23:59 | disposition home or self-care (01) ==
LOC: LAB.DROPOF 17:04
PROVIDERS: PCP Nurse Practitioner Family; Visit Provider Nurse Practitioner Family
DX: I11.9 Hypertensive heart disease without heart failure (principal); E78.2 Mixed hyperlipidemia; F17.210 Nicotine dependence, cigarettes, uncomplicated
CPT/HCPCS: 80050; 80053; 80061; 84443; 85025

== ENCOUNTER 2024-05-27 11:59 | Emergency (ER) | payer MEDICARE, MEDICAID, SELFPAY ==
[2024-05-27] VITALS (7 sets, daily range): BP systolic 112–154; BP diastolic 59–75; PULSE 79–87; RESP 18–26; TEMP 36.7–37.1; O2SAT 88–97; BMI 35.2; BMI 37.4
--- NOTE | 2024-05-27 12:29 | XR_ITS ---
PROCEDURE INFORMATION: Exam: XR Chest Exam date and time: 05/27/2024 12:24 PM Age: 78 years old Clinical indication: Shortness of breath; Patient HX: Pacemaker 3 yrs ago; Additional info: SOA TECHNIQUE: Imaging protocol: Radiologic exam of the chest. Views: 2 views. Total images: 2 COMPARISON: CR XR CHEST PORTABLE 11/30/2023 9:19 AM FINDINGS: Tubes, catheters and devices: A pacemaker device is present, its leads in appropriate position. Lungs: Bilateral hyperinflation is present. Atelectatic changes noted within both lung bases. Pleural spaces: Unremarkable. No pleural effusion. No pneumothorax. Heart/Mediastinum: The heart is not enlarged. Vasculature: Mild atherosclerotic disease. Bones/joints: The thoracic spine demonstrates mild degenerative changes at multiple levels. IMPRESSION: 1. Bilateral hyperinflation is present. 2. Atelectatic changes noted within both lung bases.
--- NOTE | 2024-05-27 12:56 | EXP.UTC ---
Discharge Plan Disposition Patient Disposition: Still a Patient Condition: Good Prescriptions Prescriptions: No Action carvedilol 12.5 mg tablet 12.5 mg PO DAILY Patient Comments: TAKE 1 TABLET BY MOUTH TWICE DAILY WITH MEALS FOR BLOOD PRESSURE/HEART RATE isosorbide mononitrate 30 mg tablet extended release 24 hr 30 mg PO DAILY Patient Comments: TAKE 1 TABLET BY MOUTH ONCE DAILY FOR HIGH BLOOD PRESSURE amlodipine 5 mg tablet 5 mg PO DAILY Patient Comments: TAKE 1 TABLET BY MOUTH ONCE DAILY albuterol sulfate 90 mcg/actuation HFA aerosol inhaler 1 puff INHALATION Q6HP PRN (Reason: SOA) loratadine 10 mg tablet 10 mg PO DAILY Patient Comments: TAKE 1 TABLET BY MOUTH ONCE DAILY NEEDED FOR ALLERGIC SYMPTOMS rosuvastatin 20 mg tablet 20 mg PO DAILY Patient Comments: TAKE 1 TABLET BY MOUTH ONCE DAILY FOR CHOLESTEROL pregabalin 75 mg capsule 75 mg PO BID Patient Comments: TAKE 1 CAPSULE BY MOUTH TWICE DAILY FOR NEUROPATHY varenicline 1 mg tablet 1 mg PO DAILY Eliquis 5 mg tablet 5 mg PO BID Patient Comments: TAKE 1 TABLET BY MOUTH TWICE DAILY Trelegy Ellipta 100-62.5-25 mcg blister with device 1 ea INHALATION DAILY Patient Comments: INHALE 1 PUFF BY MOUTH ONCE DAILY FOR 90 DAYS Referrals Follow up/Referrals: Manuela Castillo APRN [Primary Care Provider] - See instructions Discharge ED Provider: Annita ([facility])Suhail [facility] General Stated complaint: chills soa congestion cough Mode of Arrival: Ambulatory Source of Information: Patient and Relative Limitations: No Limitations Time Seen by Provider: 05/27/24 12:56 Description of Symptoms (Recalled from Triage Doc. by RN): PATIENT C/O CHILLS, LEG PAIN, DIZZINESS, AND SOA THAT STARTED THIS MORNING HEENT Symptoms (Recalled from RN notes): No Resp Symptoms (Recalled from RN notes): Yes Skin Symptoms (Recalled from RN notes): No MS Symptoms (Recalled from RN notes): No Functional Status (Recalled from RN notes): WNL History of Present Illness Provider Complaint: 78 yr old female presents for c/o chills, soa, congestion, chest pain last pm, cough, and rt leg pain Related Data Home Medications Medication Instructions Recorded Confirmed albuterol sulfate 90 mcg/actuation 1 puff inhalation Q6HP PRN SOA 05/27/24 05/27/24 aerosol inhaler amlodipine 5 mg tablet 5 mg PO DAILY 05/27/24 05/27/24 apixaban 5 mg tablet (Eliquis) 5 mg PO BID 05/27/24 05/27/24 carvedilol 12.5 mg tablet 12.5 mg PO DAILY 05/27/24 05/27/24 fluticasone fur. 100 mcg-umeclid 1 ea inhalation DAILY 05/27/24 05/27/24 62.5 mcg-vilant 25 mcg inhalat.powder (Trelegy Ellipta) isosorbide mononitrate 30 mg 30 mg PO DAILY 05/27/24 05/27/24 tablet,extended release 24 hr loratadine 10 mg tablet 10 mg PO DAILY 05/27/24 05/27/24 pregabalin 75 mg capsule 75 mg PO BID 05/27/24 05/27/24 rosuvastatin 20 mg tablet 20 mg PO DAILY 05/27/24 05/27/24 varenicline 1 mg tablet 1 mg PO DAILY 05/27/24 05/27/24 Allergies Allergy/AdvReac Type Severity Reaction Status Date / Time bupropion [From Wellbutrin] Allergy Intermediate Other Verified 05/12/24 10:27 ciprofloxacin Allergy Intermediate Hives Verified 05/12/24 10:27 gabapentin Allergy Unknown WEAKNESS Verified 05/12/24 10:27 ibuprofen Allergy Unknown SHAKEY Verified 05/12/24 10:27 tiotropium Allergy Unknown WEAKNESS Verified 05/12/24 10:27 Worker's Comp Is this a Worker's Comp case?: No [facility] Disclaimer: The information contained in this section may have been updated after the patient was seen, as this information can be updated by other users. 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 (Reviewed 05/27/24 @ 13:00 by Suhail Ariza ([facility]), COMMUNITY RELATIONS ASSISTANT) Edema Kidney lesion, [place], left Diverticulitis COPD (chronic obstructive pulmonary disease) with acute bronchitis Stenosis of carotid artery Multiple lung nodules on CT Screening for lung cancer COPD (chronic obstructive pulmonary disease) Pulmonary emphysema Smoking greater than 30 pack years Dyspnea on exertion Tobacco abuse disorder Tobacco abuse counseling Pain of left calf Left hip pain Left leg pain Restless leg syndrome Lumbar radiculopathy Degenerative disc disease, lumbar Lumbar radicular syndrome Acute on chronic diastolic congestive heart failure, NYHA class 3 Dizziness Urticaria Epigastric pain Preop cardiovascular exam Coronary artery disease Cardiac pacemaker in situ Dyspnea Abnormal echocardiogram Cough SOB (shortness of breath) Angina pectoris Palpitations Chronic obstructive lung disease Surgical History (Reviewed 05/27/24 @ 13:00 by Suhail Ariza ([facility]), COMMUNITY RELATIONS ASSISTANT) History of bilateral tubal ligation History of cholecystectomy History of permanent cardiac pacemaker placement Family History (Reviewed 05/27/24 @ 13:00 by Suhail Ariza ([facility]), COMMUNITY RELATIONS ASSISTANT) Colon cancer Mother Diabetes Family history of myocardial infarction Lung cancer Brother Cancer Stroke 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 (Reviewed 05/27/24 @ 13:00 by Suhail Ariza ([facility]), COMMUNITY RELATIONS ASSISTANT) Smoking Status: Current every day smoker tobacco type: cigarettes packs per day: 1 second hand exposure: Yes alcohol intake: never substance use type: denies use current occupational status: other Travel in the last 8 weeks: None household members: family housing: house lives independently: No education level: elementary school service: No jail: No 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es/hazards: No caffeine: Yes ROS Obtained: Yes All systems reviewed & no additional complaints except as documented Constitutional Constitutional: Reports system reviewed and no additional complaints, except as documented Eyes Eyes: Reports system reviewed and no additional complaints, except as documented ENT Ears, Nose, Mouth, and Throat: Reports system reviewed and no additional complaints, except as documented Cardiovascular Cardiovascular: Reports system reviewed and no additional complaints, except as documented, Reports dyspnea and Reports dyspnea on exertion Respiratory Respiratory: Reports system reviewed and no additional complaints, except as documented, Reports as per HPI, Reports shortness of breath, Reports chest congestion, Reports cough, Reports dyspnea, Reports dyspnea on exertion and Reports pain on inspiration Gastrointestinal Gastrointestingal: Reports system reviewed and no additional complaints, except as documented Musculoskeletal Musculoskeletal: Reports system reviewed and no additional complaints, except as documented Integumentary/Breasts Skin/Breast: Reports system reviewed and no additional complaints, except as documented Neurologic Neurologic: Reports system reviewed and no additional complaints, except as documented Endocrine Endocrine: Reports system reviewed and no additional complaints, except as documented Hematologic/Lymphatic Henatologic/Lymphatic: Reports system reviewed and no additional complaints, except as documented Allergic/Immunologic Allergic/Immunologic: Reports system reviewed and no additional complaints, except as documented Physical Exam General General appearance: alert and in no apparent distress Head Head exam: atraumatic Eye Eye exam: Present normal appearance and PERRL ENT ENT exam: Present normal exam Respiratory Respiratory exam: Present wheezes Cardiovascular Cardiovascular exam: Present regular rate and Pacemaker/defibrillator Neurological Exam Neurological exam: Present alert and oriented X3 Skin Skin exam: Present warm and intact Medical Decision Making Medical Records Medical records reviewed: Yes I reviewed the patient's medical records. Kervin Inquiry Pt receiving controlled substance: No Kervin was queried for this patient: No Vital Signs: 05/27/24 12:15 Temperature 98.4 F Temperature Source Oral Pulse Rate [Left Brachial] 81 Respiratory Rate 24 Blood Pressure [Left Arm] 134/59 L Blood Pressure Mean [Left Arm] 84 Blood Pressure Source [Left Arm] Automatic Cuff Blood Pressure Position [Left Arm] Sitting 02 Sat by Pulse Oximetry 90 L Oxygen Delivery Method Room Air Orders (Tests/Meds): ORDERS Category Date Time Status Chest XR 2 view (NOT portable) [XR chest 2V] Stat Exams 05/27/24 12:29 Taken Physician Consults Physician Consulted: dr bender Time: 13:02 Reason -: Pt condition Comment/Response: pt soa,leg pain, chest pain last night, increase work of breathing, low o2 stat
--- NOTE | 2024-05-27 13:35 | ECG_ITS ---
APPROVED REPORT Exam: Resting ECG HR:84 bpm ECG Measurements Heart Rate 84 AXES NM 168 P 67 QRSd 89 QRS 52 QT 345 T 69 QTc 386 Conclusion SINUS RHYTHM NORMAL ECG UNCONFIRMED REPORT Electronically signed by : Austin Rosales, 05/27/2024 15:36:28
[2024-05-27 14:10] LABS: Chloride 107 mmol/L (98-107)
[2024-05-27 14:11] LABS: VBG Base Excess -4.6 mmol/L (-2.4-2.3); VBG HCO3 21.8 mmol/L (23-30); VBG Oxygen Saturation 65.4 % (50-70); VBG PCO2 45.1 mmol/L (35-51); VBG PO2 33.8 mmol/L (28-40); VBG Total CO2 23.2 mmol/L (23-27)
[2024-05-27 14:11] LABS: Basophils % 0.3 % (0.1-2.0); Eosinophils # 0.1 K/mm3 (0.0-0.4); Eosinophils % 0.7 % (0.1-12.0); Hematocrit 40.7 % (37.0-47.0); Hemoglobin 13.4 g/dL (12.2-16.2); Lymphocytes # 2.6 K/mm3 (0.7-4.5); Lymphocytes % 17.7 % (10-50); Mean Corpuscular Hemoglobin 29.3 pg (27.0-31.2); Mean Corpuscular Volume 88.9 fl (81-99); Monocytes # 0.9 K/mm3 (0.1-1.0); Monocytes % 6.1 % (1.7-9.3); Neutrophils # 10.9 K/mm3 (1.8-7.8); Neutrophils % 75.2 % (37.0-80.0); Platelet Count 140 K/mm3 (142-424); Potassium 4.2 mmoL/L (3.5-5.1); Red Blood Count 4.58 M/mm3 (4.20-5.40); Red Cell Distribution Width 15.4 % (11.5-17.5); Sodium 137 mmol/L (136-145); White Blood Count 14.5 K/mm3 (4.8-10.8)
[2024-05-27 14:13] LABS: Alanine Aminotransferase 20 U/L (12-78); Albumin Level 3.8 g/dl (3.5-5.0); Alkaline Phosphatase 130 U/L (38-126); Aspartate Amino Transferase 24 U/L (14-36); Bilirubin,Total 0.4 mg/dl (0.2-1.3); Blood Urea Nitrogen 22 mg/dl (7-17); Creatinine Clearance Estimated 68 mL/min (50-200); Estimated Glomerular Filt Rate 48 ml/min (>60); GFR (African American) 58 ML/MIN (>60)
[2024-05-27 14:14] LABS: Anion Gap 7.2 mEq/L (5-15); Calcium 8.9 mg/dl (8.4-10.2); Carbon Dioxide 27 mmol/L (22.0-30.0); Globulin 3.7 g/dL (1.3-3.2); Glucose 128 mg/dl (74-100); Total Protein,Serum 7.5 g/dl (6.3-8.2)
[2024-05-27 14:31] LABS: Troponin I < 0.01 ng/ml (0.00-0.034)
--- NOTE | 2024-05-27 14:41 | HMH.EDGENADL ---
Discharge Plan Disposition Patient Disposition: Still a Patient Condition: Good Prescriptions Prescriptions: New benzonatate 100 mg capsule 100 mg PO TID PRN (Reason: cough) 5 Days Qty: 20 0RF albuterol sulfate 90 mcg/actuation HFA aerosol inhaler 4 inh inhalation Q4H PRN (Reason: shortness of breath or wheezing) Qty: 8.5 0RF Rx Instructions: 4 puffs every 4 hours for 48 hours then as needed for shortness of breath or wheezing following amoxicillin-pot clavulanate 875-125 mg tablet 1 tab PO BID 10 Days Qty: 20 0RF prednisone 50 mg tablet 50 mg PO DAILY 5 Days Qty: 5 0RF Rx Instructions: Please begin 1 day after ED visit No Action carvedilol 12.5 mg tablet 12.5 mg PO DAILY Patient Comments: TAKE 1 TABLET BY MOUTH TWICE DAILY WITH MEALS FOR BLOOD PRESSURE/HEART RATE isosorbide mononitrate 30 mg tablet extended release 24 hr 30 mg PO DAILY Patient Comments: TAKE 1 TABLET BY MOUTH ONCE DAILY FOR HIGH BLOOD PRESSURE amlodipine 5 mg tablet 5 mg PO DAILY Patient Comments: TAKE 1 TABLET BY MOUTH ONCE DAILY albuterol sulfate 90 mcg/actuation HFA aerosol inhaler 1 puff INHALATION Q6HP PRN (Reason: SOA) loratadine 10 mg tablet 10 mg PO DAILY Patient Comments: TAKE 1 TABLET BY MOUTH ONCE DAILY NEEDED FOR ALLERGIC SYMPTOMS rosuvastatin 20 mg tablet 20 mg PO DAILY Patient Comments: TAKE 1 TABLET BY MOUTH ONCE DAILY FOR CHOLESTEROL pregabalin 75 mg capsule 75 mg PO BID Patient Comments: TAKE 1 CAPSULE BY MOUTH TWICE DAILY FOR NEUROPATHY varenicline 1 mg tablet 1 mg PO DAILY Eliquis 5 mg tablet 5 mg PO BID Patient Comments: TAKE 1 TABLET BY MOUTH TWICE DAILY Trelegy Ellipta 100-62.5-25 mcg blister with device 1 ea INHALATION DAILY Patient Comments: INHALE 1 PUFF BY MOUTH ONCE DAILY FOR 90 DAYS Referrals Follow up/Referrals: Manuela Castillo APRN [Primary Care Provider] - See instructions Activity Restrictions/Add. Instructions Additional Instructions/Restrictions: Return with any significant worsening shortness of breath. Clinical Impressions Clinical Impression: Acute exacerbation of chronic obstructive pulmonary disease Discharge ED Provider: Viviane Rosales General Adult [facility] General Chief complaint: Shortness of Breath/Dyspnea Stated complaint: chills soa congestion cough Time Seen by Provider: 05/27/24 12:56 Mode of Arrival: Ambulatory Source of Information: Patient and Relative Limitations: No Limitations Description of Symptoms (Recalled from ER Triage Doc. by RN): pt checked into [facility]c however required oxygen which is above level of care so patient was brought over to ER to be assessed for cough chest pain and soa. pt was 88% upon triage on room air after getting into bed from wheelchair and rn palced pt on 2l. pt states she began coughing yesterday but no fever and it hurts when she coughs no colored mucous and patient does smoke History of Present Illness HPI narrative: Patient is a 78-year-old female with a history of COPD on home oxygen presented today with 2 days of worsening cough wheezing sputum production chills shortness of breath. She was seen at the urgent treatment clinic and sent to the emergency department further evaluation and management. Related Data Home Medications Medication Instructions Recorded Confirmed albuterol sulfate 90 mcg/actuation 1 puff inhalation Q6HP PRN SOA 05/27/24 05/27/24 aerosol inhaler amlodipine 5 mg tablet 5 mg PO DAILY 05/27/24 05/27/24 apixaban 5 mg tablet (Eliquis) 5 mg PO BID 05/27/24 05/27/24 carvedilol 12.5 mg tablet 12.5 mg PO DAILY 05/27/24 05/27/24 fluticasone fur. 100 mcg-umeclid 1 ea inhalation DAILY 05/27/24 05/27/24 62.5 mcg-vilant 25 mcg inhalat.powder (Trelegy Ellipta) isosorbide mononitrate 30 mg 30 mg PO DAILY 05/27/24 05/27/24 tablet,extended release 24 hr loratadine 10 mg tablet 10 mg PO DAILY 05/27/24 05/27/24 pregabalin 75 mg capsule 75 mg PO BID 05/27/24 05/27/24 rosuvastatin 20 mg tablet 20 mg PO DAILY 05/27/24 05/27/24 varenicline 1 mg tablet 1 mg PO DAILY 05/27/24 05/27/24 Previous Rx's Medication Instructions Recorded albuterol sulfate 90 mcg/actuation 4 inh inhalation Q4H PRN shortness 05/27/24 aerosol inhaler of breath or wheezing #8.5 grams amoxicillin 875 mg-potassium 1 tab PO BID 10 days #20 tabs 05/27/24 clavulanate 125 mg tablet benzonatate 100 mg capsule 100 mg PO TID PRN cough 5 days #20 05/27/24 caps prednisone 50 mg tablet 50 mg PO DAILY 5 days #5 tabs 05/27/24 Allergies Allergy/AdvReac Type Severity Reaction Status Date / Time bupropion [From Wellbutrin] Allergy Intermediate Other Verified 05/12/24 10:27 ciprofloxacin Allergy Intermediate Hives Verified 05/12/24 10:27 gabapentin Allergy Unknown WEAKNESS Verified 05/12/24 10:27 ibuprofen Allergy Unknown SHAKEY Verified 05/12/24 10:27 tiotropium Allergy Unknown WEAKNESS Verified 05/12/24 10:27 [facility] Disclaimer: The information contained in this section may have been updated after the patient was seen, as this information can be updated by other users. 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) Edema Kidney lesion, [place], left Diverticulitis COPD (chronic obstructive pulmonary disease) with acute bronchitis Stenosis of carotid artery Multiple lung nodules on CT Screening for lung cancer COPD (chronic obstructive pulmonary disease) Pulmonary emphysema Smoking greater than 30 pack years Dyspnea on exertion Tobacco abuse disorder Tobacco abuse counseling Pain of left calf Left hip pain Left leg pain Restless leg syndrome Lumbar radiculopathy Degenerative disc disease, lumbar Lumbar radicular syndrome Acute on chronic diastolic congestive heart failure, NYHA class 3 Dizziness Urticaria Epigastric pain Preop cardiovascular exam Coronary artery disease Cardiac pacemaker in situ Dyspnea Abnormal echocardiogram Cough SOB (shortness of breath) Angina pectoris Palpitations Chronic obstructive lung disease Surgical History , 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) History of bilateral tubal ligation History of cholecystectomy History of permanent cardiac pacemaker placement Family History , 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) Colon cancer Mother Diabetes Family history of myocardial infarction Lung cancer Brother Cancer Stroke 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 , 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) Smoking Status: Current every day smoker tobacco type: cigarettes packs per day: 1 second hand exposure: Yes alcohol intake: never substance use type: denies use current occupational status: other Travel in the last 8 weeks: None household members: family housing: house lives independently: No education level: elementary school service: No longterm: No 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es/hazards: No caffeine: Yes ROS Obtained: Yes All systems reviewed & no additional complaints except as documented Physical Exam General General appearance: alert and in no apparent distress Respiratory Respiratory exam: Present other (Diffuse expiratory wheezing no focal adventitious lung sounds oxygen saturations in the mid 90s on 2 L no respiratory distress accessory muscle use and patient is able to speak in full sentences) Cardiovascular Cardiovascular exam: Present regular rate Neurological Exam Neurological exam: Present alert and oriented X3 Medical Decision Making Kervin Inquiry Pt receiving controlled substance: No Vital Signs: 05/27/24 12:15 05/27/24 13:48 05/27/24 14:01 Temperature 98.4 F 98.8 F Temperature Source Oral Oral Pulse Rate 79 Pulse Rate [Left Brachial] 81 87 Respiratory Rate 24 26 H 18 Blood Pressure 135/65 Blood Pressure [Left Arm] 134/59 L 154/75 H Blood Pressure Mean 101 Blood Pressure Mean [Left Arm] 84 101 Blood Pressure Source [Left Arm] Automatic Cuff Blood Pressure Position [Left Arm] Sitting 02 Sat by Pulse Oximetry 90 L 88 L 97 Oxygen Delivery Method Room Air Room Air Oxygen Flow Rate (LPM) 2 05/27/24 14:34 05/27/24 14:54 05/27/24 14:54 Temperature Temperature Source Pulse Rate 84 83 Pulse Rate [Left Brachial] Respiratory Rate Blood Pressure Blood Pressure [Left Arm] Blood Pressure Mean Blood Pressure Mean [Left Arm] Blood Pressure Source [Left Arm] Blood Pressure Position [Left Arm] 02 Sat by Pulse Oximetry 96 96 Oxygen Delivery Method Nasal Cannula Oxygen Flow Rate (LPM) 2 05/27/24 14:54 05/27/24 15:02 Temperature Temperature Source Pulse Rate 86 84 Pulse Rate [Left Brachial] Respiratory Rate 20 Blood Pressure 120/70 Blood Pressure [Left Arm] Blood Pressure Mean 86 Blood Pressure Mean [Left Arm] Blood Pressure Source [Left Arm] Blood Pressure Position [Left Arm] 02 Sat by Pulse Oximetry 97 Oxygen Delivery Method Oxygen Flow Rate (LPM) Lab Data Lab results reviewed: Yes I reviewed the patient's lab results. Lab Results 05/27/24 13:45: WBC 14.5 H, RBC 4.58, Hgb 13.4, Hct 40.7, MCV 88.9, MCH 29.3, MCHC 33.0, RDW 15.4, Plt Count 140 L, MPV 10.0, Neut % (Auto) 75.2, Lymph % (Auto) 17.7, [place] % (Auto) 6.1, Eos % (Auto) 0.7, Baso % (Auto) 0.3, Neut # (Auto) 10.9 H, Lymph # (Auto) 2.6, [place] # (Auto) 0.9, Eos # (Auto) 0.1, Baso # (Auto) 0.0, Sodium 137, Potassium 4.2, Chloride 107, Carbon Dioxide 27, Anion Gap 7.2, BUN 22 H, Creatinine 1.10 H, Estimated Creat Clear 68, Estimated GFR 48 L, Est GFR ( Amer) 58 L, Glucose 128 H, Calcium 8.9, Total Bilirubin 0.4, AST 24, ALT 20, Alkaline Phosphatase 130 H, Troponin I < 0.01, Total Protein 7.5, Albumin 3.8, Globulin 3.7 H, Albumin/Globulin Ratio 1.0 L, SARS-CoV-2 (PCR) Not detected, Influenza A Untype (PCR) Not detected, Influenza Type B (PCR) Not detected 05/27/24 14:04: VBG pH 7.30 L, VBG pCO2 45.1, VBG pO2 33.8, VBG HCO3 21.8 L, VBG Total CO2 23.2, VBG O2 Saturation 65.4, VBG Base Excess -4.6 L, VBG Lactic Acid 1.0 05/27/24 13:45 05/27/24 13:45 Orders (Tests/Meds): ED MEDICATIONS Discontinued Medications Generic Name Dose Route Start Last Admin Trade Name Freq PRN Reason Stop Dose Admin Albuterol/Ipratropium 3 ml 05/27/24 14:39 05/27/24 14:53 Ipratropium/Albuterol 3 Ml Neb IH 05/27/24 14:40 3 ml ONCE ONE Administration Amoxicillin/Clavulanate Potassium 1 each 05/27/24 14:39 05/27/24 14:51 Amoxicillin/Clavulanate Potassium 875/125mg Tablet PO 05/27/24 14:40 1 each ONCE ONE Administration Dexamethasone Sodium Phosphate 10 mg 05/27/24 14:39 05/27/24 14:51 Dexamethasone 4mg/Ml 1ml Vial IV 05/27/24 14:40 10 mg ONCE ONE Administration ORDERS Category Date Time Status Chest XR 2 view (NOT portable) [XR chest 2V] Stat Exams 05/27/24 12:29 Completed Complete Blood Count Auto Diff Stat Lab 05/27/24 13:45 Completed Comprehensive Metabolic Panel Stat Lab 05/27/24 13:45 Completed Rapid PCR Covid and Flu A/B Stat Lab 05/27/24 13:45 Completed Troponin I Q3H Lab 05/27/24 13:45 Completed Troponin I Q3H Lab 05/27/24 17:00 Ordered Troponin I Q3H Lab 05/27/24 20:00 Ordered VBG [Venous Blood Gas] Stat RT 05/27/24 14:04 Completed Medical Decision Narrative: 78-year-old female with above history physical consistent with COPD exacerbation. EKG performed which I first interpreted shows a ventricular rate of 84 no acute ischemic changes noted normal axis no conduction abnormalities unremarkable for an emergency standpoint. Chest x-ray performed to person interpreted shows no acute cardiopulmonary emergency will give her nebs steroids antibiotics and anticipate her discharge home. Will reassess after this workup is complete. Additionally she will be swabbed for COVID and flu. Reassessment 3:29 PM patient feeling much better symptomatically serial respiratory exams are improved. No respiratory distress no indication for admission at this point. COVID and flu are negative will not administer antiviral therapy. She has been prescribed antibiotics and symptomatic therapy as well as additional steroids. Return precautions emphasized she was discharged in improved and stable condition. Critical Care Critical Care Time Critical Care Time: Yes Attestation: On 05/27/24, the high probability of a clinically significant, sudden or life threatening deterioration of the following system(s) required my full and direct attention, intervention and personal management. The time I documented below is in addition to time spent performing reported procedures but includes the following listed in this critical care notation. Total Time Total Critical Care Time: 35
[2024-05-27 14:48] LABS: Coronavirus 19, PCR Not Detected (NotDetected); Influenza A, PCR Not Detected (NotDetected); Influenza B, PCR Not Detected (NotDetected)
[2024-05-27] MEDS: AMOXICILLIN/CLAVULANATE POTASSIUM 875/125MG TABLET 1 EACH PO (14:51)
[2024-05-27] MEDS: DEXAMETHASONE 4MG/ML 1ML VIAL 10 MG IV (14:51)
[2024-05-27] MEDS: IPRATROPIUM/ALBUTEROL 3 ML NEB IH (14:53)
== END 2024-05-27 15:39 | disposition home or self-care (01) ==
LOC: UTC 13:03 → ER 13:26
PROVIDERS: Emergency Provider Student in an Organized Health Care Education/Training Program; PCP Nurse Practitioner Family
DX: J44.1 Chronic obstructive pulmonary disease with (acute) exacerbation (principal); R09.02 Hypoxemia; R05.8 Other specified cough; R06.2 Wheezing; F17.210 Nicotine dependence, cigarettes, uncomplicated; I65.29 Occlusion and stenosis of unspecified carotid artery; I11.0 Hypertensive heart disease with heart failure; I25.119 Atherosclerotic heart disease of native coronary artery with unspecified angina pectoris; I50.32 Chronic diastolic (congestive) heart failure; Z95.0 Presence of cardiac pacemaker
CPT/HCPCS: 71046; 80053; 82803; 84484; 85025; 87636; 93005; 96374; 99285; J1100; J7620

== ENCOUNTER 2024-06-19 17:19 | Outpatient (CLI) | payer MEDICARE, MEDICAID, SELFPAY ==
[2024-06-19 17:34] LABS: Basophils # 0.1 K/mm3 (0-0.2); Basophils % 0.7 % (0.1-2.0); Eosinophils # 0.2 K/mm3 (0.0-0.4); Eosinophils % 2.6 % (0.1-12.0); Hematocrit 41.7 % (37.0-47.0); Hemoglobin 13.3 g/dL (12.2-16.2); Lymphocytes % 42.2 % (10-50); Mean Corpuscular HGB Conc 31.9 g/dL (31.8-35.4); Mean Corpuscular Hemoglobin 28.8 pg (27.0-31.2); Mean Corpuscular Volume 90.2 fl (81-99); Mean Platelet Volume 11.6 fl (7.4-10.4); Monocytes # 0.6 K/mm3 (0.1-1.0); Monocytes % 8.7 % (1.7-9.3); Neutrophils # 3.3 K/mm3 (1.8-7.8); Neutrophils % 45.8 % (37.0-80.0); Platelet Count 152 K/mm3 (142-424); Red Blood Count 4.62 M/mm3 (4.20-5.40); Red Cell Distribution Width 15.5 % (11.5-17.5); White Blood Count 7.2 K/mm3 (4.8-10.8)
== END 2024-06-19 23:59 | disposition home or self-care (01) ==
LOC: LAB.DROPOF 17:19
PROVIDERS: PCP Nurse Practitioner Family; Visit Provider Nurse Practitioner Family
DX: D69.6 Thrombocytopenia, unspecified (principal)
CPT/HCPCS: 85025

== ENCOUNTER 2024-09-13 14:39 | Outpatient (CLI) | payer MEDICARE, MEDICAID, SELFPAY ==
--- NOTE | 2024-09-13 14:39 | CT_ITS ---
PROCEDURE INFORMATION: Exam: CT Chest Without Contrast; Diagnostic Exam date and time: 09/13/2024 2:43 PM Age: 79 years old Clinical indication: Abnormal findings; Lung mass or nodule; Not specified; Additional info: Nodule follow-up TECHNIQUE: Imaging protocol: Diagnostic computed tomography of the chest without contrast. Radiation optimization: All CT scans at this facility use at least one of these dose optimization techniques: automated exposure control; mA and/or kV adjustment per patient size (includes targeted exams where dose is matched to clinical indication); or iterative reconstruction. COMPARISON: 1. CT CHEST WO CON 09/13/2024 2:[address] ANGIO CHEST PE PROTOCOL 09/02/2023 9:[address] LUNG SCREENING 04/13/2023 2:40 PM FINDINGS: Tubes, catheters and devices: There is a left chest implanted cardiac device. Lungs: There are scattered areas of emphysema throughout the lungs. Old chest stable left lower lobe calcified granuloma. There is some areas of airways impaction in the left upper lobe. Pleural spaces: Pleural surfaces are smooth, and there are no pleural effusions, pneumothoraces, or pleural plaques noted. Heart: The heart size is within normal limits, and the pericardium appears clear with no signs of pericardial effusion or thickening. Coronary arteries: The coronary arteries are not well-visualized in this non-gated study, but nosignificant calcification is seen. Mediastinal space: The mediastinum appears unremarkable with no evidence of masses, lymphadenopathy, or mediastinal widening. Hilar structures including the major bronchi and vessels appear intact. Lymph nodes: Unremarkable. No enlarged lymph nodes. Vasculature: The aorta and major blood vessels are of normal caliber. Liver: Simple appearing right hepatic lobe cyst. Gallbladder and biliary ducts: The patient is status post cholecystectomy. Kidneys: Nonobstructing right-sided intrarenal calculus. Bilateral renal cysts, some of which are too small to characterize. Bones/joints: Osseous structures within the field of view, including the ribs and the visualized portions of the thoracic spine, are normal in appearance. There is no evidence of acute fractures, lytic lesions, or sclerotic foci. The osseous structures appear age-appropriate, with no abnormal curvature or deformity. Soft tissues: Unremarkable. IMPRESSION: Stable left basilar calcified granuloma, no concerning nodules are identified. COMMENTS: Consistent with the [place] [employer]'s Incidental Findings Committee white paper (J Am Arianna Radiol 2018): Any incidental renal lesion less than 1 cm or classified as too small to characterize, or any incidental cystic renal lesion characterized as simple-appearing, is likely benign. No follow-up imaging is recommended for these lesions per consensus recommendations based on imaging criteria.
[2024-09-13 15:19] LABS: Alanine Aminotransferase 19 U/L (12-78); Albumin Level 3.4 g/dl (3.5-5.0); Albumin/Globulin Ratio 1.2 (1.1-1.8); Alkaline Phosphatase 103 U/L (38-126); Anion Gap 11.6 mEq/L (5-15); Aspartate Amino Transferase 23 U/L (14-36); Bilirubin,Total 0.4 mg/dl (0.2-1.3); Blood Urea Nitrogen 19 mg/dl (7-17); Calcium 8.7 mg/dl (8.4-10.2); Carbon Dioxide 26 mmol/L (22.0-30.0); Chloride 107 mmol/L (98-107); Estimated Glomerular Filt Rate 60 ml/min (>60); GFR (African American) 73 ML/MIN (>60); Globulin 2.8 g/dL (1.3-3.2); Glucose 131 mg/dl (74-100); Potassium 4.6 mmoL/L (3.5-5.1); Sodium 140 mmol/L (136-145); Total Protein,Serum 6.2 g/dl (6.3-8.2)
[2024-09-13 15:30] LABS: NT Pro Brain Natriuretic Pep. 208 pg/mL (0-450)
== END 2024-09-13 23:59 | disposition home or self-care (01) ==
LOC: RAD 14:39
PROVIDERS: PCP Nurse Practitioner Family; Visit Provider Internal Medicine Pulmonary Disease
DX: R91.8 Other nonspecific abnormal finding of lung field (principal); R06.02 Shortness of breath; R60.9 Edema, unspecified
CPT/HCPCS: 36415; 71250; 80053; 83880; 84443

== ENCOUNTER 2024-09-19 11:11 | Outpatient (CLI) | payer MEDICARE, MEDICAID, SELFPAY | END 2024-09-19 23:59 | disposition home or self-care (01) | LOC: LAB 11:11 | PROVIDERS: PCP Nurse Practitioner Family; Visit Provider Nurse Practitioner Family | DX: J44.0 Chronic obstructive pulmonary disease with (acute) lower respiratory infection (principal); J20.9 Acute bronchitis, unspecified | CPT/HCPCS: 87070; 87205 ==

== ENCOUNTER 2024-10-10 12:42 | Outpatient (CLI) | payer MEDICARE, MEDICAID, SELFPAY ==
--- NOTE | 2024-10-10 12:55 | CA_ITS ---
APPROVED REPORT EXAM: Comprehensive 2D, Doppler, and color-flow Echocardiogram Scanning Coordinator: Tosin Rousseau RVT Ht: 5 ft 5 in Wt: 225lbs BSA: 2.08 BP: 122/68 mmHg Indications: SOA,EDEMA,CAD,PACER,COPD,SMOKER 2D Dimensions IVSd 0.97 cm F: 0.6-1.0 LVEF (Visual) 63.60 % PWd 1.04 cm F: 0.6 - 1.0 LA Volume 34.20 mL LVDd 4.10 cm F: 3.9 - 5.3 LA Volume Index 16.44 mL/m2 (M/F) 16-34 LVDs 2.70 cm F: 2.2 - 3.5 M-Mode Dimensions LA Diam 4.24 cm (1.9-4.0) TAPSE 2.11 (<1.7) LV Diastology E Decel Time 220 (160-240 msec) E/A Ratio 0.7 Aortic Valve FREDA Index 0.92 cm2/m2 AoV Peak Chandra. 175.0 (50-130 cm/s) AO Peak GR. 12.30 mmHg AO Mean GR. 5.80 (<5 mmHg) AO VTI 36.7 (18-25 cm) FREDA (VTI) 1.97 (2.5-4.5 cm2) Mitral Valve MV E Max Chandra. 74.0 (40-130 cm/s) MV A Velocity 113.0 (40-130 cm/s) E/A Ratio 0.66 MV PHT 64.0 ms Pulmonary Valve PV Peak Velocity 88.0 (50-150 cm/s) Tricuspid Valve TR P. Velocity 289.00 cm/s RAP Estimate 10.00 mmHg RVSP 43.50 mmHg Left Ventricle The left ventricle is normal size. The left ventricular systolic function is normal. The left ventricular ejection fraction is within the normal range. There is increased LV wall thickness. There is normal LV segmental wall motion. Transmitral Doppler flow pattern suggests impaired LV relaxation. LVEF is 60%. Right Ventricle The right ventricle is mildly dilated. The right ventricular systolic function is normal. Atria The left atrium size is normal. The right atrium size is normal. There is no Doppler evidence of interatrial shunt. Aortic Valve The aortic valve is mildly thickened. There is no aortic valvular stenosis. Trace aortic regurgitation. Trace mitral regurgitation. Mitral Valve The mitral valve is normal in structure. No evidence of mitral valve stenosis. Tricuspid Valve Tricuspid valve is grossly normal in structure and function. Trace tricuspid regurgitation. There is insufficient TR jet to estimate RVSP. Pulmonic Valve The pulmonary valve is normal in structure. Trace pulmonic regurgitation. Great Vessels The aortic root is normal in size. The ascending aorta is not well-visualized. IVC is normal in size and collapses >50% with inspiration. Pericardium There is no pericardial effusion. Other Information Study Quality: Fair Conclusion Normal biventricular systolic function. Mild RV dilation. No significant valvular stenosis or regurgitation. Electronically signed by : Kusum Collins MD 10/22/2024 23:07:48
--- NOTE | 2024-10-10 13:27 | CT_ITS ---
FINAL REPORT TECHNIQUE: Pre-and postcontrast axial imaging of the abdomen and pelvis was obtained. Coronal and sagittal reconstructions were obtained and reviewed. This study was performed with techniques to keep radiation doses as low as reasonably achievable, (ALARA). Individualized dose reduction technique using automated exposure control or adjustment of mA and/or kV according to the patient's size were employed. CLINICAL HISTORY: Left kidney mass COMPARISON: 10/19/2023 FINDINGS: There is a 5 mm right middle lobe pulmonary nodule which is unchanged from the prior study. A granuloma is seen in the left lower lobe. The previously seen left lower lobe noncalcified nodule is no longer present. The hypodense lesion in the right lobe of the liver is stable and likely a cyst. No other liver lesions are identified. The gallbladder is absent. The spleen, adrenal glands, and pancreas are without acute abnormality. On precontrast imaging, no renal stones are identified. There are stable bilateral small hypodense renal lesions. Many measure less than 1 cm in size which makes evaluation difficult due to volume averaging. Lesion in the inferior pole of the left kidney appears stable. There are no convincing solid lesions. No hydronephrosis. The appendix is normal. There is no evidence of small-bowel obstruction. Diverticulosis is present without evidence of diverticulosis. The endometrium is thickened for a postmenopausal patient. The ovaries are unremarkable. There is no abdominal or pelvic lymphadenopathy. No free fluid. No acute osseous abnormalities identified. IMPRESSION: Stable small bilateral hypodense renal lesions, some are difficult to characterize due to small size but all are stable. Possible endometrial thickening in a postmenopausal patient. If patient has bleeding, recommend ultrasound. Other additional chronic findings as above. Reviewed, Interpreted and Dictated by Danya Montejo MD Transcribed by Verónica Kamara Authenticated and [facility]
[2024-10-10] MEDS: IOPAMIDOL-370 (76%);100ML BOTTLE 75 ML IV (14:05)
[2024-10-10] MEDS: SODIUM CHLORIDE 0.9% 10ML SYR (RAD ONLY) 10 ML IV (14:05)
== END 2024-10-10 23:59 | disposition home or self-care (01) ==
LOC: RT 12:42
PROVIDERS: PCP Nurse Practitioner Family; Visit Provider Nurse Practitioner Family
DX: I51.7 Cardiomegaly (principal); R06.02 Shortness of breath; R60.9 Edema, unspecified; N28.89 Other specified disorders of kidney and ureter
CPT/HCPCS: 74178; 93306; Q9967

== ENCOUNTER 2024-12-28 15:25 | Emergency (ER) | payer MEDICARE, MEDICAID, SELFPAY ==
--- NOTE | 2024-12-28 15:12 | PC.NURSE ---
Dr. Kaba at bedside
--- NOTE | 2024-12-28 15:13 | ECG_ITS ---
APPROVED REPORT Exam: Resting ECG HR:81 bpm ECG Measurements Heart Rate 81 AXES MT 176 P 67 QRSd 93 QRS 28 QT 364 T 50 QTc 402 Conclusion SINUS RHYTHM NORMAL ECG No STEMI Electronically signed by : JOEL KIRBY, 12/29/2024 06:02:03
--- NOTE | 2024-12-28 15:21 | XR_ITS ---
FINAL REPORT CLINICAL HISTORY: cp, shortness of breath COMPARISON: 11/30/2023 FINDINGS: No acute pulmonary opacity is present. There is no evidence of effusion or pneumothorax. Mediastinum is unremarkable. Heart size is normal. There is a 2-lead left subclavian pacer device present. IMPRESSION: No acute abnormality. Reviewed, Interpreted and Dictated by Jaylin Flor MD Transcribed by Annie Martínez Authenticated and [facility]
[2024-12-28 15:25] VITALS: BP 136/71; PULSE 85; RESP 22; TEMP 36.8; O2SAT 96; BMI 36.6
--- NOTE | 2024-12-28 15:28 | PC.NURSE ---
XR AT BEDSIDE
[2024-12-28 15:29] LABS: Basophils % 0.2 % (0.1-2.0); Eosinophils # 0.2 K/mm3 (0.0-0.4); Eosinophils % 1.9 % (0.1-12.0); Hematocrit 39.2 % (37.0-47.0); Hemoglobin 12.7 g/dL (12.2-16.2); Lymphocytes % 36.6 % (10-50); Mean Corpuscular HGB Conc 32.4 g/dL (31.8-35.4); Mean Corpuscular Hemoglobin 27.1 pg (27.0-31.2); Mean Corpuscular Volume 83.8 fl (81-99); Mean Platelet Volume 12.5 fl (7.4-10.4); Monocytes # 0.8 K/mm3 (0.1-1.0); Monocytes % 9.7 % (1.7-9.3); Neutrophils # 4.2 K/mm3 (1.8-7.8); Neutrophils % 51.5 % (37.0-80.0); Platelet Count 145 K/mm3 (142-424); Red Blood Count 4.68 M/mm3 (4.20-5.40); Red Cell Distribution Width 15.2 % (11.5-17.5); White Blood Count 8.1 K/mm3 (4.8-10.8)
[2024-12-28 15:32] LABS: Lactate Venous 1.1 mmol/L (0.4-2.0); VBG Base Excess -1.5 mmol/L (-2.4-2.3); VBG HCO3 23.4 mmol/L (23-30); VBG Oxygen Saturation 89.9 % (50-70); VBG PCO2 39.1 mmol/L (35-51); VBG PH 7.39 mmol/L (7.31-7.41); VBG PO2 54.6 mmol/L (28-40); VBG Total CO2 24.6 mmol/L (23-27)
[2024-12-28] MEDS: ASPIRIN 81MG CHEWABLE TABLET 324 MG PO (15:35)
[2024-12-28] MEDS: METHYLPREDNISOLONE SOD SUCC 125MG VIAL 125 MG IV (15:36)
[2024-12-28] MEDS: MAGNESIUM SULFATE IN WATER 2 GM/50 ML PIGGYBACK IV (15:36)
--- NOTE | 2024-12-28 15:42 | ED_ITS ---
Discharge Plan Disposition Patient Disposition: Home, Self-Care Prescriptions Prescriptions: New prednisone 20 mg tablet 40 mg PO DAILY 5 Days Qty: 10 0RF No Action Eliquis 5 mg tablet 5 mg PO BID Qty: 180 3RF amlodipine 5 mg tablet 5 mg PO DAILY Qty: 90 3RF rosuvastatin 20 mg tablet 20 mg PO DAILY Qty: 90 3RF Trelegy Ellipta 100-62.5-25 mcg blister with device 1 inh inhalation DAILY 90 Days Qty: 90 2RF ammonium lactate 12 % cream 1 applic topical BID Qty: 385 1RF potassium chloride 10 mEq capsule, extended release See Rx Instructions .ROUTE .COMPLEX Qty: 60 0RF Dose Instruction: TAKE 1 CAPSULE BY MOUTH TWICE DAILY NEEDED WITH FUROSEMIDE Rx Instructions: TAKE 1 CAPSULE BY MOUTH TWICE DAILY NEEDED WITH FUROSEMIDE albuterol sulfate 90 mcg/actuation HFA aerosol inhaler 2 inh inhalation QID PRN (Reason: shortness of breath or wheezing) 90 Days Qty: 8.5 2RF carvedilol 12.5 mg tablet 12.5 mg PO BID Qty: 180 3RF isosorbide mononitrate 30 mg tablet extended release 24 hr 30 mg PO DAILY Qty: 90 3RF pregabalin 75 mg capsule 75 mg PO BID Qty: 60 2RF ipratropium-albuterol 0.5 mg-3 mg(2.5 mg base)/3 mL solution for nebulization 3 ml inhalation QID PRN (Reason: shortness of breath or wheezing) 90 Days Qty: 270 3RF bumetanide 2 mg tablet See Rx Instructions .ROUTE .COMPLEX Qty: 60 0RF Dose Instruction: Take 1 tablet by mouth twice daily Rx Instructions: Take 1 tablet by mouth twice daily loratadine 10 mg tablet 10 mg PO DAILY Patient Comments: TAKE 1 TABLET BY MOUTH ONCE DAILY NEEDED FOR ALLERGIC SYMPTOMS Activity Restrictions/Add. Instructions Additional Instructions/Restrictions: Call your family doctor to establish care for this visit to the emergency department and schedule follow-up within 48 hours to ensure improvement. If you have any worsening of your condition or any other concerning signs or symptoms, return to the emergency department or your primary care doctor for further evaluation. Clinical Impressions Clinical Impression: Acute exacerbation of chronic obstructive pulmonary disease Print Language Print Language: Yoruba Discharge ED Provider: Edward Kaba General Chief Complaint: Chest Pain Stated Complaint: cp Time Seen by Provider: 12/28/24 15:28 History of Present Illness HPI narrative: Please note that above description of symptoms, in this electronic medical record under categorization of recalled from ER triage doctor by RN are reflective of an initial nursing assessment, however, is not reflective of my full history and physical exam that was personally taken and clarified. Consequentially, this preceding description of symptoms, which may include the patient's categorized chief complaint in the EMR, do not reflect my personal clinical impression, and the ultimate description of history of present illness and patient stated complaints should be deferred to this section of the note. Unless stated otherwise or congruent with this section of the note, additional signs, symptoms, or incongruence should be interpreted as inaccurate with my clinical impression. Related Data Home Medications ?Medication ?Instructions ?Recorded ?Confirmed loratadine 10 mg tablet 10 mg PO DAILY 05/27/24 12/20/24 Previous Rx's ?Medication ?Instructions ?Recorded amlodipine 5 mg tablet 5 mg PO DAILY #90 tabs 07/26/24 apixaban 5 mg tablet (Eliquis) 5 mg PO BID #180 tabs 07/26/24 rosuvastatin 20 mg tablet 20 mg PO DAILY #90 tabs 07/26/24 ammonium lactate 12 % topical cream 1 applic topical BID dry skin, 08/04/24 callus care #385 grams fluticasone fur. 100 mcg-umeclid 1 inh inhalation DAILY 90 days #90 09/19/24 62.5 mcg-vilant 25 mcg ea inhalat.powder (Trelegy Ellipta) potassium chloride 10 mEq See Rx Instructions .Route 10/06/24 capsule,extended release .COMPLEX #60 caps albuterol sulfate 90 mcg/actuation 2 inh inhalation QID PRN shortness 10/30/24 aerosol inhaler of breath or wheezing 90 days #8.5 grams carvedilol 12.5 mg tablet 12.5 mg PO BID #180 tabs 11/09/24 isosorbide mononitrate 30 mg 30 mg PO DAILY #90 tabs 11/10/24 tablet,extended release 24 hr pregabalin 75 mg capsule 75 mg PO BID #60 caps 11/17/24 ipratropium 0.5 mg-albuterol 3 mg 3 ml inhalation QID PRN shortness 12/11/24 (2.5 mg base)/3 mL nebulization of breath or wheezing 90 days #270 soln mL bumetanide 2 mg tablet See Rx Instructions .Route 12/18/24 .COMPLEX #60 tabs prednisone 20 mg tablet 40 mg (2 x 20 mg) PO DAILY 5 days 12/28/24 #10 tabs Allergies Allergy/AdvReac Type Severity Reaction Status Date / Time bupropion (From Wellbutrin) Allergy Intermediate Other Verified 12/20/24 10:32 ciprofloxacin Allergy Intermediate Hives Verified 12/20/24 10:32 gabapentin Allergy Unknown WEAKNESS Verified 12/20/24 10:32 ibuprofen Allergy Unknown SHAKEY Verified 12/20/24 10:32 tiotropium Allergy Unknown WEAKNESS Verified 12/20/24 10:32 [facility] Disclaimer: The information contained in this section may have been updated after the patient was seen, as this information can be updated by other users. 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 Endometrial thickening on ultrasound COPD (chronic obstructive pulmonary disease) with acute bronchitis Edema SOB (shortness of breath) Kidney lesion, [place], left Diverticulitis Stenosis of carotid artery Multiple lung nodules on CT Screening for lung cancer COPD (chronic obstructive pulmonary disease) Pulmonary emphysema Smoking greater than 30 pack years Dyspnea on exertion Tobacco abuse disorder Tobacco abuse counseling Pain of left calf Left hip pain Left leg pain Restless leg syndrome Lumbar radiculopathy Degenerative disc disease, lumbar Lumbar radicular syndrome Acute on chronic diastolic congestive heart failure, NYHA class 3 Dizziness Urticaria Epigastric pain Preop cardiovascular exam Coronary artery disease Cardiac pacemaker in situ Dyspnea Abnormal echocardiogram Cough Angina pectoris Palpitations Chronic obstructive lung disease Surgical History History of bilateral tubal ligation History of cholecystectomy History of permanent cardiac pacemaker placement Family History Mother Colon cancer Brother Lung cancer Other Cancer Diabetes Family history of myocardial infarction Stroke 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 Smoking Status: Current every day smoker tobacco type: cigarettes packs per day: 1 second hand exposure: Yes alcohol intake: never substance use type: denies use current occupational status: other Travel in the last 8 weeks: None household members: family housing: house lives independently: No education level: elementary school service: No care home: No 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es/hazards: No caffeine: Yes Have you lived/traveled outside [place] in past 30 days?: No Contact w/someone who lives/traveled outside [place] past 30 days?: No Exposure to someone with infectious disease in past 14 days?: No Do you have a fever (greater than 100.4 F or 38 C)?: No Have you tested positive for COVID-19: No Exposed to someone with COVID-19 in past 14 days?: No Do you have a sore throat?: No Do you have a cough?: No Do you have any weakness?: No Do you have any diarrhea?: No Are you experiencing any unusual bleeding?: No Do you have any muscle aches/pain?: No Do you have any abdominal pain?: No Are you experiencing loss of taste or smell?: No Other 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 Have you received the Flu Vaccine for this season: No Have you received the Pneumonia Vaccine: No ROS Obtained: Yes All systems reviewed & no additional complaints except as documented Physical Exam General General appearance: alert Neck Neck exam: Present trachea midline Chest Chest inspection: Present normal inspection and symmetric chest wall rise Respiratory Respiratory exam: Present normal lung sounds bilaterally; Absent respiratory distress, wheezes, stridor, accessory muscle use or prolonged expiratory phase Cardiovascular Cardiovascular exam: Present regular rate, normal rhythm and other (Pulses equal and symmetric in upper and lower extremities) Extremities Exam Extremities exam: Absent edema Neurological Exam Neurological exam: Present alert, oriented X3 and CN II-XII intact Skin Skin exam: Present warm and dry; Absent cyanosis, diaphoresis or pallor HEART Score HEART Score HEART Score assessment performed?: Yes History (anamnesis): Slightly suspicious ECG: Normal Age: >65 years Risk factors: 3 or more risk factors Troponin: </= normal limit HEART Score: 4 Critical Care Critical Care Time Critical Care Time: Yes (respiraotry) Attestation: On 12/28/24, the high probability of a clinically significant, sudden or life threatening deterioration of the following system(s) required my full and direct attention, intervention and personal management. The time I documented below is in addition to time spent performing reported procedures but includes the following listed in this critical care notation. Total Time Total Critical Care Time: 35 Medical Decision Making Medical Records Medical records reviewed: Yes I reviewed the patient's medical records. Kervin Inquiry Pt receiving controlled substance: No Kervin was queried for this patient: No Vital Signs Vital Signs: 12/28/24 15:25 12/28/24 16:00 12/28/24 16:31 Temperature 98.2 F Temperature Source Oral Pulse Rate 75 73 Pulse Rate [Right] 85 Respiratory Rate 22 14 16 Blood Pressure 113/67 124/70 Blood Pressure [Right Arm] 136/71 Blood Pressure Mean [Right Arm] 92 Blood Pressure Source [Right Arm] Automatic Cuff 02 Sat by Pulse Oximetry 96 99 92 L Oxygen Delivery Method Room Air Room Air Room Air 12/28/24 16:53 Temperature Temperature Source Pulse Rate 78 Pulse Rate [Right] Respiratory Rate Blood Pressure Blood Pressure [Right Arm] Blood Pressure Mean [Right Arm] Blood Pressure Source [Right Arm] 02 Sat by Pulse Oximetry Oxygen Delivery Method Lab Data Labs: Lab Results 12/28/24 15:10: WBC 8.1, RBC 4.68, Hgb 12.7, Hct 39.2, MCV 83.8, MCH 27.1, MCHC 32.4, RDW 15.2, Plt Count 145, MPV 12.5 H, Neut % (Auto) 51.5, Lymph % (Auto) 36.6, [place] % (Auto) 9.7 H, Eos % (Auto) 1.9, Baso % (Auto) 0.2, Neut # (Auto) 4.2, Lymph # (Auto) 3.0, [place] # (Auto) 0.8, Eos # (Auto) 0.2, Baso # (Auto) 0.0, PT 10.4, INR 0.94, APTT 30.6 H, Sodium 137, Potassium 4.3, Chloride 100, Carbon Dioxide 26, Anion Gap 15.3 H, BUN 20 H, Creatinine 0.60, Estimated GFR 96, Est GFR ( Amer) 117, Glucose 156 H, Hemoglobin A1c 6.4 H, Calcium 8.7, Total Bilirubin 0.6, AST 30, ALT 22, Alkaline Phosphatase 108, Troponin I < 0.01, NT-Pro-B Natriuret Pep 141, Total Protein 6.9, Albumin 3.7, Globulin 3.2, Albumin/Globulin Ratio 1.2, Triglycerides 96, Cholesterol 128 L, LDL Cholesterol Direct 58.04 L, VLDL Cholesterol 19, HDL Cholesterol 36 L, Cholesterol/HDL Ratio 3.6 H, Lipase 82 12/28/24 15:22: VBG pH 7.39, VBG pCO2 39.1, VBG pO2 54.6 H, VBG HCO3 23.4, VBG Total CO2 24.6, VBG O2 Saturation 89.9 H, VBG Base Excess -1.5, VBG Lactic Acid 1.1 12/28/24 15:10 12/28/24 15:10 Response Orders (Tests/Meds): ED MEDICATIONS Discontinued Medications Generic Name Dose Route Start Last Admin Trade Name Radha PRN Reason Stop Dose Admin Albuterol/Ipratropium 9 ml 12/28/24 15:21 12/28/24 15:51 Ipratropium/Albuterol 3 Ml Neb IH 12/28/24 15:22 9 ml ONCE ONE Administration Aspirin 324 mg 12/28/24 15:21 12/28/24 15:35 Aspirin 81mg Chewable Tablet PO 12/28/24 15:22 324 mg ONCE ONE Administration Magnesium Sulfate 2 gm in 50 mls @ 50 mls/hr 12/28/24 15:21 12/28/24 15:36 Magnesium Sulfate 2gm/50ml Premix IV 12/28/24 16:20 50 mls/hr ONCE ONE Administration Methylprednisolone Sodium Succinate 125 mg 12/28/24 15:21 12/28/24 15:36 Methylprednisolone Sod Succ 125mg Vial IV 12/28/24 15:22 125 mg ONCE ONE Administration ORDERS Category Date Time Status XR chest portable Stat Exams 12/28/24 15:21 Completed Complete Blood Count Auto Diff Stat Lab 12/28/24 15:10 Completed Comprehensive Metabolic Panel Stat Lab 12/28/24 15:10 Completed HIV Combo Stat Lab 12/28/24 16:07 Ordered Hemoglobin A1C Stat Lab 12/28/24 15:10 Completed Hepatitis C Ab Qual. W/ RFX Stat Lab 12/28/24 16:07 Ordered Lipase Stat Lab 12/28/24 15:10 Completed Lipid Panel Stat Lab 12/28/24 15:10 Completed NT Pro Brain Natriuretic Pep. Stat Lab 12/28/24 15:10 Completed PT INR [Prothrombin Time INR] Stat Lab 12/28/24 15:10 Completed PTT [Activated Partial Thrombo Time] Stat Lab 12/28/24 15:10 Completed Troponin I Q3H Lab 12/28/24 18:30 Ordered Troponin I Q3H Lab 12/28/24 21:30 Ordered Troponin I Stat Lab 12/28/24 15:10 Completed Venous Blood Gas Stat RT 12/28/24 15:22 Completed MDM Narrative Medical Decision Narrative: This is a 79-year-old female history of hypertension, hyperlipidemia, COPD still smoking, ischemic cardiomyopathy currently pacemaker defibrillator in place, CAD status post stenting presenting with shortness of breath and chest pressure. States that chest pressure has been going on since 9 AM today. 9 out of 10, does not radiate associate with shortness of breath. States that it has been getting worse in the setting of shortness of breath getting worse over the past few days. She has a nonproductive cough. No fevers or chills. States that her lower extremity swelling is about the same and denies PND orthopnea. No neurologic deficits. History was obtained via conversation with patient and EMS. On arrival, patient hemodynamically stable, alert, oriented x4, appropriate, GCS 15, moving all extremities spontaneously, pupils equal and reactive to light. Full physical exam performed and significant for chronically ill-appearing female no acute distress. Speaking in partial sentences. Lungs with diffuse bilateral expiratory wheezing. No focal breath sounds. Cardiac exam without murmurs gallops or rubs. She does have chronic lower extremity 1+ pitting edema. Differential includes pain differential. Patient was given DuoNebs, Solu-Medrol, IV magnesium and aspirin for symptomatic management and correction of underlying abnormalities. Patient placed on continuous cardiac monitoring and continuous pulse ox with initial blood pressure 136/71, heart rate 85, saturation 96% on room air. Independent interpretation of EKG shows sinus rhythm [address] or T wave changes concerning for acute ischemia. MN 176, QRS 93, QTc 402. Workup independently interpreted and significant for nonactionable CBC or chemistry. VBG with normal pH, no acute actionable findings. Patient's electrolytes normal, kidney function normal, troponin and BNP negative. Lipase negative. On independent interpretation of imaging, no acute cardiopulmonary airspace disease. See radiology read for full review of final results. Heart score 4. Delta troponin was considered, but not deemed necessary. Patient feeling completely relieved on reevaluation after medications for COPD treatment. Given patient presentation, workup, history, this most likely represents COPD exacerbation. Because patient at baseline without signs or symptoms of clinical decompensation, deemed appropriate for discharge. Results were relayed to patient who voiced understanding and were agreeable to outpatient management and follow up. I discussed my clinical impression with patient and answered all questions. At this time, the evidence for any other entities in the differential is insufficient to warrant any further testing or ED observation. This was explained as well. Advisory was given that persistent or worsening symptoms require further evaluation. I confirmed the understanding of this discussion. [employer] disclaimer Much of this encounter note is an electronic financial compliance examiner spoken language to printed text. Electronic financial compliance examiner of the spoken language may permit errors. Although I have reviewed the note, some errors may still exist.
[2024-12-28 15:48] LABS: Alanine Aminotransferase 22 U/L (12-78); Albumin Level 3.7 g/dl (3.5-5.0); Albumin/Globulin Ratio 1.2 (1.1-1.8); Alkaline Phosphatase 108 U/L (38-126); Anion Gap 15.3 mEq/L (5-15); Aspartate Amino Transferase 30 U/L (14-36); Bilirubin,Total 0.6 mg/dl (0.2-1.3); Blood Urea Nitrogen 20 mg/dl (7-17); Calcium 8.7 mg/dl (8.4-10.2); Carbon Dioxide 26 mmol/L (22.0-30.0); Chloride 100 mmol/L (98-107); Chol/HDL Ratio 3.6 (1-3.5); Cholesterol 128 mg/dl (140-200); Estimated Glomerular Filt Rate 96 ml/min (>60); GFR (African American) 117 ML/MIN (>60); Globulin 3.2 g/dL (1.3-3.2); Glucose 156 mg/dl (74-100); HDL Cholesterol 36 mg/dl (40-60); Lipase 82 U/L (23-300); Potassium 4.3 mmoL/L (3.5-5.1); Sodium 137 mmol/L (136-145); Total Protein,Serum 6.9 g/dl (6.3-8.2); Triglycerides 96 mg/dl (30-150); VLDL Cholesterol 19 mg/dL (0-40)
[2024-12-28] MEDS: IPRATROPIUM/ALBUTEROL 3 ML NEB 9 ML IH (15:51)
[2024-12-28 15:59] LABS: Direct LDL Cholesterol 58.04 mg/dL (100-129); NT Pro Brain Natriuretic Pep. 141 pg/mL (0-450)
[2024-12-28 16:00] VITALS: BP 113/67; PULSE 75; RESP 14; O2SAT 99
[2024-12-28 16:00] LABS: Troponin I < 0.01 ng/ml (0.00-0.034)
[2024-12-28 16:03] LABS: Activated Partial Thrombo Time 30.6 seconds (22.5-28.5)
[2024-12-28 16:31] VITALS: BP 124/70; PULSE 73; RESP 16; O2SAT 92
[2024-12-28 16:33] LABS: INR 0.94 (0.9-1.1); Prothrombin Time 10.4 seconds (9.2-12.1)
--- NOTE | 2024-12-28 16:36 | PC.NURSE ---
ROUNDED ON THE PT. THE PT VOICES THAT SHE DOES NOT NEED ANYTHING AT THIS TIME. CALL LIGHT IS WITHIN REACH OF THE PT.
[2024-12-28 16:53] VITALS: PULSE 78
[2024-12-28 16:57] LABS: Hemoglobin A1C 6.4 % (4.0-6.0)
[2024-12-28 17:21] VITALS: BP 134/72; PULSE 75; RESP 18; TEMP 36.8; O2SAT 95
== END 2024-12-28 17:22 | disposition home or self-care (01) ==
PROVIDERS: Emergency Provider Emergency Medicine; PCP Nurse Practitioner Family
DX: J44.1 Chronic obstructive pulmonary disease with (acute) exacerbation (principal); R07.9 Chest pain, unspecified; F17.210 Nicotine dependence, cigarettes, uncomplicated
CPT/HCPCS: 71045; 80053; 80061; 82803; 83036; 83690; 83880; 84484; 85025; 85610; 85730; 93005; 96365; 96374; 99291; J2919; J3475; J7620

== ENCOUNTER 2025-01-10 11:34 | Outpatient (CLI) | payer MEDICARE, MEDICAID, SELFPAY ==
--- NOTE | 2025-01-10 11:37 | XR_ITS ---
FINAL REPORT CLINICAL HISTORY: sob COMPARISON: 12/28/2024 FINDINGS: CHEST 2 VIEWS: Minimal scarring is present in the right upper lobe. No acute pulmonary density is otherwise evident. There is no evidence of effusion or other pleural disease. The mediastinum has a normal appearance. The cardiac silhouette is unremarkable. A left pacer is present. IMPRESSION: No acute process. Reviewed, Interpreted and Dictated by Jaylin Flor MD Transcribed by Rosanna Douglas Authenticated and [facility]
[2025-01-10 13:17] LABS: Chloride 104 mmol/L (98-107); Potassium 4.6 mmoL/L (3.5-5.1); Sodium 138 mmol/L (136-145)
[2025-01-10 13:20] LABS: Anion Gap 9.6 mEq/L (5-15); Blood Urea Nitrogen 14 mg/dl (7-17); Calcium 8.6 mg/dl (8.4-10.2); Carbon Dioxide 29 mmol/L (22.0-30.0); Estimated Glomerular Filt Rate 81 ml/min (>60); GFR (African American) 98 ML/MIN (>60); Glucose 111 mg/dl (74-100)
[2025-01-10 13:30] LABS: NT Pro Brain Natriuretic Pep. 1050 pg/mL (0-450)
== END 2025-01-10 23:59 | disposition home or self-care (01) ==
LOC: RAD 11:34
PROVIDERS: PCP Nurse Practitioner Family; Visit Provider Physician Assistant
DX: R07.89 Other chest pain (principal); R06.02 Shortness of breath; R42 Dizziness and giddiness; E78.2 Mixed hyperlipidemia; R06.09 Other forms of dyspnea
CPT/HCPCS: 36415; 71046; 80048; 83880

== ENCOUNTER 2025-01-11 13:15 | Observation (INO) | payer MEDICARE, MEDICAID, SELFPAY ==
[2025-01-11] VITALS (14 sets, daily range): BP systolic 104–149; BP diastolic 56–117; PULSE 54–120; RESP 18–33; TEMP 36.6–37.1; O2SAT 90–100; BMI 25.4
--- NOTE | 2025-01-11 13:31 | XR_ITS ---
FINAL REPORT CLINICAL HISTORY: shortness of breath, chest discomfort COMPARISON: 01/10/2025 FINDINGS: No acute pulmonary opacity is present. There is no evidence of effusion or pneumothorax. Mediastinum is unremarkable. Heart size is normal. A left-sided pacemaker is present. IMPRESSION: No acute abnormality. Reviewed, Interpreted and Dictated by Jaylin Flor MD Transcribed by Annie Martínez Authenticated and [facility]
--- NOTE | 2025-01-11 13:31 | ECG_ITS ---
APPROVED REPORT Exam: Resting ECG HR:93 bpm ECG Measurements Heart Rate 93 AXES ID 145 P 76 QRSd 90 QRS 45 QT 347 T 63 QTc 398 Conclusion SINUS RHYTHM WITH FREQUENT VENTRICULAR PREMATURE COMPLEXES POSSIBLE RIGHT ATRIAL ENLARGEMENT [0.25mV P-WAVE] No STEMI Electronically signed by : KACI ALAMO, 01/12/2025 07:09:24
[2025-01-11 13:49] LABS: Basophils # 0.1 K/mm3 (0-0.2); Basophils % 0.4 % (0.1-2.0); Eosinophils # 0.1 K/mm3 (0.0-0.4); Hematocrit 40.6 % (37.0-47.0); Hemoglobin 13.3 g/dL (12.2-16.2); Lymphocytes % 17.1 % (10-50); Mean Corpuscular HGB Conc 32.8 g/dL (31.8-35.4); Mean Corpuscular Hemoglobin 27.2 pg (27.0-31.2); Mean Platelet Volume 12.9 fl (7.4-10.4); Monocytes # 1.2 K/mm3 (0.1-1.0); Monocytes % 9.9 % (1.7-9.3); Neutrophils # 8.4 K/mm3 (1.8-7.8); Neutrophils % 71.3 % (37.0-80.0); Platelet Count 165 K/mm3 (142-424); Red Blood Count 4.89 M/mm3 (4.20-5.40); Red Cell Distribution Width 15.7 % (11.5-17.5); White Blood Count 11.7 K/mm3 (4.8-10.8)
--- NOTE | 2025-01-11 13:51 | ED_ITS ---
<Statement entered by Rimma Hooper DO - 01/11/25 16:51> I was consulted by the JOAQUIN, and we discussed the complexity of the problems being addressed. I approved the treatment and management plan for this patient's care in the emergency department, thus performing a substantive portion of the medical decision making. Rimma Hooper DO Discharge Plan Disposition Chief Complaint: Abdominal Pain Discharge ED Provider: Rimma Hooper General Adult HPI <Chata Nayak APRN - Last Filed: 01/11/25 16:48> General Chief complaint: Abdominal Pain Stated complaint: SOA, Pain, Time Seen by Provider: 01/11/25 13:51 Mode of Arrival: Wheelchair Source of Information: Patient Limitations: No Limitations Description of Symptoms (Recalled from ER Triage Doc. by RN): Pt presents for evaluation of abdominal swelling and bilater lower extremity swelling that she has had for a couple weeks. History of Present Illness HPI narrative: patient is a 79-year-old female PMHx CHF, COPD, lymphedema, hypertension, CAD, tobacco dependence who presents to the ED for shortness of breath, dyspnea upon exertion, increased O2 requirement. Patient wears 2L NC at baseline however has increased to 3 or 4. Patient unable to take more than 3 steps without becoming increasingly short of breath. Related Data Home Medications ?Medication ?Instructions ?Recorded ?Confirmed bumetanide 2 mg tablet 2 mg PO BID 01/11/25 01/11/25 Previous Rx's ?Medication ?Instructions ?Recorded amlodipine 5 mg tablet 5 mg PO DAILY #90 tabs 07/26/24 apixaban 5 mg tablet (Eliquis) 5 mg PO BID #180 tabs 07/26/24 rosuvastatin 20 mg tablet 20 mg PO DAILY #90 tabs 07/26/24 ammonium lactate 12 % topical cream 1 applic topical BID dry skin, 08/04/24 callus care #385 grams fluticasone fur. 100 mcg-umeclid 1 inh inhalation DAILY 90 days #90 09/19/24 62.5 mcg-vilant 25 mcg ea inhalat.powder (Trelegy Ellipta) potassium chloride 10 mEq See Rx Instructions .Route 10/06/24 capsule,extended release .COMPLEX #60 caps albuterol sulfate 90 mcg/actuation 2 inh inhalation QID PRN shortness 10/30/24 aerosol inhaler of breath or wheezing 90 days #8.5 grams carvedilol 12.5 mg tablet 12.5 mg PO BID #180 tabs 11/09/24 isosorbide mononitrate 30 mg 30 mg PO DAILY #90 tabs 11/10/24 tablet,extended release 24 hr pregabalin 75 mg capsule 75 mg PO BID #60 caps 11/17/24 ipratropium 0.5 mg-albuterol 3 mg 3 ml inhalation QID PRN shortness 12/11/24 (2.5 mg base)/3 mL nebulization of breath or wheezing 90 days #270 soln mL empagliflozin 10 mg tablet 10 mg PO DAILY #90 tabs 01/10/25 (Jardiance) Allergies Allergy/AdvReac Type Severity Reaction Status Date / Time bupropion (From Wellbutrin) Allergy Intermediate Other Verified 01/11/25 13:58 ciprofloxacin Allergy Intermediate Hives Verified 01/11/25 13:58 gabapentin Allergy Unknown WEAKNESS Verified 01/11/25 13:58 ibuprofen Allergy Unknown SHAKEY Verified 01/11/25 13:58 tiotropium Allergy Unknown WEAKNESS Verified 01/11/25 13:58 [facility] <Chata Nayak, FILLER ROOM ATTENDANT - Last Filed: 01/11/25 16:48> [facility] Disclaimer: The information contained in this section may have been updated after the patient was seen, as this information can be updated by other users. 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 Endometrial thickening on ultrasound COPD (chronic obstructive pulmonary disease) with acute bronchitis Edema SOB (shortness of breath) Kidney lesion, [place], left Diverticulitis Stenosis of carotid artery Multiple lung nodules on CT Screening for lung cancer COPD (chronic obstructive pulmonary disease) Pulmonary emphysema Smoking greater than 30 pack years Dyspnea on exertion Tobacco abuse disorder Tobacco abuse counseling Pain of left calf Left hip pain Left leg pain Restless leg syndrome Lumbar radiculopathy Degenerative disc disease, lumbar Lumbar radicular syndrome Acute on chronic diastolic congestive heart failure, NYHA class 3 Dizziness Urticaria Epigastric pain Preop cardiovascular exam Coronary artery disease Cardiac pacemaker in situ Dyspnea Abnormal echocardiogram Cough Angina pectoris Palpitations Chronic obstructive lung disease Surgical History History of bilateral tubal ligation History of cholecystectomy History of permanent cardiac pacemaker placement Family History Mother Colon cancer Brother Lung cancer Other Cancer Diabetes Family history of myocardial infarction Stroke 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 Smoking Status: Current every day smoker tobacco type: cigarettes packs per day: 1 second hand exposure: Yes alcohol intake: never substance use type: denies use current occupational status: retired Travel in the last 8 weeks: None household members: family housing: house lives independently: No education level: elementary school service: No care home: No 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es/hazards: No caffeine: Yes Have you lived/traveled outside [place] in past 30 days?: No Contact w/someone who lives/traveled outside [place] past 30 days?: No Exposure to someone with infectious disease in past 14 days?: No Do you have a fever (greater than 100.4 F or 38 C)?: No Have you tested positive for COVID-19: No Exposed to someone with COVID-19 in past 14 days?: No Do you have a sore throat?: No Do you have a cough?: No Do you have any weakness?: No Do you have any diarrhea?: No Are you experiencing any unusual bleeding?: No Do you have any muscle aches/pain?: No Do you have any abdominal pain?: No Are you experiencing loss of taste or smell?: No Other 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 Have you received the Flu Vaccine for this season: No Have you received the Pneumonia Vaccine: No <Chata Nayak APRN - Last Filed: 01/11/25 16:48> ROS Obtained: Yes Systems reviewed as appropriate & no additional complaints except as documented Physical Exam <Chata Nayak APRN - Last Filed: 01/11/25 16:48> General General appearance: alert and in no apparent distress Head Head exam: atraumatic and normocephalic Eye Eye exam: Present normal appearance and PERRL; Absent nystagmus ENT ENT exam: Present normal exam Neck Neck exam: Present normal inspection Chest Chest inspection: Present normal inspection and symmetric chest wall rise; Absent tenderness Respiratory Respiratory exam: Present respiratory distress and other (Right sided abnormal, tachypnea ) Cardiovascular Cardiovascular exam: Present regular rate Abdominal Exam Abdominal exam: Present soft and normal bowel sounds; Absent tenderness Extremities Exam Extremities exam: Present normal inspection and full ROM Back Exam Back exam: Present normal inspection and full ROM; Absent tenderness Neurological Exam Neurological exam: Present alert and oriented X3 Psychiatric Psychiatric exam: Present normal affect and normal mood Skin Skin exam: Present warm and dry Medical Decision Making <Chata Nayak APRN - Last Filed: 01/11/25 16:48> Medical Records Screening: Per USPSTF and CDC recommendations, given the prevalence of disease in our region, it is our hospital?s policy to screen for HIV and viral Hepatitis for all patients aged 18 and over and those with ongoing risk factors. Kervin Inquiry Pt receiving controlled substance: No Kervin was queried for this patient: No Vital Signs: 01/11/25 13:21 01/11/25 13:46 01/11/25 14:02 Temperature 98.6 F Temperature Source Oral Pulse Rate 75 61 Pulse Rate [Right] 54 L Respiratory Rate 18 33 H Blood Pressure 149/117 H 142/72 H Blood Pressure [Right Arm] 106/56 L Blood Pressure Mean [Right Arm] 72 Blood Pressure Source [Right Arm] Automatic Cuff Blood Pressure Position [Right Arm] Sitting 02 Sat by Pulse Oximetry 98 90 L 97 Oxygen Delivery Method Room Air Fraction of Inspired Oxygen 01/11/25 15:01 01/11/25 15:30 01/11/25 16:01 Temperature Temperature Source Pulse Rate 74 71 Pulse Rate [Right] Respiratory Rate 25 H 25 H Blood Pressure 120/73 133/68 Blood Pressure [Right Arm] Blood Pressure Mean [Right Arm] Blood Pressure Source [Right Arm] Blood Pressure Position [Right Arm] 02 Sat by Pulse Oximetry 99 96 Oxygen Delivery Method Room Air Fraction of Inspired Oxygen 40 01/11/25 16:01 Temperature Temperature Source Pulse Rate 73 Pulse Rate [Right] Respiratory Rate 21 Blood Pressure 104/69 L Blood Pressure [Right Arm] Blood Pressure Mean [Right Arm] Blood Pressure Source [Right Arm] Blood Pressure Position [Right Arm] 02 Sat by Pulse Oximetry 100 Oxygen Delivery Method Fraction of Inspired Oxygen Lab Data Lab Results 01/11/25 13:40: WBC 11.7 H, RBC 4.89, Hgb 13.3, Hct 40.6, MCV 83.0, MCH 27.2, MCHC 32.8, RDW 15.7, Plt Count 165, MPV 12.9 H, Neut % (Auto) 71.3, Lymph % (Auto) 17.1, Coffee % (Auto) 9.9 H, Eos % (Auto) 1.0, Baso % (Auto) 0.4, Neut # (Auto) 8.4 H, Lymph # (Auto) 2.0, Coffee # (Auto) 1.2 H, Eos # (Auto) 0.1, Baso # (Auto) 0.1, Sodium 137, Potassium 3.9, Chloride 102, Carbon Dioxide 25, Anion Gap 13.9, BUN 20 H D, Creatinine 0.90 D, Estimated Creat Clear 50, Estimated GFR 60, Est GFR ( Amer) 73 D, Glucose 123 H, Calcium 8.8, Total Bilirubin 0.4, AST 28, ALT 23, Alkaline Phosphatase 105, Troponin I < 0.01, N T-Pro-B Natriuret Pep 1040 H, Total Protein 7.0, Albumin 3.8, Globulin 3.2, Albumin/Globulin Ratio 1.2, Procalcitonin 0.068 01/11/25 14:03: VBG pH 7.49 H, VBG pCO2 33.0 L, VBG pO2 86.0 H, VBG HCO3 24.8, VBG Total CO2 25.8, VBG O2 Saturation 97.2 H, VBG Base Excess 1.5, VBG Lactic Acid 1.6 01/11/25 15:10: SARS-CoV-2 (PCR) Not detected, Influenza A Untype (PCR) Not detected, Influenza Type B (PCR) Not detected 01/11/25 13:40 01/11/25 13:40 Orders (Tests/Meds): ED MEDICATIONS Generic Name Dose Route Start Last Admin Trade Name Freq PRN Reason Stop Dose Admin Acetaminophen 650 mg 01/11/25 15:36 Acetaminophen 325mg Tab PO 02/10/25 15:35 Q6HP PRN Fever or Mild Pain (1-3) Albuterol/Ipratropium 3 ml 01/11/25 18:00 Ipratropium/Albuterol 3 Ml Neb IH 02/10/25 17:59 Q6RT ISH Nitroglycerin 0.4 mg 01/11/25 13:31 Nitroglycerin 0.4mg Sl Tablet SL 01/12/25 13:31 Q5MINP PRN Chest Pain Discontinued Medications Generic Name Dose Route Start Last Admin Trade Name Freq PRN Reason Stop Dose Admin Albuterol Sulfate 2.5 mg 01/11/25 14:49 01/11/25 15:06 Albuterol 0.083% 2.5 Mg/3 Ml Neb IH 01/11/25 14:50 2.5 mg ONCE ONE Administration Furosemide 80 mg 01/11/25 15:28 01/11/25 15:33 Furosemide 40mg/4ml Vial IV 01/11/25 15:29 80 mg ONCE ONE Administration Methylprednisolone Sodium Succinate 125 mg 01/11/25 14:48 01/11/25 15:07 Methylprednisolone Sod Succ 125mg Vial IV 01/11/25 14:49 125 mg ONCE ONE Administration ORDERS Category Date Time Status XR chest portable Stat Exams 01/11/25 13:31 Completed Complete Blood Count Auto Diff AMLAB Lab 01/12/25 06:00 Ordered Complete Blood Count Auto Diff Stat Lab 01/11/25 13:40 Completed Comprehensive Metabolic Panel AMLAB Lab 01/12/25 06:00 Ordered Comprehensive Metabolic Panel Stat Lab 01/11/25 13:40 Completed Lipid Panel AMLAB Lab 01/12/25 06:00 Ordered Magnesium AMLAB Lab 01/12/25 06:00 Ordered NT Pro Brain Natriuretic Pep. Stat Lab 01/11/25 13:40 Completed Procalcitonin Stat Lab 01/11/25 13:40 Completed Rapid PCR Covid and Flu A/B Stat Lab 01/11/25 15:10 Completed Troponin I Q3H Lab 01/11/25 16:45 Ordered Troponin I Q3H Lab 01/11/25 19:45 Ordered Troponin I Stat Lab 01/11/25 13:40 Completed VBG [Venous Blood Gas] Stat RT 01/11/25 14:03 Completed Medical Decision Narrative: In summary, patient is a 79-year-old female PMHx CHF, COPD, lymphedema, hypertension, CAD, tobacco dependence who presents to the ED for shortness of breath, dyspnea upon exertion, increased O2 requirement. Patient wears 2L NC at baseline however has increased to 3 or 4. Patient unable to take more than 3 steps without becoming increasingly short of breath. Patient was evaluated here yesterday at her PCP office who advised her to increase her diuretic and started Jardiance. Patient woke up this morning increasingly short of breath, unable to lie flat. Upon initial exam, patient is alert, oriented and cooperative. Patient is tachypneic, visibly short of breath. Physical exam remarkable for mild respiratory distress. Bilateral lung sounds decreased, rhonchi on the right. Differential diagnosis includes ACS, dissection, pneumonia, pneumothorax, CHF exacerbation, COPD exacerbation, infectious process, among others Initial workup will be conducted with hematologic labs, imaging. Initial inventions include Eddie Forde. Initial workup reviewed by me. CBC remarkable for mild leukocytosis, WBC 11.7, stable H&H. VBG pH 7.49, CO2 33, CMP overall unremarkable for any actual abnormalities, first troponin < 0.01. BNP 1,040. I informally interpreted the imaging as fluid overload. Upon repeat evaluation, patient condition has not really improved. Lasix 80 mg IV administered. I had an interactive discussion with the patient and family, we will place patient on BiPAP and admit to medicine for CHF exacerbation and COPD exacerbation. Patient is agreeable to this plan at this time. Medicine accepts pt for admit. <Rimma Hooper, DO - Last Filed: 01/11/25 16:51> Vital Signs: 01/11/25 13:21 01/11/25 13:46 01/11/25 14:02 Temperature 98.6 F Temperature Source Oral Pulse Rate 75 61 Pulse Rate [Right] 54 L Respiratory Rate 18 33 H Blood Pressure 149/117 H 142/72 H Blood Pressure [Right Arm] 106/56 L Blood Pressure Mean [Right Arm] 72 Blood Pressure Source [Right Arm] Automatic Cuff Blood Pressure Position [Right Arm] Sitting 02 Sat by Pulse Oximetry 98 90 L 97 Oxygen Delivery Method Room Air Fraction of Inspired Oxygen 01/11/25 15:01 01/11/25 15:30 01/11/25 16:01 Temperature Temperature Source Pulse Rate 74 71 Pulse Rate [Right] Respiratory Rate 25 H 25 H Blood Pressure 120/73 133/68 Blood Pressure [Right Arm] Blood Pressure Mean [Right Arm] Blood Pressure Source [Right Arm] Blood Pressure Position [Right Arm] 02 Sat by Pulse Oximetry 99 96 Oxygen Delivery Method Room Air Fraction of Inspired Oxygen 40 01/11/25 16:01 Temperature Temperature Source Pulse Rate 73 Pulse Rate [Right] Respiratory Rate 21 Blood Pressure 104/69 L Blood Pressure [Right Arm] Blood Pressure Mean [Right Arm] Blood Pressure Source [Right Arm] Blood Pressure Position [Right Arm] 02 Sat by Pulse Oximetry 100 Oxygen Delivery Method Fraction of Inspired Oxygen Lab Data Lab Results 01/11/25 13:40: WBC 11.7 H, RBC 4.89, Hgb 13.3, Hct 40.6, MCV 83.0, MCH 27.2, MCHC 32.8, RDW 15.7, Plt Count 165, MPV 12.9 H, Neut % (Auto) 71.3, Lymph % (Auto) 17.1, Coffee % (Auto) 9.9 H, Eos % (Auto) 1.0, Baso % (Auto) 0.4, Neut # (Auto) 8.4 H, Lymph # (Auto) 2.0, Coffee # (Auto) 1.2 H, Eos # (Auto) 0.1, Baso # (Auto) 0.1, Sodium 137, Potassium 3.9, Chloride 102, Carbon Dioxide 25, Anion Gap 13.9, BUN 20 H D, Creatinine 0.90 D, Estimated Creat Clear 50, Estimated GFR 60, Est GFR ( Amer) 73 D, Glucose 123 H, Calcium 8.8, Total Bilirubin 0.4, AST 28, ALT 23, Alkaline Phosphatase 105, Troponin I < 0.01, N T-Pro-B Natriuret Pep 1040 H, Total Protein 7.0, Albumin 3.8, Globulin 3.2, Albumin/Globulin Ratio 1.2, Procalcitonin 0.068 01/11/25 14:03: VBG pH 7.49 H, VBG pCO2 33.0 L, VBG pO2 86.0 H, VBG HCO3 24.8, VBG Total CO2 25.8, VBG O2 Saturation 97.2 H, VBG Base Excess 1.5, VBG Lactic Acid 1.6 01/11/25 15:10: SARS-CoV-2 (PCR) Not detected, Influenza A Untype (PCR) Not detected, Influenza Type B (PCR) Not detected Orders (Tests/Meds): ED MEDICATIONS Generic Name Dose Route Start Last Admin Trade Name Freq PRN Reason Stop Dose Admin Acetaminophen 650 mg 01/11/25 15:36 Acetaminophen 325mg Tab PO 02/10/25 15:35 Q6HP PRN Fever or Mild Pain (1-3) Albuterol/Ipratropium 3 ml 01/11/25 18:00 Ipratropium/Albuterol 3 Ml [facility] 02/10/25 17:59 Q6RT ISH Nitroglycerin 0.4 mg 01/11/25 13:31 Nitroglycerin 0.4mg Sl Tablet SL 01/12/25 13:31 Q5MINP PRN Chest Pain Discontinued Medications Generic Name Dose Route Start Last Admin Trade Name Freq PRN Reason Stop Dose Admin Albuterol Sulfate 2.5 mg 01/11/25 14:49 01/11/25 15:06 Albuterol 0.083% 2.5 Mg/3 Ml Neb IH 01/11/25 14:50 2.5 mg ONCE ONE Administration Furosemide 80 mg 01/11/25 15:28 01/11/25 15:33 Furosemide 40mg/4ml Vial IV 01/11/25 15:29 80 mg ONCE ONE Administration Methylprednisolone Sodium Succinate 125 mg 01/11/25 14:48 01/11/25 15:07 Methylprednisolone Sod Succ 125mg Vial IV 01/11/25 14:49 125 mg ONCE ONE Administration ORDERS Category Date Time Status XR chest portable Stat Exams 01/11/25 13:31 Completed Complete Blood Count Auto Diff AMLAB Lab 01/12/25 06:00 Ordered Complete Blood Count Auto Diff Stat Lab 01/11/25 13:40 Completed Comprehensive Metabolic Panel AMLAB Lab 01/12/25 06:00 Ordered Comprehensive Metabolic Panel Stat Lab 01/11/25 13:40 Completed Lipid Panel AMLAB Lab 01/12/25 06:00 Ordered Magnesium AMLAB Lab 01/12/25 06:00 Ordered NT Pro Brain Natriuretic Pep. Stat Lab 01/11/25 13:40 Completed Procalcitonin Stat Lab 01/11/25 13:40 Completed Rapid PCR Covid and Flu A/B Stat Lab 01/11/25 15:10 Completed Troponin I Q3H Lab 01/11/25 16:45 Ordered Troponin I Q3H Lab 01/11/25 19:45 Ordered Troponin I Stat Lab 01/11/25 13:40 Completed VBG [Venous Blood Gas] Stat RT 01/11/25 14:03 Completed ECG Data Tracing #1: I reviewed this ECG and interpreted as documented below: Normal sinus rhythm with a ventricular rate of 93 bpm. Frequent PVCs. No acute STEMI. ECG initial impression date: 01/11/25 ECG initial impression time: 13:33 Critical Care <Chata Nayak APRN - Last Filed: 01/11/25 16:48> Critical Care Time Critical Care Time: Yes Attestation: On 01/11/25, the high probability of a clinically significant, sudden or life threatening deterioration of the following system(s) required my full and direct attention, intervention and personal management. The time I documented below is in addition to time spent performing reported procedures but includes the following listed in this critical care notation. Total Time Total Critical Care Time: 30
--- NOTE | 2025-01-11 14:00 | PC.NURSE ---
xr at bedside
--- NOTE | 2025-01-11 14:05 | PC.NURSE ---
respiratory notified of vbg
--- NOTE | 2025-01-11 14:09 | PC.NURSE ---
rounded on the pt. the pt voices that she does not need anything at this time. call light is within reach of the pt. son is present at the bedside.
[2025-01-11 14:14] LABS: Lactate Venous 1.6 mmol/L (0.4-2.0); VBG Base Excess 1.5 mmol/L (-2.4-2.3); VBG HCO3 24.8 mmol/L (23-30); VBG Oxygen Saturation 97.2 % (50-70); VBG PH 7.49 mmol/L (7.31-7.41); VBG Total CO2 25.8 mmol/L (23-27)
[2025-01-11 14:28] LABS: Alanine Aminotransferase 23 U/L (12-78); Albumin Level 3.8 g/dl (3.5-5.0); Albumin/Globulin Ratio 1.2 (1.1-1.8); Alkaline Phosphatase 105 U/L (38-126); Anion Gap 13.9 mEq/L (5-15); Aspartate Amino Transferase 28 U/L (14-36); Bilirubin,Total 0.4 mg/dl (0.2-1.3); Blood Urea Nitrogen 20 mg/dl (7-17); Calcium 8.8 mg/dl (8.4-10.2); Carbon Dioxide 25 mmol/L (22.0-30.0); Chloride 102 mmol/L (98-107); Creatinine Clearance Estimated 50 mL/min (50-200); Estimated Glomerular Filt Rate 60 ml/min (>60); GFR (African American) 73 ML/MIN (>60); Globulin 3.2 g/dL (1.3-3.2); Glucose 123 mg/dl (74-100); Potassium 3.9 mmoL/L (3.5-5.1); Sodium 137 mmol/L (136-145)
[2025-01-11 14:40] LABS: NT Pro Brain Natriuretic Pep. 1040 pg/mL (0-450)
[2025-01-11 14:44] LABS: Procalcitonin 0.068 ng/mL (0.0-2.0)
[2025-01-11 14:47] LABS: Troponin I < 0.01 ng/ml (0.00-0.034)
[2025-01-11] MEDS: ALBUTEROL 0.083% 2.5 MG/3 ML NEB IH (15:06)
[2025-01-11] MEDS: METHYLPREDNISOLONE SOD SUCC 125MG VIAL 125 MG IV (15:07)
[2025-01-11 15:19] LABS: Coronavirus 19, PCR Not Detected (NotDetected); Influenza A, PCR Not Detected (NotDetected); Influenza B, PCR Not Detected (NotDetected)
[2025-01-11] MEDS: FUROSEMIDE 40MG/4ML VIAL 80 MG IV (15:33)
--- NOTE | 2025-01-11 15:39 | P.HP_ITS ---
History of Present Illness *Admission Date: 01/11/25 *Reason for visit:: Shortness of breath, dyspnea with exertion *History of present illness: Ms. Payton is a 79-year-old female with history of COPD, CHF, lymphedema and hypertension. Continues to smoke a pack a day. On 2 L oxygen at baseline. She presented to the ER for evaluation of some abdominal distention and lower extremity swelling that has been worsening over the past 2 to 3 weeks. Patient states she is dyspneic with exertion. Unable to walk more than a few steps without having to stop due to shortness of breath. Has had to increase her oxygen to 3 L at home. Has significant orthopnea over the past month and is un able to lay flat to sleep. Sitting propped up on evaluation today. Workup in the ER concerning for elevated BNP over thousand, chest x-ray with bilateral lower lobe edema. White count marginally elevated 11.7. Kidney function normal with normal electrolytes. Due to respiratory distress, medicine was consulted for admission and further management of CHF exacerbation. At time of evaluation, patient has been placed on CPAP for respiratory comfort. She had received a dose of IV diuretics. Satting appropriately on noninvasive positive pressure ventilation. Able to complete sentence during session has been at night helps history. No nausea or vomiting. Complains of some tightness with breathing. Alert and oriented x 3 PFSH [facility] Disclaimer: The information contained in this section may have been updated after the patient was seen, as this information can be updated by other users. 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 Endometrial thickening on ultrasound COPD (chronic obstructive pulmonary disease) with acute bronchitis Edema SOB (shortness of breath) Kidney lesion, soboba, left Diverticulitis Stenosis of carotid artery Multiple lung nodules on CT Screening for lung cancer COPD (chronic obstructive pulmonary disease) Pulmonary emphysema Smoking greater than 30 pack years Dyspnea on exertion Tobacco abuse disorder Tobacco abuse counseling Pain of left calf Left hip pain Left leg pain Restless leg syndrome Lumbar radiculopathy Degenerative disc disease, lumbar Lumbar radicular syndrome Acute on chronic diastolic congestive heart failure, NYHA class 3 Dizziness Urticaria Epigastric pain Preop cardiovascular exam Coronary artery disease Cardiac pacemaker in situ Dyspnea Abnormal echocardiogram Cough Angina pectoris Palpitations Chronic obstructive lung disease Surgical History History of bilateral tubal ligation History of cholecystectomy History of permanent cardiac pacemaker placement Family History Mother Colon cancer Brother Lung cancer Other Cancer Diabetes Family history of myocardial infarction Stroke 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 Smoking Status: Current every day smoker tobacco type: cigarettes packs per day: 1 second hand exposure: Yes alcohol intake: never substance use type: denies use current occupational status: retired Travel in the last 8 weeks: None household members: family housing: house lives independently: No education level: elementary school service: No care home: No 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es/hazards: No caffeine: Yes Have you lived/traveled outside [place] in past 30 days?: No Contact w/someone who lives/traveled outside US past 30 days?: No Exposure to someone with infectious disease in past 14 days?: No Do you have a fever (greater than 100.4 F or 38 C)?: No Have you tested positive for COVID-19: No Exposed to someone with COVID-19 in past 14 days?: No Do you have a sore throat?: No Do you have a cough?: No Do you have any weakness?: No Are you experiencing any nausea/vomitting?: No Do you have any diarrhea?: No Are you experiencing any unusual bleeding?: No Do you have any muscle aches/pain?: No Do you have any abdominal pain?: No Are you experiencing loss of taste or smell?: No Other 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 Have you received the Flu Vaccine for this season: No Have you received the Pneumonia Vaccine: No Review of Systems Review of Systems Review of systems (narrative): 14 point review of systems performed, pertinent positives and negatives as per HPI Meds Home Medications and Allergies Home Medications ?Medication ?Instructions ?Recorded ?Confirmed ?Type amlodipine 5 mg tablet 5 mg PO DAILY #90 tabs 07/26/24 01/11/25 Rx apixaban 5 mg tablet (Eliquis) 5 mg PO BID #180 tabs 07/26/24 01/11/25 Rx rosuvastatin 20 mg tablet 20 mg PO DAILY #90 tabs 07/26/24 01/11/25 Rx ammonium lactate 12 % topical cream 1 applic topical BID dry skin, 08/04/24 01/11/25 Rx callus care #385 grams fluticasone fur. 100 mcg-umeclid 1 inh inhalation DAILY 90 days #90 09/19/24 01/11/25 Rx 62.5 mcg-vilant 25 mcg ea inhalat.powder (Trelegy Ellipta) potassium chloride 10 mEq See Rx Instructions .Route 10/06/24 01/11/25 Rx capsule,extended release .COMPLEX #60 caps albuterol sulfate 90 mcg/actuation 2 inh inhalation QID PRN shortness 10/30/24 01/11/25 Rx aerosol inhaler of breath or wheezing 90 days #8.5 grams carvedilol 12.5 mg tablet 12.5 mg PO BID #180 tabs 11/09/24 01/11/25 Rx isosorbide mononitrate 30 mg 30 mg PO DAILY #90 tabs 11/10/24 01/11/25 Rx tablet,extended release 24 hr pregabalin 75 mg capsule 75 mg PO BID #60 caps 11/17/24 01/11/25 Rx ipratropium 0.5 mg-albuterol 3 mg 3 ml inhalation QID PRN shortness 12/11/24 01/11/25 Rx (2.5 mg base)/3 mL nebulization of breath or wheezing 90 days #270 soln mL empagliflozin 10 mg tablet 10 mg PO DAILY #90 tabs 01/10/25 01/11/25 Rx (Jardiance) bumetanide 2 mg tablet 2 mg PO BID 01/11/25 01/11/25 History New Prescriptions to Start Prescriptions: Allergies Allergy/AdvReac Type Severity Reaction Status Date / Time bupropion (From Wellbutrin) Allergy Intermediate Other Verified 01/11/25 17:53 ciprofloxacin Allergy Intermediate Hives Verified 01/11/25 17:53 gabapentin Allergy Unknown WEAKNESS Verified 01/11/25 17:53 ibuprofen Allergy Unknown SHAKEY Verified 01/11/25 17:53 tiotropium Allergy Unknown WEAKNESS Verified 01/11/25 17:53 Exam Data for Last 24 hours Vital signs and Labs for Last 24 Hours: Temp Pulse Resp BP Pulse Ox O2 Del Method 98.6 F 71 25 H 133/68 96 Room Air 01/11/25 13:21 01/11/25 15:30 01/11/25 15:30 01/11/25 15:30 01/11/25 15:30 01/11/25 15:30 Laboratory Results - last 24 hr 01/11/25 13:40: WBC 11.7 H, RBC 4.89, Hgb 13.3, Hct 40.6, MCV 83.0, MCH 27.2, MCHC 32.8, RDW 15.7, Plt Count 165, MPV 12.9 H, Neut % (Auto) 71.3, Lymph % (Auto) 17.1, [place] % (Auto) 9.9 H, Eos % (Auto) 1.0, Baso % (Auto) 0.4, Neut # (Auto) 8.4 H, Lymph # (Auto) 2.0, [place] # (Auto) 1.2 H, Eos # (Auto) 0.1, Baso # (Auto) 0.1, Sodium 137, Potassium 3.9, Chloride 102, Carbon Dioxide 25, Anion Gap 13.9, BUN 20 H D, Creatinine 0.90 D, Estimated Creat Clear 50, Estimated GFR 60, Est GFR ( Amer) 73 D, Glucose 123 H, Calcium 8.8, Total Bili roberts 0.4, AST 28, ALT 23, Alkaline Phosphatase 105, Troponin I < 0.01, NT-Pro-B Natriuret Pep 1040 H, Total Protein 7.0, Albumin 3.8, Globulin 3.2, Albumin/Globulin Ratio 1.2, Procalcitonin 0.068 01/11/25 14:03: VBG pH 7.49 H, VBG pCO2 33.0 L, VBG pO2 86.0 H, VBG HCO3 24.8, VBG Total CO2 25.8, VBG O2 Saturation 97.2 H, VBG Base Excess 1.5, VBG Lactic Acid 1.6 I & O for Last 24 hours: Intake & Output 01/08/25 01/09/25 01/10/25 01/11/25 23:59 23:59 23:59 23:59 Weight 69.4 kg Constitutional Constitutional: moderate distress, average body habitus, chronically ill appearing and cooperative *Routine HEENT Exam Head: Present normocephalic Eye: Present EOMI and PERRL ENT: Present mucous membranes moist *Routine Neck Exam Neck: Present supple; Absent lymphadenopathy *Routine Respiratory Exam Respiratory: Present prolonged expiratory phase, wheezes and crackles; Absent accessory muscle use or rhonchi *Routine Cardiovascular Exam Cardiovascular: Present RRR *Routine Abdominal Exam Abdominal: Present soft, normoactive bowel sounds and distended; Absent tenderness *Routine Rectal Exam Rectal:: deferred *Routine Genitalia Exam Genitalia:: deferred *Routine Extremities Exam Extremities: Present edema (2+ to thighs ); Absent cyanosis or clubbing *Routine Skin Exam Skin: Present intact, erythema (Lower extremities consistent with edema and stasis) and warm; Absent rash *Routine Neurological Exam Neurological: Present alert, oriented X3 and moving all extremities; Absent altered mental status Detailed Respiratory Exam bilateral: Comments: decreased breathing sounds b/l, wheezing noted Assessment and Plan *Assessment and plan (1) CHF (congestive heart failure): Status: Acute Qualifiers: Heart failure chronicity: acute on chronic Heart failure type: diastolic Qualified Code(s): I50.33 - Acute on chronic diastolic (congestive) heart failure Category: Medical Code(s): I50.9 - Heart failure, unspecified (2) Acute exacerbation of chronic obstructive pulmonary disease: Status: Acute Category: Medical Code(s): J44.1 - Chronic obstructive pulmonary disease with (acute) exacerbation (3) COPD (chronic obstructive pulmonary disease) with acute bronchitis: Status: Acute Category: Medical Code(s): J44.0 - Chronic obstructive pulmonary disease with (acute) lower respiratory infection; J20.9 - Acute bronchitis, unspecified (4) Edema: Status: Acute Qualifiers: Edema type: unspecified Qualified Code(s): R60.9 - Edema, unspecified Category: Medical Code(s): R60.9 - Edema, unspecified (5) SOB (shortness of breath): Status: Acute Category: Medical Code(s): R06.02 - Shortness of breath (6) Hyperlipidemia: Status: Chronic Qualifiers: Hyperlipidemia type: mixed hyperlipidemia Qualified Code(s): E78.2 - Mixed hyperlipidemia Category: Medical Code(s): E78.5 - Hyperlipidemia, unspecified (7) Tobacco dependence syndrome: Status: Chronic Category: Medical Code(s): F17.200 - Nicotine dependence, unspecified, uncomplicated (8) Acute on chronic hypoxic respiratory failure: Status: Acute Category: Medical Code(s): J96.21 - Acute and chronic respiratory failure with hypoxia Plan 79-year-old female who presents with worsening shortness of breath. Concern for CHF exacerbation given elevated BNP, chest imaging, orthopnea. Discussed case with ER physician, request admission for further management. I agreed to admit for diuresis and further monitoring. Patient's blood pressure stable. Patient does smoke a pack a day still. Received a dose of methylprednisolone in the ER. No antibiotics administered at this time. Cough nonproductive of thick sputum. Presentation most consistent with CHF versus COPD exacerbation. Problems addressed as follows: CHF exacerbation, presumed diastolic - Echo obtained in September showing normal BiV function. Mild RV dilation. No significant valvular stenosis. EF 60%. Unable to estimate RVSP. -BNP elevated at 1040. Troponin -0.01. Pro-Sami 0.068. Respiratory swab still pending. Chest imaging per my review showing bilateral lower lobe edema and cephalization of pulmonary vasculature. Presentation most consistent with CHF exacerbation. COPD exacerbation component also concerning. -Increased oxygen requirement from baseline necessitating 3 L for appropriate saturations. Normally wears 2 L. Dyspnea with exertion and orthopnea present on exam -White count 11.7. Repeat CBC, CMP, magnesium ordered for the morning -Aggressive diuresis, 80 mg Lasix once in the ER. Monitor for negative fluid status and improvement in breathing - electrolytes normal with potassium 3.9, kidney function normal with BUN 20, creatinine 0.9. Sodium 137. - Patient on Bumex 2 mg twice daily p.o. at home. Increased today. Will transition to milligrams Bumex IV twice daily starting in the morning - Continue carvedilol 12.5 mg twice daily. Empagliflozin 10 mg daily, iso sorbide mononitrate 30 mg daily -Holding amlodipine in the setting of edema and normotensive state -Eliquis 5 mg twice daily COPD: Continue Trelegy 100 inhaler and DuoNebs every 6 hours scheduled. Deep steroids in the ER. Hold on further steroids or antibiotics. Monitor for response to diuresis Neuropathy: Continue Lyrica 75 mg twice daily Hyperlipidemia: Continue Crestor 20 mg daily Full code Cardiac diet Eliquis 5 mg twice daily
--- NOTE | 2025-01-11 15:58 | PC.NURSE ---
placed purwick on patient
--- NOTE | 2025-01-11 16:39 | PC.NURSE ---
called for bed assignment by distribution warehouse manager
[2025-01-11 17:19] LABS: Troponin I < 0.01 ng/ml (0.00-0.034)
--- NOTE | 2025-01-11 18:15 | PC.NURSE ---
Patient states she took her AM meds prior to arrival. MD aware of patients elevated HR and BP. No new orders at this time.
[2025-01-11] MEDS: IPRATROPIUM/ALBUTEROL 3 ML NEB IH (18:31)
[2025-01-11 20:49] LABS: Troponin I < 0.01 ng/ml (0.00-0.034)
[2025-01-11] MEDS: PATIENT'S OWN HOME MEDICATION (Pregabalin 75 mg capsule) 75 EACH PO (21:16)
[2025-01-11] MEDS: ATORVASTATIN 40MG TABLET 40 MG PO (21:16)
[2025-01-11] MEDS: APIXABAN 5MG TABLET 5 MG PO (21:16)
[2025-01-11] MEDS: CARVEDILOL 12.5MG TABLET 12.5 MG PO (21:16)
--- NOTE | 2025-01-11 22:17 | PC.NURSE ---
Pt has had no recorded output thus far since admission to ER @ approx 1400, despite diuretic. Bladder scanned per MD. Results of 282 ml. MD aware.
[2025-01-12] VITALS (13 sets, daily range): BP systolic 120–152; BP diastolic 65–83; PULSE 54–99; RESP 16–20; TEMP 36.4–36.7; O2SAT 90–99; BMI 25.2
[2025-01-12] MEDS: IPRATROPIUM/ALBUTEROL 3 ML NEB IH ×4 (00:04→18:35)
--- NOTE | 2025-01-12 04:05 | PC.NURSE ---
Pt is currently tolerating 2LNC well at this time. Pt has wore her CPAP for most of the shift. Pt is NPO and has been since 0000 due to US in am. Pt has had 300ml out so far this shift. Pt denies pain and needs at this time. Pt has had no other acute changes to note this shift. Call light is within reach.
--- NOTE | 2025-01-12 06:00 | US_ITS ---
FINAL REPORT CLINICAL HISTORY: Evaluate liver and abdomen distension COMPARISON: None FINDINGS: Sonographic images of the right upper quadrant were obtained. The pancreas is partially obscured. The liver has an unremarkable appearance. Patient is status post cholecystectomy. There is no evidence of biliary ductal dilatation or biliary obstruction. The common duct measures 7 mm. Mild renal atrophy is noted. There is a right renal cyst. IMPRESSION: Unremarkable appearance of the liver without evidence of biliary obstruction. No significant ascites. Reviewed, Interpreted and Dictated by Jaylin Flor MD Transcribed by Annie Martínez Authenticated and [facility]
[2025-01-12 07:02] LABS: Hematocrit 39.5 % (37.0-47.0); Lymphocytes % 11.8 % (10-50); Mean Corpuscular HGB Conc 32.9 g/dL (31.8-35.4); Mean Corpuscular Hemoglobin 27.1 pg (27.0-31.2); Mean Corpuscular Volume 82.5 fl (81-99); Mean Platelet Volume 12.8 fl (7.4-10.4); Monocytes # 0.1 K/mm3 (0.1-1.0); Monocytes % 0.8 % (1.7-9.3); Neutrophils # 7.6 K/mm3 (1.8-7.8); Neutrophils % 86.8 % (37.0-80.0); Platelet Count 174 K/mm3 (142-424); Red Blood Count 4.79 M/mm3 (4.20-5.40); Red Cell Distribution Width 15.1 % (11.5-17.5); White Blood Count 8.8 K/mm3 (4.8-10.8)
[2025-01-12 07:10] LABS: Alanine Aminotransferase 22 U/L (12-78); Albumin Level 3.6 g/dl (3.5-5.0); Albumin/Globulin Ratio 1.2 (1.1-1.8); Alkaline Phosphatase 106 U/L (38-126); Anion Gap 11.7 mEq/L (5-15); Aspartate Amino Transferase 23 U/L (14-36); Bilirubin,Total 0.2 mg/dl (0.2-1.3); Blood Urea Nitrogen 30 mg/dl (7-17); Calcium 9.1 mg/dl (8.4-10.2); Carbon Dioxide 28 mmol/L (22.0-30.0); Chloride 101 mmol/L (98-107); Chol/HDL Ratio 5.1 (1-3.5); Cholesterol 137 mg/dl (140-200); Creatinine Clearance Estimated 41 mL/min (50-200); Estimated Glomerular Filt Rate 43 ml/min (>60); GFR (African American) 52 ML/MIN (>60); Globulin 3.1 g/dL (1.3-3.2); Glucose 211 mg/dl (74-100); HDL Cholesterol 27 mg/dl (40-60); Potassium 3.7 mmoL/L (3.5-5.1); Sodium 137 mmol/L (136-145); Total Protein,Serum 6.7 g/dl (6.3-8.2); Triglycerides 81 mg/dl (30-150); VLDL Cholesterol 16 mg/dL (0-40)
[2025-01-12 08:16] LABS: Direct LDL Cholesterol 74.07 mg/dL (100-129)
--- NOTE | 2025-01-12 08:51 | P.CONPHA_ITS ---
Pharmacy Intervention Comments: MEDICATION RECONCILIATION COMPLETED ON PATIENT USING EXTERNAL FILL HISTORY FROM PHARMACY AND [facility] CARDIOLOGY OFFICE. -SHALONDA MOLINA, SHEKHARD
--- NOTE | 2025-01-12 08:51 | HMH.PHAINT1 ---
Pharmacy Intervention Comments: MEDICATION RECONCILIATION COMPLETED ON PATIENT USING EXTERNAL FILL HISTORY FROM PHARMACY AND [facility] CARDIOLOGY OFFICE. -SHALONDA MOLINA, SHEKHARD
[2025-01-12] MEDS: FLUTICASONE/UMECLIDIN/VILANTER 100/62.5/25MCG INHALER 1 PUFF IH (09:08)
[2025-01-12] MEDS: APIXABAN 5MG TABLET 5 MG PO ×2 (09:50→21:00)
[2025-01-12] MEDS: EMPAGLIFLOZIN 10MG TABLET 10 MG PO (09:50)
[2025-01-12] MEDS: ISOSORBIDE MONO 30MG TAB.ER.24H 30 MG PO (09:50)
[2025-01-12] MEDS: DOXYCYCLINE HYCL 100 MG TABLET PO ×2 (09:50→21:00)
[2025-01-12] MEDS: BUMETANIDE 1MG/4ML VIAL 2 MG IV ×2 (09:50→17:47)
[2025-01-12] MEDS: CARVEDILOL 12.5MG TABLET 12.5 MG PO ×2 (09:50→21:00)
[2025-01-12] MEDS: PREGABALIN 25MG CAPSULE 75 MG PO ×2 (09:53→21:00)
--- NOTE | 2025-01-12 09:54 | P.PN_ITS ---
Subjective *Date: 01/12/25 *Time: 10:20 Interval history: Patient states she is feeling little bit better but still not well today. Afebrile. On 2 L oxygen. Significant wheeze on exam. Wore CPAP through most of the night. Denies chest pain, nausea, vomiting. Has had good urine output that it appears was not all documented. Some improvement in edema in the legs. Awaiting ultrasound of abdomen. Medical Exam Vital signs and Labs for Last 24 Hours: Vital Signs Temp Pulse Pulse Resp BP BP Pulse Ox 01/12/25 09:12 93 L 01/12/25 08:00 97.6 F 99 H 20 120/77 93 L 01/12/25 06:59 01/12/25 06:07 87 01/12/25 06:07 88 01/12/25 06:07 95 01/12/25 05:00 01/12/25 04:00 97.6 F 87 16 125/83 96 01/12/25 04:00 80 01/12/25 03:00 01/12/25 02:05 01/12/25 00:53 01/12/25 00:04 92 H 01/12/25 00:04 95 H 01/12/25 00:00 99 01/12/25 00:00 85 01/12/25 00:00 98.1 F 54 L 18 133/65 99 01/11/25 23:00 01/11/25 21:41 01/11/25 21:00 01/11/25 20:00 01/11/25 20:00 95 H 01/11/25 20:00 98.8 F 97 H 18 126/59 L 99 01/11/25 19:16 01/11/25 18:43 01/11/25 18:31 92 H 01/11/25 18:31 91 H 01/11/25 18:31 96 01/11/25 18:00 98 F 120 H 19 135/114 H 96 01/11/25 17:05 98.2 F 96 H 19 116/67 01/11/25 17:00 95 H 22 116/67 99 01/11/25 16:30 96 H 22 116/61 100 01/11/25 16:01 73 21 104/69 L 100 01/11/25 16:01 01/11/25 15:30 71 25 H 133/68 96 01/11/25 15:01 74 25 H 120/73 99 01/11/25 14:02 61 33 H 142/72 H 97 01/11/25 13:46 75 149/117 H 90 L 01/11/25 13:21 98.6 F 54 L 18 106/56 L 98 O2 Del Method O2 Flow Rate FiO2 01/12/25 09:12 Nasal Cannula 2 01/12/25 08:00 Nasal Cannula 2 01/12/25 06:59 Nasal Cannula 2 01/12/25 06:07 01/12/25 06:07 01/12/25 06:07 Nasal Cannula 2 01/12/25 05:00 Nasal Cannula 2 01/12/25 04:00 Nasal Cannula 2 01/12/25 04:00 01/12/25 03:00 Nasal Cannula 2 01/12/25 02:05 40 01/12/25 00:53 CPAP 01/12/25 00:04 01/12/25 00:04 01/12/25 00:00 CPAP 01/12/25 00:00 01/12/25 00:00 CPAP 01/11/25 23:00 Nasal Cannula 2 01/11/25 21:41 40 01/11/25 21:00 CPAP 01/11/25 20:00 CPAP 01/11/25 20:00 01/11/25 20:00 CPAP 01/11/25 19:16 40 01/11/25 18:43 Nasal Cannula 2 01/11/25 18:31 01/11/25 18:31 01/11/25 18:31 Nasal Cannula 2 01/11/25 18:00 CPAP 01/11/25 17:05 CPAP 01/11/25 17:00 01/11/25 16:30 01/11/25 16:01 01/11/25 16:01 40 01/11/25 15:30 Room Air 01/11/25 15:01 01/11/25 14:02 01/11/25 13:46 01/11/25 13:21 Room Air Intake and Output 01/11/25 01/12/25 01/12/25 23:59 07:59 15:59 Intake Total 360 / 600 240 / 240 Output Total 400 / 400 Balance 360 / 300 -160 / -160 Intake: Intake, Oral Amount 360 / 600 240 / 240 Output: Output, Urine Amount 400 / 400 Other: Number of Unmeasured Voids 0 Weight 69.4 kg 68.6 kg Patient Weight 01/12/25 23:59 Weight 68.6 kg Laboratory Results - last 24 hr 01/11/25 13:40: WBC 11.7 H, RBC 4.89, Hgb 13.3, Hct 40.6, MCV 83.0, MCH 27.2, MCHC 32.8, RDW 15.7, Plt Count 165, MPV 12.9 H, Neut % (Auto) 71.3, Lymph % (Auto) 17.1, [place] % (Auto) 9.9 H, Eos % (Auto) 1.0, Baso % (Auto) 0.4, Neut # (Auto) 8.4 H, Lymph # (Auto) 2.0, [place] # (Auto) 1.2 H, Eos # (Auto) 0.1, Baso # (Auto) 0.1, Sodium 137, Potassium 3.9, Chloride 102, Carbon Dioxide 25, Anion Gap 13.9, BUN 20 H D, Creatinine 0.90 D, Estimated Creat Clear 50, Estimated GFR 60, Est GFR ( Amer) 73 D, Glucose 123 H, Calcium 8.8, Total B ilirubin 0.4, AST 28, ALT 23, Alkaline Phosphatase 105, Troponin I < 0.01, NT-Pro-B Natriuret Pep 1040 H, Total Protein 7.0, Albumin 3.8, Globulin 3.2, Albumin/Globulin Ratio 1.2, Procalcitonin 0.068 01/11/25 14:03: VBG pH 7.49 H, VBG pCO2 33.0 L, VBG pO2 86.0 H, VBG HCO3 24.8, VBG Total CO2 25.8, VBG O2 Saturation 97.2 H, VBG Base Excess 1.5, VBG Lactic Acid 1.6 01/11/25 15:10: SARS-CoV-2 (PCR) Not detected, Influenza A Untype (PCR) Not detected, Influenza Type B (PCR) Not detected 01/11/25 16:50: Troponin I < 0.01 01/11/25 19:44: Troponin I < 0.01 01/12/25 06:11: WBC 8.8, RBC 4.79, Hgb 13.0, Hct 39.5, MCV 82.5, MCH 27.1, MCHC 32.9, RDW 15.1, Plt Count 174, MPV 12.8 H, Neut % (Auto) 86.8 H, Lymph % (Auto) 11.8, [place] % (Auto) 0.8 L, Eos % (Auto) 0.0 L, Baso % (Auto) 0.0 L, Neut # (Auto) 7.6, Lymph # (Auto) 1.0, [place] # (Auto) 0.1, Eos # (Auto) 0.0, Baso # (Auto) 0.0, Sodium 137, Potassium 3.7, Chloride 101, Carbon Dioxide 28, Anion Gap 11.7, BUN 30 H D, Creatinine 1.20 H D, Estimated Creat Clear 41, Estimated GFR 43 L, Est GFR ( Amer) 52 L D, Glucose 211 H D, Calcium 9.1, Magnesium 2.0, Total Bilirubin 0.2, AST 23, ALT 22, Alkaline Phosphatase 106, Total Protein 6.7, Albumin 3.6, Globulin 3.1, Albumin/Globulin Ratio 1.2, Triglycerides 81, Cholesterol 137 L, LDL Cholesterol Direct 74.07 L, VLDL Cholesterol 16, HDL Cholesterol 27 L, Cholesterol/HDL Ratio 5.1 H I & O for Labs for Last 24 Hours: Intake & Output 01/09/25 01/10/25 01/11/25 01/12/25 23:59 23:59 23:59 23:59 Intake Total 360 / 600 240 / 240 Output Total 400 / 400 Balance 360 / 300 -160 / -160 Weight 69.4 kg 68.6 kg Constitutional: Present no acute distress, obese, chronically ill appearing and cooperative Head: Present atraumatic and normocephalic ENT: Present normal exam Respiratory: Present prolonged expiratory phase, wheezes and normal respiratory effort; Absent rhonchi or crackles Cardiac: Present Reg Rate and Rhythm GI: Present soft, distention and normal bowel sounds; Absent tenderness, guardin g or rebound Extremities: Present normal inspection, full ROM and edema (1+ to knees. Wrinkling of skin. Improved from yesterday) Skin: Present intact; Absent erythema Neuro: Present Grossly Intact, alert, awake, oriented x 3 and moves all extremities Assessment and Plan *Assessment and plan (1) CHF (congestive heart failure): Status: Acute Qualifiers: Heart failure type: diastolic Heart failure chronicity: acute on chronic Qualified Code(s): I50.33 - Acute on chronic diastolic (congestive) heart failure Category: Medical Code(s): I50.9 - Heart failure, unspecified (2) Acute exacerbation of chronic obstructive pulmonary disease: Status: Acute Category: Medical Code(s): J44.1 - Chronic obstructive pulmonary disease with (acute) exacerbation (3) COPD (chronic obstructive pulmonary disease) with acute bronchitis: Status: Acute Category: Medical Code(s): J44.0 - Chronic obstructive pulmonary disease with (acute) lower respiratory infection; J20.9 - Acute bronchitis, unspecified (4) Edema: Status: Acute Qualifiers: Edema type: unspecified Qualified Code(s): R60.9 - Edema, unspecified Category: Medical Code(s): R60.9 - Edema, unspecified (5) SOB (shortness of breath): Status: Acute Category: Medical Code(s): R06.02 - Shortness of breath (6) Hyperlipidemia: Status: Chronic Qualifiers: Hyperlipidemia type: mixed hyperlipidemia Qualified Code(s): E78.2 - Mixed hyperlipidemia Category: Medical Code(s): E78.5 - Hyperlipidemia, unspecified (7) Tobacco dependence syndrome: Status: Chronic Category: Medical Code(s): F17.200 - Nicotine dependence, unspecified, uncomplicated (8) Acute on chronic hypoxic respiratory failure: Status: Acute Category: Medical Code(s): J96.21 - Acute and chronic respiratory failure with hypoxia Plan 79-year-old female who presents with worsening shortness of breath. Concern for CHF exacerbation given elevated BNP, chest imaging, orthopnea. Discussed case with ER physician, request admission for further management. I agreed to admit for diuresis and further monitoring. Patient's blood pressure stable. Patient does smoke a pack a day still. Received a dose of methylprednisolone in the ER. Initiate antibiotics today. Doing somewhat better today. Cards consulted to evaluate along with PT and OT. Continues to require inpatient monitoring. Anticipate discharge in the next 24 to 48 hours. Problems addressed as follows: CHF exacerbation, presumed diastolic - Echo obtained in September showing normal BiV function. Mild RV dilation. No significant valvular stenosis. EF 60%. Unable to estimate RVSP. -BNP elevated at 1040. Troponin <0.01. Pro-Sami 0.068. Respiratory swab negative for COVID and flu, - Presentation most consistent with CHF exacerbation. COPD exacerbation component also concerning. -Oxygen back to baseline. Still quite weak however. PT and OT to evaluate. -White count improved to 8.8. Hemoglobin 13, platelets 174. repeat CBC, CMP, magnesium ordered for the morning. -White count 11.7. Repeat CBC, CMP, magnesium ordered for the morning -Aggressive diuresis, 80 mg Lasix once in the ER, has had some urine output. Continue Bumex 2 mg IV twice daily. Cardiology consulted to evaluate and assist with medication optimization -Kidney function with slight bump however still appears to have some excess volume. BUN 30, creatinine 1.2. Magnesium 2.0. Potassium 3.7. Repeat BMP ordered for the afternoon. - Continue carvedilol 12.5 mg twice daily. Empagliflozin 10 mg daily, isosorbide mononitrate 30 mg daily -Holding amlodipine in the setting of edema and normotensive state -Eliquis 5 mg twice daily COPD: Continue Trelegy 100 inhaler and DuoNebs every 6 hours scheduled. Received methylprednisolone in the ER. Continue prednisone 40 mg daily for 5 days. Initiated doxycycline 100 mg twice daily due to persistent wheeze and concern for mild COPD exacerbation. On baseline oxygen today. Goal sats greater 90%. Currently on 2 L. Neuropathy: Continue Lyrica 75 mg twice daily Hyperlipidemia: Continue Crestor 20 mg daily Tobacco use disorder: Nicotine patch daily as needed, 21mg Full code Cardiac diet Eliquis 5 mg twice daily
--- NOTE | 2025-01-12 11:48 | HMH.PTEV ---
Physical Therapy Evaluation Rehab PT IP Evaluation Start: 01/12/25 09:52 Freq: ONCE Status: Active Protocol: Document 01/12/25 11:43 SJ (Rec: 01/12/25 11:48 SJ [id number]) Subjective/History History History 79-year-old female with history of COPD, CHF, lymphedema and hypertension. Continues to smoke a pack a day. On 2 L oxygen at baseline. She presented to the ER for evaluation of some abdominal distention and lower extremity swelling that has been worsening over the past 2 to 3 weeks. Patient states she is dyspneic with exertion. Unable to walk more than a few steps without having to stop due to shortness of breath. Has had to increase her oxygen to 3 L at home. Has significant orthopnea over the past month and is unable to lay flat to sleep. She reports she has a son and daughter who stay with her at home, she has a ramp to enter the home and is generally independent with all mobility at baseline without AD. Subjective Subjective Currently she reports feeling better than on admission and is agreeable to mobility assessment. Rehab PT IP Eval Objective Appearance Patient Behavior Appropriate Patient Orientation Person,Place,Time Difficulty following instructions none Speech Pattern Clear Ambulation Patient Able to Ambulate Yes Ambulation Observation IP General Gait Pattern Observation Shuffling Step Ambulation Distance (feet) 40 Ambulation Assistive Device None Ambulation Ability Supervision/Stand by Balance Ability to Arise Able, uses arms to help Sitting Balance Steady, safe Standing Balance Steady, wide stance Dynamic Sitting Balance Ability Good Dynamic Standing Balance Ability Good Transfers Bed Transfer Ability Supervision/Stand by Chair Transfer Ability Supervision/Stand by Sit to Stand Bed Transfer Ability Supervision/Stand by Sit to Stand Chair Transfer Ability Supervision/Stand by ROM All Extremities PT ROM Status WFL MMT All Extremities PT MMT WFL Rehab PT IP prob,goals,plan Problems Date of Evaluation: 01/12/25 Discharge Plan PT Discharge Plan Pt appears to be appropriate to return home once medically stable for d/c. No current inpatient therapy needs. Eval Complexity Eval Charge Codes 20552 - High Complexity PHYSICIAN CERTIFICATION: I certify the specified therapy services for Jessica Payton are required, authorized, and reviewed every 30 days.
--- NOTE | 2025-01-12 13:58 | EXP.CARD.CON ---
History of Present Illness History of Present Illness Consult date: 01/12/25 Requesting physician: Bolivar Mercado Consult reason: shortness of breath Chief complaint: SOA, edema Additional 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:: 1. Coronary artery disease A. [facility], 04/2020, DUNG to RCA B. [facility], 11/12/2023, severe stenosis of ostial segment of the first diagonal artery otherwise mild CAD of the major vessels. EF 65%. LVEDP 10 to 15 mmHg. 2. Continued tobacco use A. COPD with PFTs, 06/2020 showing moderate to severe emphysema B. Overnight oximetry study, 2023, severe hypoxia C. Followed by Dr. Vargas 3. Hypertension with hypertensive heart disease/diastolic dysfunction A. Echo, 2019, EF 55%, grade 1 DD, mild MR/TR, RVSP 42 mmHg. Mild concentric LVH. B. Echo, 11/2023, normal biventricular systolic function with no significant valve disease. 4. Hyperlipidemia 5. Pacemaker in situ placed 01/04/2021 for sick sinus syndrome with pauses greater than 4 seconds A. Paroxysmal A-fib noted on download early 2023, started on Eliquis 6. EGD, 10/2021, moderate sliding hiatal hernia noted with diffuse gastritis. 7. Laparoscopic cholecystectomy, 01/2021 8. [facility], mild to moderate, 03/2021 9. Colonoscopy, 2022, Dr. Unger, sigmoid diverticulosis otherwise normal. History of present illness: 79-year-old white female well-known to our clinic admitted for worsening shortness of breath and lower extremity edema. Patient has longstanding COPD, coronary artery for which medical therapy recommended and hypertension with component of HFpEF. Patient was admitted for increasing shortness of breath and lower extremity edema despite recent increase in outpatient oral diuretics. Troponins normal this admission NT proBNP 1040 on admission with no evidence of effusion on chest x-ray. [facility] Disclaimer: The information contained in this section may have been updated after the patient was seen, as this information can be updated by other users. 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 Endometrial thickening on ultrasound COPD (chronic obstructive pulmonary disease) with acute bronchitis Edema SOB (shortness of breath) Kidney lesion, [place], left Diverticulitis Stenosis of carotid artery Multiple lung nodules on CT Screening for lung cancer COPD (chronic obstructive pulmonary disease) Pulmonary emphysema Smoking greater than 30 pack years Dyspnea on exertion Tobacco abuse disorder Tobacco abuse counseling Pain of left calf Left hip pain Left leg pain Restless leg syndrome Lumbar radiculopathy Degenerative disc disease, lumbar Lumbar radicular syndrome Acute on chronic diastolic congestive heart failure, NYHA class 3 Dizziness Urticaria Epigastric pain Preop cardiovascular exam Coronary artery disease Cardiac pacemaker in situ Dyspnea Abnormal echocardiogram Cough Angina pectoris Palpitations Chronic obstructive lung disease Surgical History History of bilateral tubal ligation History of cholecystectomy History of permanent cardiac pacemaker placement Family History Mother Colon cancer Brother Lung cancer Other Cancer Diabetes Family history of myocardial infarction Stroke 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 Smoking Status: Current every day smoker tobacco type: cigarettes packs per day: 1 second hand exposure: Yes alcohol intake: never substance use type: denies use current occupational status: retired Travel in the last 8 weeks: None household members: family housing: house lives independently: No education level: elementary school service: No prison: No 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es/hazards: No caffeine: Yes Review of Systems Review of Systems Review of systems:: pertinent systems reviewed and negative unless documented below *Cardiovascular Cardiovascular: Reports chest pain and Reports dyspnea *Respiratory Respiratory: Reports dyspnea Exam Data for Last 24 hours Vital signs and Labs for Last 24 Hours: Temp Pulse Resp BP Pulse Ox O2 Del Method O2 Flow Rate 97.6 F 80 20 120/77 90 L Nasal Cannula 2 01/12/25 08:00 01/12/25 12:07 01/12/25 08:00 01/12/25 08:00 01/12/25 11:22 01/12/25 11:22 01/12/25 11:22 FiO2 40 01/12/25 02:05 Laboratory Results - last 24 hr 01/11/25 13:40: Sodium 137, Potassium 3.9, Chloride 102, Carbon Dioxide 25, Anion Gap 13.9, BUN 20 H D, Creatinine 0.90 D, Estimated Creat Clear 50, Estimated GFR 60, Est GFR ( Amer) 73 D, Glucose 123 H, Calcium 8.8, Total Bilirubin 0.4, AST 28, ALT 23, Alkaline Phosphatase 105, Troponin I < 0.01, NT-Pro-B Natriuret Pep 1040 H, Total Protein 7.0, Albumin 3.8, Globulin 3.2, Albumin/Globulin Ratio 1.2, Procalcitonin 0.068 01/11/25 14:03: VBG pH 7.49 H, VBG pCO2 33.0 L, VBG pO2 86.0 H, VBG HCO3 24.8, VBG Total CO2 25.8, VBG O2 Saturation 97.2 H, VBG Base Excess 1.5, VBG Lactic Acid 1.6 01/11/25 15:10: SARS-CoV-2 (PCR) Not detected, Influenza A Untype (PCR) Not detected, Influenza Type B (PCR) Not detected 01/11/25 16:50: Troponin I < 0.01 01/11/25 19:44: Troponin I < 0.01 01/12/25 06:11: WBC 8.8, RBC 4.79, Hgb 13.0, Hct 39.5, MCV 82.5, MCH 27.1, MCHC 32.9, RDW 15.1, Plt Count 174, MPV 12.8 H, Neut % (Auto) 86.8 H, Lymph % (Auto) 11.8, [place] % (Auto) 0.8 L, Eos % (Auto) 0.0 L, Baso % (Auto) 0.0 L, Neut # (Auto) 7.6, Lymph # (Auto) 1.0, [place] # (Auto) 0.1, Eos # (Auto) 0.0, Baso # (Auto) 0.0, Sodium 137, Potassium 3.7, Chloride 101, Carbon Dioxide 28, Anion Gap 11.7, BUN 30 H D, Creatinine 1.20 H D, Estimated Creat Clear 41, Estimated GFR 43 L, Est GFR ( Amer) 52 L D, Glucose 211 H D, Calcium 9.1, Magnesium 2.0, Total Bilirubin 0.2, AST 23, ALT 22, Alkaline Phosphatase 106, Total Protein 6.7, Albumin 3.6, Globulin 3.1, Albumin/Globulin Ratio 1.2, Triglycerides 81, Cholesterol 137 L, LDL Cholesterol Direct 74.07 L, VLDL Cholesterol 16, HDL Cholesterol 27 L, Cholesterol/HDL Ratio 5.1 H I & O for Last 24 hours: Intake & Output 01/10/25 01/11/25 01/12/25 01/13/25 11:59 11:59 11:59 11:59 Intake Total 600 / 600 240 / 240 Output Total 400 / 400 Balance 200 / 200 240 / 240 Weight 151 lb 3.794 oz Constitutional Constitutional: no acute distress *Routine Respiratory Exam Respiratory: Present decreased breath sounds and wheezes; Absent rhonchi *Routine Cardiovascular Exam Cardiovascular: Present RRR; Absent murmur, gallop or rubs *Routine Extremities Exam Extremities: Present edema Meds Home Medications and Allergies Home Medications ?Medication ?Instructions ?Recorded ?Confirmed ?Type amlodipine 5 mg tablet 5 mg PO DAILY #90 tabs 07/26/24 01/11/25 Rx apixaban 5 mg tablet (Eliquis) 5 mg PO BID #180 tabs 07/26/24 01/11/25 Rx rosuvastatin 20 mg tablet 20 mg PO DAILY #90 tabs 07/26/24 01/11/25 Rx ammonium lactate 12 % topical cream 1 applic topical BID dry skin, 08/04/24 01/11/25 Rx callus care #385 grams fluticasone fur. 100 mcg-umeclid 1 inh inhalation DAILY 90 days #90 09/19/24 01/11/25 Rx 62.5 mcg-vilant 25 mcg ea inhalat.powder (Trelegy Ellipta) albuterol sulfate 90 mcg/actuation 2 inh inhalation QID PRN shortness 10/30/24 01/11/25 Rx aerosol inhaler of breath or wheezing 90 days #8.5 grams carvedilol 12.5 mg tablet 12.5 mg PO BID #180 tabs 11/09/24 01/11/25 Rx isosorbide mononitrate 30 mg 30 mg PO DAILY #90 tabs 11/10/24 01/11/25 Rx tablet,extended release 24 hr pregabalin 75 mg capsule 75 mg PO BID #60 caps 11/17/24 01/11/25 Rx ipratropium 0.5 mg-albuterol 3 mg 3 ml inhalation QID PRN shortness 12/11/24 01/11/25 Rx (2.5 mg base)/3 mL nebulization of breath or wheezing 90 days #270 soln mL empagliflozin 10 mg tablet 10 mg PO DAILY #90 tabs 01/10/25 01/11/25 Rx (Jardiance) bumetanide 2 mg tablet 2 mg PO BID 01/11/25 01/12/25 History New Prescriptions to Start Prescriptions: Allergies Allergy/AdvReac Type Severity Reaction Status Date / Time bupropion (From Wellbutrin) Allergy Intermediate Other Verified 01/11/25 17:53 ciprofloxacin Allergy Intermediate Hives Verified 01/11/25 17:53 gabapentin Allergy Unknown WEAKNESS Verified 01/11/25 17:53 ibuprofen Allergy Unknown SHAKEY Verified 01/11/25 17:53 tiotropium Allergy Unknown WEAKNESS Verified 01/11/25 17:53 Assessment and Plan *Assessment and plan (1) (HFpEF) heart failure with preserved ejection fraction: Status: Acute Qualifiers: Heart failure chronicity: acute on chronic Qualified Code(s): I50.33 - Acute on chronic diastolic (congestive) heart failure Category: Medical Code(s): I50.30 - Unspecified diastolic (congestive) heart failure (2) COPD exacerbation: Status: Acute Category: Medical Code(s): J44.1 - Chronic obstructive pulmonary disease with (acute) exacerbation (3) Acute on chronic hypoxic respiratory failure: Status: Acute Category: Medical Code(s): J96.21 - Acute and chronic respiratory failure with hypoxia (4) Tobacco dependence syndrome: Status: Chronic Category: Medical Code(s): F17.200 - Nicotine dependence, unspecified, uncomplicated (5) Hyperlipidemia: Status: Chronic Qualifiers: Hyperlipidemia type: mixed hyperlipidemia Qualified Code(s): E78.2 - Mixed hyperlipidemia Category: Medical Code(s): E78.5 - Hyperlipidemia, unspecified Plan 1. HFpEF, acute on chronic exacerbation -IV diuresis with fluid optimization -continue Jardiance 2. COPD with acute on chronic hypoxic respiratory failure -On Trelegy, DuoNeb and prednisone -On Vibra-Tabs 3. Coronary artery disease -Clinically stable -Continue carvedilol, isosorbide and atorvastatin 4. Pacemaker in situ with history of A-fib -Continue Eliquis No plans for procedures. Likely able to discharge after IV diuresis over a couple of days. Resume home meds at discharge (recently started on Jardiance and ozempic). Consider ARB therapy at followup. Keep follow up in office as scheduled.
--- NOTE | 2025-01-12 18:14 | PC.NURSE ---
Pt alert and oriented x4. She is on 2L NC. She was placed on a cardiac diet and is tolerating this well. Pt has been voiding via purewick but was able to get up with assist x1 and shower today. Pt did get pretty SOB while showering. Pt resting in bed with family at bedside. Call light in reach.
[2025-01-12] MEDS: ATORVASTATIN 40MG TABLET 40 MG PO (21:00)
[2025-01-13] VITALS (7 sets, daily range): BP systolic 122–157; BP diastolic 65–77; PULSE 70–100; RESP 18–19; TEMP 36.6–36.7; O2SAT 95–98; BMI 24.1
[2025-01-13] MEDS: IPRATROPIUM/ALBUTEROL 3 ML NEB IH ×3 (00:40→10:54)
[2025-01-13] MEDS: PANTOPRAZOLE 40MG TABLET 40 MG PO (01:14)
--- NOTE | 2025-01-13 04:19 | PC.NURSE ---
Pt is A/O X 4 . VS have been WNL for pt. 02 sats remain above 90 % with pt on 2 liters/nc continuous. Pt has rested well most of the shift. She did complain of heartburn and was given Pantoprazole after consulting with NP. Gutierrez in place, no BM this shift.
[2025-01-13] MEDS: FLUTICASONE/UMECLIDIN/VILANTER 100/62.5/25MCG INHALER 1 PUFF IH (05:55)
[2025-01-13] MEDS: predniSONE 20MG TAB 40 MG PO (08:57)
[2025-01-13] MEDS: DOXYCYCLINE HYCL 100 MG TABLET PO (08:57)
[2025-01-13] MEDS: EMPAGLIFLOZIN 10MG TABLET 10 MG PO (08:57)
[2025-01-13] MEDS: PREGABALIN 25MG CAPSULE 75 MG PO (08:57)
[2025-01-13] MEDS: BUMETANIDE 1MG/4ML VIAL 2 MG IV (08:57)
[2025-01-13] MEDS: CARVEDILOL 12.5MG TABLET 12.5 MG PO (08:57)
[2025-01-13] MEDS: ISOSORBIDE MONO 30MG TAB.ER.24H 30 MG PO (08:57)
[2025-01-13] MEDS: APIXABAN 5MG TABLET 5 MG PO (08:57)
[2025-01-13 09:19] LABS: Basophils % 0.1 % (0.1-2.0); Eosinophils % 0.1 % (0.1-12.0); Hematocrit 40.7 % (37.0-47.0); Hemoglobin 13.3 g/dL (12.2-16.2); Lymphocytes # 2.1 K/mm3 (0.7-4.5); Mean Corpuscular HGB Conc 32.7 g/dL (31.8-35.4); Mean Corpuscular Hemoglobin 27.4 pg (27.0-31.2); Mean Corpuscular Volume 83.7 fl (81-99); Mean Platelet Volume 12.9 fl (7.4-10.4); Monocytes # 0.8 K/mm3 (0.1-1.0); Monocytes % 5.1 % (1.7-9.3); Neutrophils # 12.1 K/mm3 (1.8-7.8); Neutrophils % 80.4 % (37.0-80.0); Platelet Count 168 K/mm3 (142-424); Red Blood Count 4.86 M/mm3 (4.20-5.40); Red Cell Distribution Width 15.4 % (11.5-17.5)
[2025-01-13 09:28] LABS: Alanine Aminotransferase 25 U/L (12-78); Albumin Level 3.8 g/dl (3.5-5.0); Albumin/Globulin Ratio 1.3 (1.1-1.8); Alkaline Phosphatase 104 U/L (38-126); Anion Gap 10.5 mEq/L (5-15); Aspartate Amino Transferase 27 U/L (14-36); Bilirubin,Total 0.3 mg/dl (0.2-1.3); Blood Urea Nitrogen 40 mg/dl (7-17); Calcium 8.6 mg/dl (8.4-10.2); Carbon Dioxide 28 mmol/L (22.0-30.0); Chloride 100 mmol/L (98-107); Creatinine Clearance Estimated 43 mL/min (50-200); Estimated Glomerular Filt Rate 48 ml/min (>60); GFR (African American) 58 ML/MIN (>60); Glucose 185 mg/dl (74-100); Magnesium 1.9 mg/dl (1.6-2.3); Potassium 3.5 mmoL/L (3.5-5.1); Sodium 135 mmol/L (136-145); Total Protein,Serum 6.8 g/dl (6.3-8.2)
[2025-01-13 09:37] LABS: MANUAL DIFFERENTIAL MANUAL DIFFERENTIAL (MANUAL DIFF)
--- NOTE | 2025-01-13 14:44 | EXP.DC.SUM ---
General Admission date:: 01/11/25 HPI HPI HPI: Ms. Payton is a 79-year-old female with history of COPD, CHF, lymphedema and hypertension. Continues to smoke a pack a day. On 2 L oxygen at baseline. She presented to the ER for evaluation of some abdominal distention and lower extremity swelling that has been worsening over the past 2 to 3 weeks. Patient states she is dyspneic with exertion. Unable to walk more than a few steps without having to stop due to shortness of breath. Has had to increase her oxygen to 3 L at home. Has significant orthopnea over the past month and is unable to lay flat to sleep. Sitting propped up on evaluation today. Workup in the ER concerning for elevated BNP over thousand, chest x-ray with bilateral lower lobe edema. White count marginally elevated 11.7. Kidney function normal with normal electrolytes. Due to respiratory distress, medicine was consulted for admission and further management of CHF exacerbation. At time of evaluation, patient has been placed on CPAP for respiratory comfort. She had received a dose of IV diuretics. Satting appropriately on noninvasive positive pressure ventilation. Able to complete sentence during session has been at night helps history. No nausea or vomiting. Complains of some tightness with breathing. Alert and oriented x 3 Hospital Course Hospital Course Hospital Course: Jessica Payton is a 79-year-old female who presents with worsening shortness of breath and admitted for HFpEF, COPD exacerbation. #Acute HFpEF exacerbation #COPD exacerbation ? Initial BNP 1040, with signs of volume overload. Also had moderate wheezing. VBG reassuring for acute CO2 retention. ? Mini respiratory panel negative for influenza, COVID-19. CXR did not show signs of pneumonia. ? Clinically improved with IV Bumex diuresis, DuoNebs, Pulmicort, steroids, antibiotics. ? ECHO September 2024 showed normal biventricular systolic function. ? Requiring 2 to 3 L nasal cannula, saturating 86% on room air at rest. Baseline 2 L at home at night. ? Discharged with Bumex 2 mg twice daily, prednisone, doxycycline. ? Will follow-up with cardiology within 2 weeks. Neuropathy: Continue Lyrica 75 mg twice daily Hyperlipidemia: Continue Crestor 20 mg daily Tobacco use disorder: Nicotine patch daily as needed, 21mg Exam Data for Last 24 hours Vital signs and Labs for Last 24 Hours: Temp Pulse Resp BP Pulse Ox O2 Del Method O2 Flow Rate 97.8 F 83 18 122/69 96 Nasal Cannula 2 01/13/25 12:00 01/13/25 12:00 01/13/25 12:00 01/13/25 12:00 01/13/25 12:00 01/13/25 12:00 01/13/25 12:00 FiO2 40 01/12/25 02:05 Laboratory Results - last 24 hr 01/13/25 08:31: WBC 15.0 H D, RBC 4.86, Hgb 13.3, Hct 40.7, MCV 83.7, MCH 27.4, MCHC 32.7, RDW 15.4, Plt Count 168, MPV 12.9 H, Neut % (Auto) 80.4 H, Lymph % (Auto) 14.0, [place] % (Auto) 5.1, Eos % (Auto) 0.1, Baso % (Auto) 0.1, Neut # (Auto) 12.1 H, Lymph # (Auto) 2.1, [place] # (Auto) 0.8, Eos # (Auto) 0.0, Baso # (Auto) 0.0, Sodium 135 L, Potassium 3.5, Chloride 100, Carbon Dioxide 28, Anion Gap 10.5, BUN 40 H D, Creatinine 1.10 H, Estimated Creat Clear 43, Estimated GFR 48 L, Est GFR ( Amer) 58 L, Glucose 185 H, Calcium 8.6, Magnesium 1.9, Total Bilirubin 0.3, AST 27, ALT 25, Alkaline Phosphatase 104, Total Protein 6.8, Albumin 3.8, Globulin 3.0, Albumin/Globulin Ratio 1.3 I & O for Last 24 hours: Intake & Output 01/10/25 01/11/25 01/12/25 01/13/25 23:59 23:59 23:59 23:59 Intake Total 360 / 600 720 / 720 480 / 480 Output Total 900 / 900 0 / 0 Balance 360 / 300 -180 / -180 480 / 480 Weight 69.4 kg 68.6 kg 65.8 kg Constitutional Constitutional: no acute distress *Routine HEENT Exam Head: Present normocephalic Eye: Present EOMI and PERRL ENT: Present mucous membranes moist *Routine Neck Exam Neck: Present supple; Absent lymphadenopathy *Routine Respiratory Exam Respiratory: Present CTA bilaterally *Routine Cardiovascular Exam Cardiovascular: Present RRR *Routine Abdominal Exam Abdominal: Present soft and normoactive bowel sounds; Absent tenderness *Routine Extremities Exam Extremities: Absent cyanosis, clubbing or edema *Routine Skin Exam Skin: Present warm; Absent rash *Routine Neurological Exam Neurological: Present alert and oriented X3 Results Data Completed and Pending Labs on day of discharge: Labs from last 24 hours 01/13/25 08:31 WBC 15.0 H D RBC 4.86 Hgb 13.3 Hct 40.7 MCV 83.7 MCH 27.4 MCHC 32.7 RDW 15.4 Plt Count 168 MPV 12.9 H Neut % (Auto) 80.4 H Lymph % (Auto) 14.0 [place] % (Auto) 5.1 Eos % (Auto) 0.1 Baso % (Auto) 0.1 Neut # (Auto) 12.1 H Lymph # (Auto) 2.1 [place] # (Auto) 0.8 Eos # (Auto) 0.0 Baso # (Auto) 0.0 Sodium 135 L Potassium 3.5 Chloride 100 Carbon Dioxide 28 Anion Gap 10.5 BUN 40 H D Creatinine 1.10 H Estimated Creat Clear 43 Estimated GFR 48 L Est GFR ( Amer) 58 L Glucose 185 H Calcium 8.6 Magnesium 1.9 Total Bilirubin 0.3 AST 27 ALT 25 Alkaline Phosphatase 104 Total Protein 6.8 Albumin 3.8 Globulin 3.0 Albumin/Globulin Ratio 1.3 DS: Diagnosis Discharge Diagnosis (1) (HFpEF) heart failure with preserved ejection fraction: Status: Acute Code(s): I50.30 - Unspecified diastolic (congestive) heart failure Qualifiers: Heart failure chronicity: acute on chronic Qualified Code(s): I50.33 - Acute on chronic diastolic (congestive) heart failure (2) COPD exacerbation: Status: Acute Code(s): J44.1 - Chronic obstructive pulmonary disease with (acute) exacerbation (3) Acute on chronic hypoxic respiratory failure: Status: Acute Code(s): J96.21 - Acute and chronic respiratory failure with hypoxia (4) Tobacco dependence syndrome: Status: Chronic Code(s): F17.200 - Nicotine dependence, unspecified, uncomplicated (5) Hyperlipidemia: Status: Chronic Code(s): E78.5 - Hyperlipidemia, unspecified Qualifiers: Hyperlipidemia type: mixed hyperlipidemia Qualified Code(s): E78.2 - Mixed hyperlipidemia Meds Home Medications and Allergies Home Medications ?Medication ?Instructions ?Recorded ?Confirmed ?Type amlodipine 5 mg tablet 5 mg PO DAILY #90 tabs 07/26/24 01/11/25 Rx apixaban 5 mg tablet (Eliquis) 5 mg PO BID #180 tabs 07/26/24 01/11/25 Rx rosuvastatin 20 mg tablet 20 mg PO DAILY #90 tabs 07/26/24 01/11/25 Rx ammonium lactate 12 % topical cream 1 applic topical BID dry skin, 08/04/24 01/11/25 Rx callus care #385 grams fluticasone fur. 100 mcg-umeclid 1 inh inhalation DAILY 90 days #90 09/19/24 01/11/25 Rx 62.5 mcg-vilant 25 mcg ea inhalat.powder (Trelegy Ellipta) albuterol sulfate 90 mcg/actuation 2 inh inhalation QID PRN shortness 10/30/24 01/11/25 Rx aerosol inhaler of breath or wheezing 90 days #8.5 grams carvedilol 12.5 mg tablet 12.5 mg PO BID #180 tabs 11/09/24 01/11/25 Rx isosorbide mononitrate 30 mg 30 mg PO DAILY #90 tabs 11/10/24 01/11/25 Rx tablet,extended release 24 hr pregabalin 75 mg capsule 75 mg PO BID #60 caps 11/17/24 01/11/25 Rx ipratropium 0.5 mg-albuterol 3 mg 3 ml inhalation QID PRN shortness 12/11/24 01/11/25 Rx (2.5 mg base)/3 mL nebulization of breath or wheezing 90 days #270 soln mL empagliflozin 10 mg tablet 10 mg PO DAILY #90 tabs 01/10/25 01/11/25 Rx (Jardiance) doxycycline hyclate 100 mg tablet 100 mg PO BID 3 days #6 tabs 01/13/25 Rx prednisone 20 mg tablet 40 mg (2 x 20 mg) PO DAILY 4 days 01/13/25 Rx #8 tabs bumetanide 2 mg tablet See Rx Instructions .Route 01/15/25 Rx .COMPLEX #60 tabs New Prescriptions to Start Prescriptions: doxycycline hyclate Bolivar Mercado prednisone Bolivar Mercado Allergies Allergy/AdvReac Type Severity Reaction Status Date / Time bupropion (From Wellbutrin) Allergy Intermediate Other Verified 01/11/25 17:53 ciprofloxacin Allergy Intermediate Hives Verified 01/11/25 17:53 gabapentin Allergy Unknown WEAKNESS Verified 01/11/25 17:53 ibuprofen Allergy Unknown SHAKEY Verified 01/11/25 17:53 tiotropium Allergy Unknown WEAKNESS Verified 01/11/25 17:53 Discharge Plan Disposition Patient Disposition: Home, Self-Care Condition: Fair Follow up Plan Follow up with: Manuela Castillo APRN [Primary Care Provider] - 01/23/25 9:30 am Prescriptions/Medication Reconciliation: New prednisone 20 mg Tablet 40 mg PO DAILY 4 Days Qty: 8 0RF doxycycline hyclate 100 mg Tablet 100 mg PO BID 3 Days Qty: 6 0RF Continued Eliquis 5 mg tablet 5 mg PO BID Qty: 180 3RF rosuvastatin 20 mg tablet 20 mg PO DAILY Qty: 90 3RF Trelegy Ellipta 100-62.5-25 mcg blister with device 1 inh inhalation DAILY 90 Days Qty: 90 2RF ammonium lactate 12 % cream 1 applic topical BID Qty: 385 1RF Jardiance 10 mg tablet 10 mg PO DAILY Qty: 90 3RF albuterol sulfate 90 mcg/actuation HFA aerosol inhaler 2 inh inhalation QID PRN (Reason: shortness of breath or wheezing) 90 Days Qty: 8.5 2RF carvedilol 12.5 mg tablet 12.5 mg PO BID Qty: 180 3RF isosorbide mononitrate 30 mg tablet extended release 24 hr 30 mg PO DAILY Qty: 90 3RF pregabalin 75 mg capsule 75 mg PO BID Qty: 60 2RF ipratropium-albuterol 0.5 mg-3 mg(2.5 mg base)/3 mL solution for nebulization 3 ml inhalation QID PRN (Reason: shortness of breath or wheezing) 90 Days Qty: 270 3RF Held amlodipine 5 mg tablet 5 mg PO DAILY Qty: 90 3RF Hold Instructions: Resume on 01/27/25. Your blood pressures have been stable without this medication. Please hold until you speak to your PCP or forensic identification specialist. No Action bumetanide 2 mg tablet See Rx Instructions .ROUTE .COMPLEX Qty: 60 0RF Dose Instruction: Take 1 tablet by mouth twice daily Rx Instructions: Take 1 tablet by mouth twice daily Problem Reconciliation Problems Reviewed?: Yes Patient Discharge Instructions Patient Instructions: Congestive Heart Failure (Alternative Therapy), Chronic Obstructive Pulmonary Disease, Heart Failure, Lifestyle Habits May Lower Lifetime Risk of Heart Failure in Men Print Language: Estonian Providers Primary Care Provider: Manuela Castillo Provider: Austin Myers Attending Provider: Autsin Myers
[2025-01-13 15:21] LABS: Lymphocytes % 12 % (10-50); Monocytes % 6 % (2-9); Neutrophils % 82 % (42-76); Platelet Estimate Normal; RBC Morphology Normal; Total Cells Counted 100
--- NOTE | 2025-01-13 15:55 | PC.NURSE ---
Pt did a walk test with techs. When pt is ambulating with 2L of oxygen her O2 drops to 86%.
--- NOTE | 2025-01-13 16:07 | PC.NURSE ---
Pt did walk test with techs. She is on 2L NC and dropped to 86% but then recovered to 90% with a second of rest.
--- NOTE | 2025-01-15 11:29 | SW/DCPLANNER ---
Spoke with patient on the phone. Patient stated that she is doing well. Patient stated that she is going to have to change her follow up appointment because she has her heart dr at the same time. Patient stated that she was able to get her new medicine picked up. Patient stated that she would like to have a small oxygen tank since she was sent home with oxygen. Patient stated that she will call [facility] and see if they cant get her one. Patient stated that she has no concerns or questions at this time. Teressa Ferrera
== END 2025-01-13 16:30 | disposition home or self-care (01) ==
LOC: ER 13:52 → 2ND 16:47
PROVIDERS: Nurse Practitioner; Admitting Provider Internal Medicine Adolescent Medicine; Emergency Provider Emergency Medicine; PCP Nurse Practitioner Family; Visit Provider Internal Medicine Adolescent Medicine
DX: I11.0 Hypertensive heart disease with heart failure (principal); J44.1 Chronic obstructive pulmonary disease with (acute) exacerbation; I50.33 Acute on chronic diastolic (congestive) heart failure; J96.21 Acute and chronic respiratory failure with hypoxia; E78.2 Mixed hyperlipidemia; F17.210 Nicotine dependence, cigarettes, uncomplicated; G62.9 Polyneuropathy, unspecified; I89.0 Lymphedema, not elsewhere classified; G25.81 Restless legs syndrome; R91.8 Other nonspecific abnormal finding of lung field; Z80.1 Family history of malignant neoplasm of trachea, bronchus and lung; Z80.0 Family history of malignant neoplasm of digestive organs; Z82.3 Family history of stroke; Z82.49 Family history of ischemic heart disease and other diseases of the circulatory system; Z83.3 Family history of diabetes mellitus; Z79.899 Other long term (current) drug therapy; Z95.0 Presence of cardiac pacemaker; Z79.84 Long term (current) use of oral hypoglycemic drugs; Z79.02 Long term (current) use of antithrombotics/antiplatelets; Z79.51 Long term (current) use of inhaled steroids; Z88.2 Allergy status to sulfonamides; Z88.8 Allergy status to other drugs, medicaments and biological substances; Z88.6 Allergy status to analgesic agent; Z90.49 Acquired absence of other specified parts of digestive tract; Z79.85 Long-term (current) use of injectable non-insulin antidiabetic drugs; Z99.81 Dependence on supplemental oxygen
CPT/HCPCS: 94660; 36415; 71045; 76705; 80053; 80061; 82803; 83735; 83880; 84145; 84484; 85007; 85025; 85027; 87636; 93005; 94640; 94761; 97163; 99291; G0378; J1939; J1940; J2919; J7613; J7620

== ENCOUNTER 2025-01-23 09:59 | Outpatient (CLI) | payer MEDICARE, MEDICAID, SELFPAY ==
[2025-01-23 11:57] LABS: Chloride 99 mmol/L (98-107); Potassium 4.2 mmoL/L (3.5-5.1); Sodium 135 mmol/L (136-145)
[2025-01-23 12:00] LABS: Blood Urea Nitrogen 20 mg/dl (7-17); Calcium 8.7 mg/dl (8.4-10.2); Estimated Glomerular Filt Rate 60 ml/min (>60); GFR (African American) 73 ML/MIN (>60); Glucose 136 mg/dl (74-100)
[2025-01-23 14:26] LABS: Anion Gap 10.2 mEq/L (5-15); Carbon Dioxide 30 mmol/L (22.0-30.0)
== END 2025-01-23 23:59 | disposition home or self-care (01) ==
LOC: LAB 09:59
PROVIDERS: PCP Nurse Practitioner Family; Visit Provider Physician Assistant
DX: I11.0 Hypertensive heart disease with heart failure (principal); I50.33 Acute on chronic diastolic (congestive) heart failure; J44.1 Chronic obstructive pulmonary disease with (acute) exacerbation; R60.9 Edema, unspecified; R06.02 Shortness of breath; F17.210 Nicotine dependence, cigarettes, uncomplicated
CPT/HCPCS: 36415; 80048

== ENCOUNTER 2025-02-08 09:12 | Observation (INO) | payer MEDICARE, MEDICAID, SELFPAY ==
[2025-02-08] VITALS (17 sets, daily range): BP systolic 96–144; BP diastolic 47–93; PULSE 66–97; RESP 16–26; TEMP 36.6–37.2; O2SAT 87–99; BMI 36.9; BMI 37.0
--- NOTE | 2025-02-08 09:22 | ECG_ITS ---
APPROVED REPORT Exam: Resting ECG HR:85 bpm ECG Measurements Heart Rate 85 AXES MD 148 P 66 QRSd 98 QRS 17 QT 347 T 49 QTc 389 Conclusion SINUS RHYTHM NORMAL ECG No STEMI Electronically signed by : KACI ALAMO, 02/08/2025 16:17:36
--- NOTE | 2025-02-08 09:30 | XR_ITS ---
FINAL REPORT CLINICAL HISTORY: SOA COMPARISON: 01/11/2025 FINDINGS: A portable view of the chest was obtained. A left-sided pacemaker is unchanged. The heart size is normal. There are new, bibasilar opacities which could represent pulmonary edema or pneumonia. There is no pleural effusion or pneumothorax. IMPRESSION: New, bibasilar opacities could represent pulmonary edema or pneumonia. Reviewed, Interpreted and Dictated by Danya Montejo MD Transcribed by Tahira Garcia Authenticated and [facility]
--- NOTE | 2025-02-08 09:38 | PC.NURSE ---
xr at bedside
[2025-02-08 09:43] LABS: Basophils % 0.2 % (0.1-2.0); Hematocrit 35.7 % (37.0-47.0); Hemoglobin 11.9 g/dL (12.2-16.2); Lymphocytes # 1.7 K/mm3 (0.7-4.5); Lymphocytes % 15.8 % (10-50); Mean Corpuscular HGB Conc 33.3 g/dL (31.8-35.4); Mean Corpuscular Hemoglobin 27.6 pg (27.0-31.2); Mean Corpuscular Volume 82.8 fl (81-99); Mean Platelet Volume 12.3 fl (7.4-10.4); Monocytes # 1.4 K/mm3 (0.1-1.0); Monocytes % 12.8 % (1.7-9.3); Neutrophils # 7.7 K/mm3 (1.8-7.8); Neutrophils % 70.8 % (37.0-80.0); Platelet Count 148 K/mm3 (142-424); Red Blood Count 4.31 M/mm3 (4.20-5.40); Red Cell Distribution Width 15.4 % (11.5-17.5); White Blood Count 10.8 K/mm3 (4.8-10.8)
[2025-02-08 09:44] LABS: Coronavirus 19, PCR Not Detected (NotDetected); Influenza A, PCR Not Detected (NotDetected); Influenza B, PCR Not Detected (NotDetected)
[2025-02-08 09:46] LABS: Lactate Venous 1.8 mmol/L (0.4-2.0); VBG Base Excess -0.7 mmol/L (-2.4-2.3); VBG HCO3 24.2 mmol/L (23-30); VBG Oxygen Saturation 85.2 % (50-70); VBG PO2 49.1 mmol/L (28-40); VBG Total CO2 25.4 mmol/L (23-27)
[2025-02-08 09:51] LABS: Alanine Aminotransferase 21 U/L (12-78); Albumin Level 3.6 g/dl (3.5-5.0); Albumin/Globulin Ratio 1.1 (1.1-1.8); Alkaline Phosphatase 80 U/L (38-126); Anion Gap 13.6 mEq/L (5-15); Aspartate Amino Transferase 27 U/L (14-36); Bilirubin,Total 0.7 mg/dl (0.2-1.3); Blood Urea Nitrogen 24 mg/dl (7-17); Calcium 9.1 mg/dl (8.4-10.2); Carbon Dioxide 27 mmol/L (22.0-30.0); Chloride 95 mmol/L (98-107); Creatinine Clearance Estimated 66 mL/min (50-200); Estimated Glomerular Filt Rate 48 ml/min (>60); GFR (African American) 58 ML/MIN (>60); Globulin 3.4 g/dL (1.3-3.2); Glucose 148 mg/dl (74-100); Magnesium 2.2 mg/dl (1.6-2.3); Potassium 3.6 mmoL/L (3.5-5.1); Sodium 132 mmol/L (136-145)
[2025-02-08 09:55] LABS: D-Dimer 0.38 ug/mL (0.0-0.5)
[2025-02-08 10:05] LABS: NT Pro Brain Natriuretic Pep. 480 pg/mL (0-450); Troponin I 0.02 ng/ml (0.00-0.034)
[2025-02-08] MEDS: METHYLPREDNISOLONE SOD SUCC 125MG VIAL 125 MG IV (10:07)
[2025-02-08] MEDS: IPRATROPIUM/ALBUTEROL 3 ML NEB 9 ML IH (10:07)
[2025-02-08 10:09] LABS: T4 (Thyroxine) 6.6 ug/dl (5.53-11.0)
--- NOTE | 2025-02-08 10:59 | ED_ITS ---
Discharge Plan Disposition Patient Disposition: Admitted Clinical Impressions Clinical Impression: Acute exacerbation of chronic obstructive pulmonary disease, Pulmonary edema, Pneumonia, Acute respiratory failure Discharge ED Provider: Rimma Hooper HPI General Chief Complaint: Shortness of Breath/Dyspnea Stated Complaint: SOA, neck pain, back pain, weakness Time Seen by Provider: 02/08/25 09:23 Mode of Arrival: Wheelchair Source of Information: Patient and Relative Description of Symptoms (Recalled from ER Triage Doc. by RN): pt increasingly short of air for three days, increased edema. weakness. History of Present Illness HPI narrative: This patient is a 79-year-old female with a history of COPD, CHF, hypertension, hyperlipidemia, CAD presenting to the emergency department for evaluation with concern for 3 days of shortness of breath, increased swelling, and dry cough. No fevers, chest pain, abdominal pain, nausea, vomiting with changes bowel movements, or other concerns. She does note edema in her lower extremities. She also notes low back pain without any numbness, tingling, saddle anesthesia, or other concerns Related Data Home Medications ?Medication ?Instructions ?Recorded ?Confirmed albuterol sulfate 90 mcg/actuation 2 inh inhalation QIDP PRN 02/08/25 02/08/25 aerosol inhaler shortness of breath or wheezing amlodipine 5 mg tablet 5 mg PO DAILY 02/08/25 02/08/25 bumetanide 2 mg tablet 2 mg PO BID 02/08/25 02/08/25 ciclopirox 8 % topical solution 1 applic topical DAILY 02/08/25 02/08/25 Previous Rx's ?Medication ?Instructions ?Recorded apixaban 5 mg tablet (Eliquis) 5 mg PO BID #180 tabs 07/26/24 rosuvastatin 20 mg tablet 20 mg PO DAILY #90 tabs 07/26/24 ammonium lactate 12 % topical cream 1 applic topical BID dry skin, 08/04/24 callus care #385 grams fluticasone fur. 100 mcg-umeclid 1 inh inhalation DAILY 90 days #90 09/19/24 62.5 mcg-vilant 25 mcg ea inhalat.powder (Trelegy Ellipta) carvedilol 12.5 mg tablet 12.5 mg PO BID #180 tabs 11/09/24 isosorbide mononitrate 30 mg 30 mg PO DAILY #90 tabs 12/27/24 tablet,extended release 24 hr pregabalin 75 mg capsule 75 mg PO BID #60 caps 11/17/24 empagliflozin 10 mg tablet 10 mg PO DAILY #90 tabs 01/10/25 (Jardiance) Allergies Allergy/AdvReac Type Severity Reaction Status Date / Time bupropion (From Wellbutrin) Allergy Intermediate Other Verified 01/29/25 14:37 ciprofloxacin Allergy Intermediate Hives Verified 01/29/25 14:37 gabapentin Allergy Unknown WEAKNESS Verified 01/29/25 14:37 ibuprofen Allergy Unknown SHAKEY Verified 01/29/25 14:37 tiotropium Allergy Unknown WEAKNESS Verified 01/29/25 14:37 [facility] Disclaimer: The information contained in this section may have been updated after the patient was seen, as this information can be updated by other users. 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 CHF exacerbation COPD exacerbation Acute on chronic hypoxic respiratory failure CHF (congestive heart failure) Acute exacerbation of chronic obstructive pulmonary disease BOM (bilateral otitis media) Acute exacerbation of chronic obstructive pulmonary disease Swelling of right knee joint Right knee pain Osteoporosis Medicare annual wellness visit, subsequent Lymphedema, not elsewhere classified Peripheral neuropathy Callus of foot Pain due to onychomycosis of nail Pincer nail deformity Lymphedema of both lower extremities Allergic rhinitis Influenza A Generalized weakness Diarrhea Acute exacerbation of chronic obstructive pulmonary disease Acute exacerbation of chronic obstructive pulmonary disease COPD exacerbation Acute bronchitis Atypical chest pain Endometrial thickening on ultrasound COPD (chronic obstructive pulmonary disease) with acute bronchitis Edema SOB (shortness of breath) Kidney lesion, benton, left Diverticulitis Stenosis of carotid artery Multiple lung nodules on CT Screening for lung cancer COPD (chronic obstructive pulmonary disease) Pulmonary emphysema Smoking greater than 30 pack years Dyspnea on exertion Tobacco abuse disorder Tobacco abuse counseling Pain of left calf Left hip pain Left leg pain Restless leg syndrome Lumbar radiculopathy Degenerative disc disease, lumbar Lumbar radicular syndrome Acute on chronic diastolic congestive heart failure, NYHA class 3 Dizziness Urticaria Epigastric pain Preop cardiovascular exam Coronary artery disease Cardiac pacemaker in situ Dyspnea Abnormal echocardiogram Cough Angina pectoris Palpitations Chronic obstructive lung disease Surgical History History of bilateral tubal ligation History of cholecystectomy History of permanent cardiac pacemaker placement Family History Mother Colon cancer Brother Lung cancer Other Cancer Diabetes Family history of myocardial infarction Stroke 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 (Updated 02/08/25 @ 15:08 by Tereza Oro RN) Smoking Status: Current every day smoker tobacco type: cigarettes packs per day: 1 second hand exposure: Yes alcohol intake: never substance use type: denies use current occupational status: retired Travel in the last 8 weeks: None household members: family housing: house lives independently: No education level: elementary school service: No fci: No 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es/hazards: No caffeine: Yes Have you lived/traveled outside [place] in past 30 days?: No Contact w/someone who lives/traveled outside [place] past 30 days?: No Exposure to someone with infectious disease in past 14 days?: No Do you have a fever (greater than 100.4 F or 38 C)?: No Have you tested positive for COVID-19: No Exposed to someone with COVID-19 in past 14 days?: No Do you have a sore throat?: No Do you have a cough?: No Do you have any weakness?: Yes Are you experiencing any nausea/vomitting?: No Do you have any diarrhea?: No Are you experiencing any unusual bleeding?: No Do you have any muscle aches/pain?: Yes Do you have any abdominal pain?: No Are you experiencing loss of taste or smell?: No Other 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 Have you received the Flu Vaccine for this season: No Have you received the Pneumonia Vaccine: No ROS Obtained: Yes All systems reviewed & no additional complaints except as documented Physical Exam General General appearance: alert and obese Comment: in mild respiratory distress Head Head exam: atraumatic and normocephalic Eye Eye exam: Present normal appearance, PERRL and EOMI ENT ENT exam: Present normal exam, normal oropharynx, mucous membranes moist and normal external ear exam Neck Neck exam: Present normal inspection, full ROM and trachea midline; Absent tenderness Chest Chest inspection: Present normal inspection and symmetric chest wall rise; Absent tenderness Respiratory Respiratory exam: Present respiratory distress, wheezes, accessory muscle use and prolonged expiratory phase; Absent stridor Cardiovascular Cardiovascular exam: Present regular rate and normal rhythm Abdominal Exam Abdominal exam: Present soft; Absent distention, tenderness or guarding Extremities Exam Extremities exam: Present full ROM, normal capillary refill and edema; Absent tenderness Back Exam Back exam: Present normal inspection and full ROM; Absent tenderness Neurological Exam Neurological exam: Present alert, oriented X3, CN II-XII intact and normal gait; Absent motor sensory deficit Psychiatric Psychiatric exam: Present normal affect and normal mood Skin Skin exam: Present warm and dry HEART Score HEART Score HEART Score assessment performed?: Yes History (anamnesis): Slightly suspicious ECG: Normal Age: >65 years Risk factors: Atherosclerosis history Troponin: </= normal limit HEART Score: 4 Critical Care Critical Care Time Critical Care Time: Yes Attestation: On 02/08/25, the high probability of a clinically significant, sudden or life threatening deterioration of the following system(s) required my full and direct attention, intervention and personal management. The time I documented below is in addition to time spent performing reported procedures but includes the following listed in this critical care notation. Total Time Total Critical Care Time: 45 Medical Decision Making Kervin Inquiry Pt receiving controlled substance: No Vital Signs Vital Signs: 02/08/25 09:21 02/08/25 09:30 02/08/25 10:01 Temperature 98.7 F Temperature Source Oral Pulse Rate 81 82 Pulse Rate [Right] 85 Respiratory Rate 26 H 21 21 Blood Pressure 113/60 98/47 L Blood Pressure [Right Arm] 113/59 L Blood Pressure Mean 82 Blood Pressure Mean [Right Arm] 77 02 Sat by Pulse Oximetry 87 L 94 L 99 Oxygen Delivery Method Room Air Nasal Cannula Oxygen Flow Rate (LPM) 2 02/08/25 10:30 02/08/25 11:00 02/08/25 11:30 Temperature Temperature Source Pulse Rate 81 85 67 Pulse Rate [Right] Respiratory Rate 22 21 19 Blood Pressure 96/60 L 108/48 L 113/71 Blood Pressure [Right Arm] Blood Pressure Mean 67 81 Blood Pressure Mean [Right Arm] 02 Sat by Pulse Oximetry 99 95 95 Oxygen Delivery Method Nasal Cannula Oxygen Flow Rate (LPM) 2 02/08/25 11:32 02/08/25 12:01 02/08/25 12:30 Temperature Temperature Source Pulse Rate 88 84 87 Pulse Rate [Right] Respiratory Rate 22 Blood Pressure 144/63 H Blood Pressure [Right Arm] Blood Pressure Mean Blood Pressure Mean [Right Arm] 02 Sat by Pulse Oximetry 95 Oxygen Delivery Method Nasal Cannula Oxygen Flow Rate (LPM) 02/08/25 12:30 02/08/25 13:00 02/08/25 14:31 Temperature Temperature Source Pulse Rate 85 88 71 Pulse Rate [Right] Respiratory Rate 24 16 19 Blood Pressure 130/65 130/93 H 119/57 L Blood Pressure [Right Arm] Blood Pressure Mean Blood Pressure Mean [Right Arm] 02 Sat by Pulse Oximetry 93 L 91 L 90 L Oxygen Delivery Method Nasal Cannula Nasal Cannula Oxygen Flow Rate (LPM) 02/08/25 14:40 02/08/25 14:41 Temperature 98.9 F Temperature Source Pulse Rate 97 H Pulse Rate [Right] Respiratory Rate 22 Blood Pressure 119/57 L Blood Pressure [Right Arm] Blood Pressure Mean Blood Pressure Mean [Right Arm] 02 Sat by Pulse Oximetry 94 L Oxygen Delivery Method Nasal Cannula Nasal Cannula Oxygen Flow Rate (LPM) 2 Lab Data Labs: Lab Results 02/08/25 09:30: VBG pH 7.40, VBG pCO2 40.0, VBG pO2 49.1 H, VBG HCO3 24.2, VBG Total CO2 25.4, VBG O2 Saturation 85.2 H, VBG Base Excess -0.7, VBG Lactic Acid 1.8 02/08/25 09:33: WBC 10.8, RBC 4.31, Hgb 11.9 L, Hct 35.7 L, MCV 82.8, MCH 27.6, MCHC 33.3, RDW 15.4, Plt Count 148, MPV 12.3 H, Neut % (Auto) 70.8, Lymph % (Auto) 15.8, Hudson % (Auto) 12.8 H, Eos % (Auto) 0.0 L, Baso % (Auto) 0.2, Neut # (Auto) 7.7, Lymph # (Auto) 1.7, Hudson # (Auto) 1.4 H, Eos # (Auto) 0.0, Baso # (Auto) 0.0, D-Dimer 0.38, Sodium 132 L, Potassium 3.6, Chloride 95 L, Carbon Dioxide 27, Anion Gap 13.6, BUN 24 H, Creatinine 1.10 H, Estimated Creat Clear 66, Estimated GFR 48 L, Est GFR ( Amer) 58 L, Glucose 148 H, Calcium 9.1, Magnesium 2.2, Total Bilirubin 0.7, AST 27, ALT 21, Alkaline Phosphatase 80, Troponin I 0.02, NT-Pro-B Natriuret Pep 480 H, Total Protein 7.0, Albumin 3.6, G lobulin 3.4 H, Albumin/Globulin Ratio 1.1, TSH 3.90, Thyroxine (T4) 6.6 02/08/25 09:35: SARS-CoV-2 (PCR) Not detected, Influenza A Untype (PCR) Not detected, Influenza Type B (PCR) Not detected 02/08/25 12:45: Troponin I < 0.01 02/08/25 09:33 02/08/25 09:33 Response Orders (Tests/Meds): ED MEDICATIONS Generic Name Dose Route Start Last Admin Trade Name Fremirian PRN Reason Stop Dose Admin Acetaminophen 650 mg 02/08/25 14:23 Acetaminophen 325mg Tab PO 03/10/25 14:22 Q4HP PRN Fever or Mild Pain (1-3) Enoxaparin Sodium 40 mg 02/09/25 09:00 Enoxaparin 40mg/0.4ml Syringe SUBCUT 03/11/25 08:59 DAILY [facility] Insulin Human Lispro 0 unit 02/08/25 16:30 Humalog 100 Units/Ml 10ml Vial ([facility]) SUBCUT 03/10/25 16:29 ACHS [facility] Protocol Ondansetron HCl 4 mg 02/08/25 14:23 Ondansetron 4mg/2ml Vial IV 03/10/25 14:22 Q8HP PRN Nausea Discontinued Medications Generic Name Dose Route Start Last Admin Trade Name Radha PRN Reason Stop Dose Admin Albuterol Sulfate 20 mg 02/08/25 10:59 02/08/25 11:30 Albuterol 0.083% 2.5 Mg/3 Ml [facility] 02/08/25 11:00 20 mg ONCE ONE Administration Albuterol/Ipratropium 9 ml 02/08/25 09:55 02/08/25 10:07 Ipratropium/Albuterol 3 Ml [facility] 02/08/25 09:56 9 ml ONCE ONE Administration Doxycycline Hyclate 100 mg 02/08/25 11:00 02/08/25 11:14 Doxycycline Hycl 100 Mg Tablet PO 02/08/25 11:01 100 mg ONCE ONE Administration Furosemide 40 mg 02/08/25 10:59 02/08/25 11:14 Furosemide 40mg/4ml Vial IV 02/08/25 11:00 40 mg ONCE ONE Administration Magnesium Sulfate 2 gm in 50 mls @ 50 mls/hr 02/08/25 11:06 02/08/25 11:14 Magnesium Sulfate 2gm/50ml Premix IV 02/08/25 12:05 50 mls/hr ONCE ONE Administration Methylprednisolone Sodium Succinate 125 mg 02/08/25 10:00 02/08/25 10:07 Methylprednisolone Sod Succ 125mg Vial IV 02/08/25 10:01 125 mg ONCE ONE Administration ORDERS Category Date Time Status CXR --portable [XR chest portable] Stat Exams 02/08/25 09:30 Completed BNP [NT Pro Brain Natriuretic Pep.] Stat Lab 02/08/25 09:33 Completed CBC w/Auto Diff [Complete Blood Count Auto Diff] Stat Lab 02/08/25 09:33 Completed CMP [Comprehensive Metabolic Panel] Stat Lab 02/08/25 09:33 Completed Complete Blood Count Auto Diff AMLAB Lab 02/09/25 06:00 Ordered Complete Blood Count Auto Diff AMLAB Lab 02/10/25 06:00 Ordered Complete Blood Count Auto Diff AMLAB Lab 02/11/25 06:00 Ordered Complete Blood Count Auto Diff AMLAB Lab 02/12/25 06:00 Ordered Complete Blood Count Auto Diff AMLAB Lab 02/13/25 06:00 Ordered Comprehensive Metabolic Panel AMLAB Lab 02/09/25 06:00 Ordered Comprehensive Metabolic Panel AMLAB Lab 02/10/25 06:00 Ordered Comprehensive Metabolic Panel AMLAB Lab 02/11/25 06:00 Ordered Comprehensive Metabolic Panel AMLAB Lab 02/12/25 06:00 Ordered Comprehensive Metabolic Panel AMLAB Lab 02/13/25 06:00 Ordered D-Dimer Stat Lab 02/08/25 09:33 Completed Lipid Panel AMLAB Lab 02/09/25 06:00 Ordered MAG [Magnesium] Stat Lab 02/08/25 09:33 Completed Magnesium AMLAB Lab 02/09/25 06:00 Ordered Magnesium AMLAB Lab 02/10/25 06:00 Ordered Magnesium AMLAB Lab 02/11/25 06:00 Ordered Magnesium AMLAB Lab 02/12/25 06:00 Ordered Magnesium AMLAB Lab 02/13/25 06:00 Ordered Rapid PCR Covid and Flu A/B Stat Lab 02/08/25 09:35 Completed T4 (Thyroxine) Stat Lab 02/08/25 09:33 Completed TSH [Thyroid Stimulating Hormone] Stat Lab 02/08/25 09:33 Completed Trop I [Troponin I] Stat Lab 02/08/25 09:33 Completed Troponin I Q3H Lab 02/08/25 12:45 Completed Troponin I Q3H Lab 02/08/25 15:40 Received VBG [Venous Blood Gas] Stat RT 02/08/25 09:30 Completed ECG Data Tracing #1: Attestation: I reviewed this ECG and interpreted as documented below: ECG Narrative: Normal sinus rhythm with a ventricular rate of [address] changes concerning for ischemia. Normal intervals ECG initial impression date: 02/08/25 ECG initial impression time: 09:24 MDM Narrative Medical Decision Narrative: In summary, this patient is a 79-year-old female presenting to the Emergency Department for evaluation of cough, general weakness, shortness of breath, lower extremity swelling. Differential diagnoses considered include but are not limited to CHF exacerbation, COPD exacerbation. Ruling out the most morbid conditions drove assessment. It should be noted patient's history includes HTN, HLD, COPD, CHF, which may or may not be at goal therapy. This complicates all aspects of care by increasing patient's risk for morbidity. I reviewed patient's past medical records and noted extensive cardiovascular history, prior evaluations for CHF with preserved ejection fraction. On exam, the patient is sitting upright in mild respiratory distress. She is hypoxic on room air with an O2 sat in the 80s requiring 2 L nasal cannula. She does not generally wear oxygen at home except at night. She is diffusely wheezy with some lower extremity edema. Workup included lab evaluation to evaluate for infectious, metabolic, cardiac issues including BNP, troponin, VBG. I cannot use PERC criteria to exclude PE in the setting of shortness of breath given her age, so D-dimer was obtained.. I independently interpreted chest x-ray prior to the radiologist read and noted bilateral patchy infiltrates concerning for edema versus infectious process. Please see their read for final interpretation. Labs were obtained that demonstrated very mildly elevated BNP, not significantly outside of normal range. She has mild hyponatremia, creatinine is very mildly elevated. CBC is reassuring with no significant leukocytosis. She has mild anemia not transfuse well. ABG demonstrates compensated respiratory acidosis. D-dimer is negative, no further workup for DVT indicated. EKG obtained does not demonstrate any acute ischemic process.. On reassessment, patient had some improvement after administration of DuoNebs x 3, IV methylprednisolone, but she still has tachypnea and accessory muscle use with low oxygen saturations necessitating supplemental oxygen. Given this, ordered IV magnesium as well as continuous albuterol neb. Given concerns for possible pulmonary edema and lower extremity swelling as well, patient was given a dose of IV Lasix. For COPD exacerbation, I did order doxycycline. On multiple subsequent reassessments, she continues to have conversational dyspnea and overall looks and feels generally weak. She is still requiring O2, which is not her baseline. Given this and the number of interventions required to get the patient to this point, I feel she would benefit from admission for continued evaluation and management of COPD exacerbation and likely CHF exacerbation. I had an interactive discussion with the hospitalist who admitted the patient in stable condition.
--- NOTE | 2025-02-08 11:03 | PC.NURSE ---
respiratory notified of neb
[2025-02-08] MEDS: FUROSEMIDE 40MG/4ML VIAL 40 MG IV (11:14)
[2025-02-08] MEDS: MAGNESIUM SULFATE IN WATER 2 GM/50 ML PIGGYBACK IV (11:14)
[2025-02-08] MEDS: DOXYCYCLINE HYCL 100 MG TABLET PO (11:14)
[2025-02-08] MEDS: ALBUTEROL 0.083% 2.5 MG/3 ML NEB 20 MG IH (11:30)
[2025-02-08 13:12] LABS: Troponin I < 0.01 ng/ml (0.00-0.034)
--- NOTE | 2025-02-08 13:18 | PC.NURSE ---
dr rodriguez notified hospitalist for admission
--- NOTE | 2025-02-08 14:25 | PC.NURSE ---
talk to house about a bed
--- NOTE | 2025-02-08 14:30 | HMH.PHAINT1 ---
Pharmacy Intervention Comments: MEDICATION RECONCILIATION COMPLETED ON PATIENT USING EXTERNAL FILL HISTORY FROM PHARMACY AND DISCHARGE SUMMARY FROM PREVIOUS ADMISSION. -SHALONDA MOLINA, SHEKHARD
--- NOTE | 2025-02-08 14:38 | PC.NURSE ---
report called to tylor
[2025-02-08 16:19] LABS: POC Glucose,Bedside 267 (70-110)
[2025-02-08] MEDS: humaLOG 100 UNITS/ML 10ML VIAL (SSI) SUBCUT ×2 (16:25→22:14)
[2025-02-08 16:42] LABS: Troponin I < 0.01 ng/ml (0.00-0.034)
--- NOTE | 2025-02-08 17:24 | PC.NURSE ---
Pt came to floor on 3L O2 NC. She is currently on 2L O2 NC with O2 sats in lower 90s. Pt states she has some soa at times and doesn't feel good. Tolerates sitting up to eat. Call light within reach. Family at bedside.
--- NOTE | 2025-02-08 17:32 | PC.NURSE ---
Student nurse, Amisha Coffman has provided care to pt under my supervision.
--- NOTE | 2025-02-08 17:41 | EXP.HP ---
History of Present Illness *Admission Date: 02/08/25 *Reason for visit:: Shortness of breath *History of present illness: Jessica Payton is a 79-year-old female with a medical history significant for COPD (2 L at night), HFpEF, hypertension, lymphedema, type 2 diabetes who presents with 3 days onset of progressive shortness of breath. Denies chest pain, abdominal pain. She also endorses her legs have become a lot more swollen than usual and has been wheezing more. Denies fever but endorses chills. Workup in the ED significant for WBC 10.8, BNP 480, CXR showing new bibasilar opacities suggestive of pneumonia. She is now requiring 3 L continuously. Case discussed with ED provider and decision made to admit patient for acute hypoxic respiratory failure secondary to community-acquired pneumonia and COPD exacerbation. [facility] Disclaimer: The information contained in this section may have been updated after the patient was seen, as this information can be updated by other users. 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 CHF exacerbation COPD exacerbation Acute on chronic hypoxic respiratory failure CHF (congestive heart failure) Acute exacerbation of chronic obstructive pulmonary disease BOM (bilateral otitis media) Acute exacerbation of chronic obstructive pulmonary disease Swelling of right knee joint Right knee pain Osteoporosis Medicare annual wellness visit, subsequent Lymphedema, not elsewhere classified Peripheral neuropathy Callus of foot Pain due to onychomycosis of nail Pincer nail deformity Lymphedema of both lower extremities Allergic rhinitis Influenza A Generalized weakness Diarrhea Acute exacerbation of chronic obstructive pulmonary disease Acute exacerbation of chronic obstructive pulmonary disease COPD exacerbation Acute bronchitis Atypical chest pain Endometrial thickening on ultrasound COPD (chronic obstructive pulmonary disease) with acute bronchitis Edema SOB (shortness of breath) Kidney lesion, [place], left Diverticulitis Stenosis of carotid artery Multiple lung nodules on CT Screening for lung cancer COPD (chronic obstructive pulmonary disease) Pulmonary emphysema Smoking greater than 30 pack years Dyspnea on exertion Tobacco abuse disorder Tobacco abuse counseling Pain of left calf Left hip pain Left leg pain Restless leg syndrome Lumbar radiculopathy Degenerative disc disease, lumbar Lumbar radicular syndrome Acute on chronic diastolic congestive heart failure, NYHA class 3 Dizziness Urticaria Epigastric pain Preop cardiovascular exam Coronary artery disease Cardiac pacemaker in situ Dyspnea Abnormal echocardiogram Cough Angina pectoris Palpitations Chronic obstructive lung disease Surgical History History of bilateral tubal ligation History of cholecystectomy History of permanent cardiac pacemaker placement Family History Mother Colon cancer Brother Lung cancer Other Cancer Diabetes Family history of myocardial infarction Stroke 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 (Updated 02/08/25 @ 15:08 by Tereza Oro RN) Smoking Status: Current every day smoker tobacco type: cigarettes packs per day: 1 second hand exposure: Yes alcohol intake: never substance use type: denies use current occupational status: retired Travel in the last 8 weeks: None household members: family housing: house lives independently: No education level: elementary school service: No jail: No 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es/hazards: No caffeine: Yes Have you lived/traveled outside [place] in past 30 days?: No Contact w/someone who lives/traveled outside US past 30 days?: No Exposure to someone with infectious disease in past 14 days?: No Do you have a fever (greater than 100.4 F or 38 C)?: No Have you tested positive for COVID-19: No Exposed to someone with COVID-19 in past 14 days?: No Do you have a sore throat?: No Do you have a cough?: No Do you have any weakness?: Yes Are you experiencing any nausea/vomitting?: No Do you have any diarrhea?: No Are you experiencing any unusual bleeding?: No Do you have any muscle aches/pain?: Yes Do you have any abdominal pain?: No Are you experiencing loss of taste or smell?: No Other 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 Have you received the Flu Vaccine for this season: No Have you received the Pneumonia Vaccine: No Meds Home Medications and Allergies Home Medications ?Medication ?Instructions ?Recorded ?Confirmed ?Type apixaban 5 mg tablet (Eliquis) 5 mg PO BID #180 tabs 07/26/24 02/08/25 Rx rosuvastatin 20 mg tablet 20 mg PO DAILY #90 tabs 07/26/24 02/08/25 Rx ammonium lactate 12 % topical cream 1 applic topical BID dry skin, 08/04/24 02/08/25 Rx callus care #385 grams fluticasone fur. 100 mcg-umeclid 1 inh inhalation DAILY 90 days #90 09/19/24 02/08/25 Rx 62.5 mcg-vilant 25 mcg ea inhalat.powder (Trelegy Ellipta) carvedilol 12.5 mg tablet 12.5 mg PO BID #180 tabs 11/09/24 02/08/25 Rx isosorbide mononitrate 30 mg 30 mg PO DAILY #90 tabs 11/10/24 02/08/25 Rx tablet,extended release 24 hr pregabalin 75 mg capsule 75 mg PO BID #60 caps 11/17/24 02/08/25 Rx empagliflozin 10 mg tablet 10 mg PO DAILY #90 tabs 01/10/25 02/08/25 Rx (Jardiance) albuterol sulfate 90 mcg/actuation 2 inh inhalation QIDP PRN 02/08/25 02/08/25 History aerosol inhaler shortness of breath or wheezing amlodipine 5 mg tablet 5 mg PO DAILY 02/08/25 02/08/25 History bumetanide 2 mg tablet 2 mg PO BID 02/08/25 02/08/25 History ciclopirox 8 % topical solution 1 applic topical DAILY 02/08/25 02/08/25 History New Prescriptions to Start Prescriptions: Allergies Allergy/AdvReac Type Severity Reaction Status Date / Time bupropion (From Wellbutrin) Allergy Intermediate Other Verified 01/29/25 14:37 ciprofloxacin Allergy Intermediate Hives Verified 01/29/25 14:37 gabapentin Allergy Unknown WEAKNESS Verified 01/29/25 14:37 ibuprofen Allergy Unknown SHAKEY Verified 01/29/25 14:37 tiotropium Allergy Unknown WEAKNESS Verified 01/29/25 14:37 Exam Data for Last 24 hours Vital signs and Labs for Last 24 Hours: Temp Pulse Resp BP Pulse Ox O2 Del Method O2 Flow Rate 98 F 66 16 139/72 92 L Nasal Cannula 2 02/08/25 16:00 02/08/25 16:00 02/08/25 16:00 02/08/25 16:00 02/08/25 16:00 02/08/25 17:00 02/08/25 15:00 Laboratory Results - last 24 hr 02/08/25 09:30: VBG pH 7.40, VBG pCO2 40.0, VBG pO2 49.1 H, VBG HCO3 24.2, VBG Total CO2 25.4, VBG O2 Saturation 85.2 H, VBG Base Excess -0.7, VBG Lactic Acid 1.8 02/08/25 09:33: WBC 10.8, RBC 4.31, Hgb 11.9 L, Hct 35.7 L, MCV 82.8, MCH 27.6, MCHC 33.3, RDW 15.4, Plt Count 148, MPV 12.3 H, Neut % (Auto) 70.8, Lymph % (Auto) 15.8, [place] % (Auto) 12.8 H, Eos % (Auto) 0.0 L, Baso % (Auto) 0.2, Neut # (Auto) 7.7, Lymph # (Auto) 1.7, [place] # (Auto) 1.4 H, Eos # (Auto) 0.0, Baso # (Auto) 0.0, D-Dimer 0.38, Sodium 132 L, Potassium 3.6, Chloride 95 L, Carbon Dioxide 27, Anion Gap 13.6, BUN 24 H, Creatinine 1.10 H, Estimated Creat Clear 66, Estimated GFR 48 L, Est GFR ( Amer) 58 L, Glucose 148 H, Calcium 9.1, Magnesium 2.2, Total Bilirubin 0.7, AST 27, ALT 21, Alkaline Phosphatase 80, Troponin I 0.02, NT-Pro-B Natriuret Pep 480 H, Total Protein 7.0, Albumin 3.6, Globulin 3.4 H, Albumin/Globulin Ratio 1.1, TSH 3.90, Thyroxine (T4) 6.6 02/08/25 09:35: SARS-CoV-2 (PCR) Not detected, Influenza A Untype (PCR) Not detected, Influenza Type B (PCR) Not detected 02/08/25 12:45: Troponin I < 0.01 02/08/25 15:40: Troponin I < 0.01 02/08/25 16:11: POC Glucose 267 H I & O for Last 24 hours: Intake & Output 02/05/25 02/06/25 02/07/25 02/08/25 23:59 23:59 23:59 23:59 Weight 100.788 kg Constitutional Constitutional: no acute distress and obese *Routine HEENT Exam Head: Present normocephalic Eye: Present EOMI and PERRL ENT: Present mucous membranes moist *Routine Neck Exam Neck: Present supple; Absent lymphadenopathy *Routine Respiratory Exam Respiratory: Present CTA bilaterally *Routine Cardiovascular Exam Cardiovascular: Present RRR *Routine Abdominal Exam Abdominal: Present soft and normoactive bowel sounds; Absent tenderness *Routine Rectal Exam Rectal:: deferred *Routine Genitalia Exam Genitalia:: deferred *Routine Extremities Exam Extremities: Absent cyanosis, clubbing or edema *Routine Skin Exam Skin: Present warm; Absent rash *Routine Neurological Exam Neurological: Present alert and oriented X3 Assessment and Plan *Assessment and plan (1) Acute respiratory failure: Status: Acute Category: Medical Code(s): J96.00 - Acute respiratory failure, unspecified whether with hypoxia or hypercapnia Plan Jessica Payton is a 79-year-old female with a medical history significant for COPD (2 L at night), HFpEF, hypertension, lymphedema, type 2 diabetes, A-fib who presents with 3 days onset of progressive shortness of breath. Denies chest pain, abdominal pain. She also endorses her legs have become a lot more swollen than usual and has been wheezing more. Denies fever but endorses chills. Workup in the ED significant for WBC 10.8, BNP 480, CXR showing new bibasilar opacities suggestive of pneumonia. She is now requiring 3 L continuously. Case discussed with ED provider and decision made to admit patient for acute hypoxic respiratory failure secondary to community-acquired pneumonia and COPD exacerbation. #Acute on chronic hypoxic respiratory failure #COPD exacerbation #HFpEF exacerbation #Community-acquired pneumonia ? Progressive shortness of breath, CXR shows bibasilar opacities pneumonia versus edema. ? BNP marginally elevated to 480, but did have 1+ pitting edema lower extremities. Diffuse wheezing throughout lung heck. ? Ceftriaxone, azithromycin day /5. ? DuoNebs every 6 hours, Pulmicort twice daily. ? Prednisone 40 mg daily. ? Continue home Bumex 2 mg twice daily. IV Lasix 40 mg given in the ED. ? Currently requiring 3 L nasal cannula, wean as tolerated. ? Follow-up sputum cultures. #Hypertension #A-fib ? Currently rate controlled. Resume home Eliquis 5 mg twice daily. ? Hold home amlodipine as BP stable at this time. #Type 2 diabetes ? LDSSI, ACHS glucose checks. A1c 6.4% last month. Neuropathy: Continue Lyrica 75 mg twice daily Hyperlipidemia: Continue Crestor 20 mg daily Tobacco use disorder: Nicotine patch daily as needed, 21mg Full code DVT prophylaxis: Eliquis
[2025-02-08] MEDS: CEFTRIAXONE 1 GM 1 GM in 0.9 % SODIUM CHLORIDE 50 ML IV (17:50)
[2025-02-08] MEDS: BUMETANIDE 2 MG 2 EACH PO (17:51)
[2025-02-08] MEDS: IPRATROPIUM/ALBUTEROL 3 ML NEB IH ×2 (18:22→23:23)
[2025-02-08] MEDS: SODIUM CHLORIDE 3% 15ML NEB 3 ML IH (18:22)
[2025-02-08] MEDS: BUDESONIDE 0.5MG/2ML NEB 0.5 MG IH (18:22)
[2025-02-08] MEDS: ATORVASTATIN 40MG TABLET 40 MG PO (22:14)
[2025-02-08] MEDS: APIXABAN 5MG TABLET 5 MG PO (22:15)
[2025-02-08] MEDS: PATIENT'S OWN HOME MEDICATION (Pregabalin 75 mg capsule) 75 EACH PO (22:16)
[2025-02-09] VITALS: BP 117/47; PULSE 69; RESP 18; TEMP 36.7; O2SAT 91
[2025-02-09 04:00] VITALS: BP 123/72; PULSE 83; RESP 18; TEMP 36.4; O2SAT 92; BMI 36.6
--- NOTE | 2025-02-09 05:41 | PC.NURSE ---
Alert and oriented. Ambulates to the restroom with standby assist. No complaints from patient. 2L NC, O2 sat >90%. Diminished lung sounds, some wheezing. 2+ edema BLE. ACHS FS. Call light in reach.
[2025-02-09] MEDS: humaLOG 100 UNITS/ML 10ML VIAL (SSI) SUBCUT ×2 (06:00→10:47)
[2025-02-09 06:13] LABS: Basophils % 0.1 % (0.1-2.0); Hematocrit 35.7 % (37.0-47.0); Lymphocytes # 0.9 K/mm3 (0.7-4.5); Lymphocytes % 8.4 % (10-50); Mean Corpuscular HGB Conc 33.6 g/dL (31.8-35.4); Mean Corpuscular Hemoglobin 27.1 pg (27.0-31.2); Mean Corpuscular Volume 80.6 fl (81-99); Mean Platelet Volume 12.9 fl (7.4-10.4); Monocytes # 0.4 K/mm3 (0.1-1.0); Monocytes % 3.6 % (1.7-9.3); Neutrophils # 9.2 K/mm3 (1.8-7.8); Neutrophils % 87.3 % (37.0-80.0); Platelet Count 166 K/mm3 (142-424); Red Blood Count 4.43 M/mm3 (4.20-5.40); White Blood Count 10.5 K/mm3 (4.8-10.8)
[2025-02-09 06:21] LABS: Alanine Aminotransferase 24 U/L (12-78); Albumin Level 3.5 g/dl (3.5-5.0); Albumin/Globulin Ratio 1.1 (1.1-1.8); Alkaline Phosphatase 89 U/L (38-126); Anion Gap 14.3 mEq/L (5-15); Aspartate Amino Transferase 29 U/L (14-36); Bilirubin,Total 0.4 mg/dl (0.2-1.3); Blood Urea Nitrogen 31 mg/dl (7-17); Calcium 8.9 mg/dl (8.4-10.2); Carbon Dioxide 28 mmol/L (22.0-30.0); Chloride 96 mmol/L (98-107); Chol/HDL Ratio 4.2 (1-3.5); Cholesterol 105 mg/dl (140-200); Creatinine Clearance Estimated 60 mL/min (50-200); Estimated Glomerular Filt Rate 43 ml/min (>60); GFR (African American) 52 ML/MIN (>60); Globulin 3.3 g/dL (1.3-3.2); Glucose 206 mg/dl (74-100); HDL Cholesterol 25 mg/dl (40-60); Magnesium 2.8 mg/dl (1.6-2.3); Potassium 3.3 mmoL/L (3.5-5.1); Sodium 135 mmol/L (136-145); Total Protein,Serum 6.8 g/dl (6.3-8.2); Triglycerides 86 mg/dl (30-150); VLDL Cholesterol 17 mg/dL (0-40)
[2025-02-09] MEDS: BUDESONIDE 0.5MG/2ML NEB 0.5 MG IH (06:24)
[2025-02-09] MEDS: IPRATROPIUM/ALBUTEROL 3 ML NEB IH ×2 (06:24→11:03)
[2025-02-09 06:25] VITALS: PULSE 57; PULSE 60; O2SAT 94
[2025-02-09 06:32] LABS: Direct LDL Cholesterol 44.71 mg/dL (100-129)
[2025-02-09 08:00] VITALS: BP 106/53; PULSE 87; RESP 17; TEMP 36.4; O2SAT 96
[2025-02-09] MEDS: predniSONE 20MG TAB 40 MG PO (08:41)
[2025-02-09] MEDS: ISOSORBIDE MONO 30MG TAB.ER.24H 30 MG PO (08:42)
[2025-02-09] MEDS: EMPAGLIFLOZIN 10MG TABLET 10 MG PO (08:42)
[2025-02-09] MEDS: BUMETANIDE 1 MG TABLET 2 MG PO (08:42)
[2025-02-09] MEDS: APIXABAN 5MG TABLET 5 MG PO (08:42)
[2025-02-09] MEDS: AZITHROMYCIN 250MG TABLET 250 MG PO (08:42)
[2025-02-09] MEDS: PREGABALIN 25MG CAPSULE 75 MG PO (08:45)
[2025-02-09] MEDS: ENOXAPARIN 40MG/0.4ML SYRINGE 40 MG SUBCUT (08:45)
[2025-02-09 10:58] LABS: POC Glucose,Bedside 214 (70-110)
[2025-02-09 11:04] VITALS: PULSE 88; PULSE 90
--- NOTE | 2025-02-09 11:28 | P.DS_ITS ---
General Admission date:: 02/08/25 HPI HPI HPI: Jessica Payton is a 79-year-old female with a medical history significant for COPD (2 L at night), HFpEF, hypertension, lymphedema, type 2 diabetes who presents with 3 days onset of progressive shortness of breath. Denies chest pain, abdominal pain. She also endorses her legs have become a lot more swollen than usual and has been wheezing more. Denies fever but endorses chills. Work up in the ED significant for WBC 10.8, BNP 480, CXR showing new bibasilar opacities suggestive of pneumonia. She is now requiring 3 L continuously. Case discussed with ED provider and decision made to admit patient for acute hypoxic respiratory failure secondary to community-acquired pneumonia and COPD exacerbation. Hospital Course Hospital Course Hospital Course: Jessica Payton is a 79-year-old female with a medical history significant for COPD (2 L at night), HFpEF, hypertension, lymphedema, type 2 diabetes, A-fib who presents with 3 days onset of progressive shortness of breath. Denies chest pain, abdominal pain. She also endorses her legs have become a lot more swollen than usual and has been wheezing more. Denies fever but endorses chills. Workup in the ED significant for WBC 10.8, BNP 480, CXR showing new bibasilar opacities suggestive of pneumonia. She is now requiring 3 L continuously. Case discussed with ED provider and decision made to admit patient for acute hypoxic respiratory failure secondary to community-acquired pneumonia and COPD exacerbation. #Acute on chronic hypoxic respiratory failure #COPD exacerbation #HFpEF exacerbation #Community-acquired pneumonia ? Progressive shortness of breath, CXR shows bibasilar opacities pneumonia and/or edema. ? BNP marginally elevated to 480, but did have 1+ pitting edema lower extremities. Diffuse wheezing throughout lung heck. ? Clinically improved with ceftriaxone, azithromycin, DuoNebs, Pulmicort, prednisone, home Bumex. ? Weaned to 2 L nasal cannula continuously, baseline 2 L at night. ? Discharged with cefdinir, azithromycin, prednisone for 3 more days. Continue home Bumex 2 mg twice daily, Trelegy 100 daily. ? Advised to follow-up with PCP within 2 weeks. #Hypertension #A-fib ? Currently rate controlled. Resume home Eliquis 5 mg twice daily. ? Held home amlodipine as BP stable/low normal at this time. #Type 2 diabetes ? A1c 6.4% last month. Continue home Jardiance. Neuropathy: Continue Lyrica 75 mg twice daily Hyperlipidemia: Continue Crestor 20 mg daily Tobacco use disorder: Nicotine patch daily as needed, 21mg Exam Data for Last 24 hours Vital signs and Labs for Last 24 Hours: Temp Pulse Resp BP Pulse Ox O2 Del Method O2 Flow Rate 97.6 F 90 17 106/53 L 96 Nasal Cannula 2 02/09/25 08:00 02/09/25 11:04 02/09/25 08:00 02/09/25 08:00 02/09/25 08:00 02/09/25 08:00 02/09/25 08:00 Laboratory Results - last 24 hr 02/08/25 12:45: Troponin I < 0.01 02/08/25 15:40: Troponin I < 0.01 02/08/25 16:11: POC Glucose 267 H 02/09/25 05:33: WBC 10.5, RBC 4.43, Hgb 12.0 L, Hct 35.7 L, MCV 80.6 L, MCH 27.1, MCHC 33.6, RDW 15.0, Plt Count 166, MPV 12.9 H, Neut % (Auto) 87.3 H, Lymph % (Auto) 8.4 L, [place] % (Auto) 3.6, Eos % (Auto) 0.0 L, Baso % (Auto) 0.1, Neut # (Auto) 9.2 H, Lymph # (Auto) 0.9, [place] # (Auto) 0.4, Eos # (Auto) 0.0, Baso # (Auto) 0.0, Sodium 135 L, Potassium 3.3 L, Chloride 96 L, Carbon Dioxide 28, Anion Gap 14.3, BUN 31 H D, Creatinine 1.20 H, Estimated Creat Clear 60, Estimated GFR 43 L, Est GFR ( Amer) 52 L, Glucose 206 H D, Calcium 8.9, Magnesium 2.8 H D, Total Bilirubin 0.4, AST 29, ALT 24, Alkaline Phosphatase 89, Total Protein 6.8, Albumin 3.5, Globulin 3.3 H, Albumin/Globulin Ratio 1.1, Triglycerides 86, Cholesterol 105 L, LDL Cholesterol Direct 44.71 L, VLDL Cholesterol 17, HDL Cholesterol 25 L, Cholesterol/HDL Ratio 4.2 H 02/09/25 10:42: POC Glucose 214 H I & O for Last 24 hours: Intake & Output 02/06/25 02/07/25 02/08/25 02/09/25 23:59 23:59 23:59 23:59 Intake Total 250 / 250 Output Total 100 / 900 1050 / 1050 Balance -100 / -900 -800 / -800 Weight 100.788 kg 99.875 kg Constitutional Constitutional: no acute distress *Routine HEENT Exam Head: Present normocephalic Eye: Present EOMI and PERRL ENT: Present mucous membranes moist *Routine Neck Exam Neck: Present supple; Absent lymphadenopathy *Routine Respiratory Exam Respiratory: Present CTA bilaterally *Routine Cardiovascular Exam Cardiovascular: Present RRR *Routine Abdominal Exam Abdominal: Present soft and normoactive bowel sounds; Absent tenderness *Routine Extremities Exam Extremities: Absent cyanosis, clubbing or edema *Routine Skin Exam Skin: Present warm; Absent rash *Routine Neurological Exam Neurological: Present alert and oriented X3 Results Data Completed and Pending Labs on day of discharge: Labs from last 24 hours 02/09/25 02/09/25 02/08/25 10:42 05:33 16:11 WBC 10.5 RBC 4.43 Hgb 12.0 L Hct 35.7 L MCV 80.6 L MCH 27.1 MCHC 33.6 RDW 15.0 Plt Count 166 MPV 12.9 H Neut % (Auto) 87.3 H Lymph % (Auto) 8.4 L [place] % (Auto) 3.6 Eos % (Auto) 0.0 L Baso % (Auto) 0.1 Neut # (Auto) 9.2 H Lymph # (Auto) 0.9 [place] # (Auto) 0.4 Eos # (Auto) 0.0 Baso # (Auto) 0.0 Sodium 135 L Potassium 3.3 L Chloride 96 L Carbon Dioxide 28 Anion Gap 14.3 BUN 31 H D Creatinine 1.20 H Estimated Creat Clear 60 Estimated GFR 43 L Est GFR ( Amer) 52 L Glucose 206 H D POC Glucose 214 H 267 H Calcium 8.9 Magnesium 2.8 H D Total Bilirubin 0.4 AST 29 ALT 24 Alkaline Phosphatase 89 Troponin I Total Protein 6.8 Albumin 3.5 Globulin 3.3 H Albumin/Globulin Ratio 1.1 Triglycerides 86 Cholesterol 105 L LDL Cholesterol Direct 44.71 L VLDL Cholesterol 17 HDL Cholesterol 25 L Cholesterol/HDL Ratio 4.2 H 02/08/25 02/08/25 15:40 12:45 WBC RBC Hgb Hct MCV MCH MCHC RDW Plt Count MPV Neut % (Auto) Lymph % (Auto) [place] % (Auto) Eos % (Auto) Baso % (Auto) Neut # (Auto) Lymph # (Auto) [place] # (Auto) Eos # (Auto) Baso # (Auto) Sodium Potassium Chloride Carbon Dioxide Anion Gap BUN Creatinine Estimated Creat Clear Estimated GFR Est GFR ( Amer) Glucose POC Glucose Calcium Magnesium Total Bilirubin AST ALT Alkaline Phosphatase Troponin I < 0.01 < 0.01 Total Protein Albumin Globulin Albumin/Globulin Ratio Triglycerides Cholesterol LDL Cholesterol Direct VLDL Cholesterol HDL Cholesterol Cholesterol/HDL Ratio DS: Diagnosis Discharge Diagnosis (1) Acute respiratory failure: Status: Acute Code(s): J96.00 - Acute respiratory failure, unspecified whether with hypoxia or hypercapnia Meds Home Medications and Allergies Home Medications ?Medication ?Instructions ?Recorded ?Confirmed ?Type apixaban 5 mg tablet (Eliquis) 5 mg PO BID #180 tabs 07/26/24 02/16/25 Rx rosuvastatin 20 mg tablet 20 mg PO DAILY #90 tabs 07/26/24 02/16/25 Rx ammonium lactate 12 % topical cream 1 applic topical BID dry skin, 08/04/24 02/16/25 Rx callus care #385 grams fluticasone fur. 100 mcg-umeclid 1 inh inhalation DAILY 90 days #90 09/19/24 02/16/25 Rx 62.5 mcg-vilant 25 mcg ea inhalat.powder (Trelegy Ellipta) carvedilol 12.5 mg tablet 12.5 mg PO BID #180 tabs 11/09/24 02/16/25 Rx isosorbide mononitrate 30 mg 30 mg PO DAILY #90 tabs 11/10/24 02/16/25 Rx tablet,extended release 24 hr pregabalin 75 mg capsule 75 mg PO BID #60 caps 11/17/24 02/16/25 Rx empagliflozin 10 mg tablet 10 mg PO DAILY #90 tabs 01/10/25 02/16/25 Rx (Jardiance) albuterol sulfate 90 mcg/actuation 2 inh inhalation QIDP PRN 02/08/25 02/16/25 History aerosol inhaler shortness of breath or wheezing ciclopirox 8 % topical solution 1 applic topical DAILY 02/08/25 02/16/25 History bumetanide 2 mg tablet See Rx Instructions .Route 02/09/25 Rx .COMPLEX #60 tabs New Prescriptions to Start Prescriptions: Allergies Allergy/AdvReac Type Severity Reaction Status Date / Time bupropion (From Wellbutrin) Allergy Intermediate Other Verified 02/16/25 10:41 ciprofloxacin Allergy Intermediate Hives Verified 02/16/25 10:41 gabapentin Allergy Unknown WEAKNESS Verified 02/16/25 10:41 ibuprofen Allergy Unknown SHAKEY Verified 02/16/25 10:41 tiotropium Allergy Unknown WEAKNESS Verified 02/16/25 10:41 Discharge Plan Disposition Patient Disposition: Home, Self-Care Condition: Fair Follow up Plan Follow up with: Manuela Castillo APRN [Primary Care Provider] - 02/16/25 10:30 am Prescriptions/Medication Reconciliation: Continued Eliquis 5 mg tablet 5 mg PO BID Qty: 180 3RF rosuvastatin 20 mg tablet 20 mg PO DAILY Qty: 90 3RF Trelegy Ellipta 100-62.5-25 mcg blister with device 1 inh inhalation DAILY 90 Days Qty: 90 2RF ammonium lactate 12 % cream 1 applic topical BID Qty: 385 1RF Jardiance 10 mg tablet 10 mg PO DAILY Qty: 90 3RF carvedilol 12.5 mg tablet 12.5 mg PO BID Qty: 180 3RF isosorbide mononitrate 30 mg tablet extended release 24 hr 30 mg PO DAILY Qty: 90 3RF pregabalin 75 mg capsule 75 mg PO BID Qty: 60 2RF bumetanide 2 mg tablet See Rx Instructions .ROUTE .COMPLEX Qty: 60 0RF Dose Instruction: Take 1 tablet by mouth twice daily Rx Instructions: Take 1 tablet by mouth twice daily ciclopirox 8 % solution 1 applic topical DAILY Rx Instructions: apply over previous coat; remove with alcohol every 7 days and file down nail albuterol sulfate 90 mcg/actuation HFA aerosol inhaler 2 inh inhalation QIDP PRN (Reason: shortness of breath or wheezing) Problem Reconciliation Problems Reviewed?: Yes Patient Discharge Instructions Patient Instructions: DI for Pneumonia -- Adult, DI for Respiratory Failure Print Language: Ukrainian Providers Primary Care Provider: Manuela Castillo Admit Provider: Bolivar Mercado Attending Provider: Bolivar Mercado
[2025-02-09] MEDS: POTASSIUM CHLORIDE 20MEQ TAB 40 MEQ PO (12:03)
--- NOTE | 2025-02-12 12:03 | SW/DCPLANNER ---
Spoke with patient on the phone. Patient stated that she is doing well. Patient stated that she is aware of her upcoming appointments. Patient stated that she was able to cone picker her medicine from [facility] [employer]. Patient stated that she has no questions but had a concern about her room being dirty. I told patient im not sure but will let [facility] aware of it. Teressa Ferrera
== END 2025-02-09 13:24 | disposition home or self-care (01) ==
LOC: ER 09:54 → 2ND 14:39
PROVIDERS: Admitting Provider Student in an Organized Health Care Education/Training Program; Emergency Provider Emergency Medicine; PCP Nurse Practitioner Family; Visit Provider Student in an Organized Health Care Education/Training Program
DX: J96.21 Acute and chronic respiratory failure with hypoxia (principal); J44.1 Chronic obstructive pulmonary disease with (acute) exacerbation; J18.9 Pneumonia, unspecified organism; I11.0 Hypertensive heart disease with heart failure; I50.32 Chronic diastolic (congestive) heart failure; E11.9 Type 2 diabetes mellitus without complications; I48.91 Unspecified atrial fibrillation; I89.0 Lymphedema, not elsewhere classified; I25.10 Atherosclerotic heart disease of native coronary artery without angina pectoris; E66.9 Obesity, unspecified; E11.40 Type 2 diabetes mellitus with diabetic neuropathy, unspecified; F17.210 Nicotine dependence, cigarettes, uncomplicated; E78.5 Hyperlipidemia, unspecified; Z79.84 Long term (current) use of oral hypoglycemic drugs; Z79.899 Other long term (current) drug therapy; Z99.81 Dependence on supplemental oxygen; Z79.51 Long term (current) use of inhaled steroids; Z88.1 Allergy status to other antibiotic agents; Z88.8 Allergy status to other drugs, medicaments and biological substances; Z88.6 Allergy status to analgesic agent; Z95.0 Presence of cardiac pacemaker; Z80.0 Family history of malignant neoplasm of digestive organs; Z80.1 Family history of malignant neoplasm of trachea, bronchus and lung; Z82.3 Family history of stroke; Z83.3 Family history of diabetes mellitus; Z82.49 Family history of ischemic heart disease and other diseases of the circulatory system; Z28.39 Other underimmunization status; Z28.310 Unvaccinated for COVID-19; Z68.36 Body mass index [BMI] 36.0-36.9, adult
CPT/HCPCS: 36415; 71045; 80053; 80061; 82803; 82962; 83735; 83880; 84436; 84443; 84484; 85025; 85378; 87636; 93005; 94640; 94761; 99291; G0378; J0696; J1650; J1940; J2919; J3475; J7613; J7620

== ENCOUNTER 2025-02-16 11:14 | Outpatient (CLI) | payer MEDICARE, MEDICAID, SELFPAY ==
[2025-02-16 14:27] LABS: Basophils % 0.2 % (0.1-2.0); Eosinophils # 0.2 K/mm3 (0.0-0.4); Eosinophils % 1.3 % (0.1-12.0); Hematocrit 38.8 % (37.0-47.0); Hemoglobin 12.4 g/dL (12.2-16.2); Lymphocytes # 3.3 K/mm3 (0.7-4.5); Lymphocytes % 24.8 % (10-50); Mean Corpuscular Hemoglobin 27.2 pg (27.0-31.2); Mean Corpuscular Volume 85.1 fl (81-99); Monocytes % 7.1 % (1.7-9.3); Neutrophils # 8.6 K/mm3 (1.8-7.8); Neutrophils % 64.2 % (37.0-80.0); Platelet Count 208 K/mm3 (142-424); Red Blood Count 4.56 M/mm3 (4.20-5.40); Red Cell Distribution Width 16.9 % (11.5-17.5); White Blood Count 13.4 K/mm3 (4.8-10.8)
[2025-02-16 15:03] LABS: Albumin Level 3.2 g/dl (3.5-5.0); Chloride 99 mmol/L (98-107); Potassium 4.5 mmoL/L (3.5-5.1); Sodium 135 mmol/L (136-145)
[2025-02-16 15:06] LABS: Alanine Aminotransferase 29 U/L (12-78); Albumin/Globulin Ratio 1.2 (1.1-1.8); Alkaline Phosphatase 117 U/L (38-126); Anion Gap 8.5 mEq/L (5-15); Aspartate Amino Transferase 24 U/L (14-36); Bilirubin,Total 0.5 mg/dl (0.2-1.3); Blood Urea Nitrogen 22 mg/dl (7-17); Calcium 9.1 mg/dl (8.4-10.2); Carbon Dioxide 32 mmol/L (22.0-30.0); Estimated Glomerular Filt Rate 53 ml/min (>60); GFR (African American) 65 ML/MIN (>60); Globulin 2.7 g/dL (1.3-3.2); Glucose 135 mg/dl (74-100); Total Protein,Serum 5.9 g/dl (6.3-8.2)
[2025-02-16 15:21] LABS: 25-OH Vitamin D, Total 19.1 ng/mL (30-100)
[2025-02-16 15:38] LABS: Thyroid Stimulating Hormone 3.27 uIU/mL (0.465-4.68)
[2025-02-16 15:43] LABS: Ferritin 61.1 ng/ml (11.1-264)
[2025-02-16 16:06] LABS: Hemoglobin A1C 7.1 % (4.0-6.0)
[2025-02-16 16:37] LABS: Vitamin B12 664 pg/mL (239-931)
== END 2025-02-16 23:59 | disposition home or self-care (01) ==
LOC: LAB.DROPOF 02-17 10:58
PROVIDERS: PCP Nurse Practitioner Family; Visit Provider Nurse Practitioner Family
DX: Z03.89 Encounter for observation for other suspected diseases and conditions ruled out (principal); M81.0 Age-related osteoporosis without current pathological fracture; R20.0 Anesthesia of skin; R20.2 Paresthesia of skin; J44.9 Chronic obstructive pulmonary disease, unspecified; E78.5 Hyperlipidemia, unspecified; E66.9 Obesity, unspecified; Z68.37 Body mass index [BMI] 37.0-37.9, adult; Z79.899 Other long term (current) drug therapy
CPT/HCPCS: 80053; 82306; 82607; 82728; 83036; 83735; 84443; 85025

== ENCOUNTER 2025-03-21 10:03 | Outpatient (CLI) | payer MEDICARE, MEDICAID, SELFPAY ==
[2025-03-21 16:46] LABS: Alanine Aminotransferase 15 U/L (12-78); Albumin Level 3.5 g/dl (3.5-5.0); Albumin/Globulin Ratio 1.3 (1.1-1.8); Alkaline Phosphatase 119 U/L (38-126); Anion Gap 8.8 mEq/L (5-15); Aspartate Amino Transferase 22 U/L (14-36); Bilirubin,Total 0.4 mg/dl (0.2-1.3); Blood Urea Nitrogen 19 mg/dl (7-17); Calcium 8.8 mg/dl (8.4-10.2); Carbon Dioxide 30 mmol/L (22.0-30.0); Chloride 104 mmol/L (98-107); Chol/HDL Ratio 3.3 (1-3.5); Cholesterol 127 mg/dl (140-200); Estimated Glomerular Filt Rate 69 ml/min (>60); GFR (African American) 84 ML/MIN (>60); Globulin 2.7 g/dL (1.3-3.2); Glucose 86 mg/dl (74-100); HDL Cholesterol 39 mg/dl (40-60); Magnesium 2.4 mg/dl (1.6-2.3); Potassium 4.8 mmoL/L (3.5-5.1); Sodium 138 mmol/L (136-145); Total Protein,Serum 6.2 g/dl (6.3-8.2); Triglycerides 130 mg/dl (30-150); VLDL Cholesterol 26 mg/dL (0-40)
[2025-03-21 16:57] LABS: Direct LDL Cholesterol 63.46 mg/dL (100-129)
[2025-03-21 17:30] LABS: Basophils # 0.1 K/mm3 (0-0.2); Basophils % 0.5 % (0.1-2.0); Eosinophils # 0.1 Kmm3 (0.0-0.4); Eosinophils % 0.9 % (0.1-12.0); Hematocrit 38.6 % (37.0-47.0); Hemoglobin 12.1 g/dL (12.2-16.2); Immature Granulocytes # 0.02 10^3uL; Immature Granulocytes % 0.2 %; Lymphocytes # 2.8 K/mm3 (0.7-4.5); Lymphocytes % 28.6 % (10-50); Mean Corpuscular HGB Conc 31.3 g/dL (31.8-35.4); Mean Corpuscular Hemoglobin 26.7 pg (27.0-31.2); Mean Platelet Volume 12.3 fl (7.4-10.4); Monocytes # 0.9 K/mm3 (0.1-1.0); Neutrophils # 5.8 K/mm3 (1.8-7.8); Neutrophils % 60.8 % (37.0-80.0); Nucleated Red Blood Cells # 0 10^3/uL; Nucleated Red Blood Cells % 0 %; Platelet Count 155 K/mm3 (142-424); Red Blood Count 4.54 M/mm3 (4.20-5.40); Red Cell Distribution Width 16.5 % (11.5-17.5); Red Cell Distribution Width-SD 51.3 fL; White Blood Count 9.6 K/mm3 (4.8-10.8)
[2025-03-21 23:46] LABS: Ferritin 11.1 ng/ml (11.1-264)
== END 2025-03-21 23:59 | disposition home or self-care (01) ==
LOC: LAB.DROPOF 03-22 11:24
PROVIDERS: PCP Nurse Practitioner Family; Visit Provider Nurse Practitioner Family
DX: I11.9 Hypertensive heart disease without heart failure (principal); R42 Dizziness and giddiness; R79.9 Abnormal finding of blood chemistry, unspecified; E78.2 Mixed hyperlipidemia
CPT/HCPCS: 80053; 80061; 82728; 83735; 84443; 85025

== ENCOUNTER 2025-03-23 12:26 | Outpatient (CLI) | payer MEDICARE, MEDICAID, SELFPAY ==
--- NOTE | 2025-03-23 13:00 | CA_ITS ---
FINAL REPORT TECHNIQUE: Color Doppler, duplex Doppler and christina scale sonography of the bilateral neck arterial vasculature was performed. Velocities were measured in the carotid arteries. Stenosis evaluation based on the validated velocity criteria. CLINICAL HISTORY: DIZZINESS,VINCENT,CAD,HTN,HLD,SMOKER FINDINGS: The peak systolic velocity of the right common carotid artery is 107 cm/s. The peak systolic velocity of the right internal carotid artery is 112 cm/s and end diastolic velocity 34 cm/s. The ICA/CCA ratio is 1.7. No plaque is present. The right external carotid artery is patent. The right vertebral artery is patent with antegrade flow. The peak systolic velocity of the left common carotid artery is 83 cm/s. The peak systolic velocity of the left internal carotid artery is 88 cm/s and end diastolic velocity 25 cm/s. The ICA/CCA ratio is 1.1. No plaque is present. The left external carotid artery is patent.The left vertebral artery is patent with antegrade flow. IMPRESSION: Less than 50% bilateral carotid stenoses. Bilateral patent vertebral arteries with antegrade flow. If indicated, CTA or MRA could further evaluate. Reviewed, Interpreted and Dictated by Danya Montejo MD Transcribed by Cyndi Pham Authenticated and [facility]
== END 2025-03-23 23:59 | disposition home or self-care (01) ==
LOC: RT 12:27
PROVIDERS: PCP Nurse Practitioner Family; Visit Provider Nurse Practitioner Family
DX: I65.23 Occlusion and stenosis of bilateral carotid arteries (principal); I10 Essential (primary) hypertension; I25.10 Atherosclerotic heart disease of native coronary artery without angina pectoris; F17.200 Nicotine dependence, unspecified, uncomplicated; E78.5 Hyperlipidemia, unspecified
CPT/HCPCS: 93880

== ENCOUNTER 2025-04-10 08:20 | Outpatient (CLI) | payer MEDICARE, MEDICAID, SELFPAY ==
[2025-04-11 12:19] LABS: Cortisol,AM 11.1 ug/dL (6.2-19.4)
== END 2025-04-10 23:59 | disposition home or self-care (01) ==
LOC: LAB.DROPOF 13:53
PROVIDERS: PCP Nurse Practitioner Family; Visit Provider Nurse Practitioner Family
DX: R53.1 Weakness (principal); R42 Dizziness and giddiness
CPT/HCPCS: 82533

== ENCOUNTER 2025-05-22 13:46 | Outpatient (CLI) | payer MEDICARE, MEDICAID, SELFPAY ==
--- OUTSIDE RECORDS SUMMARY | 2025-05-22 13:49 | XMS_ITS | Clinical Summary ---
Author Organization [facility] Address [address] [place] [address] Phone Care Team Providers Care Business Performance Advisor Name Role Phone Kei Currie MD, [facility] Primary Care Provid er 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 Tobacco Use Types Packs/Day Years Used Date Smoking Tobacco: Never Assessed Comments Unknown Sex and Gender Information Value Date Recorded Sex Assigned at Not on file Legal Sex Female 9:59 AM EDT Gender Identity Not on file Sexual Orientation Not on file Plan of Treatment Health Maintenance Due Date Last Done Comments Wellness Exam Medicare 1948 Hepatitis C Screening 1963 DTaP/TDaP/Td (1 - Tdap) 1964 Pneumococcal Vaccine 50+ (1 of 1 - PCV) 1995 Zoster (1 of 2) 1995 Bone Density Screening 2010 RSV or 60+ (1 - 1-d ose 75+ series) 2020 COVID-19 Vaccine ( - 2023-2 5 season) 2024 Influenza Vaccine (#1) 2025 Hepatitis B Vaccine Aged Out No longe r eligible based on patient's age to complete this topic Meningococcal B Vaccine Aged Out No l onger eligible based on patient's age to complete this topic Insurance MEDICARE [place] PART A AND B Care Teams Business Performance Advisor Relationship Specialty Start Date End Date Bartolo Choudhury Sr., MD [address] [place] [id number] PCP - General Well Head Pumper 04/03/14
--- OUTSIDE RECORDS SUMMARY | 2025-05-22 13:49 | XMS_ITS | Data Portability ---
Author Organization [facility]ACH HYACINTH [facility] [place] [facility] Address [address] [place] [address] Assessment No assessment recorded. Plan of Treatment Reminders Order Date Submit Date Provider Last Modified By Organization Details Last Modified Time Details Appointments None recorded. Lab opiates, quantitati ve, urine 2016 017 [facility], [address] [place] [address], [id number], 7 17:36:26 chatman Ab + dispenser operator Ab, serum 2016 017 [facility], [address] [place] [address], [address], 7 00:26:21 urinalysis complete, reflex culture 2016 017 [facility], [address] [place] [address], [address], 7 15:32:32 C reactive protein, QN, serum or plasma 2016 017 [facility], [address] [place] [address], [address], 7 12:33:10 ESR (erythrocy te sedimentat ion rate), blood 2016 017 [facility], [address] [place] [address], [address], 7 13:22:42 ccp (cyclic citrullina charles peptide) iga+igg, serum 2016 017 [facility], [address] [place] [address], [address], 7 20:44:59 uric acid, serum or plasma 2016 017 [facility], [address] [place] [address], [address], 7 12:33:09 creatinine , serum or plasma 2016 017 [facility], [address] [place] [address], [address], 7 12:33:11 Referral None recorded. Procedures None recorded. Surgeries None recorded. Imaging None recorded. Medication Orders Mccammon 5 mg-325 mg tablet 2016 017 [facility], [address], [address], 7 11:09:31 Mccammon 5 mg-325 mg tablet 2016 017 [facility], [address], [address], 7 13:24:19 Mccammon 5 mg-325 mg tablet 2016 017 [facility], [address], [address], 7 09:37:38 Lyrica 25 mg capsule 2016 017 [facility], [address], [address], 7 09:37:10 Mccammon 5 mg-325 mg tablet 2016 017 [facility], [address], [address], 7 10:05:49 Patient TargetsNo targets recorded. Patient Instructions Encounter Date Encounter Id Patient Instructions Last Modified By Organization Details Last Modified Time 08/13/2017 [id number] When You Want to Lose Weight: Care Instructions [email or web address] Not available 08/13/2017 14:20:39 Quitting Tobacco : Care Instructions [email or web address] Not available 08/13/2017 14:20:39 arthritis: care instructions [email or web address] Not available 08/13/2017 14:20:40 osteoarthritis: care instructions lklemme Not available 08/13/2017 14:20:40 Reason for Referral None Reported. Results Created Date Observation Date Name Description Value Unit Range Abnormal Flag Note LastModifiedBy Organization Detail LastModifiedTime 06/14/20 17 06/14/2017 uric acid, serum or plasm a uric acid 5.5 mg/dL 2.4-5. 7 normal Not Available [facility] [address] [place], [address], 06/14/2017 12:33:09 06/14/20 17 06/14/2017 C react izabela prote in, QN, serum or plasm a C reactive protein 0.13 mg/dL 0.00-0 .50 normal JOHN NTRAT IONS OF < 1 MG/DL EXCLU DE MANY ACUTE INFLA MMATO RY DISEA SES, BUT DO NOT SPECI FICAL LY EXCLU DE INFLA MMATO RY PROCE SSES. ELEVA CHARLES JOHN NTRAT IONS OF < 5 MG/DL IN ACUTE DISEA SE OCCUR IN THE PRESE NCE OF SLIGH T TO MODER ATE INFLA MMATO RY PROCE SSES. VALUE S > 5 MG/DL INDIC ATE HIGH AND EXTEN SIVE INFLA MMATO RY ACTIV ITY. Not Available [facility] [address] [place], [address], 06/14/2017 12:33:10 06/14/20 17 06/14/2017 creat inine , serum or plasm a creatinine 0.69 mg/dL 0.50-0 .95 normal Not Available [facility] [address] [place], [address], 06/14/2017 12:33:11 06/14/20 17 06/14/2017 ESR (eryt hrocy te sedim entat ion rate) , blood ESR, automated 28 mm/HR 0-29 normal Not Available [facility] [address] [place] [address], [address], 06/14/2017 13:22:42 06/14/20 17 06/14/2017 urina lysis compl ete, refle x cultu re color YELLOW normal Not Available [facility] [address] [place] [address], [address], 06/14/2017 15:32:32 06/14/20 17 06/14/2017 urina lysis compl ete, refle x cultu re appearance CLEAR normal Not Available [facility] [address] [place] [address], [address], 06/14/2017 15:32:32 06/14/20 17 06/14/2017 urina lysis compl ete, refle x cultu re glucose NORMAL mg/dL normal normal Not Available [facility] [address] [place] [address], [address], 06/14/2017 15:32:32 06/14/20 17 06/14/2017 urina lysis compl ete, refle x cultu re bilirubin NEGATI VE mg/dL negati ve normal Not Available [facility] [address] [place] [address], [address], 06/14/2017 15:32:32 06/14/20 17 06/14/2017 urina lysis compl ete, refle x cultu re ketone NEGATI VE mg/dL negati ve normal Not Available [facility] [address] [place] [address], [address], 06/14/2017 15:32:32 06/14/20 17 06/14/2017 urina lysis compl ete, refle x cultu re specific gravity 1.014 1.003- 1.035 normal Not Available [facility] [address] [place] [address], [address], 06/14/2017 15:32:32 06/14/20 17 06/14/2017 urina lysis compl ete, refle x cultu re blood NEGATI VE /uL negati ve normal Not Available [facility] [address] [place] [address], [address], 06/14/2017 15:32:32 06/14/20 17 06/14/2017 urina lysis compl ete, refle x cultu re pH 7 5.0 - 8.0 normal Not Available [facility] [address] [place] [address], [address], 06/14/2017 15:32:32 06/14/20 17 06/14/2017 urina lysis compl ete, refle x cultu re protein NEGATI VE mg/dL negati ve normal Not Available [facility] [address] [place] [address], [address], 06/14/2017 15:32:32 06/14/20 17 06/14/2017 urina lysis compl ete, refle x cultu re urobilinogen NORMAL mg/dL normal normal Not Available [facility] [address] [place] [address], [address], 06/14/2017 15:32:32 06/14/20 17 06/14/2017 urina lysis compl ete, refle x cultu re nitrite NEGATI VE negati ve normal Not Available [facility] [address] [place] [address], [address], 06/14/2017 15:32:32 06/14/20 17 06/14/2017 urina lysis compl ete, refle x cultu re leukocyte esterase NEGATI VE /uL negati ve normal Not Available [facility] [address] [place] [address], [address], 06/14/2017 15:32:32 06/14/20 17 06/14/2017 urina lysis compl ete, refle x cultu re urine microscopic PERFOR MED normal Not Available [facility] [address] [place] [address], [address], 06/14/2017 15:32:32 06/14/20 17 06/14/2017 urina lysis compl ete, refle x cultu re WBC, urine 5-10 0-5/hp f abnormal Not Available [facility] [address] [place] [address], [address], 06/14/2017 15:32:32 06/14/20 17 06/14/2017 urina lysis compl ete, refle x cultu re RBC, urine RARE 0-2/hp f normal Not Available [facility] [address] [place] [address], [address], 06/14/2017 15:32:32 06/14/20 17 06/14/2017 urina lysis compl ete, refle x cultu re squamous epi. cells OCCASI ONAL 0-5/hp f normal Not Available [facility] [address] [place] [address], [address], 06/14/2017 15:32:32 06/14/20 17 06/14/2017 urina lysis compl ete, refle x cultu re transitional epi. cells OCCASI ONAL /hpf normal Not Available [facility] [address] [place] [address], [address], 06/14/2017 15:32:32 06/14/20 17 06/14/2017 urina lysis compl ete, refle x cultu re bacteria TRACE /hpf abnormal Not Available [facility] [address] [place] [address], [address], 06/14/2017 15:32:32 06/14/20 17 06/14/2017 urina lysis compl ete, refle x cultu re reflex culture see below normal UA resul ts do not meet cultu re crite ambrose. Not Available [facility] [address] [place] [address], [address], 06/14/2017 15:32:32 06/14/20 17 06/16/2017 chatman Ab + dispenser operator Ab, serum sm Ab <1.0 NEG ai <1.0 neg normal Not Available [facility] [address] [place] [address], [address], 06/16/2017 00:26:21 06/14/20 17 06/16/2017 chatman Ab + dispenser operator Ab, serum sm/dispenser operator Ab <1.0 NEG ai <1.0 neg normal TEST PERFO RMED AT: [facility] [facility] [employer] [facility] [place] [address] [place] [address] EKTA Zurita MD Not Available [facility] [address] [place] [address], [address], 06/16/2017 00:26:21 06/14/20 17 06/16/2017 ccp (cycl ic citru llina charles pepti de) iga+i gg, serum anti-ccp <16 units normal Refer ence Range Negat izabela: <20 Weak Posit izabela: 20-39 Moder ate Posit izabela: 40-59 Stron g Posit izabela: >59 TEST PERFO RMED AT: [facility] [facility] [employer] [facility] [place] [address] [place] [address] EKTA Zurita MD Not Available [facility] [address] [place] [address], [address], 06/16/2017 20:44:59 10/11/20 17 10/14/2017 opiat es, quant itati ve, urine codeine NEGATI VE NG/mL <50 normal This test was devel oped and its mikhail tical perfo rmanc e bell cteri stics have been deter mined by [facility]. It has not been clear ed or appro genaro by the FDA. This assay has been valid ated pursu ant to the CLIA regul ation s and is used for clini meera purpo ses. Not Available [facility] [address] [place] [address], [address], 10/14/2017 17:36:26 10/11/20 17 10/14/2017 opiat es, quant itati ve, urine hydrocodone 1370 NG/mL <50 high This test was devel oped and its mikhail tical perfo rmanc e bell cteri stics have been deter mined by [facility]. It has not been clear ed or appro genaro by the FDA. This assay has been valid ated pursu ant to the CLIA regul ation s and is used for clini meera purpo ses. Not Available [facility] [address] [place] [address], [address], 10/14/2017 17:36:26 10/11/20 17 10/14/2017 opiat es, quant itati ve, urine hydromorphon e 477 NG/mL <50 high This test was devel oped and its mikhail tical perfo rmanc e bell cteri stics have been deter mined by [facility]. It has not been clear ed or appro genaro by the FDA. This assay has been valid ated pursu ant to the CLIA regul ation s and is used for clini meera purpo ses. Not Available [facility] [address] [place] [address], [address], 10/14/2017 17:36:26 10/11/20 17 10/14/2017 opiat es, quant itati ve, urine morphine NEGATI VE NG/mL <50 normal This test was devel oped and its mikhail tical perfo rmanc e bell cteri stics have been deter mined by [facility]. It has not been clear ed or appro genaro by the FDA. This assay has been valid ated pursu ant to the CLIA regul ation s and is used for clini meera purpo ses. Not Available [facility] [address] [place], [address], 10/14/2017 17:36:26 10/11/20 17 10/14/2017 opiat es, quant itati ve, urine norhydrocodo ne 1337 NG/mL <50 high This test was devel oped and its mikhail tical perfo rmanc e bell cteri stics have been deter mined by [facility]. It has not been clear ed or appro genaro by the FDA. This assay has been valid ated pursu ant to the CLIA regul ation s and is used for clini meera purpo ses. Not Available [facility] [address] [place], [address], 10/14/2017 17:36:26 10/11/20 17 10/14/2017 opiat es, quant itati ve, urine noroxycodone NEGATI VE NG/mL <50 normal This test was devel oped and its mikhail tical perfo rmanc e bell cteri stics have been deter mined by [facility]. It has not been clear ed or appro genaro by the FDA. This assay has been valid ated pursu ant to the CLIA regul ation s and is used for clini meera purpo ses. Not Available [facility] [address] [place], [address], 10/14/2017 17:36:26 10/11/20 17 10/14/2017 opiat es, quant itati ve, urine oxycodone NEGATI VE NG/mL <50 normal This test was devel oped and its mikhail tical perfo rmanc e bell cteri stics have been deter mined by [facility]. It has not been clear ed or appro genaro by the FDA. This assay has been valid ated pursu ant to the CLIA regul ation s and is used for clini meera purpo ses. Not Available [facility] [address] [place], [address], 10/14/2017 17:36:26 10/11/20 17 10/14/2017 opiat es, quant itati ve, urine oxymorphone SEE BELOW NG/mL <50 normal The above test was perfo rmed; howev er, mikhail sis of this sampl e indic ates a drug/ chemi meera inter - feren ce with the assay . We are unabl e to repor t a quant itati ve value . This test was devel oped and its mikhail tical perfo rmanc e bell cteri stics have been deter mined by [facility]. It has not been clear ed or appro genaro by the FDA. This assay has been valid ated pursu ant to the CLIA regul ation s and is used for clini meera purpo ses. Not Available [facility] [address] [place], [address], 10/14/2017 17:36:26 10/11/20 17 10/14/2017 opiat es, quant itati ve, urine comment SEE BELOW normal This drug testi ng is for medic al treat ment only. Mikhail sis was perfo rmed as non-f orens ic testi ng and these resul ts shoul d be used only by healt hcare provi ders to rende r diagn osis or treat ment, or to monit or progr ess of medic al condi tions . For amado tance with inter preti ng these drug resul ts, pleas e conta ct a [facility] Toxic ology Speci alist : [phone] X TOX ( [phone] ), M-F, 8am-6 pm EST. TEST PERFO RMED AT: [facility] [place] [address] [place] [address] EKTA Zurita MD Not Available [facility] [place], [address], 10/14/2017 17:36:26 Result Notes None recorded. Problems Name Problem SNOMED Code Status Onset Date Resolution Date Notes Provider Name and Address Organization Details Recorded Time Osteoarthritis 734434896 Active 2016 SIDNEY FAYE APRN [address] [place], [address], [facility] 7 11:07:57 Problem Notes None recorded. Procedures Surgical History Date Name Laterality Status Provider Name and Address Organization Details Recorded Time Erp Specialist Surgery completed Yun Daniel [facility] 08/13/2017 09:23:27 Eye Surgery completed Yun Daniel [facility] 11/05/2017 10:59:07 Imaging Results None recorded. Procedure Notes None recorded. Medical Equipment None Reported. Allergies Allergen ID Allergen Name Allergen Category Reaction Reaction Severity Criticality Documentation Date Start Date Code Code System Note Provider Name and Address Organization Details Recorded Time 568871 Neurontin medicatio n Not available Not available Not available 06/14/2017 60490 8 [facility] 7 09:45:53 [id number] Spiriva medicatio n Not available Not available Not available 06/14/2017 38835 5 RxNorm Paulina Kathryn null, [facility] 7 09:46:49 Medications Name Sig Start Date Stop Date Status Note LastModified by Organization Details LastModified Time Protonix 40 mg tablet,delaye d release Take 1 tablet every day by oral route. active Not Available Not Available No t Available hydrochloroth iazide 50 mg tablet Take 1 tablet every day by oral route. active Not Available Not Available No t Available Aylin Low Dose Aspirin 81 mg tablet,delaye d release Take 1 tablet every day by oral route. active Not Available Not Available No t Available amlodipine 5 mg tablet Take 1 tablet every day by oral route. active Not Available Not Available No t Available amitriptyline 25 mg tablet Take 1 tablet every day by oral route. active Not Available Not Available No t Available Lipitor 40 mg tablet Take 1 tablet every day by oral route. active Not Available Not Available No t Available ranitidine 150 mg tablet Take 1 tablet every day by oral route at bedtime . active Not Available Not Available No t Available Mccammon 7.5 mg-325 mg tablet Take 1 tablet every 6 hours by oral route. 09/09 completed Not Available Not Available Not Available Mccammon 5 mg-325 mg tablet Take 1 tablet every 8 hours by oral route. 2016 active Not Available Not Available Not Avai lable naproxen 500 mg tablet Take 1 tablet twice a day by oral route. active Not Available Not Available No t Available Coreg 12.5 mg tablet Take 1 tablet twice a day by oral route. active Not Available Not Available No t Available Lyrica 25 mg capsule take one qhs x1 week; two qhs x1 week; then three qhs until follow up 2016 active Not Available Not Available Not Avai lable Vitals Date Recorded Body height Body mass index (BMI) Body weight Respiratory rate Heart rate Systolic And Diastolic Provider Name and Address Organization Details Last Updated DateTime 7 165.1 cm 30.1 kg/m2 95469.2 2 g 18 /min 68 /min 139/70 mm[Hg] Paulina Peralta [facility] 7 10:27:02 Date Recorded Body height Body mass index (BMI) Body weight Heart rate Systolic And Diastolic Provider Name and Address Organization Details Last Updated DateTime 08/13/2017 165.1 cm 30.5 kg/m2 26913.4 g 70 /min 117/67 mm[Hg] Yun Daniel [facility] 08/13/2017 09:24:41 Date Recorded Body height Body mass index (BMI) Body weight Respiratory rate Heart rate Systolic And Diastolic Provider Name and Address Organization Details Last Updated DateTime 165.1 cm 31 kg/m2 86939.1 8 g 18 /min 73 /min 124/69 mm[Hg] Paulina Kathryn [facility] 7 09:46:24 Date Recorded Body height Body mass index (BMI) Body weight Heart rate Respiratory rate Systolic And Diastolic Provider Name and Address Organization Details Last Updated DateTime 165.1 cm 30.6 kg/m2 68370 g 86 /min 18 /min 134/84 mm[Hg] February Bia [facility] 13:09:38 Date Recorded Body height Body mass index (BMI) Body weight Heart rate Systolic And Diastolic Provider Name and Address Organization Details Last Updated DateTime 11/05/2017 165.1 cm 31.3 kg/m2 36491.37 g 73 /min 107/65 mm[Hg] Yun Daniel [facility] 11/05/2017 11:00:29 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 Question Answer Notes LastModified by Organizat ion Details LastModified Time Tobacco Smoking Status Current Every Day Smoker Paulina sagastume [facility] 06/14/2017 09:47:04 What Was The Date Of Your Most Recent Tobacco Screening? 11/05/2017 Information n ot available 01/02/2020 Sex: Unknown Functional Status Question Answer Note LastModified by Organization D etails LastModified Time What is your level of alcohol consumption? None Information not available 08/13/2017 Mental Status None recorded. Family History Relationship Description Onset Age of this Age Resolved Age Notes LastModified by Organization Details LastModified Time Father No current problems or disability [email or web address] Not available 06/14 09:47:08 Father Arthritis [email or web address] Not availa ble 08/13/2017 09:23:06 Mother No current problems or disability [email or web address] Not available 06/14 09:47:08 Mother Arthritis [email or web address] Not availa ble 08/13/2017 09:23:06 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 Condition Response Emphysema N COPD Y Diabetes N Bleeding Disorder N Arthritis Y Acid Reflux (GERD) Y Asthma N Heart Disease N Rheumatoid Arthritis N Hypertension Y Gynecological HistoryNo gynecological history recorded. Obstetrics History GPAL:G 0 P 0 0 0 0 Past Encounters Encounter ID Performer Location Encounter Start Date Encounter Closed Date Diagnosis/Indication Diagnosis SNOMED-CT Code Diagnosis ICD10 Code Diagnosis Note [id number] SIDNEY FAYE APRN [facility] [address] [place] [address] 06/14/2017 09:23:13 06/14/2017 10:48:46 Pain of multiple joints 20048873 M25.50 chronic and recurringt akes naprosyn for osteoarthr itisconts with joint painnormal systemic exam Anti-nucle ar factor detected 871744358 R76.8 will repeat dispenser operator panel based on low positive finding of 1.8 on previous labshx of recurring kidney infections Chronic back pain 846156 002 M54.5 M54.6 sees pain management with hx of injections helped for a little whilenorma l systemic exam Chronic neck pain 983432 8558 107 M54.2 long time injury with burning and tingling into the arms bilaterall y [id number] SIDNEY FAYE APRN [facility] [address] [place] [address] 08/13/2017 09:14:25 08/13/2017 14:20:52 Osteoarthritis 615547780 M19.[address] Julio for mri and injections september 02 he reports he will only provide injections he does the injections in [place] at the hospital will obtain lenny have the controlled substance agreement signed and have her start back on norco 7.5 mg [id number] SIDNEY FAYE APRN RHEUMATOL [facility] [address] [place] [address] 09/09/2017 08:52:54 09/09/2017 09:51:44 Pain of multiple joints 84462901 M25.50 chronic and recurringt akes naprosyn for osteoarthr itis--has been on this for a long time; gets this from her pcp--will have her discuss with pcp regarding switching to something stronger for her arthritisc onts with joint painI have agreed to fill 5 mg norco for her chronic back pain in [facility] with her osteoarthr itis at this time lenny today Anti-nucle ar factor detected 811016961 R76.8 repeated dispenser operator panel based on low positive finding of 1.8 on previous labshx of recurring kidney infections normal on further assessment Chronic back pain 879734 002 M54.5 M54.6 sees pain management with hx of injections helped for a little whilenorma l systemic examsees Dr. Julio and he declined to give her norco; she was getting 7.[address] Polanco but since he moved to [place], she no longer sees him Chronic neck pain 601829 6351 107 M54.2 long time injury with burning and tingling into the arms bilaterall ywill add lyrica 75 mg titrating up on her dose at this timewith review of the neurontin she had extreme weakness and I will add this cautiously as I have discussed with her and she is to report any ill s/e to me kathy Osteoarthritis 643503408 M19.[address] Julio for mri and injections september 02 he reports he will only provide injections he does the injections in [place] at the hospital will obtain lenny today controlled substance agreement signed and have her start back on norco 5 mg tid instead of the 7.5 mg tid--have discussed with her to discuss again with Dr. Julio [id number] SIDNEY FAYE APRN RHEUMATOL [facility] [address] [place] [address] 10/11/2017 12:56:59 10/11/2017 13:33:27 Pain of multiple joints 20150794 M25.50 chronic and recurringt akes naprosyn for osteoarthr itis--has been on this for a long time; gets this from her pcp--will have her discuss with pcp regarding switching to something stronger for her arthritisc onts with joint painI have agreed to fill 5 mg norco for her chronic back pain in combinatio n with her osteoarthr itis at this time lenny todayopiat e urine today Osteoarthritis 746126419 M19.[address] Julio for mri and injections september 02 he reports he will only provide injections [facility] controlled substance agreement signed and have her start back on norco 5 mg tid instead of the 7.5 mg tid--have discussed with her to discuss again with Dr. Julio Chronic neck pain 131777 2958 107 M54.2 long time injury with burning and tingling into the arms bilaterall ywill add lyrica 75 mg titrating up on her dose at this timewith review of the neurontin she had extreme weakness and I will add this cautiously as I have discussed with her and she is to report any ill s/e to me asamarileetarte dung having blisters in her mouth when she started on 2 daily so she reduced back down to one daily [id number] SIDNEY FAYE APRN RHEUMATOL [facility] [address] [place] [address] 11/05/2017 10:15:27 11/05/2017 11:33:51 Osteoarthritis [id number] M19.[address] Julio for pain injections ; had seen Dr. Polanco in the past who prescribed 7.5 tid at that time, but when Dr. Julio started taking over her case he suddenly refused to fill it despite her being on it for over 20 years; she is currently seeing me for moderate to sever oa and I have started filling it at 5 mg tid and will continue to do so until she gets in with a new pain management that will take over her care fully he reports he will only provide injections will not fill [facility] controlled substance agreement signed and have her start back on norco 5 mg tid instead of the 7.5 mg tid--have discussed with her to discuss again with Dr. Julio Health Concerns Section Related Observation LastModified by Organization Detai ls LastModified Time None Recorded Concern Status LastModified by Organization Details LastModified Time None Recorded Advance Directives Directive None Recorded Payers Insurance Date Sequence Insurance Name Policy Number Policy West Covered Member ID West Member ID Guarantor Name 10/09/2020 1 [place] Jessica Payton [id number] Jessica Fried Kylekadeem 11/30/2017 2 [place] [facility] - FFS/TRADITIO NAL Jessica Fried Tata [id number] Jessica Fried Kylekadeem Notes Date Note Type Note Provider Name and Address Organization Details Recorded Time 06/14/2017 text/html multiple joint pains and stiffness; positive ryan with hx of granddaughter with crohn's; positive dispenser operator antibodies; low/mid/neck pains; started with naprosyn; recurring kidney infections x 2 months and on/off the naprosyn; cleared with antibiotics; denies cp, soa, rash or fevers and all others are negative SIDNEY FAYE APRN [address] [place], [address], [facility] 06/14/2017 10:46:54 08/13/2017 text/html f/u with c/o multiple joint pains and stiffness; positive ryan with hx of granddaughter with crohn's; positive dispenser operator antibodies; low/mid/neck pains; started with naprosyn; recurring kidney infections x 2 months and on/off the naprosyn; cleared with antibiotics; denies cp, soa, rash or fevers and all others are negative SIDNEY FAYE APRN [address] [place], [address], [facility] 08/18/2017 21:40:35 09/09/2017 text/html f/u with c/o multiple joint pains and stiffness; positive ryan with hx of granddaughter with crohn's; 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; low/mid/neck pains; started with naprosyn; recurring kidney infections x 2 months and on/off the naprosyn; cleared with antibiotics; denies cp, soa, rash or fevers and all others are negative SIDNEY FAYE, FRANNY [address] [place], [address], [facility] 09/18/2017 09:12:54 10/11/2017 text/html f/u with c/o multiple joint pains and stiffness; positive ryan with hx of granddaughter with crohn's; 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; low/mid/neck pains; started with naprosyn; recurring kidney infections x 2 months and on/off the naprosyn; cleared with antibiotics; having right cataract surgery tomorrow; needs refills; denies cp, soa, rash or fevers and all others are negative SIDNEY FAYE APRN [address] [place], [address], [facility] 10/11/2017 13:26:14 11/05/2017 text/html f/u with c/o multiple joint pains and stiffness; has seen melinda cox and is going to go to therapy; positive ryan with hx of granddaughter with crohn's; 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; low/mid/neck pains; started with naprosyn; recurring kidney infections x 2 months and on/off the naprosyn; cleared with antibiotics; having right cataract surgery tomorrow; needs refills; denies cp, soa, rash or fevers and all others are negative SIDNEY FAYE APRN [address] [place], [address], [facility] 11/05/2017 11:25:58 OBGyn Episode No OBEpisode recorded.
--- OUTSIDE RECORDS SUMMARY | 2025-05-22 13:49 | XMS_ITS | Clinical Summary ---
Author Organization Healthcare Address [address] [place] [address] Care Team Providers Care Conservation Engineer Name Role Phone Unavailable Primary Care Provider Unavailabl e 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 Tobacco Use Types Packs/Day Years Used Date Smoking Tobacco: Never Assessed Comments Unknown Sex and Gender Information Value Date Recorded Sex Assigned at Not on file Legal Sex Female 8:52 PM EDT Gender Identity Not on file Sexual Orientation Not on file Last Filed Vital Signs Vital Sign Reading Time Taken Comments Blood Pressure - - Pulse - - Temperature - - Respiratory Rate - - Oxygen Saturation - - Inhaled Oxygen Concentration - - Weight 84.5 kg (186 lb 3.9 oz) 08/05/2016 12:57 PM EDT Height 167.6 cm (5' 6 ) 08/05/2016 12:57 PM EDT Body Mass Index 30.06 08/05/2016 12:57 PM EDT Plan of Treatment Health Maintenance Due Date Last Done Comments [facility]-Bone Density Scan 1945 [facility]-Depression Screening 1945 [facility]-/Child/Adol SDOH Screenings 1945 [facility]- SDOH Screenings 1963 [facility]-Adult SDOH Screenings 1963 [facility]-Pneumococcal Vaccine: 50 + Years (1 of 1 - PCV) 1995 [facility]-Zoster Vaccines (1 of 2) 1995 [facility]-DTaP,Tdap,and Td Vaccine s (1 - Tdap) 01/16/1997 01/15/1997 [facility]-RSV Vaccine: 60+ Years o r (1 - 1-dose 75+ series) 2020 [id number] Vaccine (1 - 20 24-25 season) 2024 [facility]-Influenza Vaccine (#1) 2025 HPV Vaccines Aged Out No longer eligi ble based on patient's age to complete this topic [facility]-HIB Vaccines Aged Out No longer e ligible based on patient's age to complete this topic [facility]-Hepatitis A Vaccines Aged Out No longer eligible based on patient's age to complete this topic [facility]-IPV Vaccines Aged Out No longer e ligible based on patient's age to complete this topic [facility]-Rotavirus Vaccines Aged Out No lo nger eligible based on patient's age to complete this topic [id number] [id number] [place] AN[place] MEDICARE
--- NOTE | 2025-05-22 14:00 | CA_ITS ---
APPROVED REPORT EXAM: Comprehensive 2D, Doppler, and color-flow Echocardiogram Wheelage Clerk: Tosin Rousseau RVT Ht: 5 ft 5 in Wt: 225lbs BSA: 2.08 BP: 122/68 mmHg Indications: HFpEF,SHORTNESS OF BREATH 2D Dimensions LA Volume 19.30 mL LA Volume Index 9.28 mL/m2 (M/F) 16-34 M-Mode Dimensions RVDd 2.86 cm (0.9-2.6) LA Diam 3.95 cm (1.9-4.0) LVDd 3.53 cm (3.5-5.7) LVDs 2.37 cm (3.5-5.7) IVSd 0.67 cm (0.6-1.1) PWd 0.63 cm (0.6-1.1) EF (Teich) 62.40% FS 32.90% EDV (Teich) 51.90 mL TAPSE 1.70 (<1.7) ESV (Teich) 19.50 mL LV Diastology E Decel Time 303 (160-240 msec) E/A Ratio 0.6 Aortic Valve FREDA Index 1.06 cm2/m2 AoV Peak Chandra. 167.0 (50-130 cm/s) AO Peak GR. 11.20 mmHg AO Mean GR. 5.30 (<5 mmHg) AO VTI 32.4 (18-25 cm) FREDA (VTI) 2.26 (2.5-4.5 cm2) Mitral Valve MV E Max Chandra. 62.0 (40-130 cm/s) MV A Velocity 109.0 (40-130 cm/s) E/A Ratio 0.57 MV PHT 89.0 ms Pulmonary Valve PV Peak Velocity 74.0 (50-150 cm/s) Tricuspid Valve TR P. Velocity 231.00 cm/s RAP Estimate 10.00 mmHg RVSP 31.30 mmHg Left Ventricle The left ventricle is normal size. The left ventricular systolic function is normal. The left ventricular ejection fraction is within the normal range. There is increased LV wall thickness. There is normal LV segmental wall motion. The left ventricular diastolic function is normal. LVEF is 55%. Right Ventricle The right ventricle is normal size. The right ventricular systolic function is normal. Atria The left atrium size is normal. The right atrium size is normal. There is no Doppler evidence of interatrial shunt. Aortic Valve The aortic valve is mildly thickened. There is no aortic valvular stenosis. Trace aortic regurgitation is present. Mitral Valve The mitral valve is normal in structure. No evidence of mitral valve stenosis. Trace mitral regurgitation. Tricuspid Valve Tricuspid valve is grossly normal in structure and function. Trace tricuspid regurgitation. RVSP is normal. Pulmonic Valve The pulmonary valve is normal in structure. Trace pulmonic regurgitation. Great Vessels The aortic root is normal in size. IVC is normal in size and collapses >50% with inspiration. Pericardium There is no pericardial effusion. Other Information Study Quality: Fair Conclusion Normal biventricular systolic function. No significant valvular stenosis or regurgitation. Electronically signed by : Kusum Collins MD 05/26/2025 00:59:27
== END 2025-05-22 23:59 | disposition home or self-care (01) ==
LOC: RT 13:46
PROVIDERS: PCP Nurse Practitioner Family; Visit Provider Physician Assistant
DX: I25.10 Atherosclerotic heart disease of native coronary artery without angina pectoris (principal); I11.0 Hypertensive heart disease with heart failure; I50.33 Acute on chronic diastolic (congestive) heart failure
CPT/HCPCS: 93306

== ENCOUNTER 2025-05-24 09:37 | Outpatient (CLI) | payer MEDICARE, MEDICAID, SELFPAY ==
--- OUTSIDE RECORDS SUMMARY | 2025-05-24 09:40 | XMS_ITS | Clinical Summary ---
Author Organization [facility] Address [address] [place] [address] Phone Care Team Providers Care Assistant Professor Of Dietetics Name Role Phone Kei Currie MD, [facility] Primary Care Provid er 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 Tobacco [...] [place] PART A AND B Care Teams Assistant Professor Of Dietetics Relationship Specialty Start Date End Date Bartolo Choudhury Sr., MD [address] [place] [id number] PCP - General Cytogenetic Technician 04/03/14
--- OUTSIDE RECORDS SUMMARY | 2025-05-24 09:40 | XMS_ITS | Clinical Summary ---
Author Organization Healthcare Address [address] [place] [address] Care Team Providers Care Seaman Name Role Phone Unavailable Primary Care Provider [...] r (1 - 1-dose 75+ series) 2020 [id number] Vaccine (1 - 20 24-25 season) 2024 [...] age to complete this topic Insurance [id number] [id number] [place] MEDICARE
--- OUTSIDE RECORDS SUMMARY | 2025-05-24 09:40 | XMS_ITS | Data Portability ---
Author Organization ZACH HYACINTH Melendez [facility] Address [address] [place] [address] Assessment No assessment recorded. Plan of Treatment Reminders Order Date Submit Date Provider Last Modified By Organization Details Last Modified Time Details Appointments None recorded. Lab opiates, quantitati ve, urine 2016 017 [facility], [address] [place] [address], [id number], 7 17:36:26 chatman Ab + mysql database developer Ab, serum 2016 017 [facility], [address] [place] [address], [id number], 7 00:26:21 urinalysis complete, reflex culture 2016 017 [facility], [address] [place] [address], [id number], 7 15:32:32 C reactive protein, QN, serum or plasma 2016 017 [facility], [address] [place] [address], [id number], 7 12:33:10 ESR (erythrocy te sedimentat ion rate), blood 2016 017 [facility], [address] [place] [address], [address], 7 13:22:42 ccp (cyclic citrullina charles peptide) iga+igg, serum 2016 017 [facility], [address] [place] [address], [id number], 7 20:44:59 uric acid, serum or plasma 2016 017 [facility], [address] [place] [address], [id number], 7 12:33:09 creatinine , serum or plasma 2016 017 [facility], [address] [place] [address], [address], 7 12:33:11 Referral None recorded. Procedures None recorded. Surgeries None recorded. Imaging None recorded. Medication Orders Kingston 5 mg-325 mg tablet 2016 017 [facility], [address], [address], 7 11:09:31 Kingston 5 mg-325 mg tablet 2016 017 [facility], [address], [address], 7 13:24:19 Kingston 5 mg-325 mg tablet 2016 017 [facility], [address], [address], 7 09:37:38 Lyrica 25 mg capsule 2016 017 [facility], [address], [address], 7 09:37:10 Kingston 5 mg-325 mg tablet 2016 017 [facility], [address], [address], 7 10:05:49 Patient TargetsNo targets recorded. Patient Instructions Encounter Date Encounter Id Patient Instructions Last Modified By Organization Details Last Modified Time 08/13/2017 [id number] When You Want to Lose Weight: Care [...] 5.5 mg/dL 2.4-5. 7 normal Not Available [facility] [address] [place], [address], 06/14/2017 12:33:09 06/14/20 17 06/14/2017 C react [...] INFLA MMATO RY ACTIV ITY. Not Available [facility] [address] [place], [address], 06/14/2017 12:33:10 06/14/20 17 06/14/2017 creat inine , serum or plasm a creatinine 0.69 mg/dL 0.50-0 .95 normal Not Available [facility] [address] [place], [address], 06/14/2017 12:33:11 06/14/20 17 06/14/2017 ESR (eryt hrocy te sedim entat ion rate) , blood ESR, automated 28 mm/HR 0-29 normal Not Available [facility] [address] [place] [address], [id number], 06/14/2017 13:22:42 06/14/20 17 06/14/2017 urina lysis compl ete, refle x cultu re color YELLOW normal Not Available [facility] [address] [place] [address], [id number], 06/14/2017 15:32:32 06/14/20 17 06/14/2017 urina lysis compl ete, refle x cultu re appearance CLEAR normal Not Available [facility] [address] [place] [address], [address], 06/14/2017 15:32:32 06/14/20 17 06/14/2017 urina lysis compl ete, refle x cultu re glucose NORMAL mg/dL normal normal Not Available [facility] [address] [place] [address], [address], 06/14/2017 15:32:32 06/14/20 17 06/14/2017 urina lysis compl ete, refle x cultu re bilirubin NEGATI VE mg/dL negati ve normal Not Available [facility] [address] [place] [address], [address], 06/14/2017 15:32:32 06/14/20 17 06/14/2017 urina lysis compl ete, refle x cultu re ketone NEGATI VE mg/dL negati ve normal Not Available [facility] [address] [place] [address], [address], 06/14/2017 15:32:32 06/14/20 17 06/14/2017 urina lysis compl ete, refle x cultu re specific gravity 1.014 1.003- 1.035 normal Not Available [facility] [address] [place] [address], [address], 06/14/2017 15:32:32 06/14/20 17 06/14/2017 urina lysis compl ete, refle x cultu re blood NEGATI VE /uL negati ve normal Not Available [facility] [address] [place] [address], [address], 06/14/2017 15:32:32 06/14/20 17 06/14/2017 urina lysis compl ete, refle x cultu re pH 7 5.0 - 8.0 normal Not Available [facility] [address] [place] [address], [address], 06/14/2017 15:32:32 06/14/20 17 06/14/2017 urina lysis compl ete, refle x cultu re protein NEGATI VE mg/dL negati ve normal Not Available [facility] [address] [place] [address], [address], 06/14/2017 15:32:32 06/14/20 17 06/14/2017 urina lysis compl ete, refle x cultu re urobilinogen NORMAL mg/dL normal normal Not Available [facility] [address] [place] [address], [address], 06/14/2017 15:32:32 06/14/20 17 06/14/2017 urina lysis compl ete, refle x cultu re nitrite NEGATI VE negati ve normal Not Available [facility] [address] [place] [address], [address], 06/14/2017 15:32:32 06/14/20 17 06/14/2017 urina lysis compl ete, refle x cultu re leukocyte esterase NEGATI VE /uL negati ve normal Not Available [facility] [address] [place] [address], [id number], 06/14/2017 15:32:32 06/14/20 17 06/14/2017 urina lysis compl ete, refle x cultu re urine microscopic PERFOR MED normal Not Available [facility] [address] [place] [address], [address], 06/14/2017 15:32:32 06/14/20 17 06/14/2017 urina lysis compl ete, refle x cultu re WBC, urine 5-10 0-5/hp f abnormal Not Available [facility] [address] [place] [address], [address], 06/14/2017 15:32:32 06/14/20 17 06/14/2017 urina lysis compl ete, refle x cultu re RBC, urine RARE 0-2/hp f normal Not Available [facility] [address] [place] [address], [id number], 06/14/2017 15:32:32 06/14/20 17 06/14/2017 urina lysis compl ete, refle x cultu re squamous epi. cells OCCASI ONAL 0-5/hp f normal Not Available [facility] [address] [place] [address], [address], 06/14/2017 15:32:32 06/14/20 17 06/14/2017 urina lysis compl ete, refle x cultu re transitional epi. cells OCCASI ONAL /hpf normal Not Available [facility] [address] [place] [address], [address], 06/14/2017 15:32:32 06/14/20 17 06/14/2017 urina lysis compl ete, refle x cultu re bacteria TRACE /hpf abnormal Not Available [facility] [address] [place] [address], [id number], 06/14/2017 15:32:32 06/14/20 17 06/14/2017 urina lysis compl ete, refle x cultu re reflex culture see below normal UA resul ts do not meet cultu re crite ambrose. Not Available [facility] [address] [place] [address], [address], 06/14/2017 15:32:32 06/14/20 17 06/16/2017 chatman Ab + mysql database developer Ab, serum sm Ab <1.0 NEG ai <1.0 neg normal Not Available [facility] [address] [place] [address], [id number], 06/16/2017 00:26:21 06/14/20 17 06/16/2017 chatman Ab + mysql database developer Ab, serum sm/mysql database developer Ab <1.0 NEG ai <1.0 neg normal TEST PERFO RMED AT: [facility] [address] [place] [address] EKTA Zurita MD Not Available [facility] [address] [place] [address], [address], 06/16/2017 00:26:21 06/14/20 17 06/16/2017 ccp (cycl ic citru llina charles pepti de) iga+i gg, serum anti-ccp <16 units normal Refer ence Range Negat izabela: <20 Weak Posit izabela: 20-39 Moder ate Posit izabela: 40-59 Stron g Posit izabela: >59 TEST PERFO RMED AT: [facility] [address] [place] [address] KETA Zurita MD Not Available [facility] [address] [place] [address], [address], 06/16/2017 20:44:59 10/11/20 17 10/14/2017 opiat es, quant itati ve, urine codeine NEGATI VE NG/mL <50 normal This test was devel oped and its mikhail tical perfo rmanc e bell cteri stics have been deter mined by [employer]. It has not been clear ed or appro genaro by the FDA. This assay has been valid ated pursu ant to the CLIA regul ation s and is used for clini meera purpo ses. Not Available [facility] [address] [place] [address], [address], 10/14/2017 17:36:26 10/11/20 17 10/14/2017 opiat es, [...] for clini meera purpo ses. Not Available [facility] [address] [place] [address], [address], 10/14/2017 17:36:26 10/11/20 17 10/14/2017 opiat es, [...] for clini meera purpo ses. Not Available [facility] [address] [place] [address], [address], 10/14/2017 17:36:26 10/11/20 17 10/14/2017 opiat es, [...] for clini meera purpo ses. Not Available [facility] [address] [place], [address], 10/14/2017 17:36:26 10/11/20 17 10/14/2017 opiat es, quant itati ve, urine norhydrocodo ne 1337 NG/mL <50 high This test was devel oped and its mikhail tical perfo rmanc e bell cteri stics have been deter mined by [employer]. It has not been clear ed or appro genaro by the FDA. This assay has been valid ated pursu ant to the CLIA regul ation s and is used for clini meera purpo ses. Not Available [facility] [address] [place], [address], 10/14/2017 17:36:26 10/11/20 17 10/14/2017 opiat es, [...] for clini meera purpo ses. Not Available [facility] [address] [place], [address], 10/14/2017 17:36:26 10/11/20 17 10/14/2017 opiat es, quant itati ve, urine oxycodone NEGATI VE NG/mL <50 normal This test was devel oped and its mikhail tical perfo rmanc e bell cteri stics have been deter mined by [employer]. It has not been clear ed or appro genaro by the FDA. This assay has been valid ated pursu ant to the CLIA regul ation s and is used for clini meera purpo ses. Not Available [facility] [address] [place], [address], 10/14/2017 17:36:26 10/11/20 17 10/14/2017 opiat es, [...] for clini meera purpo ses. Not Available [facility] [address] [place], [address], 10/14/2017 17:36:26 10/11/20 17 10/14/2017 opiat es, [...] alist : [phone] -[phone]-[id number] X TOX ( [phone] ), M-F, 8am-6 pm EST. TEST PERFO RMED AT: [facility] [address] [place] [address] EKTA Zurita MD Not Available [facility] [place], [address], 10/14/2017 17:36:26 Result Notes None recorded. Problems Name Problem SNOMED Code Status Onset Date Resolution Date Notes Provider Name and Address Organization Details Recorded Time Osteoarthritis 975025673 Active 2016 SIDNEY FAYE APRN [address] [place], [address], [facility] 7 11:07:57 Problem Notes None recorded. 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 Procedure Notes None recorded. Medical Equipment None Reported. Allergies Allergen ID Allergen Name Allergen Category Reaction Reaction Severity Criticality Documentation Date Start Date Code Code System Note Provider Name and Address Organization Details Recorded Time 706972 Neurontin medicatio n Not available Not available Not available 06/14/2017 21902 8 [facility] 09:45:53 177197 Spiriva medicatio n Not available Not available Not available 06/14/2017 84323 5 RxNorm Paulina Kathryn null, [facility] 7 09:46:49 Medications Name Sig Start [...] Not Available Not Available No t Available Kingston 7.5 mg-325 mg tablet Take 1 tablet every 6 hours by oral route. 09/09 completed Not Available Not Available Not Available [place] 5 mg-325 mg tablet Take 1 tablet [...] Updated DateTime 7 165.1 cm 30.1 kg/m2 14911.2 2 g 18 /min 68 /min 139/70 mm[Hg] Paulina Peralta [facility] 7 10:27:02 Date Recorded Body height Body mass index (BMI) Body weight Heart rate Systolic And Diastolic Provider Name and Address Organization Details Last Updated DateTime 08/13/2017 165.1 cm 30.5 kg/m2 63463.4 g 70 /min 117/67 mm[Hg] Yun Daniel [facility] 08/13/2017 09:24:41 Date Recorded Body height Body mass index (BMI) Body weight Respiratory rate Heart rate Systolic And Diastolic Provider Name and Address Organization Details Last Updated DateTime 165.1 cm 31 kg/m2 53619.1 8 g 18 /min 73 /min 124/69 mm[Hg] Paulina Kathryn [facility] 7 09:46:24 Date Recorded Body height Body mass index (BMI) Body weight Heart rate Respiratory rate Systolic And Diastolic Provider Name and Address Organization Details Last Updated DateTime 165.1 cm 30.6 kg/m2 93262 g 86 /min 18 /min 134/84 mm[Hg] February Bia [facility] 13:09:38 Date Recorded Body height Body mass index (BMI) Body weight Heart rate Systolic And Diastolic Provider Name and Address Organization Details Last Updated DateTime 11/05/2017 165.1 cm 31.3 kg/m2 98450.37 g 73 /min 107/65 mm[Hg] Yun Daniel [facility] 11/05/2017 11:00:29 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 Question Answer Notes LastModified by Organizat ion Details LastModified Time Tobacco Smoking Status Current Every Day Smoker Paulina sagastume [facility] 06/14/2017 09:47:04 What Was The Date [...] Time Father No current problems or disability [email or web address] Not available 06/14 09:47:08 Father Arthritis [email or web address] Not availa ble 08/13/2017 09:23:06 Mother No current problems or disability [email or web address] Not available 06/14 09:47:08 Mother Arthritis [email or web address] Not availa ble 08/13/2017 09:23:06 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 Condition Response Emphysema N COPD Y Arthritis Y Acid Reflux (GERD) Y Rheumatoid Arthritis N Diabetes N Bleeding Disorder N Asthma N Heart Disease N Hypertension Y Gynecological HistoryNo gynecological history recorded. Obstetrics History GPAL:G 0 P 0 0 0 0 Past Encounters Encounter ID Performer Location Encounter Start Date Encounter Closed Date Diagnosis/Indication Diagnosis SNOMED-CT Code Diagnosis ICD10 Code Diagnosis Note [id number] SIDNEY FAYE APRN [facility] [address] [place] [address] 06/14/2017 09:23:13 06/14/2017 10:48:46 Pain of multiple joints 50347145 M25.50 chronic and recurringt akes naprosyn for osteoarthr itisconts with joint painnormal systemic exam Anti-nucle ar factor detected 945855513 R76.8 will repeat mysql database developer panel based on low positive finding of 1.8 on previous labshx of recurring kidney infections Chronic back pain 648247 002 M54.5 M54.6 sees pain management with hx of injections helped for a little whilenorma l systemic exam Chronic neck pain 365704 9962 107 M54.2 long time injury with burning and tingling into the arms bilaterall y [id number] SIDNEY FAYE APRN [facility] [address] [place] [address] 08/13/2017 09:14:25 08/13/2017 14:20:52 Osteoarthritis 596023925 M19.[address] Julio for mri and injections september 02 he reports he will only provide injections he does the injections in [place] at the hospital will obtain lenny have the controlled substance agreement signed and have her start back on norco 7.5 mg [id number] SIDNEY FAYE APRN RHEUMATOL [facility] [address] [place] [address] 09/09/2017 08:52:54 09/09/2017 09:51:44 Pain of multiple joints 38645825 M25.50 chronic and recurringt akes naprosyn for osteoarthr itis--has been on this for a long time; gets this from her pcp--will have her discuss with pcp regarding switching to something stronger for her arthritisc onts with joint painI have agreed to fill 5 mg norco for her chronic back pain in [facility] with her osteoarthr itis at this time lenny today Anti-nucle ar factor detected 890679261 R76.8 repeated mysql database developer panel based on low positive finding of 1.8 on previous labshx of recurring kidney infections normal on further assessment Chronic back pain 602018 002 M54.5 M54.6 sees pain management with hx of injections helped for a little whilenorma l systemic examsees Dr. Julio and he declined to give her norco; she was getting 7.[address] Polanco but since he moved to [place], she no longer sees him Chronic neck pain 675684 5953 107 M54.2 long time injury with burning and tingling into the arms bilaterall ywill add lyrica 75 mg titrating up on her dose at this timewith review of the neurontin she had extreme weakness and I will add this cautiously as I have discussed with her and she is to report any ill s/e to me kathy Osteoarthritis 276906232 M19.[address] Julio for mri and injections september 02 he reports he will only provide injections he does the injections in [place] at the hospital will obtain lenny today controlled substance agreement signed and have her start back on norco 5 mg tid instead of the 7.5 mg tid--have discussed with her to discuss again with Dr. Julio [id number] SIDNEY FAYE APRN [facility]ATOL [facility] [address] [place] [address] 10/11/2017 12:56:59 10/11/2017 13:33:27 Pain of multiple joints 27488694 M25.50 chronic and recurringt akes naprosyn for [...] time lenny todayopiat e urine today Osteoarthritis 855059871 M19.[address] Julio for mri and injections september 02 he reports he will only provide injections [facility] controlled substance agreement signed and have her start back on norco 5 mg tid instead of the 7.5 mg tid--have discussed with her to discuss again with Dr. Julio Chronic neck pain 952997 9877 107 M54.2 long time injury with burning [...] she reduced back down to one daily [id number] SIDNEY FAYE APRN RHEUMATOL [facility] [address] [place] [address] 11/05/2017 10:15:27 11/05/2017 11:33:51 Osteoarthritis 336857105 M19.[address] Julio for pain injections [...] her [facility] obtain [facility] controlled substance agreement signed and have [...] West Member ID Guarantor Name 10/09/2020 1 [place] Jessica Payton [id number] Jessica Fried Kylekadeem 11/30/2017 2 [place] [employer] CHO[place] - FFS/TRADITIO NAL Jessica Fried Tata [id number] Jessica Fried Kylekadeem Notes Date Note Type Note Provider Name and Address Organization Details Recorded Time 06/14/2017 text/html multiple joint pains and stiffness; positive ryan with hx of granddaughter with crohn's; positive mysql database developer antibodies; low/mid/neck pains; started with naprosyn; recurring kidney infections x 2 months and on/off the naprosyn; cleared with antibiotics; denies cp, soa, rash or fevers and all others are negative SIDNEY FAYE APRN [address] [place], [address], [facility] 06/14/2017 10:46:54 08/13/2017 text/html f/u with c/o multiple joint pains and stiffness; positive ryan with hx of granddaughter with crohn's; positive mysql database developer antibodies; low/mid/neck pains; started with naprosyn; recurring kidney infections x 2 months and on/off the naprosyn; cleared with antibiotics; denies cp, soa, rash or fevers and all others are negative SIDNEY FAYE APRN [address] [place], [address], [facility] 08/18/2017 21:40:35 09/09/2017 text/html f/u with c/o multiple joint pains and stiffness; positive ryan with hx of granddaughter with crohn's; low positive mysql database developer antibodies; low/mid/neck pains; started with naprosyn; recurring kidney infections x 2 months and on/off the naprosyn; cleared with antibiotics; denies cp, soa, rash or fevers and all others are negative SIDNEY FAYE, FRANNY [address] [place], [address], [facility] 09/18/2017 09:12:54 10/11/2017 text/html f/u with c/o multiple joint pains and stiffness; positive ryan with hx of granddaughter with crohn's; low positive mysql database developer antibodies; low/mid/neck pains; started with naprosyn; recurring kidney infections x 2 months and on/off the naprosyn; cleared with antibiotics; having right cataract surgery tomorrow; needs refills; denies cp, soa, rash or fevers and all others are negative SIDNEY FAYE APRN [address] [place], [address], [facility] 10/11/2017 13:26:14 11/05/2017 text/html f/u with c/o multiple joint pains and stiffness; has seen melinda cox and is going to go to therapy; positive ryan with hx of granddaughter with crohn's; low positive mysql database developer antibodies; low/mid/neck pains; started with naprosyn; recurring kidney infections x 2 months and on/off the naprosyn; cleared with antibiotics; having right cataract surgery tomorrow; needs refills; denies cp, soa, rash or fevers and all others are negative SIDNEY FAYE APRN [address] [place], [address], [facility] 11/05/2017 11:25:58 OBGyn Episode No OBEpisode recorded.
== END 2025-05-24 23:59 | disposition home or self-care (01) ==
LOC: RT 09:38
PROVIDERS: PCP Nurse Practitioner Family; Visit Provider Internal Medicine Pulmonary Disease
DX: R94.2 Abnormal results of pulmonary function studies (principal); R06.02 Shortness of breath
CPT/HCPCS: 94618

== ENCOUNTER 2025-07-02 11:05 | Outpatient (CLI) | payer MEDICARE, MEDICAID, SELFPAY ==
[2025-07-02 17:14] LABS: Hematocrit 38.2 % (37.0-47.0); Hemoglobin 11.8 g/dL (12.2-16.2); Immature Granulocytes % 0.1 %; Mean Corpuscular HGB Conc 30.9 g/dL (31.8-35.4); Mean Corpuscular Hemoglobin 24.7 pg (27.0-31.2); Mean Corpuscular Volume 79.9 fl (81-99); Nucleated Red Blood Cells % 0 %; Platelet Count 168 K/mm3 (142-424); Red Blood Count 4.78 M/mm3 (4.20-5.40); Red Cell Distribution Width-SD 50.6 fL; White Blood Count 8.3 K/mm3 (4.8-10.8)
[2025-07-02 20:25] LABS: Alanine Aminotransferase 14 U/L (12-78); Albumin Level 3.6 g/dl (3.5-5.0); Albumin/Globulin Ratio 1.5 (1.1-1.8); Alkaline Phosphatase 131 U/L (38-126); Anion Gap 11.6 mEq/L (5-15); Aspartate Amino Transferase 24 U/L (14-36); Bilirubin,Total 0.2 mg/dl (0.2-1.3); Blood Urea Nitrogen 24 mg/dl (7-17); Calcium 8.7 mg/dl (8.4-10.2); Carbon Dioxide 27 mmol/L (22.0-30.0); Chloride 104 mmol/L (98-107); Cholesterol 128 mg/dl (140-200); Creatinine,Serum 0.90 mg/dl (0.52-1.04); Estimated Glomerular Filt Rate 60 ml/min (>60); GFR (African American) 73 ML/MIN (>60); Globulin 2.4 g/dL (1.3-3.2); Glucose 82 mg/dl (74-100); HDL Cholesterol 36 mg/dl (40-60); Magnesium 2.2 mg/dl (1.6-2.3); Potassium 4.6 mmoL/L (3.5-5.1); Sodium 138 mmol/L (136-145); Total Protein,Serum 6.0 g/dl (6.3-8.2); Triglycerides 142 mg/dl (30-150)
[2025-07-02 20:40] LABS: 25-OH Vitamin D, Total 31.2 ng/mL (30-100)
[2025-07-02 20:55] LABS: Thyroid Stimulating Hormone 2.64 uIU/mL (0.465-4.68)
[2025-07-02 21:14] LABS: Vitamin B12 217 pg/mL (239-931)
[2025-07-02 22:08] LABS: Ferritin 10.7 ng/ml (11.1-264)
[2025-07-03 00:06] LABS: Hemoglobin A1C 7.0 % (4.0-6.0)
--- OUTSIDE RECORDS SUMMARY | 2025-07-04 10:15 | XMS_ITS | Clinical Summary ---
Author Organization Healthcare Address [address] [place] [address] Care Team Providers Care Director Global Market Research Name Role Phone Unavailable Primary Care Provider [...] r (1 - 1-dose 75+ series) 2020 [id number] Vaccine (1 - 20 24-25 season) 2024 [...] [facility] [id number] [place] MEDICARE
--- OUTSIDE RECORDS SUMMARY | 2025-07-04 10:15 | XMS_ITS | Clinical Summary ---
Author Organization [facility] Address [address] [place] [address] Phone Care Team Providers Care Electrical Line Worker Name Role Phone Kei Currie MD, [facility] Primary Care Provid er 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 [...] [place] PART A AND B Care Teams Electrical Line Worker Relationship Specialty Start Date End Date Bartolo Choudhury Sr., MD [address] [place] [id number] PCP - General Host/Hostess Ground 04/03/14
[2025-07-04 13:18] LABS: Antinuclear Antibodies (ANA) Negative (Negative)
== END 2025-07-02 23:59 | disposition home or self-care (01) ==
LOC: LAB.DROPOF 07-04 09:55
PROVIDERS: PCP Nurse Practitioner Family; Visit Provider Nurse Practitioner Family
DX: E78.2 Mixed hyperlipidemia (principal); R53.1 Weakness; R20.0 Anesthesia of skin; R20.2 Paresthesia of skin; R42 Dizziness and giddiness; D64.9 Anemia, unspecified; E55.9 Vitamin D deficiency, unspecified; R73.9 Hyperglycemia, unspecified; M62.838 Other muscle spasm
CPT/HCPCS: 80053; 80061; 82306; 82607; 82728; 82785; 83036; 83735; 84443; 85025; 86003; 86008; 87476

== ENCOUNTER 2025-07-22 13:21 | Emergency (ER) | payer MEDICARE, MEDICAID, SELFPAY ==
[2025-07-22] VITALS (10 sets, daily range): BP systolic 128–158; BP diastolic 54–112; PULSE 65–85; RESP 16–20; TEMP 36.6–36.9; O2SAT 75–99; BMI 37.3
--- NOTE | 2025-07-22 13:27 | HMH.EDGENADL ---
Discharge Plan Disposition Patient Disposition: Home, Self-Care Condition: Good Prescriptions Prescriptions: New amoxicillin-pot clavulanate 875-125 mg tablet 1 tab PO BID Qty: 20 0RF oxycodone 5 mg tablet 5 mg PO Q6H PRN (Reason: pain) Qty: 12 0RF No Action Eliquis 5 mg tablet 5 mg PO BID Qty: 180 3RF rosuvastatin 20 mg tablet 20 mg PO DAILY Qty: 90 3RF Trelegy Ellipta 100-62.5-25 mcg blister with device 1 inh inhalation DAILY 90 Days Qty: 90 2RF montelukast 10 mg tablet 10 mg PO QPM 90 Days Qty: 90 2RF fluticasone propionate [Flonase Allergy Relief] 50 mcg/actuation spray,suspension 2 spray intranasal DAILY Qty: 16 4RF Rx Instructions: administer into each nostril ciclopirox 0.77 % cream 1 applic topical BID 180 Days Qty: 90 1RF ammonium lactate 12 % cream 1 applic topical BID Qty: 385 1RF Jardiance 10 mg tablet 10 mg PO DAILY Qty: 90 3RF mupirocin 2 % ointment 1 applic topical TID 10 Days Qty: 22 1RF potassium chloride 10 mEq capsule, extended release See Rx Instructions .ROUTE .COMPLEX Qty: 60 0RF Dose Instruction: TAKE 1 CAPSULE BY MOUTH TWICE DAILY NEEDED WITH FUROSEMIDE Rx Instructions: TAKE 1 CAPSULE BY MOUTH TWICE DAILY NEEDED WITH FUROSEMIDE carvedilol 12.5 mg tablet 12.5 mg PO BID Qty: 180 3RF isosorbide mononitrate 30 mg tablet extended release 24 hr 30 mg PO DAILY Qty: 90 3RF cholecalciferol (vitamin D3) 50 mcg (2,000 unit) capsule 50 mcg PO DAILY Qty: 30 2RF pregabalin 75 mg capsule 75 mg PO BID Qty: 60 2RF albuterol sulfate 90 mcg/actuation HFA aerosol inhaler 2 inh inhalation QID PRN (Reason: shortness of breath or wheezing) 90 Days Qty: 8.5 2RF bumetanide 2 mg tablet See Rx Instructions .ROUTE .COMPLEX Qty: 60 0RF Dose Instruction: Take 1 tablet by mouth twice daily Rx Instructions: Take 1 tablet by mouth twice daily Pro Fe 180 mg iron capsule 180 mg PO DAILY Qty: 30 2RF Referrals Follow up/Referrals: Manuela Castillo APRN [Primary Care Provider, Medical] - See instructions Activity Restrictions/Add. Instructions Additional Instructions/Restrictions: Stay well-hydrated and suck on sour lozenges or lemon juice to help expel the stuck salivary gland stone. Take antibiotics as prescribed. Return if worsening swelling or fevers. Take Tylenol 1000 mg every 6 hours for pain. You may ice the affected area. Please follow up with your primary care provider in 2-3 days. Please return to ED if your symptoms worsen, change in location, change in severity, new symptoms develop or if you become concerned for your health. You have been prescribed opioid pain medications. Take only as prescribed and only when needed for pain. Please do not drive, operate heavy machinery, or make important decisions while taking this medication until you know how it affects you as they can impair your judgement. Do not drink alcohol while taking this medication. Should you need a refill of this pain medication, please contact your primary care provider. Clinical Impressions Clinical Impression: Acute bacterial sialadenitis Print Language Print Language: [place] Discharge ED Provider: Gonsalo Pina General Adult HPI <Gonsalo Pina MD - Last Filed: 07/22/25 15:59> General Chief complaint: PAIN Stated complaint: Swollen gland on R Side of Throat Time Seen by Provider: 07/22/25 13:26 History of Present Illness HPI narrative: Patient is AN 80-year-old female with history of A-fib on Eliquis, COPD, CHF she presents today for acute onset of left-sided neck swelling and pain. She reports she woke up this morning and noticed it. Had not noticed it before. She denies any fevers. Denies any recent cough, congestion, runny nose, vomiting, diarrhea or any other infectious symptoms. She denies any difficulty swallowing, difficulty chewing or difficulty breathing. Denies any chest pain. She denies any history of abscesses or boils. She denies any neck pain or pain with range of motion of the neck. Reports some slight redness over the area, but no drainage. Related Data Previous Rx's ?Medication ?Instructions ?Recorded apixaban 5 mg tablet (Eliquis) 5 mg PO BID #180 tabs 07/26/24 rosuvastatin 20 mg tablet 20 mg PO DAILY #90 tabs 07/26/24 ammonium lactate 12 % topical cream 1 applic topical BID dry skin, 08/04/24 callus care #385 grams fluticasone fur. 100 mcg-umeclid 1 inh inhalation DAILY 90 days #90 09/19/24 62.5 mcg-vilant 25 mcg ea inhalat.powder (Trelegy Ellipta) carvedilol 12.5 mg tablet 12.5 mg PO BID #180 tabs 11/09/24 isosorbide mononitrate 30 mg 30 mg PO DAILY #90 tabs 11/10/24 tablet,extended release 24 hr empagliflozin 10 mg tablet 10 mg PO DAILY #90 tabs 01/10/25 (Jardiance) cholecalciferol (vitamin D3) 50 50 mcg PO DAILY #30 caps 02/20/25 mcg (2,000 unit) capsule mupirocin 2 % topical ointment 1 applic topical TID 10 days #22 04/10/25 grams ciclopirox 0.77 % topical cream 1 applic topical BID fungal nails 05/02/25 6 months #90 grams fluticasone propionate 50 2 spray intranasal DAILY allergy 05/24/25 mcg/actuation nasal symptoms #16 grams spray,suspension (Flonase Allergy Relief) montelukast 10 mg tablet 10 mg PO QPM 90 days #90 tabs 05/24/25 pregabalin 75 mg capsule 75 mg PO BID #60 caps 05/29/25 albuterol sulfate 90 mcg/actuation 2 inh inhalation QID PRN shortness 06/06/25 aerosol inhaler of breath or wheezing 90 days #8.5 grams bumetanide 2 mg tablet See Rx Instructions .Route 07/02/25 .COMPLEX #60 tabs potassium chloride 10 mEq See Rx Instructions .Route 07/02/25 capsule,extended release .COMPLEX #60 caps polysaccharide iron complex 180 mg 180 mg PO DAILY #30 caps 07/06/25 iron capsule (Pro Fe) amoxicillin 875 mg-potassium 1 tab PO BID #20 tabs 07/22/25 clavulanate 125 mg tablet oxycodone 5 mg tablet 5 mg PO Q6H PRN pain #12 tabs 07/22/25 Allergies Allergy/AdvReac Type Severity Reaction Status Date / Time bupropion (From Wellbutrin) Allergy Intermediate Other Verified 07/17/25 11:22 ciprofloxacin Allergy Intermediate Hives Verified 07/17/25 11:22 gabapentin Allergy Unknown WEAKNESS Verified 07/17/25 11:22 ibuprofen Allergy Unknown SHAKEY Verified 07/17/25 11:22 tiotropium Allergy Unknown WEAKNESS Verified 07/17/25 11:22 ON LICENSE OF [facility] <Gonsalo Pina MD - Last Filed: 07/22/25 15:59> ON LICENSE OF [facility] Disclaimer: The information contained in this section may have been updated after the patient was seen, as this information can be updated by other users. 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 Abnormal echocardiogram Acute bronchitis Acute exacerbation of chronic obstructive pulmonary disease Acute exacerbation of chronic obstructive pulmonary disease Acute exacerbation of chronic obstructive pulmonary disease Acute exacerbation of chronic obstructive pulmonary disease Acute exacerbation of chronic obstructive pulmonary disease Acute on chronic diastolic (congestive) heart failure Acute on chronic diastolic congestive heart failure, NYHA class 3 Acute on chronic hypoxic respiratory failure Allergic rhinitis Angina pectoris Atypical chest pain BOM (bilateral otitis media) Callus of foot Cardiac pacemaker in situ CHF (congestive heart failure) CHF exacerbation Chronic obstructive lung disease COPD (chronic obstructive pulmonary disease) COPD (chronic obstructive pulmonary disease) with acute bronchitis COPD exacerbation COPD exacerbation Coronary artery disease Cough Degenerative disc disease, lumbar Diarrhea Diverticulitis Dizziness Dyspnea Dyspnea on exertion Edema Endometrial thickening on ultrasound Epigastric pain Generalized weakness Influenza A Kidney lesion, saxman, left Left hip pain Left leg pain Lumbar radicular syndrome Lumbar radiculopathy Lymphedema of both lower extremities Lymphedema, not elsewhere classified Medicare annual wellness visit, subsequent Multiple lung nodules on CT Osteoporosis Pain due to onychomycosis of nail Pain of left calf Palpitations Peripheral neuropathy Pincer nail deformity Pneumonia Preop cardiovascular exam Pulmonary edema Pulmonary emphysema Restless leg syndrome Right knee pain Screening for lung cancer Smoking greater than 30 pack years SOB (shortness of breath) Stenosis of carotid artery Swelling of right knee joint Tobacco abuse counseling Tobacco abuse disorder Urticaria Surgical History History of bilateral tubal ligation History of cholecystectomy History of permanent cardiac pacemaker placement Family History Mother Colon cancer Brother Lung cancer Other Cancer Diabetes Family history of myocardial infarction Stroke 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 Smoking Status: Current every day smoker tobacco type: cigarettes packs per day: 1 second hand exposure: Yes alcohol intake: never substance use type: denies use current occupational status: retired Travel in the last 8 weeks?: None household members: family housing: house lives independently: No education level: elementary school service: No group home: No 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es/hazards: No caffeine: Yes Have you lived/traveled outside US in past 30 days?: No Contact w/someone who lives/traveled outside US past 30 days?: No Exposure to someone with infectious disease in past 14 days?: No Do you have a fever (greater than 100.4 F or 38 C)?: No Have you tested positive for COVID-19?: No Exposed to someone with COVID-19 in past 14 days?: No Do you have a sore throat?: No Do you have a cough?: No Do you have any weakness?: No Do you have any diarrhea?: No Are you experiencing any unusual bleeding?: No Do you have any muscle aches/pain?: No Do you have any abdominal pain?: No Are you experiencing loss of taste or smell?: No Other 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 Have you received the Flu Vaccine for this season: No Have you received the Pneumonia Vaccine: No <Gonsalo Pina MD - Last Filed: 07/22/25 15:59> ROS Obtained: Yes All systems reviewed & no additional complaints except as documented Physical Exam <Gonsalo Pina MD - Last Filed: 07/22/25 15:59> General General appearance: alert and in no apparent distress Head Head exam: atraumatic and normocephalic Eye Eye exam: Present PERRL and EOMI ENT ENT exam: Present normal oropharynx, mucous membranes moist and other (No uvular deviation, no swelling within the oropharynx, no erythema) Neck Neck exam: Present full ROM, trachea midline and tenderness (Moderate tenderness with erythema and firmness over the left submandibular region, no crepitus) Chest Chest inspection: Present symmetric chest wall rise Respiratory Respiratory exam: Present normal lung sounds bilaterally; Absent stridor Cardiovascular Cardiovascular exam: Present regular rate and normal rhythm Abdominal Exam Abdominal exam: Present soft; Absent distention or tenderness Extremities Exam Extremities exam: Present full ROM Neurological Exam Neurological exam: Present alert and oriented X3 Psychiatric Psychiatric exam: Present normal mood Skin Skin exam: Present warm and dry Medical Decision Making <Gonsalo Pina MD - Last Filed: 07/22/25 15:59> Medical Records Screening: Per USPSTF and CDC recommendations, given the prevalence of disease in our region, it is our hospital?s policy to screen for HIV and viral Hepatitis for all patients aged 18 and over and those with ongoing risk factors. Kervin Inquiry Pt receiving controlled substance: Yes Kervin was queried for this patient: Yes Risks and benefits of using a controlled substance: were discussed with pt by me Vital Signs: 07/22/25 13:29 07/22/25 13:31 07/22/25 13:32 Temperature 98.4 F Temperature Source Oral Pulse Rate 77 72 Pulse Rate [Right] 82 Respiratory Rate 20 Blood Pressure 128/112 H 144/69 H Blood Pressure [Right Arm] 144/69 H Blood Pressure Mean [Right Arm] 94 Blood Pressure Source Blood Pressure Position 02 Sat by Pulse Oximetry 95 96 95 Oxygen Delivery Method Nasal Cannula Oxygen Flow Rate (LPM) 2 07/22/25 13:32 07/22/25 14:01 07/22/25 14:31 Temperature 98.4 F Temperature Source Pulse Rate 82 85 71 Pulse Rate [Right] Respiratory Rate 20 Blood Pressure 144/69 H 138/67 156/68 H Blood Pressure [Right Arm] Blood Pressure Mean [Right Arm] Blood Pressure Source Blood Pressure Position 02 Sat by Pulse Oximetry 95 75 L 90 L Oxygen Delivery Method Oxygen Flow Rate (LPM) 07/22/25 15:30 07/22/25 16:00 07/22/25 16:30 Temperature Temperature Source Pulse Rate 66 68 65 Pulse Rate [Right] Respiratory Rate Blood Pressure 158/74 H 153/67 H 131/54 L Blood Pressure [Right Arm] Blood Pressure Mean [Right Arm] Blood Pressure Source Blood Pressure Position 02 Sat by Pulse Oximetry 99 99 99 Oxygen Delivery Method Oxygen Flow Rate (LPM) 07/22/25 17:00 07/22/25 17:40 Temperature 98 F Temperature Source Oral Pulse Rate 66 74 Pulse Rate [Right] Respiratory Rate 16 Blood Pressure 153/74 H 134/70 Blood Pressure [Right Arm] Blood Pressure Mean [Right Arm] Blood Pressure Source Automatic Cuff Blood Pressure Position Sitting 02 Sat by Pulse Oximetry 98 Oxygen Delivery Method Room Air Oxygen Flow Rate (LPM) Lab Data Lab Results 07/22/25 14:20: WBC 11.3 H, RBC 5.17, Hgb 12.5, Hct 40.9, MCV 79.1 L, MCH 24.2 L, MCHC 30.6 L, RDW 18.4 H, Plt Count 158, MPV 11.2 H, Neut % (Auto) 62.9, Lymph % (Auto) 25.0, [place] % (Auto) 10.3 H, Eos % (Auto) 1.1, Baso % (Auto) 0.4, Neut # (Auto) 7.1, Lymph # (Auto) 2.8, [place] # (Auto) 1.2 H, Eos # (Auto) 0.1, Baso # (Auto) 0.0, Sodium 139, Potassium 4.3, Chloride 106, Carbon Dioxide 28, Anion Gap 9.3, BUN 17, Creatinine 0.80, Estimated Creat Clear 72, Estimated GFR 69, Est GFR ( Amer) 84, Glucose 102 H, Calcium 9.3 07/22/25 14:20 07/22/25 14:20 Orders (Tests/Meds): ED MEDICATIONS Discontinued Medications Generic Name Dose Route Start Last Admin Trade Name Freq PRN Reason Stop Dose Admin Acetaminophen 1,000 mg 07/22/25 13:57 07/22/25 14:26 Acetaminophen 500mg Tab PO 07/22/25 13:58 1,000 mg ONCE ONE Administration Iopamidol 75 ml 07/22/25 15:00 07/22/25 15:00 Iopamidol-370 (76%);100ml Bottle IV 07/22/25 15:01 75 ml ONCE ONE Administration Oxycodone HCl 5 mg 07/22/25 13:58 07/22/25 14:26 Oxycodone 5mg Immediate Release Tablet PO 07/22/25 13:59 5 mg ONCE ONE Administration Oxycodone HCl 5 mg 07/22/25 16:11 07/22/25 16:41 Oxycodone 5mg Immediate Release Tablet PO 07/22/25 16:12 5 mg ONCE ONE Administration Sodium Chloride 10 ml 07/22/25 15:00 07/22/25 15:00 Sodium Chloride 0.9% 10ml Syr (Rad Only) IV 07/22/25 15:01 10 ml ONCE ONE Administration ORDERS Category Date Time Status CT soft tissue neck w con Stat Cat Scan 07/22/25 13:57 Completed Basic Metabolic Panel Stat Lab 07/22/25 14:20 Completed Complete Blood Count Auto Diff Stat Lab 07/22/25 14:20 Completed Medical Decision Narrative: Patient is an 80-year-old female that is presenting with left-sided neck swelling today, on exam, is warm well-perfused for pulses and brisk Apley refill. She has about a 4 cm x 2 cm area of warmth erythema and swelling on the left side of the submandibular region. No crepitus. No crepitus on the floor of the mouth. Low concern for deep space infection. No suspicious for lymph node that is infected, possibly lymphadenitis versus lymphangitis versus sialoadenitis, however given her other comorbidities, we will proceed with cross-sectional imaging to rule out deeper space infection or complicated abscess. On reassessment after above inventions, patient reports some improvement in her pain, but her pain is starting to come back will redose oxycodone. Unfortunately, she cannot take any NSAIDs at home due to being on anticoagulation with a DOAC. I reviewed her hematologic labs demonstrate no EUSEBIO no electrolyte derangement no evidence of anemia, very slight leukocytosis to 11. No signs or symptoms of sepsis. I independently interpreted her cross-sectional imaging to demonstrate what looks like a salivary stone that is obstructing consistent with sialoadenitis with a possible phlegmon. Will treat with Augmentin outpatient and sialagogues if that is the case. I have discussed strict return precautions with her. Signed out to Dr. Yulia Morillo pending final radiology read of CT scan. <Yulia Morillo DO - Last Filed: 07/22/25 21:21> Medical Records Medical records reviewed: Yes I reviewed the patient's medical records. Vital Signs: 07/22/25 13:29 07/22/25 13:31 07/22/25 13:32 Temperature 98.4 F Temperature Source Oral Pulse Rate 77 72 Pulse Rate [Right] 82 Respiratory Rate 20 Blood Pressure 128/112 H 144/69 H Blood Pressure [Right Arm] 144/69 H Blood Pressure Mean [Right Arm] 94 Blood Pressure Source Blood Pressure Position 02 Sat by Pulse Oximetry 95 96 95 Oxygen Delivery Method Nasal Cannula Oxygen Flow Rate (LPM) 2 07/22/25 13:32 07/22/25 14:01 07/22/25 14:31 Temperature 98.4 F Temperature Source Pulse Rate 82 85 71 Pulse Rate [Right] Respiratory Rate 20 Blood Pressure 144/69 H 138/67 156/68 H Blood Pressure [Right Arm] Blood Pressure Mean [Right Arm] Blood Pressure Source Blood Pressure Position 02 Sat by Pulse Oximetry 95 75 L 90 L Oxygen Delivery Method Oxygen Flow Rate (LPM) 07/22/25 15:30 07/22/25 16:00 07/22/25 16:30 Temperature Temperature Source Pulse Rate 66 68 65 Pulse Rate [Right] Respiratory Rate Blood Pressure 158/74 H 153/67 H 131/54 L Blood Pressure [Right Arm] Blood Pressure Mean [Right Arm] Blood Pressure Source Blood Pressure Position 02 Sat by Pulse Oximetry 99 99 99 Oxygen Delivery Method Oxygen Flow Rate (LPM) 07/22/25 17:00 07/22/25 17:40 Temperature 98 F Temperature Source Oral Pulse Rate 66 74 Pulse Rate [Right] Respiratory Rate 16 Blood Pressure 153/74 H 134/70 Blood Pressure [Right Arm] Blood Pressure Mean [Right Arm] Blood Pressure Source Automatic Cuff Blood Pressure Position Sitting 02 Sat by Pulse Oximetry 98 Oxygen Delivery Method Room Air Oxygen Flow Rate (LPM) Lab Data Lab Results 07/22/25 14:20: WBC 11.3 H, RBC 5.17, Hgb 12.5, Hct 40.9, MCV 79.1 L, MCH 24.2 L, MCHC 30.6 L, RDW 18.4 H, Plt Count 158, MPV 11.2 H, Neut % (Auto) 62.9, Lymph % (Auto) 25.0, [place] % (Auto) 10.3 H, Eos % (Auto) 1.1, Baso % (Auto) 0.4, Neut # (Auto) 7.1, Lymph # (Auto) 2.8, [place] # (Auto) 1.2 H, Eos # (Auto) 0.1, Baso # (Auto) 0.0, Sodium 139, Potassium 4.3, Chloride 106, Carbon Dioxide 28, Anion Gap 9.3, BUN 17, Creatinine 0.80, Estimated Creat Clear 72, Estimated GFR 69, Est GFR ( Amer) 84, Glucose 102 H, Calcium 9.3 Orders (Tests/Meds): ED MEDICATIONS Discontinued Medications Generic Name Dose Route Start Last Admin Trade Name Freq PRN Reason Stop Dose Admin Acetaminophen 1,000 mg 07/22/25 13:57 07/22/25 14:26 Acetaminophen 500mg Tab PO 07/22/25 13:58 1,000 mg ONCE ONE Administration Iopamidol 75 ml 07/22/25 15:00 07/22/25 15:00 Iopamidol-370 (76%);100ml Bottle IV 07/22/25 15:01 75 ml ONCE ONE Administration Oxycodone HCl 5 mg 07/22/25 13:58 07/22/25 14:26 Oxycodone 5mg Immediate Release Tablet PO 07/22/25 13:59 5 mg ONCE ONE Administration Oxycodone HCl 5 mg 07/22/25 16:11 07/22/25 16:41 Oxycodone 5mg Immediate Release Tablet PO 07/22/25 16:12 5 mg ONCE ONE Administration Sodium Chloride 10 ml 07/22/25 15:00 07/22/25 15:00 Sodium Chloride 0.9% 10ml Syr (Rad Only) IV 07/22/25 15:01 10 ml ONCE ONE Administration ORDERS Category Date Time Status CT soft tissue neck w con Stat Cat Scan 07/22/25 13:57 Completed Basic Metabolic Panel Stat Lab 07/22/25 14:20 Completed Complete Blood Count Auto Diff Stat Lab 07/22/25 14:20 Completed Medical Decision Narrative: Patient is an 80-year-old female that is presenting with left-sided neck swelling today, on exam, is warm well-perfused for pulses and brisk Apley refill. She has about a 4 cm x 2 cm area of warmth erythema and swelling on the left side of the submandibular region. No crepitus. No crepitus on the floor of the mouth. Low concern for deep space infection. No suspicious for lymph node that is infected, possibly lymphadenitis versus lymphangitis versus sialoadenitis, however given her other comorbidities, we will proceed with cross-sectional imaging to rule out deeper space infection or complicated abscess. On reassessment after above inventions, patient reports some improvement in her pain, but her pain is starting to come back will redose oxycodone. Unfortunately, she cannot take any NSAIDs at home due to being on anticoagulation with a DOAC. I reviewed her hematologic labs demonstrate no EUSEBIO no electrolyte derangement no evidence of anemia, very slight leukocytosis to 11. No signs or symptoms of sepsis. I independently interpreted her cross-sectional imaging to demonstrate what looks like a salivary stone that is obstructing consistent with sialoadenitis with a possible phlegmon. Will treat with Augmentin outpatient and sialagogues if that is the case. I have discussed strict return precautions with her. Signed out to Dr. Yulia Morillo pending final radiology read of CT scan. Yulia Morillo, DO I assumed care of this patient at 1500. Patient CT scan showed inflammatory changes around the left submandibular gland concerning for sialadentitis with sialolith. Patient was sent with Augmentin and was given strict return precautions for any progression of swelling development of redness, inability to swallow or difficulties breathing. Patient was otherwise discharged home in stable condition. Critical Care <Gonsalo Pina MD - Last Filed: 07/22/25 15:59> Critical Care Time Critical Care Time: No
--- OUTSIDE RECORDS SUMMARY | 2025-07-22 13:42 | XMS_ITS | Clinical Summary ---
Author Organization [facility] Address [address] [place] [address] Phone Care Team Providers Care Drop Clipper Name Role Phone Kei Currie MD, Bartolo [place] [facility] Provid er 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 Tobacco [...] COVID-19 Vaccine ( - 2023-2 5 season) 2025 Influenza Vaccine (#1) 2025 Hepatitis B Vaccine Aged Out No longe r eligible based on patient's age to complete this topic Meningococcal B Vaccine Aged Out No l onger eligible based on patient's age to complete this topic Insurance MEDICARE [place] PART A AND B Care Teams Drop Clipper Relationship Specialty Start Date End Date Bartolo Choudhury Sr., MD [address] [place] [phone] PCP - General Furniture Upholsterer 04/03/14
--- OUTSIDE RECORDS SUMMARY | 2025-07-22 13:42 | XMS_ITS | Clinical Summary ---
Author Organization Healthcare Address [address] [place] [address] Care Team Providers Care Surgical Endoscopist Name Role Phone Unavailable Primary Care Provider [...] r (1 - 1-dose 75+ series) 2020 [id number] Vaccine (1 - 20 24-25 season) 2025 UKY-Influenza Vaccine (#1) 2025 HPV Vaccines Aged [...] to complete this topic [facility] [id number] [place] MEDICARE
--- NOTE | 2025-07-22 13:57 | CT_ITS ---
PROCEDURE INFORMATION: Exam: CT Neck With Contrast Exam date and time: 07/22/2025 3:02 PM Age: 80 years old Clinical indication: Other: Erythema; Additional info: L neck and submandivbular swelling, erythema TECHNIQUE: Imaging protocol: Computed tomography of the neck with contrast. Radiation optimization: All CT scans at this facility use at least one of these dose optimization techniques: automated exposure control; mA and/or kV adjustment per patient size (includes targeted exams where dose is matched to clinical indication); or iterative reconstruction. Contrast material: ISOVUE; Contrast volume: 75 ml; Contrast route: IV; COMPARISON: MR CERVICAL SPINE WO CON 07/21/2019 10:14 AM FINDINGS: Salivary glands: Mild left submandibular sialadenitis, with 4 mm sialolith. Mild dilatation of Milton's duct. [id number] inflammatory change surrounding the left submandibular gland. Right submandibular gland is unremarkable. Parotid glands are unremarkable. No organized, drainable fluid collection or gas. Pharynx: Unremarkable. No significant tonsillar enlargement. Larynx: Unremarkable. Epiglottis is normal. Thyroid: Normal. No enlarged or calcified nodules. Trachea: Visualized trachea is unremarkable. Lungs: Unremarkable as visualized. Lymph nodes: Unremarkable. No lymphadenopathy. Bones/joints: Unremarkable. No acute fracture. Soft tissues: Unremarkable. No significant soft tissue swelling. IMPRESSION: [id number] inflammatory change surrounding the left submandibular gland.
[2025-07-22] MEDS: OXYCODONE 5MG IMMEDIATE RELEASE TABLET 5 MG PO ×2 (14:26→16:41)
[2025-07-22] MEDS: ACETAMINOPHEN 500MG TAB 1000 MG PO (14:26)
[2025-07-22 14:32] LABS: Hematocrit 40.9 % (37.0-47.0); Hemoglobin 12.5 g/dL (12.2-16.2); Immature Granulocytes % 0.3 %; Mean Corpuscular HGB Conc 30.6 g/dL (31.8-35.4); Mean Corpuscular Hemoglobin 24.2 pg (27.0-31.2); Mean Corpuscular Volume 79.1 fl (81-99); Nucleated Red Blood Cells % 0 %; Platelet Count 158 K/mm3 (142-424); Red Blood Count 5.17 M/mm3 (4.20-5.40); Red Cell Distribution Width-SD 51.8 fL; White Blood Count 11.3 K/mm3 (4.8-10.8)
[2025-07-22 14:33] LABS: Chloride 106 mmol/L (98-107); Sodium 139 mmol/L (136-145)
[2025-07-22 14:34] LABS: Potassium 4.3 mmoL/L (3.5-5.1)
[2025-07-22 14:37] LABS: Anion Gap 9.3 mEq/L (5-15); Blood Urea Nitrogen 17 mg/dl (7-17); Calcium 9.3 mg/dl (8.4-10.2); Carbon Dioxide 28 mmol/L (22.0-30.0); Creatinine Clearance Estimated 72 mL/min (50-200); Creatinine,Serum 0.80 mg/dl (0.52-1.04); Estimated Glomerular Filt Rate 69 ml/min (>60); GFR (African American) 84 ML/MIN (>60); Glucose 102 mg/dl (74-100)
[2025-07-22] MEDS: IOPAMIDOL-370 (76%);100ML BOTTLE 75 ML IV (15:00)
[2025-07-22] MEDS: SODIUM CHLORIDE 0.9% 10ML SYR (RAD ONLY) 10 ML IV (15:00)
== END 2025-07-22 17:40 | disposition home or self-care (01) ==
PROVIDERS: Emergency Provider Emergency Medicine; PCP Nurse Practitioner Family
DX: K11.21 Acute sialoadenitis (principal); E78.5 Hyperlipidemia, unspecified; I11.0 Hypertensive heart disease with heart failure; I50.30 Unspecified diastolic (congestive) heart failure; F17.210 Nicotine dependence, cigarettes, uncomplicated
CPT/HCPCS: 70491; 80048; 85025; 99284; Q9967

== ENCOUNTER 2025-07-23 14:30 | Emergency (ER) | payer MEDICARE, MEDICAID, SELFPAY ==
[2025-07-23 14:38] VITALS: BP 152/74; PULSE 92; O2SAT 96
--- OUTSIDE RECORDS SUMMARY | 2025-07-23 14:39 | XMS_ITS | Clinical Summary ---
Author Organization [facility] Address [address] [place] [address] Phone Care Team Providers Care Motorized Squad Commanding Officer Name Role Phone Kei Currie MD, Bartolo Rushford Primary Care Provid er 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 Tobacco [...] [place] PART A AND B Care Teams Motorized Squad Commanding Officer Relationship Specialty Start Date End Date Bartolo Choudhury Sr., MD [address] [place] [phone] PCP - General Thermospray Operator 04/03/14
--- OUTSIDE RECORDS SUMMARY | 2025-07-23 14:39 | XMS_ITS | Clinical Summary ---
Author Organization Healthcare Address [address] [place] [address] Care Team Providers Care Optometry Doctor Name Role Phone Unavailable Primary Care Provider [...] r (1 - 1-dose 75+ series) 2020 [id number] Vaccine (1 - 20 24-25 season) 2025 [...] this topic [facility] [id number] [place]
[2025-07-23 14:41] VITALS: BP 152/74; PULSE 92; RESP 22; TEMP 36.6; O2SAT 96; BMI 35.5
[2025-07-23 15:00] VITALS: BP 135/66; PULSE 92; O2SAT 97
--- NOTE | 2025-07-23 15:05 | HMH.EDGENADL ---
Discharge Plan Disposition Patient Disposition: Home, Self-Care Prescriptions Prescriptions: No Action Eliquis 5 mg tablet 5 mg PO BID Qty: 180 3RF rosuvastatin 20 mg tablet 20 mg PO DAILY Qty: 90 3RF Trelegy Ellipta 100-62.5-25 mcg blister with device 1 inh inhalation DAILY 90 Days Qty: 90 2RF montelukast 10 mg tablet 10 mg PO QPM 90 Days Qty: 90 2RF fluticasone propionate [Flonase Allergy Relief] 50 mcg/actuation spray,suspension 2 spray intranasal DAILY Qty: 16 4RF Rx Instructions: administer into each nostril ciclopirox 0.77 % cream 1 applic topical BID 180 Days Qty: 90 1RF ammonium lactate 12 % cream 1 applic topical BID Qty: 385 1RF Jardiance 10 mg tablet 10 mg PO DAILY Qty: 90 3RF mupirocin 2 % ointment 1 applic topical TID 10 Days Qty: 22 1RF potassium chloride 10 mEq capsule, extended release See Rx Instructions .ROUTE .COMPLEX Qty: 60 0RF Dose Instruction: TAKE 1 CAPSULE BY MOUTH TWICE DAILY NEEDED WITH FUROSEMIDE Rx Instructions: TAKE 1 CAPSULE BY MOUTH TWICE DAILY NEEDED WITH FUROSEMIDE carvedilol 12.5 mg tablet 12.5 mg PO BID Qty: 180 3RF isosorbide mononitrate 30 mg tablet extended release 24 hr 30 mg PO DAILY Qty: 90 3RF cholecalciferol (vitamin D3) 50 mcg (2,000 unit) capsule 50 mcg PO DAILY Qty: 30 2RF pregabalin 75 mg capsule 75 mg PO BID Qty: 60 2RF albuterol sulfate 90 mcg/actuation HFA aerosol inhaler 2 inh inhalation QID PRN (Reason: shortness of breath or wheezing) 90 Days Qty: 8.5 2RF bumetanide 2 mg tablet See Rx Instructions .ROUTE .COMPLEX Qty: 60 0RF Dose Instruction: Take 1 tablet by mouth twice daily Rx Instructions: Take 1 tablet by mouth twice daily Pro Fe 180 mg iron capsule 180 mg PO DAILY Qty: 30 2RF amoxicillin-pot clavulanate 875-125 mg tablet 1 tab PO BID Qty: 20 0RF oxycodone 5 mg tablet 5 mg PO Q6H PRN (Reason: pain) Qty: 12 0RF Referrals Follow up/Referrals: Manuela Castillo APRN [Primary Care Provider, Medical] - See instructions Activity Restrictions/Add. Instructions Additional Instructions/Restrictions: Continue to take the Augmentin and oxycodone as prescribed. In addition to this you can take Tylenol 1000 mg every 6 hours as needed. It is very important that you use sour candies, such as lozenges, Warhead candies, or other sour candies to help stimulate saliva production. You can also use lemon juice and solution around your mouth to stimulate saliva production. You can also massage the left jaw from back to front to help dislodge the stone that is causing the blockage. Drink plenty of water to make sure that you produce a large amount of saliva. If you develop any new or worsening symptoms, such as fevers, difficulty breathing, difficulty swallowing, or if you become concerned for your health for any reason, return to the emergency department for evaluation Clinical Impressions Clinical Impression: Acute sialoadenitis Print Language Print Language: Yi Discharge ED Provider: Kobe Martinez Adult HPI General Chief complaint: PAIN Stated complaint: Pain in throat Time Seen by Provider: 07/23/25 14:35 Mode of Arrival: Wheelchair Source of Information: Patient Description of Symptoms (Recalled from ER Triage Doc. by RN): pt presents to ED with c/o difficulty swallowing. pts family reports that pt was seen in ED last night and given abx and pain medications. pts family at bedside report pt tok a dose of abx and now has difficulty swallowing and increased swelling. History of Present Illness HPI narrative: Jessica Payton is an 80y female with a past medical history of COPD on intermittent oxygen, hypertension, hyperlipidemia, obesity, CHF who presents to the emergency department for complaints of continued pain in her neck. Patient was seen in the emergency department yesterday and was diagnosed with sialoadenitis. She was discharged on oxycodone and Augmentin. She has taken 1 dose of the Augmentin. She states that she is not able to take her medication because it is difficult to swallow. She states is very painful and is unclear if that is what is preventing her from swallowing. She does state that her neck is red and swollen and it was not red yesterday. She denies any fevers. She denies any difficulty breathing. She is not sure if she has had any voice changes. Related Data Previous Rx's ?Medication ?Instructions ?Recorded apixaban 5 mg tablet (Eliquis) 5 mg PO BID #180 tabs 07/26/24 rosuvastatin 20 mg tablet 20 mg PO DAILY #90 tabs 07/26/24 ammonium lactate 12 % topical cream 1 applic topical BID dry skin, 08/04/24 callus care #385 grams fluticasone fur. 100 mcg-umeclid 1 inh inhalation DAILY 90 days #90 09/19/24 62.5 mcg-vilant 25 mcg ea inhalat.powder (Trelegy Ellipta) carvedilol 12.5 mg tablet 12.5 mg PO BID #180 tabs 11/09/24 isosorbide mononitrate 30 mg 30 mg PO DAILY #90 tabs 11/10/24 tablet,extended release 24 hr empagliflozin 10 mg tablet 10 mg PO DAILY #90 tabs 01/10/25 (Jardiance) cholecalciferol (vitamin D3) 50 50 mcg PO DAILY #30 caps 02/20/25 mcg (2,000 unit) capsule mupirocin 2 % topical ointment 1 applic topical TID 10 days #22 04/10/25 grams ciclopirox 0.77 % topical cream 1 applic topical BID fungal nails 05/02/25 6 months #90 grams fluticasone propionate 50 2 spray intranasal DAILY allergy 05/24/25 mcg/actuation nasal symptoms #16 grams spray,suspension (Flonase Allergy Relief) montelukast 10 mg tablet 10 mg PO QPM 90 days #90 tabs 05/24/25 pregabalin 75 mg capsule 75 mg PO BID #60 caps 05/29/25 albuterol sulfate 90 mcg/actuation 2 inh inhalation QID PRN shortness 06/06/25 aerosol inhaler of breath or wheezing 90 days #8.5 grams bumetanide 2 mg tablet See Rx Instructions .Route 07/02/25 .COMPLEX #60 tabs potassium chloride 10 mEq See Rx Instructions .Route 07/02/25 capsule,extended release .COMPLEX #60 caps polysaccharide iron complex 180 mg 180 mg PO DAILY #30 caps 07/06/25 iron capsule (Pro Fe) amoxicillin 875 mg-potassium 1 tab PO BID #20 tabs 07/22/25 clavulanate 125 mg tablet oxycodone 5 mg tablet 5 mg PO Q6H PRN pain #12 tabs 07/22/25 Allergies Allergy/AdvReac Type Severity Reaction Status Date / Time bupropion (From Wellbutrin) Allergy Intermediate Other Verified 07/23/25 13:57 ciprofloxacin Allergy Intermediate Hives Verified 07/23/25 13:57 gabapentin Allergy Unknown WEAKNESS Verified 07/23/25 13:57 ibuprofen Allergy Unknown SHAKEY Verified 07/23/25 13:57 tiotropium Allergy Unknown WEAKNESS Verified 07/23/25 13:57 [facility] Disclaimer: The information contained in this section may have been updated after the patient was seen, as this information can be updated by other users. 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 Acute on chronic diastolic (congestive) heart failure Allergic rhinitis Dizziness Pneumonia Pulmonary edema Acute exacerbation of chronic obstructive pulmonary disease CHF exacerbation COPD exacerbation Acute on chronic hypoxic respiratory failure CHF (congestive heart failure) Acute exacerbation of chronic obstructive pulmonary disease BOM (bilateral otitis media) Acute exacerbation of chronic obstructive pulmonary disease Swelling of right knee joint Right knee pain Osteoporosis Medicare annual wellness visit, subsequent Lymphedema, not elsewhere classified Peripheral neuropathy Callus of foot Pain due to onychomycosis of nail Pincer nail deformity Lymphedema of both lower extremities Influenza A Generalized weakness Diarrhea Acute exacerbation of chronic obstructive pulmonary disease Acute exacerbation of chronic obstructive pulmonary disease COPD exacerbation Acute bronchitis Atypical chest pain Endometrial thickening on ultrasound COPD (chronic obstructive pulmonary disease) with acute bronchitis Edema SOB (shortness of breath) Kidney lesion, [place], left Diverticulitis Stenosis of carotid artery Multiple lung nodules on CT Screening for lung cancer COPD (chronic obstructive pulmonary disease) Pulmonary emphysema Smoking greater than 30 pack years Dyspnea on exertion Tobacco abuse disorder Tobacco abuse counseling Pain of left calf Left hip pain Left leg pain Restless leg syndrome Lumbar radiculopathy Degenerative disc disease, lumbar Lumbar radicular syndrome Acute on chronic diastolic congestive heart failure, NYHA class 3 Urticaria Epigastric pain Preop cardiovascular exam Coronary artery disease Cardiac pacemaker in situ Dyspnea Abnormal echocardiogram Cough Angina pectoris Palpitations Chronic obstructive lung disease Surgical History History of bilateral tubal ligation History of cholecystectomy History of permanent cardiac pacemaker placement Family History Mother Colon cancer Brother Lung cancer Other Cancer Diabetes Family history of myocardial infarction Stroke 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 Smoking Status: Former smoker tobacco type: cigarettes packs per day: 1 second hand exposure: Yes alcohol intake: never substance use type: denies use current occupational status: retired Travel in the last 8 weeks?: None household members: family housing: house lives independently: No education level: elementary school service: No mcc: No 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es/hazards: No caffeine: Yes Have you lived/traveled outside US in past 30 days?: No Contact w/someone who lives/traveled outside US past 30 days?: No Exposure to someone with infectious disease in past 14 days?: No Do you have a fever (greater than 100.4 F or 38 C)?: No Have you tested positive for COVID-19?: No Exposed to someone with COVID-19 in past 14 days?: No Do you have a sore throat?: No Do you have a cough?: No Do you have any weakness?: No Do you have any diarrhea?: No Are you experiencing any unusual bleeding?: No Do you have any muscle aches/pain?: No Do you have any abdominal pain?: No Are you experiencing loss of taste or smell?: No Other 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 Have you received the Flu Vaccine for this season: No Have you received the Pneumonia Vaccine: No ROS Obtained: Yes Systems reviewed as appropriate & no additional complaints except as documented Physical Exam General General appearance: alert and in no apparent distress Comment: appears uncomfortable Head Head exam: atraumatic Eye Eye exam: Present normal appearance ENT ENT exam: Present normal external ear exam Neck Neck exam: Present full ROM and other (Swelling and erythema to the submandibular region, worse on the left compared to the right. This area is tender to touch. Patient has some swelling in the sublingual region on the left with white discharge.) Chest Chest inspection: Present symmetric chest wall rise Respiratory Respiratory exam: Present normal lung sounds bilaterally; Absent respiratory distress Cardiovascular Cardiovascular exam: Present regular rate and normal rhythm Abdominal Exam Abdominal exam: Present soft; Absent tenderness or guarding Extremities Exam Extremities exam: Present normal inspection Back Exam Back exam: Present normal inspection Neurological Exam Neurological exam: Present alert and oriented X3 Psychiatric Psychiatric exam: Present normal affect Skin Skin exam: Present warm and dry Medical Decision Making Medical Records Screening: Per USPSTF and CDC recommendations, given the prevalence of disease in our region, it is our hospital?s policy to screen for HIV and viral Hepatitis for all patients aged 18 and over and those with ongoing risk factors. Kervin Inquiry Pt receiving controlled substance: No Vital Signs: 07/23/25 14:38 07/23/25 14:41 07/23/25 15:00 Temperature 97.9 F Temperature Source Oral Pulse Rate 92 H 92 H Pulse Rate [Left Radial] 92 H Respiratory Rate 22 Blood Pressure 152/74 H 135/66 Blood Pressure [Right Arm] 152/74 H Blood Pressure Mean 114 89 Blood Pressure Mean [Right Arm] 100 02 Sat by Pulse Oximetry 96 96 97 Oxygen Delivery Method Nasal Cannula Oxygen Flow Rate (LPM) 2 Orders (Tests/Meds): ED MEDICATIONS Discontinued Medications Generic Name Dose Route Start Last Admin Trade Name Freq PRN Reason Stop Dose Admin Amoxicillin/Clavulanate Potassium 1 each 07/23/25 14:55 07/23/25 15:10 Amoxicillin/Clavulanate Potassium 875/125mg Tablet PO 07/23/25 14:56 1 each ONCE ONE Administration Oxycodone HCl 5 mg 07/23/25 14:56 07/23/25 15:10 Oxycodone 5mg Immediate Release Tablet PO 07/23/25 14:57 5 mg ONCE ONE Administration Medical Decision Narrative: Jessica Payton is an 80y female with a past medical history of COPD on intermittent oxygen, hypertension, hyperlipidemia, obesity, CHF who presents to the emergency department for complaints of continued pain in her neck. Patient was seen in the emergency department yesterday and was diagnosed with sialoadenitis. She was discharged on oxycodone and Augmentin. She has taken 1 dose of the Augmentin. She states that she is not able to take her medication because it is difficult to swallow. She states is very painful and is unclear if that is what is preventing her from swallowing. She does state that her neck is red and swollen and it was not red yesterday. She denies any fevers. She denies any difficulty breathing. She is not sure if she has had any voice changes. On arrival, patient's blood pressure 150/74, heart rate 92 bpm, afebrile, breathing comfortably on 2 L nasal cannula. Oropharyngeal exam shows no posterior oropharyngeal swelling or erythema. Uvula is midline. She has left submandibular swelling and erythema that is tender to the touch. No fluctuance is noted. She has some swelling in the sublingual space on the left with white discharge in this area. Previous records were reviewed. Patient was seen in the emergency department yesterday for same complaints. Patient's pain and swelling began yesterday. Patient is CT soft tissue neck with IV contrast that showed mild to moderate inflammatory changes surrounding the left submandibular gland with a 4 mm sialolith and mild dilation of Rapides's duct consistent with sialoadenitis. Patient was told to take sour lozenges as well as lemon juice and to take Tylenol and oxycodone for pain. She was prescribed oxycodone. Patient has not attempted these measures at home. She took 1 dose of Augmentin. Here in the emergency department, is felt that no additional imaging studies or laboratory studies are indicated at this time. Patient was able to tolerate oral oxycodone and Augmentin without difficulty. Patient was provided a lemon juice packet to swish around her mouth as well as a sour piece of candy. I attempted manual massage of the left submandibular region but she requested that I stop due to pain. Patient was able to tolerate sour candies and lemon juice in the emergency department as well. Given she has not failed outpatient management at this time with no fever or evidence of expanding abscess, it is felt that no additional workup is indicated at this time. She was able to tolerate oral intake here in the emergency department. Given this, is felt that she is on appropriate treatment, including Augmentin, oxycodone, Tylenol. I encouraged her to take sour candies at home as well as lemon juice and to keep it in the mouth as long as possible to stimulate salivation. Also recommend that she drink plenty of water to ensure that she has enough saliva to push the stone out. I demonstrated to her how to massage the area to help push the stone out. Given that the stone is 4 mm, the stone should pass spontaneously on its own with these measures. I did give patient an significant other at bedside return precautions. All questions were answered. Is felt that she is appropriate for discharge at this time. She was then discharged from the emergency department in stable condition. Critical Care Critical Care Time Critical Care Time: No
[2025-07-23] MEDS: OXYCODONE 5MG IMMEDIATE RELEASE TABLET 5 MG PO (15:10)
[2025-07-23] MEDS: AMOXICILLIN/CLAVULANATE POTASSIUM 875/125MG TABLET 1 EACH PO (15:10)
--- NOTE | 2025-07-23 15:16 | PC.NURSE ---
pt provided lemon juice, sugar free lemonade, and sour strip of candy
[2025-07-23 15:49] VITALS: BP 160/59; PULSE 90; RESP 18; TEMP 36.6; O2SAT 97
== END 2025-07-23 15:52 | disposition home or self-care (01) ==
PROVIDERS: Emergency Provider Student in an Organized Health Care Education/Training Program; PCP Nurse Practitioner Family
DX: M54.2 Cervicalgia (principal); R22.1 Localized swelling, mass and lump, neck; K11.21 Acute sialoadenitis; R07.0 Pain in throat
CPT/HCPCS: 99282; 99283

== ENCOUNTER 2025-08-07 10:41 | Outpatient (CLI) | payer MEDICARE, MEDICAID, SELFPAY ==
--- OUTSIDE RECORDS SUMMARY | 2025-08-08 10:18 | XMS_ITS | Clinical Summary ---
Author Organization Healthcare Address [address] [place] [address] Care Team Providers Care Settlement Technician Name Role Phone Unavailable Primary Care Provider [...] r (1 - 1-dose 75+ series) 2020 [id number] Vaccine (1 - 20 24-25 season) 2025 [...] age to complete this topic Insurance [facility] [id number] [place] MED[place]ARE
--- OUTSIDE RECORDS SUMMARY | 2025-08-08 10:18 | XMS_ITS | Clinical Summary ---
Author Organization [facility] Address [address] [place] [address] Phone Care Team Providers Care Machine Stuffer Name Role Phone Kei Currie MD, [facility] Primary Care Provid er 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 [...] [place] PART A AND B Care Teams Machine Stuffer Relationship Specialty Start Date End Date Bartolo Choudhury Sr., MD [address] [place] [phone] PCP - General Urologic Nurse 04/03/14
== END 2025-08-07 23:59 ==
LOC: LAB.DROPOF 08-08 10:11
PROVIDERS: PCP Nurse Practitioner Family; Visit Provider Nurse Practitioner Family
DX: N39.0 Urinary tract infection, site not specified (principal)
CPT/HCPCS: 87086

== ENCOUNTER 2025-08-28 12:33 | Outpatient (CLI) | payer MEDICARE, MEDICAID, SELFPAY ==
--- OUTSIDE RECORDS SUMMARY | 2025-08-28 12:36 | XMS_ITS | Clinical Summary ---
Author Organization [facility] Address [address] [place] [address] Phone Care Team Providers Care Escrow Officer Name Role Phone Kei Currie MD, [facility] Primary Care Provid er 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 Tobacco [...] [place] PART A AND B Care Teams Escrow Officer Relationship Specialty Start Date End Date Bartolo Choudhury Sr., MD [address] [place] [phone] PCP - General Alarm Signaler 04/03/14
--- OUTSIDE RECORDS SUMMARY | 2025-08-28 12:36 | XMS_ITS | Clinical Summary ---
Author Organization Healthcare Address [address] [place] [address] Care Team Providers Care Biomedical Analytical Scientist Name Role Phone Unavailable Primary Care Provider [...] r (1 - 1-dose 75+ series) 2020 [id number] Vaccine (1 - 20 24-25 season) 2025 [...] age to complete this topic Insurance [facility] [id number] [place]
[2025-08-28] MEDS: ALBUTEROL 0.083% 2.5 MG/3 ML NEB IH (14:19)
== END 2025-08-28 23:59 | disposition home or self-care (01) ==
LOC: RT 12:33
PROVIDERS: PCP Nurse Practitioner Family; Visit Provider Internal Medicine Pulmonary Disease
DX: J44.9 Chronic obstructive pulmonary disease, unspecified (principal); R94.2 Abnormal results of pulmonary function studies
CPT/HCPCS: 94010; 94618

== ENCOUNTER 2025-09-04 09:37 | Outpatient (CLI) | payer MEDICARE, MEDICAID, SELFPAY ==
[2025-09-04 14:48] LABS: Vitamin B12 940 pg/mL (239-931)
--- OUTSIDE RECORDS SUMMARY | 2025-09-06 09:41 | XMS_ITS | Clinical Summary ---
Author Organization Healthcare Address [address] [place] [address] Care Team Providers Care Iron Setter Name Role Phone Unavailable Primary Care Provider [...] r (1 - 1-dose 75+ series) 2020 [id number] Vaccine (1 - 20 24-25 season) 2025 [...] to complete this topic [facility] [id number] [place]
--- OUTSIDE RECORDS SUMMARY | 2025-09-06 09:41 | XMS_ITS | Clinical Summary ---
Author Organization [facility] Address [address] [place] [address] Phone Care Team Providers Care Tribunal Member Name Role Phone Kei Currie MD, [facility] Primary Care Provid er Social [...] 75+ series) 2020 COVID-19 Vaccine ( - 2024-2 6 season) 2025 Influenza Vaccine (#1) 2025 Hepatitis B Vaccine Aged Out No longe r eligible based on patient's age to complete this topic Meningococcal B Vaccine Aged Out No l onger eligible based on patient's age to complete this topic Insurance MEDICARE [place] PART A AND B Care Teams Tribunal Member Relationship Specialty Start Date End Date Bartolo Choudhury Sr., MD [address] [place] [phone] PCP - General Broadcast Producer 04/03/14
== END 2025-09-04 23:59 ==
LOC: LAB.DROPOF 09-06 09:39
PROVIDERS: PCP Nurse Practitioner Family; Visit Provider Nurse Practitioner Family
DX: E53.8 Deficiency of other specified B group vitamins (principal)
CPT/HCPCS: 82607

== ENCOUNTER 2025-09-12 11:36 | Outpatient (CLI) | payer MEDICARE, MEDICAID, SELFPAY ==
[2025-09-12 14:11] LABS: Influenza A, PCR Not Detected (NotDetected); Influenza B, PCR Not Detected (NotDetected)
[2025-09-13 06:00] LABS: Coronavirus 19, PCR Detected (NotDetected)
--- OUTSIDE RECORDS SUMMARY | 2025-09-13 14:21 | XMS_ITS | Clinical Summary ---
Author Organization Healthcare Address [address] [place] [address] Care Team Providers Care Soc Analyst Name Role Phone Unavailable Primary Care Provider [...] r (1 - 1-dose 75+ series) 2020 [id number] Vaccine (1 - 20 24-25 season) 2025 [...] to complete this topic [facility] [id number] [place]
--- OUTSIDE RECORDS SUMMARY | 2025-09-13 14:21 | XMS_ITS | Clinical Summary ---
Author Organization [facility] Address [address] [place] [address] Phone Care Team Providers Care Quality Improvement Coordinator Name Role Phone Kei Currie MD, [facility] Primary Care Provid er 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 [...] [place] PART A AND B Care Teams Quality Improvement Coordinator Relationship Specialty Start Date End Date Bartolo Choudhury Sr., MD [address] [place] [phone] PCP - General Bowling Alley Refinisher 04/03/14
== END 2025-09-12 23:59 | disposition home or self-care (01) ==
LOC: LAB.DROPOF 09-13 14:13
PROVIDERS: PCP Nurse Practitioner Family; Visit Provider Nurse Practitioner Family
DX: B34.9 Viral infection, unspecified (principal)
CPT/HCPCS: 87631